=== PATIENT | female | born 1980 | race Caucasian/White ===

== ENCOUNTER 2019-08-23 20:02 | Emergency (ER) | payer OTHER, SELFPAY ==
--- NOTE | ~2019-08-23 | XR_ITS ---
EXAMINATION: XR tibia fibula RT 2V DATE: 08/23/2019 21:01 INDICATION: Right lower leg pain and swelling TECHNIQUE: Anteroposterior and lateral views of the right tibia and fibula were obtained. COMPARISON: None. FINDINGS: Alignment is normal. No fracture. Joint spaces are normal. Soft tissues are unremarkable. No right kn ee or ankle joint effusion. IMPRESSION: 1. Negative right tibia/fibula radiographs. Reviewed, dictated and finalized at location A.
[2019-08-23 20:04] VITALS: BP 154/98; PULSE 105; RESP 20; TEMP 36.8; O2SAT 100
--- NOTE | 2019-08-23 21:09 | ED.LOWEXIN ---
HPI - Extremity Injury (Lower) General Chief Complaint: Extremity Injury, Lower Stated Complaint: right lower extremity Time Seen by Provider: 08/23/19 20:09 History of Present Illness HPI Narrative: Patient is a 39-year-old female who presents to the ER with right calf pain. Ongoing for 1 week. No trauma. Mainly tender over the lateral calf proximally. Reports she was seen at [facility] yesterday and received a venous Doppler ultrasound of her right lower extremity that was free of DVT. Patient reports she is unsure why she would be having this pain. Reports she does sit on the leg a lot but has not been recently due to the discomfort. Occasionally she will get swelling when she is standing for a while but then it will go down when she sits down or raises her leg. Occasionally will get some throbbing that goes into her foot. No focal weakness or paresthesias or numbness. No discoloration/fevers/chills. Related Data Allergies Allergy/AdvReac Type Severity Reaction Status Date / Time No Known Allergies Allergy Verified 08/23/19 20:03 Review of Systems Review of Systems: All systems reviewed & are unremarkable except as noted in HPI and below Constitutional: Constitutional: Denies chills, Denies fever(s) and Denies weakness Cardiovascular: Cardiovascular: Denies chest pain Respiratory: Respiratory: Denies cough and Denies dyspnea Musculoskeletal: Musculoskeletal: Denies arthralgias, Denies joint swelling and Reports muscle cramps Comments: RLE edema Integumentary/Breasts: Skin/Breast: Denies rash Neurologic: Denies focal weakness and Denies numbness PMFSH Past Medical History Medical History (Updated 08/23/19 @ 23:14 by Renny Marley MD) No pertinent past medical history Surgical History Surgical History (Updated 08/23/19 @ 21:15 by Renny Marley MD) H/O shoulder surgery H/O tubal ligation History of cholecystectomy Social History Social History (Updated 08/23/19 @ 21:15 by Renny Marley MD) Tobacco type: cigarettes Gender identity (if verbalized by the patient): Female Exam Narrative: Exam Narrative: GENERAL: Well-appearing, well-nourished, and in no acute distress. HEAD: Normocephalic, atraumatic. ENT: Mucous membranes moist. CHEST: Clear to auscultation. No respiratory distress. HEART: Regular rate and rhythm. Normal peripheral pulses. EXTREMITIES: Normal range of motion. Trace edema. Tender palpation right lateral calf. Calf is soft. No cellulitis. Normal dorsalis pedis and posterior tibial pulses. Brisk capillary refill in the toes. Normal strength at the knee and ankle. Sharp and soft touch intact. Back: No midline tenderness of the thoracic or lumbar spine. No reproducible paraspinal tenderness. SKIN: Warm, dry, no rash. NEURO: No focal deficits. Alert and oriented x3.. Course Course Emergency Course: Patient informed of results. Discharge home. Vital Signs Vital signs: Vital Signs Temperature 98.2 F 08/23/19 20:04 Pulse Rate 105 H 08/23/19 20:04 Respiratory Rate 20 08/23/19 20:04 Blood Pressure 154/98 H 08/23/19 20:04 Pulse Oximetry 100 08/23/19 20:04 Temperature 98.2 F 08/23/19 20:04 Pulse Rate 105 H 08/23/19 20:04 Respiratory Rate 20 08/23/19 20:04 Blood Pressure 154/98 H 08/23/19 20:04 Pulse Oximetry 100 08/23/19 20:04 MDM - Extremity Injury (Lower) Lab Data Result diagrams: 08/23/19 21:11 08/23/19 21:11 Labs: Lab Results 08/23/19 08/23/19 Range/Units 21:11 21:11 WBC 7.8 (4.5-10.0) K/mm3 RBC 4.39 (4.2-5.4) M/mm3 Hgb 13.3 (12.0-15.0) g/dL Hct 39.3 (37.0-47.0) % MCV 89.5 (80-100) fl MCH 30.3 (26-34) pg MCHC 33.8 (32-36) g/dl RDW 12.5 (11.5-14.5) % Plt Count 300 (150-375) k/mm3 MPV 8.7 (7.4-10.4) fl Immature Gran % (Auto) 0.3 (0-0.5) % Neut % (Auto) 58.3 (45.5-73.1) % Lymph % (Auto) 28.5 (18.3-44.2) % [place] % (Auto)
[2019-08-23] MEDS: KETOROLAC 30 MG/ML VIAL (*BKC) IV PUSH (21:10)
[2019-08-23 21:17] LABS: Basophils Absolute Auto 0.1 K/mm3 (0.0-0.1); Eosinophils Absolute Auto 0.2 K/mm3 (0-0.3); Eosinophils Percent Auto 2.4 % (0-4.4); Hematocrit 39.3 % (37.0-47.0); Hemoglobin 13.3 g/dL (12.0-15.0); Immature Granulocyte Absolute 0.02 K/mm3 (0.00-0.031); Immature Granulocyte Percent A 0.3 % (0-0.5); Lymphocytes Absolute Auto 2.23 K/mm3 (0.9-3.2); Lymphocytes Percent Auto 28.5 % (18.3-44.2); Mean Corpuscular HGB Conc 33.8 g/dl (32-36); Mean Corpuscular Hemoglobin 30.3 pg (26-34); Mean Corpuscular Volume 89.5 fl (80-100); Mean Platelet Volume 8.7 fl (7.4-10.4); Monocytes Absolute Auto 0.7 K/mm3 (0.1-0.6); Monocytes Percent Auto 9.5 % (2.6-8.5); Neutrophils Absolute Auto 4.6 K/mm3 (1.3-6.7); Neutrophils Percent Auto 58.3 % (45.5-73.1); Platelet Count Result 300 k/mm3 (150-375); Red Blood Count 4.39 M/mm3 (4.2-5.4); Red Cell Distribution Width 12.5 % (11.5-14.5); White Blood Count 7.8 K/mm3 (4.5-10.0)
[2019-08-23 21:28] LABS: Blood Urea Nitrogen 9 mg/dL (7-17); Calcium 9.1 mg/dL (8.4-10.2); Carbon Dioxide 27 mmol/L (22-30); Chloride 105 mmol/L (98-107); Creatine Kinase 55 U/L (30-135); Estimated Glomerular Filt Rate > 60; Glucose 96 mg/dL (65-105); Potassium 3.9 mmol/L (3.4-5.0); Sodium 136 mmol/L (137-145)
[2019-08-24 00:31] VITALS: BP 132/70; PULSE 78; RESP 18; O2SAT 98
== END 2019-08-24 00:32 | disposition home or self-care (01) ==
PROVIDERS: Emergency Provider Emergency Medicine; PCP Internal Medicine
DX: S86.911A Strain of unspecified muscle(s) and tendon(s) at lower leg level, right leg, initial encounter (principal); X58.XXXA Exposure to other specified factors, initial encounter
CPT/HCPCS: 36415; 73590; 80048; 82550; 85025; 96374; 99284; J1885

== ENCOUNTER 2020-11-26 16:53 | Outpatient (CLI) | payer OTHER, SELFPAY ==
--- NOTE | ~2020-11-26 | US_ITS ---
US venous doppler LE RT DATE: 11/26/2020 17:26 INDICATION: Swelling and lump of right lower extremity TECHNIQUE: Real-time and color flow imaging and Doppler analysis COMPARISON: None FINDINGS: A 3.3 x 1.4 x 1.3 cm right popliteal cyst is noted. Greater saphenous vein is patent. There is spontaneous and phasic flow and normal augmentation and co nataly flow signal and normal compression of the deep veins of the right lower extremity. IMPRESSION: No evidence of deep venous thrombosis Right popliteal cyst Reviewed, dictated and finalized at [facility]. Reviewed, dictated and finalized at location A.
== END 2020-11-26 16:54 | disposition home or self-care (01) ==
PROVIDERS: PCP Internal Medicine; Visit Provider Internal Medicine
DX: R22.40 Localized swelling, mass and lump, unspecified lower limb (principal); M71.21 Synovial cyst of popliteal space [Baker], right knee
CPT/HCPCS: 93971

== ENCOUNTER 2023-04-15 08:41 | Emergency (ER) | payer SELFPAY ==
--- NOTE | ~2023-04-15 | CT_ITS ---
EXAMINATION: CT abdomen pelvis w con DATE: 04/15/2023 10:16 INDICATION: Left flank pain, chills, urinary tract infection TECHNIQUE: Computed tomography (CT) of the abdomen and pelvis was performed with 100 CC Omnipaque 350 intravenous contrast. Automated exposure control and iterative reconstruction technique were employe d. Exam dose: 1192.36 mGy-cm total exam DLP. COMPARISON: 02/25/2013 CT abdomen pelvis FINDINGS: The lung bases are clear of infiltrate or consolidation. Heart size is within normal range. No pericardial or pleural effusion. Small sliding hiatal hernia. Status post cholecystectomy. No hepatic, splenic, pancreatic, adrenal or renal space-occupying mass lesion is detected. Normal enh ancement of the kidneys. No urinary tract calculus or hydroureteronephrosis. Normal caliber and mild atherosclerotic change of the abdominal aorta. No intraperitoneal or retroper itoneal or pelvic mass lesion or adenopathy or ascites. 1.9 cm left ovarian cyst. Uterus and adnexal areas and urinary bladder are otherwise unremarkable. There is a prominent amount fecal material in the colon. No bowel obstruction, bowel wall thickening, pneumatosis or intraperitoneal free air is detected. Is no evidence of appendicitis. Small bilateral fat-containing inguinal hernias. Included skeletal structures are unremarkable. IMPRESSION: Status post cholecystectomy Small sliding hiatal hernia 1.9 cm left ovarian cyst Reviewed, dictated and finalized at [facility]. Reviewed, dictated and finalized at location A. [employer]
[2023-04-15 08:49] VITALS: BP 155/89; PULSE 100; RESP 16; TEMP 37.1; O2SAT 99
[2023-04-15 09:08] LABS: Appearance Urine Cloudy (Clear); Bacteria Urine 2+ /hpf; Bilirubin Urine Negative (Negative); Blood Urine 2+ (Negative); Color Urine Dark Yellow (Yellow); Glucose Urine UA Negative (Negative); Ketones Urine Trace mg/dL (Negative); Leukocyte Esterase Ur Trace LEU/UL (Negative); Nitrate Urine Negative (Negative); Non Pathogenic Casts 0-2; Protein Urine Negative (Negative); RBC Urine 0-2 /hpf (0-2); Specific Grav Ur 1.026 (1.001-1.035); Squamous Epithelial Cell Urine Many /hpf (Few); pH Urine 5.5 (5.0-9.0)
[2023-04-15 09:42] LABS: Basophils Percent Auto 0.6 % (0.2-1.2); Eosinophils Absolute Auto 0.1 K/mm3 (0-0.3); Eosinophils Percent Auto 2.7 % (0-4.4); Hematocrit 40.2 % (37.0-47.0); Immature Granulocyte Absolute 0.02 K/mm3 (0.00-0.031); Immature Granulocyte Percent A 0.4 % (0-0.5); Lymphocytes Absolute Auto 0.95 K/mm3 (0.9-3.2); Lymphocytes Percent Auto 19.9 % (18.3-44.2); Mean Corpuscular HGB Conc 32.3 g/dl (32-36); Mean Corpuscular Hemoglobin 29.7 pg (26-34); Mean Corpuscular Volume 91.8 fl (80-100); Mean Platelet Volume 8.6 fl (7.4-10.4); Monocytes Absolute Auto 0.6 K/mm3 (0.1-0.6); Monocytes Percent Auto 13.4 % (2.6-8.5); Platelet Count Result 240 k/mm3 (150-375); Red Blood Count 4.38 M/mm3 (4.2-5.4); Red Cell Distribution Width 12.4 % (11.5-14.5); White Blood Count 4.8 K/mm3 (4.5-10.0)
--- NOTE | 2023-04-15 09:50 | ED.FEMALEGU ---
HPI - Female Genitourinary General Chief complaint: Urogenital-Female Stated complaint: I think I have a UTI Time Seen by Provider: 04/15/23 09:11 Source: patient Mode of arrival: ambulatory Limitations: no limitations History of Present Illness HPI Narrative: This is a 42 year old female that presents to the ER for left flank pain and chills. Ongoing over the last week. Reports history of UTIs and was concerned she had one. Denies fevers or vomiting. Related Data Allergies Allergy/AdvReac Type Severity Reaction Status Date / Time No Known Allergies Allergy Verified 04/15/23 08:48 Review of Systems Review of Systems: CONSTITUTIONAL: Denies fever GASTROINTESTINAL: Reports abdominal pain. Denies nausea, vomiting, or diarrhea. GENITOURINARY: Denies dysuria or hematuria. All systems reviewed & are unremarkable except as noted in HPI and below PMFSH Past Medical History Medical History (Updated 04/15/23 @ 11:35 by Corine Kimbrough PA-C) No pertinent past medical history Surgical History Surgical History (Updated 08/23/19 @ 21:15 by Renny Marley MD) H/O shoulder surgery H/O tubal ligation History of cholecystectomy Social History Social History (Updated 08/23/19 @ 21:15 by Renny Marley MD) Tobacco type: cigarettes Gender identity (if verbalized by the patient): Female Exam Narrative: GENERAL: Well-appearing, well-nourished, and in no acute distress. HEAD: Normocephalic, atraumatic. EYES: EOMI. CHEST: Clear to auscultation. No respiratory distress. No wheezes rales or rhonchi HEART: Regular rate and rhythm. No murmur heard. Normal peripheral pulses. ABDOMEN: Soft, nontender, nondistended, normal active bowel sounds. Left sided CVA tenderness EXTREMITIES: Normal range of motion. No edema. SKIN: Warm, dry, no rash. NEURO: No focal deficits. Alert and oriented x3. PSYCH: Normal mood and affect Course Course Emergency Course: Patient updated on workup and agrees with plan of care Vital Signs Vital signs: Vital Signs Temperature 98.7 F 04/15/23 08:49 Pulse Rate 100 04/15/23 08:49 Respiratory Rate 16 04/15/23 08:49 Blood Pressure 155/89 H 01/07/24 08:49 Pulse Oximetry 99 04/15/23 08:49 Temperature 98.7 F 04/15/23 08:49 Pulse Rate 100 04/15/23 08:49 Respiratory Rate 16 04/15/23 08:49 Blood Pressure 155/89 H 04/15/23 08:49 Pulse Oximetry 99 04/15/23 08:49 MDM - Female Genitourinary MDM Narrative Medical decision making narrative: Patient presents to the emergency department for left flank pain and chills. Ongoing over the last week. She is afebrile and nontoxic appearing. Her vitals are stable. CBC without leukocytosis. Metabolic panel without concerning findings. UA with evidence of infection. This will be sent for culture. test is negative. CT abdomen and pelvis is without acute findings. Shows a small left ovarian cyst. Patient was updated on her workup. Given 1st dose of antibiotics IV in the ED. Will be sent with oral antibiotics. She is to follow up with primary provider. She was given warnings to return to the ER Differential Diagnosis Differential diagnosis: Likely urinary tract infection and other (kidney stone) Lab Data Attestation: I reviewed the patient's lab results. 04/15/23 09:30 04/15/23 09:30 Labs: Lab Results 04/15/23 04/15/23 Range/Units 08:55 09:30 WBC 4.8 (4.5-10.0) K/mm3 RBC 4.38 (4.2-5.4) M/mm3 Hgb 13.0 (12.0-15.0) g/dL Hct 40.2 (37.0-47.0) % MCV 91.8 (80-100) fl MCH 29.7 (26-34) pg MCHC 32.3 (32-36) g/dl RDW 12.4 (11.5-14.5) % Plt Count 240 (150-375) k/mm3 MPV 8.6 (7.4-10.4) fl Immature Gran % (Auto) 0.4 (0-0.5) % Neut % (Auto) 63.0 (45.5-73.1) % Lymph % (Auto) 19.9 (18.3-44.2) % [place] % (Auto) 13.4 H (2.6-8.5) % Eos % (Auto) 2.7 (0-4.4) % Baso % (Auto) 0.6 (0.2-1.2) % Lymph # (Auto)
[2023-04-15 09:52] LABS: Anion Gap 8 mmol/L (8-16); Blood Urea Nitrogen 10 mg/dL (7-17); Calcium 8.6 mg/dL (8.4-10.2); Carbon Dioxide 25 mmol/L (22-30); Chloride 103 mmol/L (98-107); Estimated CRCL calculation 134 ml/min; Estimated Glomerular Filt Rate > 60; Glucose 128 mg/dL (65-110); Potassium 3.7 mmol/L (3.4-5.0); Sodium 136 mmol/L (137-145)
[2023-04-15 09:55] LABS: Add Urine Microscopic? YES
[2023-04-15] MEDS: KETOROLAC 15 MG/ML VIAL (*BKC) IV PUSH (11:46)
[2023-04-15 11:50] VITALS: BP 128/86; PULSE 74; RESP 16; O2SAT 99
== END 2023-04-15 11:51 | disposition home or self-care (01) ==
PROVIDERS: Emergency Medicine; Emergency Provider Physician Assistant; PCP Internal Medicine
DX: N10 Acute pyelonephritis (principal); N83.202 Unspecified ovarian cyst, left side; F17.210 Nicotine dependence, cigarettes, uncomplicated; Z87.440 Personal history of urinary (tract) infections; Z90.49 Acquired absence of other specified parts of digestive tract; K44.9 Diaphragmatic hernia without obstruction or gangrene
CPT/HCPCS: 36415; 74177; 80048; 81001; 81025; 85025; 87077; 87086; 87186; 96365; 96375; 99284; J0696; J1885; Q9967

== ENCOUNTER 2023-04-17 08:23 | Emergency (ER) | payer SELFPAY ==
[2023-04-17 08:25] VITALS: BP 147/109; PULSE 97; RESP 18; TEMP 37; O2SAT 100
--- NOTE | 2023-04-17 09:26 | ED.GENADULT ---
HPI - General Adult General Chief complaint: Unspecified Stated complaint: Needs new medication Time Seen by Provider: 04/17/23 09:00 Source: patient and old records reviewed Mode of arrival: ambulatory Limitations: no limitations History of Present Illness HPI narrative: Patient is a 42-year-old female who presents to the ED wanting new antibiotic for UTI. Patient reports she was seen in the ED here on Sunday and diagnosed with a urinary tract infection. She was started on cefdinir. Patient states the antibiotics have made her feel nauseous, lightheaded. She was told to stop the antibiotics by the pharmacist. She is here wanting a new antibiotic. Per records, urine culture did grow out E coli. Patient reports history of frequent UTIs. She has tolerated Bactrim in the past. She denies any other issues. Denies abdominal pain, vomiting, back or flank pain, fevers. Related Data Allergies Allergy/AdvReac Type Severity Reaction Status Date / Time No Known Allergies Allergy Verified 04/15/23 08:48 Review of Systems Review of Systems: CONSTITUTIONAL: Denies fever, chills, or sweats. GASTROINTESTINAL: Denies abdominal pain, nausea, vomiting, or diarrhea. GENITOURINARY: See HPI. MUSCULOSKELETAL: Denies back pain All systems reviewed & are unremarkable except as noted in HPI and below PMFSH Past Medical History Medical History No pertinent past medical history Surgical History Surgical History H/O shoulder surgery H/O tubal ligation History of cholecystectomy Social History Social History Tobacco type: cigarettes Gender identity (if verbalized by the patient): Female Exam Narrative: GENERAL: Well appearing, well-nourished, non-toxic, in no acute distress. HEAD: Normocephalic, atraumatic. RESPIRATORY: Airway patent, respirations nonlabored. Clear to auscultation bilaterally, no rales, rhonchi, wheezing. CARDIOVASCULAR: Regular rate and rhythm. ABDOMINAL: Soft, nontender, nondistended. Normoactive BS. MUSCULOSKELETAL: Moves all extremities. No gross deformities. SKIN: Warm, dry, normal color. NEURO: A&O X3. Speech clear. PSYCHIATRIC: Appropriate mood and affect. Normal interaction. Course Vital Signs Vital signs: Vital Signs Temperature 98.6 F 04/17/23 08:25 Pulse Rate 97 04/17/23 08:25 Respiratory Rate 18 04/17/23 08:25 Blood Pressure 147/109 H 04/17/23 08:25 Pulse Oximetry 100 04/17/23 08:25 Temperature 98.6 F 04/17/23 08:25 Pulse Rate 97 04/17/23 08:25 Respiratory Rate 18 04/17/23 08:25 Blood Pressure 147/109 H 04/17/23 08:25 Pulse Oximetry 100 04/17/23 08:25 Medical Decision Making MDM Narrative Medical decision making narrative: Here on Sunday UTI, adverse reaction to cefdinir. Has tolerated Bactrim in the past. E coli on urine culture. Will switch to Bactrim. Patient without any other complaints or systemic signs of infection to suggest need for further labs or imaging at this time. Given return precautions. Medical Records Medical records reviewed: Yes I reviewed the external patient's medical records. Vital Signs Vital Signs: Vital Signs Temperature 98.6 F 04/17/23 08:25 Pulse Rate 97 04/17/23 08:25 Respiratory Rate 18 04/17/23 08:25 Blood Pressure 147/109 H 04/17/23 08:25 Pulse Oximetry 100 04/17/23 08:25 Temperature 98.6 F 04/17/23 08:25 Pulse Rate 97 04/17/23 08:25 Respiratory Rate 18 04/17/23 08:25 Blood Pressure 147/109 H 04/17/23 08:25 Pulse Oximetry 100 04/17/23 08:25 Discharge Plan Discharge Clinical Impression: UTI (urinary tract infection) Qualifiers: Urinary tract infection type: acute cystitis Hematuria presence: with hematuria Qualified Code(s): N30.01 - Acute cystitis with hematuria Adverse
[2023-04-17 09:42] VITALS: BP 132/90; PULSE 93; RESP 18; TEMP 36.7; O2SAT 97
== END 2023-04-17 09:43 | disposition home or self-care (01) ==
PROVIDERS: Emergency Provider Physician Assistant; PCP Internal Medicine
DX: N30.01 Acute cystitis with hematuria (principal); R11.0 Nausea; T36.1X5A Adverse effect of cephalosporins and other beta-lactam antibiotics, initial encounter
CPT/HCPCS: 99283

== ENCOUNTER 2023-09-01 08:23 | Emergency (ER) | payer SELFPAY ==
[2023-09-01] VITALS (12 sets, daily range): BP systolic 120–143; BP diastolic 74–107; PULSE 78–99; RESP 11–27; TEMP 36.7; O2SAT 94–100
[2023-09-01] MEDS: IPRATROPIUM 0.5 MG/ALBUTEROL SULFATE 2.5 MG AMPUL.NEB 3 ML INHALATION (08:42)
--- NOTE | 2023-09-01 09:13 | ED.ASTHMA ---
HPI - Asthma General Chief Complaint: Asthma Stated Complaint: ASTHMA Time Seen by Provider: 09/01/23 08:55 History of Present Illness HPI Narrative: Patient is a 43-year-old female who presents to the emergency department this complaining of an asthma exacerbation. Patient states that she has not to use her inhaler until recently and for 3 years her asthma has not bothered her. Patient was at work this and started to feel short of breath. EMS was called and patient was brought to our facility for further evaluation. EMS did administer a DuoNeb breathing treatment, magnesium and Decadron. Upon arrival to our emergency department, patient states that she feels much better. She is denying any chest pain or shortness of breath at this time, denies any fevers or chills, any nausea or vomiting, any abdominal pain. Patient denies any additional symptoms or concerns at this time. Related Data Allergies Allergy/AdvReac Type Severity Reaction Status Date / Time cefdinir Allergy Nausea and Verified 09/01/23 08:30 Vomiting coban Allergy Rash Uncoded 09/01/23 08:30 Review of Systems Review of Systems: All systems are reviewed and are negative unless stated otherwise in the HPI. [facility] Past Medical History Medical History No pertinent past medical history Surgical History Surgical History H/O shoulder surgery H/O tubal ligation History of cholecystectomy Social History Social History Tobacco type: cigarettes Gender identity (if verbalized by the patient): Female Exam Narrative: General: Alert, awake, afebrile, anxious. Neck: Trachea midline, no JVD, no lymphadenopathy. Cardiovascular: Regular rate and rhythm, no murmurs, rubs or gallops, no peripheral edema. Respiratory: Clear to auscultation bilaterally, no tachypnea, no wheezing, no respiratory distress. Abdomen: Soft, nontender, nondistended, no rebound, no guarding, no peritoneal signs. Musculoskeletal: No joint swelling or deformity, normal muscle tone. Skin: No rashes or petechia, no signs of infection. Psychiatric: Alert and oriented, normal behavior and judgment for situation. Neurological: Alert and oriented to person, place, and time. Follows all commands. No focal deficits, speech is clear and fluent. Course Vital Signs Vital signs: Vital Signs Temperature 98.0 F 09/01/23 08:23 Pulse Rate 98 09/01/23 08:23 Respiratory Rate 21 H 09/01/23 08:23 Blood Pressure 127/99 H 09/01/23 08:23 Pulse Oximetry 96 09/01/23 08:23 Oxygen Delivery Room Air 09/01/23 08:23 Temperature 98.0 F 09/01/23 08:23 Pulse Rate 81 09/01/23 09:16 Respiratory Rate 18 09/01/23 09:16 Blood Pressure 120/74 09/01/23 09:16 Pulse Oximetry 96 09/01/23 09:16 Oxygen Delivery Room Air 09/01/23 08:32 MDM - Asthma MDM Narrative Medical decision making narrative: The patient was evaluated by myself in the emergency department. History is obtained from patient who is an independent historian and physical exam was performed. External medical records were reviewed at this time. IV was established and pertinent tests were ordered. Lung auscultation revealed no audible wheezing. Patient was administered a DuoNeb breathing treatment at this time. Patient is refusing any blood work at this time stating that she does not want any additional pills and feels fine and would like to be discharged. Patient is requesting an Atrovent script. Differential diagnosis considerations include acute anxiety reaction versus asthma exacerbation. Comorbidities impacting this visit include history of asthma. I have evaluated and discussed social determinants of health with the patient that could potentially impact subsequent diagnosis and treatment plans. On repeat assessment of the patie
== END 2023-09-01 09:35 | disposition home or self-care (01) ==
PROVIDERS: Emergency Provider Emergency Medicine; PCP Internal Medicine
DX: J45.901 Unspecified asthma with (acute) exacerbation (principal); F17.210 Nicotine dependence, cigarettes, uncomplicated; Z90.49 Acquired absence of other specified parts of digestive tract
CPT/HCPCS: 94640; 99284

== ENCOUNTER 2023-10-22 17:08 | Emergency (ER) | payer SELFPAY ==
[2023-10-22 17:13] VITALS: BP 148/106; PULSE 99; RESP 24; TEMP 36.4; O2SAT 100
--- NOTE | 2023-10-22 17:19 | ED.DENTAL ---
HPI - Dental/Oral General Chief complaint: Dental/Oral Stated complaint: tooth infection Time Seen by Provider: 10/22/23 17:18 Source: patient Mode of arrival: ambulatory Limitations: no limitations History of Present Illness HPI Narrative: This is a 43-year-old female that presents to the emergency department for dental pain. Ongoing over the last couple of days. Reports she was told by dentist the tooth needs to be pulled, but she was unable to afford it. Reports some swelling in the area. Denies fevers. Complaint: tooth pain Location: Tooth # (29) Related Data Allergies Allergy/AdvReac Type Severity Reaction Status Date / Time cefdinir Allergy Nausea and Verified 10/22/23 17:12 Vomiting Review of Systems Review of Systems: CONSTITUTIONAL: Denies fever ENT: Reports dentalgia All systems reviewed & are unremarkable except as noted in HPI and below PMFSH Past Medical History Medical History No pertinent past medical history Surgical History Surgical History H/O shoulder surgery H/O tubal ligation History of cholecystectomy Social History Social History Tobacco type: cigarettes Gender identity (if verbalized by the patient): Female Exam Narrative: GENERAL: Well-appearing, well-nourished, and in no acute distress. HEAD: Normocephalic, atraumatic. EYES: EOMI. ENT: Nares clear, no rhinorrhea or epistaxis. Mucous membranes moist. Oropharynx without tonsillar hypertrophy exudate or other lesions. Poor dentition. Tooth number 29 tender to palpation. No surrounding edema or fluctuance to suggest abscess. No trismus. Floor of mouth soft NECK: Supple. Right sided submandibular adenopathy CHEST: Clear to auscultation. No respiratory distress. No wheezes rales or rhonchi HEART: Regular rate and rhythm. No murmur heard. Normal peripheral pulses. ABDOMEN: Soft, nontender, nondistended, normal active bowel sounds. EXTREMITIES: Normal range of motion. No edema. SKIN: Warm, dry, no rash. NEURO: No focal deficits. Alert and oriented x3. PSYCH: Normal mood and affect Course Course Emergency Course: Patient agrees with plan of care Vital Signs Vital signs: Vital Signs Temperature 97.6 F 10/22/23 17:13 Pulse Rate 99 10/22/23 17:13 Respiratory Rate 24 H 10/22/23 17:13 Blood Pressure 148/106 H 10/22/23 17:13 Pulse Oximetry 100 10/22/23 17:13 Oxygen Delivery Room Air 10/22/23 17:13 Temperature 97.6 F 10/22/23 17:13 Pulse Rate 99 10/22/23 17:13 Respiratory Rate 24 H 10/22/23 17:13 Blood Pressure 148/106 H 10/22/23 17:13 Pulse Oximetry 100 10/22/23 17:13 Oxygen Delivery Room Air 10/22/23 17:13 MDM - Dental/Oral MDM Narrative Medical decision making narrative: Patient presents to the emergency department for dentalgia ongoing over the last several days. She is afebrile and nontoxic appearing. No evidence for abscess at this time. Will be started on oral antibiotics and was instructed to have continued follow-up with her dentist. She was given warnings to return to the ER Differential Diagnosis Differential diagnosis: Likely dental caries, toothache and dental abscess Critical Care Time Critical Care Time Critical Care Time: No Discharge Plan Discharge Clinical Impression: Toothache Patient Disposition: Home, Self-Care Condition: Stable Instructions: Antibiotic Form, Toothache (ED) Additional Instructions: Return to the Emergency Department if you experience fever >101, increasing swelling and redness of your tooth, or any other symptoms that are concerning to you Take antibiotic as prescribed. Tylenol or Ibuprofen as needed for pain. You can apply a dab of clove oil to a Qtip and apply to the tooth to help numb the area Follow up with your dentist Pre
[2023-10-22 17:50] VITALS: BP 145/97; PULSE 90; RESP 20; O2SAT 98
== END 2023-10-22 18:35 | disposition home or self-care (01) ==
PROVIDERS: Emergency Provider Physician Assistant
DX: K08.89 Other specified disorders of teeth and supporting structures (principal); Z90.49 Acquired absence of other specified parts of digestive tract; F17.210 Nicotine dependence, cigarettes, uncomplicated
CPT/HCPCS: 99283

== ENCOUNTER 2023-12-08 11:38 | Emergency (ER) | payer SELFPAY ==
--- NOTE | ~2023-12-08 | XR_ITS ---
EXAMINATION: XR chest 2V 12/08/2023 12:06 INDICATION: Asthma attack PROCEDURE: 2 view chest COMPARISON: No prior studies for comparison. FINDINGS: The lungs are clear. The cardiomediastinal silhouette is within normal limits. There are no pleural effusions. There is no pneumothorax suspected. IMPRESSION: 1: NO ACUTE CARDIOPULMONARY DISEASE. Reviewed, dictated and finalized at location B.
[2023-12-08 11:39] VITALS: PULSE 90; RESP 16; O2SAT 99
[2023-12-08 11:42] VITALS: BP 142/108; TEMP 36.6; O2SAT 99
--- NOTE | 2023-12-08 11:48 | ED.ASTHMA ---
HPI - Asthma General Chief Complaint: Asthma Stated Complaint: SOB History of Present Illness HPI Narrative: 43-year-old female history of asthma present to the emergency department for evaluation after having an asthma attack. Patient states that she was exerting herself at work began having some shortness of breath and then she states that her anxiety kicked in and worsen her respiratory status. Patient was doing a breathing treatment when EMS arrived. In route patient was treated with an additional breathing treatment along with Mag. Upon arrival to the emergency department patient states that her symptoms have improved patient denies any complaints. Patient states she was having some shortness of breath with this attack but denies any associated chest pain. States he does have a history of asthma and does continue to smoke. Patient states she does not have health insurance and is unable to afford her medications. Related Data Allergies Allergy/AdvReac Type Severity Reaction Status Date / Time cefdinir Allergy Nausea and Verified 12/08/23 11:42 Vomiting Review of Systems Review of Systems: All systems reviewed & are unremarkable except as noted in HPI and below PMFSH Past Medical History Medical History No pertinent past medical history Surgical History Surgical History H/O shoulder surgery H/O tubal ligation History of cholecystectomy Social History Social History Tobacco type: cigarettes Gender identity (if verbalized by the patient): Female Exam Narrative: APPEARANCE: Well appearing, no pain, no distress, well-nourished. HEAD: normocephalic, atraumatic. EYES: PERRLA/EOMI, conjunctivae clear. NOSE: Normal no drainage EARS:TMS clear with good light reflex. THROAT: Pharynx clear, no exudate. NECK: Supple. No adenopathy, no masses. RESPIRATORY: Airway patent, respirations nonlabored. Clear to auscultation bilaterally, no rales, rhonchi, wheezing. CARDIOVASCULAR: Regular rate and rhythm without murmurs rubs or gallops. ABDOMINAL: Soft, nontender, nondistended, normal bowel sounds MUSCULOSKELETAL: Moves all extremities. Strength/ROM intact, No edema, No calf tenderness. NEURO: Alert. Cranial nerves II through XII intact. Grossly intact SKIN: Warm, dry. Normal Color Course Course Emergency Course: Patient felt improved treatment and requested discharge to home Vital Signs Vital signs: Vital Signs Pulse Rate 90 12/08/23 11:39 Respiratory Rate 16 12/08/23 11:39 Pulse Oximetry 99 12/08/23 11:39 Oxygen Delivery Room Air 12/08/23 11:39 Temperature 97.9 F 12/08/23 11:42 Pulse Rate 73 12/08/23 12:45 Respiratory Rate 16 12/08/23 12:45 Blood Pressure 127/86 12/08/23 12:48 Pulse Oximetry 96 12/08/23 12:45 Oxygen Delivery Room Air 12/08/23 11:42 MDM - Asthma MDM Narrative Medical decision making narrative: 43-year-old female presented emergency department for evaluation for an asthma exacerbation. Patient did feel improved upon arrival emergency department. Chest x-ray showed no acute cardiopulmonary abnormality. Patient was negative for influenza RSV and for COVID. Patient was started on prednisone emergency department discharged home with prednisone. Patient was also provided albuterol inhaler. Patient was educated on importance of refraining from smoking and patient was strongly encouraged close follow-up with her primary care physician P Differential Diagnosis Differential diagnosis: Likely Acute exacerbation, Status asthmaticus, Acute asthmatic bronchitis, Pneumonia, COPD exacerbation and other Lab Data Attestation: I reviewed the patient's lab results. Labs: Lab Results 12/08/23 Range/Units 12:07 Influenza A (RT-PCR) Negative (Negative) Influenza B (RT-PCR) Negati
[2023-12-08] MEDS: predniSONE 20 MG TABLET 40 MG PO (11:53)
[2023-12-08 12:45] VITALS: PULSE 73; RESP 16; O2SAT 96
[2023-12-08 12:48] VITALS: BP 127/86
[2023-12-08 12:50] LABS: Influenza A QL RT-PCR Negative (Negative); Influenza B QL RT-PCR Negative (Negative); RSV RNA, RT-PCR Negative (Negative); SARS-CoV-2 RNA PCR Negative (Negative)
== END 2023-12-08 13:45 | disposition home or self-care (01) ==
PROVIDERS: Emergency Provider Emergency Medicine
DX: J45.901 Unspecified asthma with (acute) exacerbation (principal); Z20.822 Contact with and (suspected) exposure to COVID-19
CPT/HCPCS: 71046; 87637; 99283; J7512

== ENCOUNTER 2024-03-21 08:06 | Emergency (ER) | payer SELFPAY ==
--- NOTE | ~2024-03-21 | XR_ITS ---
XR chest 1V portable 03/21/2024 09:56 Indication: Cough Procedure: AP portable chest Comparison: 12/08/2023 Findings: Heart size normal. No focal air space disease, pulmonary edema, pleural effusion or suspect ed pneumothorax. Impression: 1: No acute cardiopulmonary disease. Reviewed, dictated and finalized at location B. PULLER Impression: 1: No acute cardiopulmonary disease.
[2024-03-21 08:36] VITALS: BP 146/90; PULSE 93; RESP 19; TEMP 36.7; O2SAT 100
--- NOTE | 2024-03-21 09:28 | ED_ITS ---
HPI - URI/Sore Throat General Chief Complaint: Upper Respiratory Infection <Tariq Santos PA-C - Last Filed: 03/21/24 10:33> Stated Complaint: URI symptoms <Tariq aSntos PA-C - Last Filed: 03/21/24 10:33> Time Seen by Provider: 03/21/24 09:18 <Tariq Santos PA-C - Last Filed: 03/21/24 10:33> Source: patient <OLENA Arthur Last Filed: 03/21/24 10:33> Mode of arrival: ambulatory <Tariq Santos PA-C - Last Filed: 03/21/24 10:33> Limitations: no limitations <Tariq Santos PA-C - Last Filed: 03/21/24 10:33> History of Present Illness HPI Narrative: This is a 43-year-old female with PMH of asthma, regular cigarette smoker who presents to the ED for chief complaint of cough, congestion and feeling unwell over the past several days. Patient reports that she has had nasal congestion and ear fullness. States that she has been out of her inhalers feels that she is wheezing more. Denies chest pain, abdominal pain, nausea, vomiting, diarrhea or urinary complaints. Denies sore throat. <Tariq Santos PA-C - Last Filed: 03/21/24 10:33> Related Data Allergies/Adverse Reactions: Allergies Allergy/AdvReac Type Severity Reaction Status Date / Time cefdinir Allergy Nausea and Verified 12/08/23 11:42 Vomiting <Tariq Santos PA-C - Last Filed: 03/21/24 10:33> Review of Systems Review of Systems: All systems as dictated in HPI <Tariq Santos PA-C - Last Filed: 03/21/24 10:33> PMFSH Past Medical History Medical History: Medical History No pertinent past medical history <Tariq Santos PA-C - Last Filed: 03/21/24 10:33> Surgical History Surgical History: Surgical History H/O shoulder surgery H/O tubal ligation History of cholecystectomy <Tariq Santos PA-C - Last Filed: 03/21/24 10:33> Social History Social History: Social History Tobacco type: cigarettes Gender identity (if verbalized by the patient): Female <Tariq Santos PA-C - Last Filed: 03/21/24 10:33> Exam Narrative: GENERAL: Well-appearing, well-nourished, and in no acute distress. HEAD: Normocephalic, atraumatic. EYES: PERRLA and EOMI. ENT: Nares clear, no rhinorrhea or epistaxis. Mucous membranes moist. Oropharynx without tonsillar hypertrophy exudate or other lesions. NECK: Supple. No adenopathy or masses. CHEST: Mild expiratory wheezes bilaterally. No respiratory distress. 100% room air. HEART: Regular rate and rhythm. No murmur heard. Normal peripheral pulses. ABDOMEN: Soft, nontender, nondistended, normal active bowel sounds. MSK: Normal range of motion. No edema. SKIN: Warm, dry, no rash. NEURO: Alert and oriented x4. No focal deficits. PSYCH: Normal mood and affect. <Tariq Santos PA-C - Last Filed: 03/21/24 10:33> Course SHOT DROPPER/PA Physician Supervision I agree with midlevel documentation; I performed the medical decision making component of this evaluation. <Aranza Sung MD - Last Filed: 03/21/24 16:32> Vital Signs Vital signs: Vital Signs Temperature 98.0 F 03/21/24 08:36 Pulse Rate 93 03/21/24 08:36 Respiratory Rate 19 03/21/24 08:36 Blood Pressure 146/90 H 03/21/24 08:36 Pulse Oximetry 100 03/21/24 08:36 Temperature 98.0 F 03/21/24 08:36 Pulse Rate 80 03/21/24 10:14 Respiratory Rate 18 03/21/24 10:14 Blood Pressure 122/83 03/21/24 10:14 Pulse Oximetry 98 03/21/24 10:14 <Tariq Santos PA-C - Last Filed: 03/21/24 10:33> Vital Signs Temperature 98.0 F 03/21/24 08:36 Pulse Rate 93 03/21/24 08:36 Respiratory Rate 19 03/21/24 08:36 Blood Pressure 146/90 H 03/21/24 08:36 Pulse Oximetry 100 03/21/24 08:36 Temperature 98.0 F 03/21/24 08:36 Pulse Rate 80 03/21/24 10:14 Respiratory Rate 18 03/21/24 10:14 Blood Pressure 122/83 03/21/24 10:14 Pulse Oximetry 98 03/21/24 10:14 <Aranza Sung MD - Last Filed: 03/21/24 16:32> MDM - URI/Sore Throat MDM Narrative Medical decision making narrative: This is a 43-year-old female who presents to the ED for chief complaint of cough, congestion and URI symptoms.. Vitals are normal.. Exam is remarkable for the above. No respiratory distress. She does have some mild wheezing so DuoNeb was given. Viral swabs show positive RSV. Chest x-ray shows no acute findings. Presentation consistent with upper respiratory infection. Patient is out of her inhaler so albuterol was prescribed. Patient will be discharged in stable condition. Supportive measures discussed and return precautions given. Patient is understanding and agreeable with plan for discharge with PCP follow-up. <Tariq Santos PA-C - Last Filed: 03/21/24 10:33> Differential Diagnosis Differential diagnosis: Likely upper respiratory infection, otitis media, sinusitis, viral infection, bronchitis, influenza and pharyngitis <Tariq Santos PA-C - Last Filed: 03/21/24 10:33> Lab Data Labs: Lab Results 03/21/24 Range/Units 09:18 Influenza A (RT-PCR) Negative (Negative) Influenza B (RT-PCR) Negative (Negative) RSV (RT-PCR) Positive A (Negative) SARS-CoV-2 RNA (RT-PCR) Negative (Negative) <Tariq Santos PA-C - Last Filed: 03/21/24 10:33> Lab Results 03/21/24 Range/Units 09:18 Influenza A (RT-PCR) Negative (Negative) Influenza B (RT-PCR) Negative (Negative) RSV (RT-PCR) Positive A (Negative) SARS-CoV-2 RNA (RT-PCR) Negative (Negative) <Aranza Sung MD - Last Filed: 03/21/24 16:32> Discharge Plan Discharge Clinical Impression: Upper respiratory infection, Respiratory syncytial virus (RSV) <Tariq Santos PA-C - Last Filed: 03/21/24 10:33> Patient Disposition: Home, Self-Care <Tariq Santos PA-C - Last Filed: 03/21/24 10:33> Condition: Stable <Tariq Santos PA-C - Last Filed: 03/21/24 10:33> Instructions: Antibiotic Form <Tariq Santos PA-C - Last Filed: 03/21/24 10:33> Additional Instructions: Exam today shows viral swabs are positive for RSV. Please take your inhalers as prescribed and follow-up with PCP. Stay well hydrated at home and use Tylenol and ibuprofen for fevers. Symptoms should resolve over the next 1 week. If you have any new or worsening symptoms please return to the ER for further evaluation. <Tariq Santos PA-C - Last Filed: 03/21/24 10:33> Patient Language: Ghanaian <Tariq Santos PA-C - Last Filed: 03/21/24 10:33> Prescriptions: New albuterol sulfate 90 mcg/actuation HFA aerosol inhaler 2 puff inhalation QID PRN (Reason: shortness of breath or wheezing) Qty: 6.7 0RF No Action ibuprofen 800 mg tablet 800 mg PO TID Qty: 20 0RF cefdinir 300 mg capsule 300 mg PO Q12H 10 Days Qty: 20 0RF sulfamethoxazole-trimethoprim [Bactrim DS] 800-160 mg tablet 1 tablet PO Q12H 7 Days Qty: 14 0RF Atrovent HFA 17 mcg/actuation HFA aerosol inhaler 2 puff inhalation Q8H PRN (Reason: shortness of breath or wheezing) Qty: 12.9 0RF amoxicillin-pot clavulanate 875-125 mg tablet 1 tablet PO Q12H 7 Days Qty: 14 0RF prednisone 50 mg tablet 50 mg PO DAILY 5 Days Qty: 5 0RF albuterol sulfate 90 mcg/actuation HFA aerosol inhaler 1 inh inhalation QID PRN (Reason: shortness of breath or wheezing) Qty: 6.7 0RF <Tariq Santos PA-C - Last Filed: 03/21/24 10:33> Follow-up/Referrals: UNKNOWN,DOCTOR [Primary Care Provider] - <Tariq Santos PA-C - Last Filed: 03/21/24 10:33> Stand Alone Forms: Work/School Release IP <Tariq Santos PA-C - Last Filed: 03/21/24 10:33> Time of Disposition: 10:01 <Tariq Santos PA-C - Last Filed: 03/21/24 10:33> 10:01 <Aranza Sung MD - Last Filed: 03/21/24 16:32>
[2024-03-21] MEDS: IPRATROPIUM 0.5 MG/ALBUTEROL SULFATE 2.5 MG AMPUL.NEB 3 ML INHALATION (09:45)
[2024-03-21 09:47] VITALS: PULSE 88; RESP 20
[2024-03-21 09:58] LABS: Influenza A QL RT-PCR Negative (Negative); Influenza B QL RT-PCR Negative (Negative); RSV RNA, RT-PCR Positive (Negative); SARS-CoV-2 RNA PCR Negative (Negative)
[2024-03-21 10:14] VITALS: BP 122/83; PULSE 80; RESP 18; O2SAT 98
--- OUTSIDE RECORDS SUMMARY | 2024-03-21 12:00 | XMS_ITS | Data Portability ---
Author Organization [facility] CARLAKathie Address [address] [place] [address] Care Team Providers Care Packaging Assembler Name Role Phone HOMA JOSHI Primary Care Provider [phone] Assessment No assessment recorded. Plan of Treatment Reminders Order Date Submit Date Provider Last Modified By Organization Details Last Modified Time Details Appointments None recorded . Lab CMP, serum or plasma 2021 [facility], [address] [place] [address], [facility] [address], [place], [address], 17:09:39 CBC w/ auto diff 2021 [facility], [address] [place] [address], [address], [place], [address], 17:09:38 PT/PTT, plasma 2021 022 [facility], [address] [place] [address], [address], [place], [address], 17:09:40 Referral general surgeon referral 2020 021 ace Dominguez MD, [address] [facility], [address], [place], [address], 09:13:39 Procedures None recorded . Surgeries None recorded . Imaging US, duplex, venous, lower extremit y, complete 2021 022 [facility] ([facility]), [address] [place], [address], 2 10:17:55 US, doppler, arterial - Lower extremit ies. both sides. 2021 022 [facility] ([facility]), [address] [place], [address], 2 10:18:53 electroc ardiogra m 2022 023 [facility] ([facility]), [address] [place], [address], 3 15:30:16 Medication Orders Medrol (Rayo) 4 mg tablets in a dose pack 2020 [facility] #[id number], [address], [place], [id number], 3 15:29:00 Zithroma x Z-Rayo 250 mg tablet 2020 [facility] #95857, [address] , [place], [place], [id number], 3 15:28:53 albutero l sulfate HFA 90 mcg/actu ation aerosol inhaler 2020 [facility] #95980, [address], [place], [place], [id number], 3 15:30:14 benzonat ate 200 mg capsule 2020 021 [facility] #53559, [address], [place], [place], [id number], 1 12:32:25 Reglan 10 mg tablet 2020 021 [facility], [address], [place], [place], [id number], 15:29:34 Patient TargetsNo targets recorded. Patient Instructions Encounter Date Encounter Id Patient Instructions Last Modified By Organization Details Last Modified Time 02/24/2021 [id number] gastroesophageal reflux disease (GERD): care instructions [facility] Not available 02/24/2021 12:54:11 12/04/2022 [id number] Quitting Tobacco : Care Instructions si Not available 12/04/2022 16:19:16 A healthy lifest yle: care instructions [facility] Not available 12/04/2022 16:19:16 chronic obstruct abdiel pulmonary disease (COPD): care instructions [facility] Not available 12/04/2022 16:19:16 learning about c opd and how to prevent lung infections si Not available 12/04/2022 16:19:16 Reason for Referral General Surgeon Referral for Hiatal hernia Referring Physician: Homa Joshi, Internal Medicine, Encounter Date: 02/24/2021 Results Created Date Observation Date Name Description Value Unit Range Abnormal Flag Note LastModifiedBy Organization Detail LastModifiedTime 07/23/19 22 07/23/2021 CBC WITH DIFFE RENTI AL/PL ATELE T WBC 7.1 x10e3 /uL 3.4-10 .8 Not Available [facility] ([facility]) [address] [facility], [place], [address], 07/28/2021 17:09:38 07/23/19 22 07/23/2021 CBC WITH DIFFE RENTI AL/PL ATELE T RBC 4.93 x10e6 /uL 3.77-5 .28 Not Available [facility] ([facility]) [address] [facility], [place], [address], 07/28/2021 17:09:38 07/23/19 22 07/23/2021 CBC WITH DIFFE RENTI AL/PL ATELE T hemoglobin 14.6 g/dL 11.1-1 5.9 Not Available [facility] ([facility]) [address] [facility], [place], [address], 07/28/2021 17:09:38 07/23/19 22 07/23/2021 CBC WITH DIFFE RENTI AL/PL ATELE T hematocrit 43.1 % 34.0-4 6.6 Not Available [facility] ([facility]) [address] [facility], [place], [address], 07/28/2021 17:09:38 07/23/19 22 07/23/2021 CBC WITH DIFFE RENTI AL/PL ATELE T MCV 87 fL 79-97 Not Available [facility] ([facility]) [address] [facility], [place], [address], 07/28/2021 17:09:38 07/23/19 22 07/23/2021 CBC WITH DIFFE RENTI AL/PL ATELE T MCH 29.6 pg 26.6-3 3.0 Not Available [facility] ([facility]) [address] [facility], [place], [address], 07/28/2021 17:09:38 07/23/19 22 07/23/2021 CBC WITH DIFFE RENTI AL/PL ATELE T MCHC 33.9 g/dL 31.5-3 5.7 Not Available [facility] ([facility]) [address] [facility], [place], [address], 07/28/2021 17:09:38 07/23/19 22 07/23/2021 CBC WITH DIFFE RENTI AL/PL ATELE T RDW 12.2 % 11.7-1 5.4 Not Available [facility] ([facility]) [address] [facility], [place], [address], 07/28/2021 17:09:38 07/23/19 22 07/23/2021 CBC WITH DIFFE RENTI AL/PL ATELE T platelets 336 x10e3 /uL 150-45 0 Not Available [facility] ([facility]) [address] [facility], [place], [address], 07/28/2021 17:09:38 07/23/19 22 07/23/2021 CBC WITH DIFFE RENTI AL/PL ATELE T neutrophils 59 % not estab. Not Available [facility] ([facility]) [address] [facility], [place], [address], 07/28/2021 17:09:38 07/23/19 22 07/23/2021 CBC WITH DIFFE RENTI AL/PL ATELE T lymphs 26 % not estab. Not Available [facility] ([facility]) [address] [facility], [place], [address], 07/28/2021 17:09:38 07/23/19 22 07/23/2021 CBC WITH DIFFE RENTI AL/PL ATELE T monocytes 12 % not estab. Not Available [facility] ([facility]) [address] [facility], [place], [address], 07/28/2021 17:09:38 07/23/19 22 07/23/2021 CBC WITH DIFFE RENTI AL/PL ATELE T eos 2 % not estab. Not Available [facility] ([facility]) [address] [facility], [place], [address], 07/28/2021 17:09:38 07/23/19 22 07/23/2021 CBC WITH DIFFE RENTI AL/PL ATELE T basos 1 % not estab. Not Available [facility] (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) [address] [facility], [place], [address], 07/28/2021 17:09:38 07/23/19 22 07/23/2021 CBC WITH DIFFE RENTI AL/PL ATELE T neutrophils (absolute) 4.2 x10e3 /uL 1.4-7. 0 Not Available [facility] ([facility]) [address] [place], [address], 07/28/2021 17:09:38 07/23/19 22 07/23/2021 CBC WITH DIFFE RENTI AL/PL ATELE T lymphs (absolute) 1.9 x10e3 /uL 0.7-3. 1 Not Available [facility] ([facility]) [address] [place], [address], 07/28/2021 17:09:38 07/23/19 22 07/23/2021 CBC WITH DIFFE RENTI AL/PL ATELE T monocytes(ab solute) 0.9 x10e3 /uL 0.1-0. 9 Not Available [facility] ([facility]) [address] [place], [address], 07/28/2021 17:09:38 07/23/19 22 07/23/2021 CBC WITH DIFFE RENTI AL/PL ATELE T eos (absolute) 0.2 x10e3 /uL 0.0-0. 4 Not Available [facility] ([facility]) [address] [place], [address], 07/28/2021 17:09:38 07/23/19 22 07/23/2021 CBC WITH DIFFE RENTI AL/PL ATELE T baso (absolute) 0.1 x10e3 /uL 0.0-0. 2 Not Available [facility] ([facility]) [address] [place], [address], 07/28/2021 17:09:38 07/23/19 22 07/23/2021 CBC WITH DIFFE RENTI AL/PL ATELE T immature granulocytes 0 % not estab. Not Available [facility] ([facility]) [address] [place], [address], 07/28/2021 17:09:38 07/23/19 22 07/23/2021 CBC WITH DIFFE RENTI AL/PL ATELE T immature grans (abs) 0.0 x10e3 /uL 0.0-0. 1 Not Available [facility] (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) [address] [facility], [place], [address], 07/28/2021 17:09:38 07/23/19 22 07/23/2021 COMP. METAB OLIC PANEL (14) glucose 95 mg/dL 65-99 Not Available [facility] ([facility]) [address] [facility], [place], [address], 07/28/2021 17:09:39 07/23/19 22 07/23/2021 COMP. METAB OLIC PANEL (14) BUN 14 mg/dL 6-24 Not Available [facility] ([facility]) [address] [facility], [place], [address], 07/28/2021 17:09:39 07/23/19 22 07/23/2021 COMP. METAB OLIC PANEL (14) creatinine 0.71 mg/dL 0.57-1 .00 Not Available [facility] ([facility]) [address] [facility], [place], [address], 07/28/2021 17:09:39 07/23/19 22 07/23/2021 COMP. METAB OLIC PANEL (14) eGFR 108 mL/mi n/1.7 3 >59 Not Available [facility] ([facility]) [address] [place], [address], 07/28/2021 17:09:39 07/23/19 22 07/23/2021 COMP. METAB OLIC PANEL (14) BUN/creatini ne ratio 20 9-23 Not Available [facility] ([facility]) [address] [facility], [place], [address], 07/28/2021 17:09:39 07/23/19 22 07/23/2021 COMP. METAB OLIC PANEL (14) sodium 138 mmol/ L 134-14 4 Not Available [facility] ([facility]) [address] [facility], [place], [address], 07/28/2021 17:09:39 07/23/19 22 07/23/2021 COMP. METAB OLIC PANEL (14) potassium 4.9 mmol/ L 3.5-5. 2 Not Available [facility] ([facility]) [address] [facility], [place], [address], 07/28/2021 17:09:39 07/23/19 22 07/23/2021 COMP. METAB OLIC PANEL (14) chloride 103 mmol/ L 96-106 Not Available [facility] ([facility]) [address] [place], [address], 07/28/2021 17:09:39 07/23/19 22 07/23/2021 COMP. METAB OLIC PANEL (14) carbon dioxide, total 22 mmol/ L 20-29 Not Available [facility] ([facility]) [address] [place], [address], 07/28/2021 17:09:39 07/23/19 22 07/23/2021 COMP. METAB OLIC PANEL (14) calcium 9.6 mg/dL 8.7-10 .2 Not Available [facility] ([facility]) [address] [place], [address], 07/28/2021 17:09:39 07/23/19 22 07/23/2021 COMP. METAB OLIC PANEL (14) protein, total 6.7 g/dL 6.0-8. 5 Not Available [facility] ([facility]) [address] [place], [address], 07/28/2021 17:09:39 07/23/19 22 07/23/2021 COMP. METAB OLIC PANEL (14) albumin 4.4 g/dL 3.8-4. 8 Not Available [facility] ([facility]) [address] [place], [address], 07/28/2021 17:09:39 07/23/19 22 07/23/2021 COMP. METAB OLIC PANEL (14) globulin, total 2.3 g/dL 1.5-4. 5 Not Available [facility] ([facility]) [address] [place], [address], 07/28/2021 17:09:39 07/23/19 22 07/23/2021 COMP. METAB OLIC PANEL (14) A/G ratio 1.9 1.2-2. 2 Not Available [facility] ([facility]) [address] [place], [address], 07/28/2021 17:09:39 07/23/19 22 07/23/2021 COMP. METAB OLIC PANEL (14) bilirubin, total 0.4 mg/dL 0.0-1. 2 Not Available [facility] ([facility]) [address] [place], [address], 07/28/2021 17:09:39 07/23/19 22 07/23/2021 COMP. METAB OLIC PANEL (14) alkaline phosphatase 113 IU/L 44-121 Not Available [facility] ([facility]) [address] [facility], [place], [address], 07/28/2021 17:09:39 07/23/19 22 07/23/2021 COMP. METAB OLIC PANEL (14) AST (SGOT) 13 IU/L 0-40 Not Available [facility] ([facility]) [address] [facility], [place], [address], 07/28/2021 17:09:39 07/23/19 22 07/23/2021 COMP. METAB OLIC PANEL (14) ALT (SGPT) 15 IU/L 0-32 Not Available [facility] ([facility]) [address] [facility], [place], [address], 07/28/2021 17:09:39 07/23/19 22 07/28/2021 ABN PTT/A PTT REFLE XIVE PANEL thrombin time 15.7 sec Refer ence Range : 0.0 - 23.0 Not Available [facility] [address] [place], [address], 07/28/2021 17:09:40 07/23/19 22 07/28/2021 ABN PTT/A PTT REFLE XIVE PANEL prothrombin time 10.0 sec Refer ence Range : 18 years and older : 9.1 - 12.0 Not Available [facility] [address] [place], [address], 07/28/2021 17:09:40 07/23/19 22 07/28/2021 ABN PTT/A PTT REFLE XIVE PANEL INR 0.9 ratio Refer ence Range : >1 month : 0.9 - 1.2 Not Available [facility] [address] [place], [address], 07/28/2021 17:09:40 07/23/19 22 07/28/2021 ABN PTT/A PTT REFLE XIVE PANEL APTT 26.3 sec This test has not been valid ated for monit oring unfra ction ated hepar in thera py. aPTT- based thera peuti c range s for unfra ction ated hepar in thera py have not been estab ada grady Consi oneal order ing Hepar in anti- Xa (unfr actio nated ). Refer ence Range : 18 years and older : 22.9 - 30.2 Not Available [facility] [address] [place], [address], 07/28/2021 17:09:40 07/23/19 22 07/28/2021 ABN PTT/A PTT REFLE XIVE PANEL drvvt screen seconds 39.3 sec Refer ence Range : <= 47.0 Not Available [facility] [address] [place], [address], 07/28/2021 17:09:40 07/23/19 22 07/28/2021 ABN PTT/A PTT REFLE XIVE PANEL drvvt confirm seconds TNP sec Testi ng Not Indic ated Not indic ated Not Available [facility] [address] [place], [address], 07/28/2021 17:09:40 07/23/19 22 07/28/2021 ABN PTT/A PTT REFLE XIVE PANEL drvvt ratio TNP ratio Testi ng Not Indic ated Not indic ated Not Available [facility] [address] [place], [address], 07/28/2021 17:09:40 07/23/19 22 07/28/2021 ABN PTT/A PTT REFLE XIVE PANEL pathologist interpretati on TNP Test not perfo rmed All resul ts are withi n the adult refer ence range and there fore patho logy inter preta tion is not indic ated. Not Available [facility] [address] [place], [address], 07/28/2021 17:09:40 02/02/20 21 12/23/2020 CT, chest , w/o contr ast No observ ation record ed. [address] ([facility]) [address] [place], [address], 02/04/2021 09:40:54 07/23/19 22 03/31/2021 PFT, compl ete No observ ation record ed. [address] [place], [address], 07/25/2021 10:10:49 07/28/19 22 07/25/2021 US, duple x, venou s, lower extre mity, compl ete No observ ation record ed. [facility] ([facility]) [address] [place], [address], 07/29/2021 16:10:14 07/28/19 22 07/26/2021 US, doppl er, arter ial No observ ation record ed. [facility] ([facility]) [address] [place], [address], 07/29/2021 16:10:15 12/10/19 22 12/09/2021 imagi ng/di agnos tic resul t No observ ation record ed. [facility] [address] [place], [address], 12/09/2021 18:51:15 04/05/20 22 04/05/2022 imagi ng/di agnos tic resul t No observ ation record ed. [facility] [address] [place], [address], 04/05/2022 18:28:29 06/12/19 23 06/11/2022 imagi ng/di agnos tic resul t No observ ation record ed. [facility] [address] [place], [address], 06/12/2022 17:41:08 09/12/19 23 09/08/2022 elect verónica valentine am No observ ation record ed. [facility] [address] [place], [address], 09/14/2022 09:54:44 12/06/19 23 12/05/2022 imagi ng/di agnos tic resul t No observ ation record ed. [facility] [address] [place], [address], 12/06/2022 11:20:05 01/14/20 23 01/13/2023 imagi ng/di agnos tic resul t No observ ation record ed. Counts include 234 beds at the [facility] [address] [place], [address], 01/15/2023 12:48:00 03/21/20 23 03/21/2023 CT, abdom en + pelvi s, w/o contr ast No observ ation record ed. [facility] [address] [place], [address], 03/27/2023 17:00:21 04/15/19 24 04/15/2023 CT, head, w/o contr ast No observ ation record ed. [place] [address], [place], [address], 04/17/2023 10:22:09 07/25/19 24 07/25/2023 CT, abdom en + pelvi s, w/ contr ast No observ ation record ed. [facility] [address] [place], [address], 08/01/2023 12:21:46 08/17/19 24 08/17/2023 XR, chest No observ ation record ed. [facility] [address] [place], [address], 09/04/2023 12:55:26 Result Notes None recorded. Problems Name Problem SNOMED Code Status Onset Date Resolution Date Notes Provider Name and Address Organization Details Recorded Time Upper respirato ry infection 29243601 Completed 201607/19/2020 Clem devries, S[facility] - [facility] 1 21:46:55 Viral gastritis 038735796 Completed 201607/19/2020 Clem devries, SERENA - [facility] 1 21:46:53 Pain of left heel 02443648618 85085 Completed 201707/19/2020 Clem devries, SERENA - [facility] 1 21:46:33 Body mass index 30+ - obesity 433009785 Active 2017 Not Available [facility] 3 12:00:10 Retractio n of nipple 19693769 Active 2017 Not Available [facility] 3 12:00:10 Bacterial vaginosis 625350852 Active 2017 Not Available [facility] 3 12:00:10 Solitary nodule of lung 368259871 Active 2017 Not Available [facility] 3 12:00:10 Family history of malignant neoplasm of lung 780227429 Active 2017 Not Available [facility] 3 12:00:10 Bereaveme nt 99309597 Completed 201707/19/2020 Clem devries, SERENA - [facility] 1 21:46:17 Asthma 087062160 Active 2019 J45.90 9 Not Available [facility] 3 12:00:10 Depressiv e disorder 28603934 Active Not Available [facility] 3 12:00:10 Migraine 07540214 Active Not Available [facility] 3 12:00:10 Tobacco dependenc e syndrome 88543184 Active Not Available [facility] 3 12:00:10 Obesity 361655874 Completed 07/12/2017 Deborah Zamarripa PA-C Attn: Accounting ,[address] [place], [address] , [place] - [facility] 8 11:43:54 Insomnia 269650675 Active Not Available [facility] 3 12:00:10 History of alcoholis m 186173786 Active 2015 Not Available [facility] 3 12:00:10 Hand pain 78406897 Active 2015 Not Available [facility] 3 12:00:10 Shoulder pain 01325510 Completed 201607/19/2020 Clem SteveAnnika null, [facility] 1 21:46:46 Shoulder pain 92030029 Completed 201607/19/2020 Clem SteveAnnika null, [facility] 1 21:46:39 Muscle spasm of cervical muscle of neck 26996511275 4 Completed 201607/19/2020 Clem SteveAnnika jaycob, [facility] 21:46:36 Problem Notes None recorded. Procedures Surgical History Date Name Laterality Status Provider Name and Address Organization Details Recorded Time 07/14/19 18 Date of Last Pap Smear completed Devika Capellan MA [facility] 02/07/2019 11:08:58 04/09/19 15 Cholecystectomy completed Clem Annika [facility] 06/03/2018 14:46:57 04/09/19 14 Endometrial Ablation completed Clem Annika [facility] 06/03/2018 14:47:29 04/09/19 13 Tubal Ligation completed Nata Sloan MA [facility] 05/11/2015 11:57:52 Imaging Results Imaging Date Name Status LastModified by Organization Details LastModified Time 12/23/2020 CT, chest, w/o contrast completed [address] ([facility]) [address] [place], [address], 02/04/2021 09:40:54 03/31/2021 PFT, complete completed [address] [place], [address], 07/25/2021 10:10:49 07/25/2021 US, duplex, venous, lower extremity, [email or web address] [address] [place], [address], 07/29/2021 16:10:14 07/26/2021 US, doppler, arterial completed [facility] ([facility]) [address] [place], [address], 07/29/2021 16:10:15 12/09/2021 imaging/diagnostic result completed [facility] [address] [place], [address], 12/09/2021 18:51:15 04/05/2022 imaging/diagnostic result completed [facility] [address] [place], [address], 04/05/2022 18:28:29 06/11/2022 imaging/diagnostic result completed [facility] [address] [place], [address], 06/12/2022 17:41:08 09/08/2022 electrocardiogram completed [facility] [address] [place], [address], 09/14/2022 09:54:44 12/05/2022 imaging/diagnostic result completed [facility] [address] [place], [address], 12/06/2022 11:20:05 01/13/2023 imaging/diagnostic result completed Counts include 234 beds at the [facility] [address] [place], [address], 01/15/2023 12:48:00 03/21/2023 CT, abdomen + pelvis, w/o contrast completed [facility] [address] [place], [address], 03/27/2023 17:00:21 04/15/2023 CT, head, w/o contrast completed [address], [address], 04/17/2023 10:22:09 07/25/2023 CT, abdomen + pelvis, w/ contrast completed [email or web address] [place] [address] [address] [place], [address], 08/01/2023 12:21:46 08/17/2023 [facility] [address] [place], [address], 09/04/2023 12:55:26 Procedure Notes None recorded. Medical Equipment None Reported. Allergies No known drug allergies Medications Name Sig Start Date Stop Date Status Note LastModified by Organization Details LastModified Time multivitami n tablet TAKE 1 TABLET BY MOUTH EVERY DAY 09/01 completed Not Available Not Available Not Available cyclobenzap rine 10 mg tablet Take 1 tablet twice a day by oral route as needed. 03/13 completed Not Available Not Available Not Available amoxicillin 500 mg capsule 10/15 completed Not Available Not Available Not Available terbinafine HCl 1 % topical cream 07/20 completed Not Available Not Available Not Available prednisone 10 mg tablet 09/01 completed Not Available Not Available Not Available doxycycline hyclate 100 mg capsule 09/01 completed Not Available Not Available Not Available paroxetine 10 mg tablet Take 1 tablet every day by oral route. 06/01 completed Not Available Not Available Not Available nicotine 14 mg/24 hr daily transdermal patch Apply 1 patch every day by transderm al route. 12/21 completed Not Available Not Available Not Available ipratropium 0.5 mg-albutero l 3 mg (2.5 mg base)/3 mL nebulizatio n soln USE 3 ML(1 VIAL) VIA NEBULIZER EVERY 6 HOURS NEEDED FOR DIFFICULT BREATHING OR WHEEZING 07/20 completed Not Available Not Available Not Available clindamycin HCl 300 mg capsule 07/20 completed Not Available Not Available Not Available trazodone 50 mg tablet Take 1 tablet every day by oral route at bedtime. 02/23 completed Not Available Not Available Not Available cetirizine 10 mg tablet Take 1 tablet every day by oral route. 02/12 completed Not Available Not Available Not Available azithromyci n 250 mg tablet TAKE 2 TABLETS (500 MG) BY ORAL ROUTE ONCE DAILY FOR 1 DAY THEN 1 TABLET (250 MG) BY ORAL ROUTE ONCE DAILY FOR 4 DAYS after meal. 09/01 completed Not Available Not Available Not Available ibuprofen 800 mg tablet TAKE 1 TABLET BY MOUTH THREE TIMES DAILY WITH FOOD NEEDED 09/01 completed Not Available Not Available Not Available benzonatate 200 mg capsule Take 1 capsule 3 times a day by oral route as needed for 10 days. 02/24 completed Not Available Not Available Not Available sulfamethox azole 400 mg-trimetho prim 80 mg tablet 02/24 completed Not Available Not Available Not Available hydrocodone 5 mg-acetamin ophen 325 mg tablet 02/24 completed Not Available Not Available Not Available Q-Dryl 25 mg capsule 02/23 completed Not Available Not Available Not Available naltrexone 50 mg tablet Take 1 tablet every day by oral route. 02/23 completed Not Available Not Available Not Available prednisone 20 mg tablet TAKE 3 TABLETS BY MOUTH ONCE DAILY FOR 5 DAYS active Not Available Not Available No t Available penicillin V potassium 250 mg/5 mL oral solution 05/11 completed Not Available Not Available Not Available topiramate 25 mg tablet 02/23 completed Not Available Not Available Not Available metronidazo le 500 mg tablet Take 1 tablet twice a day by oral route for 7 days. 10/31 completed Not Available Not Available Not Available ciprofloxac in 500 mg tablet 07/22 completed Not Available Not Available Not Available sulfamethox azole 800 mg-trimetho prim 160 mg tablet TAKE 1 TABLET BY MOUTH EVERY 12 HOURS FOR 7 DAYS active Not Available Not Available No t Available tramadol 50 mg tablet active Not Available Not Available No t Available ketorolac 10 mg tablet Take 1 tablet every 6 hours by oral route as needed for 5 days. 02/24 completed Not Available Not Available Not Available amoxicillin 875 mg tablet 08/21 completed Not Available Not Available Not Available amoxicillin 250 mg/5 mL oral suspension 10/15 completed Not Available Not Available Not Available baclofen 10 mg tablet Take 1 tablet 3 times a day by oral route as needed for 30 days. 01/15 completed Not Available Not Available Not Available benzonatate 100 mg capsule 03/28 completed Not Available Not Available Not Available doxycycline monohydrate 100 mg capsule 01/15 completed Not Available Not Available Not Available hydrocodone 7.5 mg-acetamin ophen 325 mg tablet 05/11 completed Not Available Not Available Not Available cephalexin 500 mg capsule 02/23 completed Not Available Not Available Not Available pantoprazol e 40 mg tablet,chao yed release TAKE 1 TABLET BY MOUTH EVERY DAY BEFORE MEALS 09/01 completed Not Available Not Available Not Available prednisone 50 mg tablet 02/07 completed Not Available Not Available Not Available nicotine 21 mg/24 hr daily transdermal patch Apply 1 patch every day by transderm al route. 10/15 completed Not Available Not Available Not Available sertraline 25 mg tablet Take 1 tablet every day by oral route. 02/23 completed Not Available Not Available Not Available gentamicin 0.1 % topical cream 09/01 completed Not Available Not Available Not Available montelukast 10 mg tablet TAKE 1 TABLET BY MOUTH EVERY DAY DIRECTED 09/01 completed Not Available Not Available Not Available ergocalcife rol (vitamin D2) 1,250 mcg (50,000 unit) capsule Take 1 capsule every week by oral route. 01/15 completed Not Available Not Available Not Available ibuprofen 600 mg tablet 05/11 completed Not Available Not Available Not Available levofloxaci n 500 mg tablet 01/15 completed Not Available Not Available Not Available methylpredn isolone 4 mg tablets in a dose pack Take 1 dose pk every day by oral route after meals for 6 days. 09/01 completed Not Available Not Available Not Available albuterol sulfate HFA 90 mcg/actuati on aerosol inhaler INHALE 2 PUFFS BY MOUTH EVERY 4 HOURS active Not Available Not Available No t Available cefdinir 300 mg capsule TAKE 1 CAPSULE BY MOUTH EVERY 12 HOURS FOR 10 DAYS active Not Available Not Available No t Available fluticasone propionate 50 mcg/actuati on nasal spray,suspe nsion 02/12 completed Not Available Not Available Not Available medroxyprog esterone 150 mg/mL intramuscul ar suspension Inject 1 mL every 3 months by intramusc ular route. 02/12 completed Not Available Not Available Not Available loratadine 10 mg tablet Take 1 tablet every day by oral route as directed for 30 days. 09/01 completed Not Available Not Available Not Available metoclopram han 10 mg tablet Take 1 tablet 3 times a day by oral route as directed for 30 days. 09/01 completed Not Available Not Available Not Available amoxicillin 875 mg-potassiu m clavulanate 125 mg tablet 01/28 completed Not Available Not Available Not Available nicotine 7 mg/24 hr daily transdermal patch Apply 1 patch every day by transderm al route. 12/21 completed Not Available Not Available Not Available hydroxyzine pamoate 25 mg capsule Take 1 capsule 4 times a day by oral route as needed. 12/21 completed Not Available Not Available Not Available Mucinex 600 mg tablet, extended release 03/13 completed Not Available Not Available Not Available escitalopra m 10 mg tablet Take 1 tablet every day by oral route in the morning. 09/01 completed Not Available Not Available Not Available albuterol sulfate concentrate 2.5 mg/0.5 mL solution for nebulizatio n INHALE 0.5 MILLILITE R BY NEBULIZAT ION ROUTE EVERY 4 HOURS active Not Available Not Available No t Available Atrovent HFA 17 mcg/actuati on aerosol inhaler INHALE 2 INHALATIO N(S) BY MOUTH THREE TIMES DAILY DIRECTED 09/01 completed Not Available Not Available Not Available Symbicort 160 mcg-4.5 mcg/actuati on HFA aerosol inhaler INHALE 2 PUFFS BY MOUTH TWICE DAILY DIRECTED 09/01 completed Not Available Not Available Not Available Calcium with Vitamin D 600 mg-10 mcg (400 unit) tablet Take 1 tablet twice a day by oral route. 09/01 completed Not Available Not Available Not Available calcium 600 mg (as carbonate)- vitamin D3 20 mcg (800 unit) tablet Take 1 tablet twice a day by oral route. 02/24 completed Not Available Not Available Not Available bupropion HCl 150 mg tablet,12 hr sustained-r elease(smok ing deterrent) Take 1 tablet twice a day by oral route. 10/15 completed Not Available Not Available Not Available Qvar RediHaler 80 mcg/actuati on HFA breath activated aerosol INHALE 2 PUFFS BY MOUTH TWICE DAILY 08/21 completed Not Available Not Available Not Available Qvar RediHaler 40 mcg/actuati on HFA breath activated aerosol 08/21 completed Not Available Not Available Not Available Vitals Date Recorded Body height Provider Name an d Address Organization Details Last Updated DateTime 01/28/2021 162.56 cm Josefa Clements [place] [facility] 01/28/2021 14:36:31 Date Recorded Body height Body mass index (BMI) Body weight Body temperature Oxygen saturation Oxygen saturation in Arterial blood by Pulse oximetry Heart rate Systolic blood pressure Diastolic blood pressure Provider Name and Address Organization Details Last Updated DateTime 1 162.56 cm 39.5 kg/m2 246866. 68 g 98.1 [degF] 99 % 99 % 91 /min 124 mm[Hg] 90 mm[Hg] Joao Ramírez MA [facility] 1 12:38:24 Date Recorded Body height Body mass index (BMI) Body weight Body temperature Oxygen saturation Oxygen saturation in Arterial blood by Pulse oximetry Heart rate Systolic blood pressure Diastolic blood pressure Provider Name and Address Organization Details Last Updated DateTime 2 162.56 cm 38.4 kg/m2 692175. 69 g 98.7 [degF] 97 % 97 % 94 /min 110 mm[Hg] 78 mm[Hg] Devika Capellan MA [facility] 2 12:15:28 Date Recorded Body height Body mass index (BMI) Body weight Oxygen saturation Oxygen saturation in Arterial blood by Pulse oximetry Heart rate Systolic blood pressure Diastolic blood pressure Provider Name and Address Organization Details Last Updated DateTime 3 162.56 cm 37.4 kg/m2 99931.5 7 g 97 % 97 % 94 /min 118 mm[Hg] 81 mm[Hg] Josefa Whelan MA [facility] 3 15:36:39 Date Recorded Body height Body mass index (BMI) Body weight Heart rate Oxygen saturation Oxygen saturation in Arterial blood by Pulse oximetry Systolic blood pressure Diastolic blood pressure Provider Name and Address Organization Details Last Updated DateTime 3 162.56 cm 37.6 kg/m2 00906.7 3 g 91 /min 97 % 97 % 132 mm[Hg] 80 mm[Hg] Cecile Fernando [place] - [facility] 3 12:44:58 Social History Question Answer Notes LastModified by Organizat ion Details LastModified Time Tobacco Smoking Status Current Every Day Smoker Nata Sloan MA [email or web address], [place] [facility] 05/11/2015 11:57:52 Do You Have An Advance Directive? No [email or web address] Information not available 05/11/2015 What Is Your Level Of Alcohol Consumption? Occasional Information not available 05/11/2015 Is Blood Transfusion Acceptable In An Emergency? Yes Information not available 07/20/2020 What Is Your Level Of Caffeine Consumption? Occasional Information not available 07/20/2020 How Much Tobacco Do You Chew? None Information not available 05/11/2015 Are You Currently Employed? No Information not available 05/11/2015 What Type Of Diet Are You Following? REGULAR [email or web address] Information not available 05/11/2015 Which Illicit Or Recreational Drugs Have You Used? 0 [email or web address] Information not available 05/11/2015 Do You Or Have You Ever Used E-cigarettes Or Vape? Never Used Electronic Cigarettes Information not available 02/24/2019 Education 11 Information no t available 05/11/2015 What Is The Highest Grade Or Level Of School You Have Completed Or The Highest Degree You Have Received? 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 No [email or web address] Information not available 05/11/2015 Hard Of Hearing Or Deaf In One Or Both Ears? No [email or web address] Information not available 05/11/2015 Legally Blind In One Or Both Eyes? No [email or web address] Information not available 05/11/2015 Live Alone Or With Others? With Others [email or web address] Information not available 05/11/2015 What Was The Date Of Your Most Recent Tobacco Screening? 12/04/2022 Information not available 12/04/2022 How Many Children Do You Have? 3 [email or web address] Information not available 05/11/2015 What Is Your Current Pack Years? [email or web address] Information not available 07/20/2020 Do You Use Protection During Sex? Always [email or web address] Information not available 05/11/2015 What Is Your Relationship Status? Single Information not available 07/20/2020 Do You Use Your Seat Belt Or Car Seat Routinely? Yes Information not available 07/20/2020 Seat Belts Used Routinely Yes Information not available 05/11/2015 Are You Sexually Active? Yes [email or web address] Information not available 05/11/2015 Smoke Alarm In Home Yes [email or web address] Information not available 05/11/2015 Do You Have Smoke And Carbon Monoxide Detectors In Your Home? Yes Information not available 07/20/2020 At What Age Did You Start Smoking Tobacco? 13 Information not available 05/11/2015 Are You Passively Exposed To Smoke? No [email or web address] Information not available 05/11/2015 Do You Or Have You Ever Used Smokeless Tobacco? Never Used Smokeless Tobacco Information not available 02/24/2019 How Much Tobacco Do You Smoke? 0.5 PPD [email or web address] Information not available 01/28/2021 General Stress Level High Information not available 05/11/2015 Do You Use Any Illicit Or Recreational Drugs? No Information not available 07/20/2020 Do You Use Sunscreen Routinely? No Information not available 07/20/2020 Has Tobacco Cessation Counseling Been Provided? Yes Information not available 07/20/2020 On What Date Was Tobacco Cessation Counseling Provided? 12/04/2022 Information not available 12/04/2022 How Many Years Have You Smoked Tobacco? 21 [email or web address] Information not available 05/11/2015 Do You Or Have You Ever Used Any Other Forms Of Tobacco Or Nicotine? No Information not available 07/22/2021 Sex: Unknown Functional Status Question Answer Note LastModified by Organization D etails LastModified Time Are you able to care for yourself? Yes [email or web address] Information n ot available 05/11/2015 What is your exercise level? None [email or web address] Information not available 05/11/2015 Mental Status None recorded. Family History Relationship Description Onset Age of this Age Resolved Age Notes LastModified by Organization Details LastModified Time Mother Alcohol abuse [email or web address] Not available 2015 11:29:05 Mother Depressive disorder [email or web address] Not available 2015 11:29:05 Mother Malignant tumor of ovary [email or web address] Not available 2015 11:29:05 Mother Malignant tumor of lung 61 61 [email or web address] Not available 2015 10:08:47 Father Diabetes mellitus [email or web address] Not available 2015 11:29:05 Father Hypertensive disorder dskaer Not available 2015 11:29:05 Brother Attention deficit hyperactivit y disorder [email or web address] Not available 06/01 11:29:05 Brother Diabetes mellitus [email or web address] Not available 2015 11:29:05 Brother Hypertensive disorder dskaer Not available 2015 11:29:05 Sister Asthma dskaer Not available 11:29:05 Sister Attention deficit hyperactivit y disorder [email or web address] Not available 06/01 11:29:05 Sister Depressive disorder [email or web address] Not available 2015 11:29:05 Maternal Grandmother Malignant tumor of lung [email or web address] Not available 2015 10:09:37 Medical History Condition Response Other N High Blood Pressure N Breast Cancer N Thyroid Problems N Kidney or Bladder Problems Y GI Problems Y Depression Y Blood Clots Y Lung Disease Y Acne N Breast Problem N Eating Disorder N Anemia N Anesthesia Complications N Headaches/Migraines Y Anxiety Disorder N Diabetes N Ovarian Cancer N Muscle, Joint, or Bone Problems Y Blood Transfusions N Seizures/Epilepsy N Polyps N Infertility N Acid Reflux (GERD) Y Cancer N Abuse/Domestic Violence N Asthma Y Endometriosis N High Cholesterol N Hepatitis N Liver Disease N Heart Disease N Headaches Y Pre-Eclampsia N Osteoporosis N Gynecological History Statement/Question Response STIs/STDs N HPV Vaccine N Age at Menarche 10 Current Control Method Tubal Ligat ion Age at First Child 15 Sexually Active? Y Menses Monthly N Date of Last Pap Smear 07/13/2017 Sexual Problems? N LMP Desired Control Method Sterilizati on Obstetrics History GPAL:G 4 P 3 0 1 3 Type Value Multiple Births 0 Full Term 3 Induced 0 Spontaneous 1 Premature 0 Living 3 Ectopics 0 Total 4 Immunizations Vaccine Type Date Status Note Provider Nam e and Address Organization Details Recorded Time Influenza, split virus, quadrivalent , PF 9 cancelled patient objection Not Available [facility] 04/26/2019 02:38:47 Past Encounters Encounter ID Performer Location Encounter Start Date Encounter Closed Date Diagnosis/Indication Diagnosis SNOMED-CT Code Diagnosis ICD10 Code [id number] OLENA Hernandez (Adult Med) [address] [place] [address] [id number] 05/11/2015 11:22:56 05/11/2015 12:40:48 Migraine 29395877 G43.909 History of attempted suicide 049338817 Z91.5 Depressive disorder 3548 9007 F32.9 Tobacco de pendence syndrome 26913193 F17.290 Obesity 169584869 E66.9 [id number] OLENA Hernandez (Adult Med) [address] [place] [address] [id number] 0 06/01/2015 11:09:55 06/01/2015 12:00:14 Tobacco dependence syndrome 23882295 F17.290 History of alcoholism 16 3846988 F10.21 Depressive disorder 3548 9007 F32.9 Insomnia 521646814 G47.0 0 [id number] OLENA Hernandez (Adult Med) [address] [place] [address] [id number] 0 02/24/2016 09:34:02 02/24/2016 12:25:29 Hand pain 74402963 M79.641 Obesity 369825066 E66.9 Depressive disorder 3548 9007 F32.9 Tobacco de pendence syndrome 14906286 F17.290 History of alcoholism 16 4643065 F10.21 [id number] OLENA Hernandez (Adult Med) [address] [place] [address] [id number] 03/09/2016 16:01:18 03/09/2016 18:08:02 Hand pain 08240800 M79.641 Pain radia ting to right arm 224018142 M79.852 [id number] OLENA Hernandez (Adult Med) [address] [place] [address] [id number] 0 04/13/2016 15:17:19 04/13/2016 18:16:18 Hand pain 27199121 M79.641 Tobacco de pendence syndrome 48357301 F17.290 Shoulder pain 39070862 M 25.511 Dysuria 10915138 R30.0 [id number] OLENA Hernandez (Adult Med) [address] [place] [address] [id number] 0 03/13/2017 10:27:44 03/13/2017 12:25:02 Upper respiratory infection 54814316 J06.9 Allergic disposition 609 971479 Z91.09 [id number] OLENA Hernandez (Adult Med) [address] [place] [address] [id number] 0 03/28/2017 12:08:38 03/28/2017 13:55:06 Viral gastritis 047480553 A08.39 [id number] OLENA Hernandez (Adult Med) [address] [place] [address] [id number] 0 04/17/2017 11:02:08 04/17/2017 11:59:48 Tobacco dependence syndrome 39542498 F17.290 Upper resp iratory infection 37641293 J06.9 [id number] OLENA Hernandez (Adult Med) [address] [place] [address] [id number] 0 07/12/2017 09:48:22 07/12/2017 12:24:44 Pain of left heel 2646217347 869011 M79.672 Tobacco de pendence syndrome 47731407 F17.290 Body mass index 30+ - obesity 395579315 Z68.39 [id number] OLENA Hernandez (OUTSIDE SALES ACCOUNT REPRESENTATIVE) [address] [place] [address] [id number] 0 07/13/2017 10:37:34 07/13/2017 12:22:33 Gynecologic examination 07723039 Z01.411 Milky nipp le discharge 644827212 N64.52 Retraction of nipple 318 57144 N64.53 Body mass index 30+ - obesity 191130838 Z68.39 Tobacco de pendence syndrome 68070654 F17.152 [id number] OLENA Hernandez (Adult Med) [address] [place] [address] [id number] 0 10/31/2017 09:49:11 10/31/2017 10:23:44 Solitary nodule of lung 564510690 R91.1 Tobacco de pendence syndrome 79913201 F17.290 Acute asthma 854483172 J 45.901 Generalize d anxiety disorder 08057906 F41.1 Family his tory of malignant neoplasm of lung 284900455 Z80.1 [id number] PEPE COREA (Adult Med) [address] [place] [address] [id number] 0 12/21/2017 11:43:16 12/25/2017 13:25:25 Tobacco dependence syndrome 89797888 F17.200 Mild inter mittent asthma 945262199 J45.20 [id number] OLENA Hernandez (Adult Med) [address] [place] [address] [id number] 0 01/29/2018 10:59:43 01/29/2018 11:47:15 Mild intermittent asthma 260044865 J45.20 Fatigue 76172586 R53.83 Anxiety 02541113 F41.9 Bereavement 06105508 Z63 .4 [id number] Clem Roblero Leopoldo (OUTSIDE SALES ACCOUNT REPRESENTATIVE) [address] [place] [address] [id number] 0 06/03/2018 14:15:03 06/03/2018 16:09:54 History of endometrial ablation 2464558678 72087 Z98.890 History of sterilization 2820812691 9106 Z90.79 Obesity 028694819 E66.9 History of alcoholism 16 2739346 F10.21 Abnormal u terine bleeding 5638808963 9100 N93.9 Family tony ing surveillance 504461875 Z30.09 Screening mammography 24 732802 Z12.31 Exposure t o sexually transmissible disorder 711377059 Z20.2 [id number] MD Leopoldo Pham (Adult Med) [address] [place] [address] [id number] 0 09/13/2018 15:51:05 09/13/2018 16:20:43 Contusion of multiple sites 153257253 T07.XXXA [id number] MD Leopoldo Pham (Adult Med) [address] [place] [address] [id number] 0 10/15/2018 15:54:23 10/15/2018 16:39:42 Pain of right shoulder joint 3829848294 7028954 M25.511 Pain in ri ght hip joint 7217607755 71411 M25.779 [id number] MD Leopoldo Pham (Adult Med) [address] [place] [address] [id number] 0 01/15/2019 10:23:22 01/16/2019 09:39:33 Pain of right shoulder joint 4972597836 3323843 M25.511 Pain in ri ght hip joint 0529258670 96780 M25.750 [id number] Clem Mina (OUTSIDE SALES ACCOUNT REPRESENTATIVE) [address] [place] [address] [id number] 0 02/03/2019 09:56:37 02/05/2019 22:00:08 Uterine leiomyoma 93672329 D25.9 [id number] JUVE Austin (OUTSIDE SALES ACCOUNT REPRESENTATIVE) [address] [place] [address] [id number] 0 02/07/2019 10:51:51 02/10/2019 10:14:58 Depot contraceptive-no problem 057702995 Z30.981 [id number] MD Leopoldo Pham (Adult Med) [address] [place] [address] [id number] 0 02/12/2019 12:49:23 02/13/2019 09:10:47 Pain of right shoulder joint 2732155413 9283366 M25.511 Microcysti c adnexal carcinoma 117027987 C44.99 Asthma 996839001 J45.90 9 [id number] Clem Mina (OUTSIDE SALES ACCOUNT REPRESENTATIVE) [address] [place] [address] [id number] 0 02/24/2019 12:00:50 02/25/2019 14:11:57 Administration of influenza vaccine 77317692 Z23 Pelvic mass 81329193 R19 .00 At [facility] risk of malignancy 598480556 Z91.89 [id number] MD Leopoldo Pham (Adult Med) [address] [place] [address] 77429-802 0 08/22/2019 08:39:01 08/25/2019 13:44:45 Recurrent deep vein thrombosis 893528576 I82.509 Asthma 194367606 J45.90 9 [id number] MD Leopoldo Pham (Adult Med) [address] [place] [address] [id number] 0 05/04/2020 08:25:27 05/05/2020 11:36:10 Urinary tract infectious disease 16122182 N39.0 Asthma 223518767 J45.90 9 Acid reflux 021241925 K2 1.9 Hypovolemia 144687268 E8 6.1 [id number] Leopoldo (OUTSIDE SALES ACCOUNT REPRESENTATIVE) [address] [place] [address] [id number] 0 07/20/2020 12:39:59 07/22/2020 11:48:44 History of alcoholism 758209219 F10.21 Recurrent deep vein thrombosis 242660087 I82.509 Body mass index 30+ - obesity 768603820 Z68.41 Depressive disorder 3548 9007 F32.9 Tobacco de pendence syndrome 47260898 F17.200 Nonpuerper al abscess of left breast 8119636909 3410201 N61.1 Family tony nning surveillance 823183487 Z30.09 [id number] MD Leopoldo Pham (Adult Med) [address] [place] [address] [id number] 0 11/26/2020 13:36:33 12/02/2020 10:24:48 Swelling of lower leg 583750491 R22.40 [id number] [facility] [address] [place] [address] [id number] 0 01/28/2021 13:00:56 02/02/2021 13:35:11 Acute exacerbation of chronic obstructive pulmonary disease 292928586 J44.1 [id number] MD Leopoldo Pham (Adult Med) [address] [place] [address] [id number] 0 02/24/2021 12:14:37 02/25/2021 13:26:53 Hiatal hernia 29074206 K44.9 Gastroesop hageal reflux disease 535724882 K21.00 [id number] MD Leopoldo Pham (Adult Med) [address] [place] [address] [id number] 0 07/22/2021 12:04:58 07/25/2021 10:40:31 Bilateral lower leg edema 248517472 R60.0 [id number] MD Leopoldo Pham (Adult Med) [address] [place] [address] [id number] 0 09/01/2022 15:15:28 09/05/2022 16:17:36 Adult health examination 890652922 Z00.00 [id number] MD Leopoldo Pham (Adult Med) [address] [place] [address] [id number] 0 12/04/2022 12:37:55 12/05/2022 12:30:55 Chronic obstructive pulmonary disease 10230979 J44.9 Smoker 81735441 F17.200 Morbid obesity 742617660 E66.01 Cervical c ancer Papanicolaou smear screening declined 7904933041 28536 Z53.20 HIV screen ing declined 7229939919 07313 Z53.20 Health Concerns Section Related Observation LastModified by Organization Detai ls LastModified Time None Recorded Concern Status LastModified by Organization Details LastModified Time None Recorded Advance Directives Directive N: Payers Encounter Date Sequence Insurance Name Policy Number Policy Terry Covered Member ID Terry Member ID Guarantor Name 01/28/2021 1 [facility] ON OR AFTER 10/07/20 (MEDICAID REPLACEMENT - HMO) Eliana Diaz [id number] Elianaomar Diaz 02/24/2021 1 [facility] ON OR AFTER 10/07/20 (MEDICAID REPLACEMENT - HMO) Eliana Diaz [id number] Eliana La Conner 07/22/2021 1 [facility] ON OR AFTER 10/07/20 (MEDICAID REPLACEMENT - HMO) Eliana Diaz [id number] Eliana La Conner 09/01/2022 1 [facility] ON OR AFTER 10/07/20 (MEDICAID REPLACEMENT - HMO) Eliana La Conner [id number] Eliana La Conner 12/04/2022 1 [facility] ON OR AFTER 10/07/20 (MEDICAID REPLACEMENT - HMO) Eliana Diaz [id number] Elianamark Diaz Notes Date Note Type Note Provider Name and Address Organization Details Recorded Time 01/28/2021 text/html Phone visit, aster st congestion in this season of year, no fever, wheezing ,dose not want covid test nor going to ER, wants to try some medications, NKDA. Homa Joshi MD Attn: Accounting, [address] [place], [address], [facility] 01/28/2021 14:51:31 02/24/2021 text/html Office visit, histroy of sliding hiatal hernia. and acid reflux, NKDA. can not tolerate solid food, skipped meal to avoid N/V, medication , pantoprazole not helping much, also has asthma which might have been aggravated by hernia with reflux. will add reglan and surgical referral. Homa Joshi MD Attn: Accounting, [address] [place], [address], [facility] 02/24/2021 12:54:42 07/22/2021 text/html Office vist, discoloration red and blue about 3 weeks on the left leg and thigh, and about 1 week on the right side, NKDA. she said that she is not on any med , but in June she had erythromycin and prednisone. No feve, no itching, no open wound, Some pitting edema on the right leg, no on the left side, Homa Joshi MD Attn: Accounting, [address] [place], [address], [facility] 12/25/2021 16:26:36 09/01/2022 text/html Office visit, NK DA. on no blood thinner. no chest pain, no cardiac condition, no shortness of breath , wants surgical clearnce before the left foot operation for removal of wart. . Had left shoulder operation [id number] , she recovered well. But a smoker. , advised her to quit smoking for he good health and financial reasons. Homa Joshi MD Attn: Accounting, [address] [place], [address], [facility] 09/01/2022 17:40:35 12/04/2022 text/html Office visit, LUCAS HAINES. check up today. Homa Joshi MD Attn: Accounting,[address] [facility], [place], [address], [facility] 12/04/2022 16:21:46 OBGyn Episode No OBEpisode recorded.
== END 2024-03-21 10:15 | disposition home or self-care (01) ==
PROVIDERS: Emergency Medicine; Emergency Provider Physician Assistant
DX: J06.9 Acute upper respiratory infection, unspecified (principal); B97.4 Respiratory syncytial virus as the cause of diseases classified elsewhere; Z20.822 Contact with and (suspected) exposure to COVID-19; F17.210 Nicotine dependence, cigarettes, uncomplicated; Z90.49 Acquired absence of other specified parts of digestive tract
CPT/HCPCS: 71045; 87637; 94640; 99283

== ENCOUNTER 2024-06-03 12:22 | Emergency (ER) | payer SELFPAY ==
[2024-06-03 12:27] VITALS: BP 146/94; PULSE 88; RESP 20; TEMP 36.4; O2SAT 99
--- OUTSIDE RECORDS SUMMARY | 2024-06-03 14:03 | XMS_ITS | CONTINUITY OF CARE DOCUMENT ---
Author Name [email or web address] Address Unknown Organization [facility] Address [id number] [place] [address] [address] [place] [address] Phone [phone] Care Team Providers Care Oyster Farmer Name Role Phone Harjit Sandy MD Unavailable [phone] Harjit Sandy MD Unavailable JOSE JOSHI MD Unavailable [phone] INSURANCE PROVIDERS Payer name Policy type / Coverage type [place] republic[place]F [place] (2) Medicaid [id number]
--- OUTSIDE RECORDS SUMMARY | 2024-06-03 14:03 | XMS_ITS | Encounter Summary ---
Author Organization [facility] Address [address] [place] [address] Phone Care Team Providers Care Biomass Power Plant Manager Name Role Phone Homa Michel MD Primary Care Provider [phone] Clem Roblero MD Unavailable [phone] Encounter Details Date Type Department Care Team (Late st Contact Info) Description 10/25/2020 Orders Only [facility] Surgery [address] [facility] Advanced Medicine 5th [place] [address] [place] [address] Gail Stanton NP [address] [place] [address] Social History Tobacco Use Types Packs/Day Years Used Date Smoking Tobacco: Every Day Comments Unknown Sex and Gender Information Value Date Recorded Sex Assigned at Not on file Legal Sex Female 1:04 PM CDT Gender Identity Not on file Sexual Orientation Not on file documented as of this encounter Plan of Treatment Not on file documented as of this encounter Visit Diagnoses Not on filedocumented in this encounter Care Teams Biomass Power Plant Manager Relationship Specialty Start Date End Date Homa Michel MD [address] [facility] 1 [place] [address] PCP - General Internal Medicine 07/20/20 Clem Roblero MD NPI: [id number] [place] [address] [address] [place] [address] Referring Physician Obstetrics and Gynecology 11/24/20 documented as of this encounter
--- OUTSIDE RECORDS SUMMARY | 2024-06-03 14:03 | XMS_ITS | Encounter Summary ---
Author Organization [facility] Address [address] [place] [address] Care Team Providers Care Firebreak Cutter Name Role Phone Clem Roblero MD Primary Care Provider Encounter Details Date Type Department Care Team (Late st Contact Info) Description 06/06/2019 Telephone [facility] ANESTHESIA [address] [place] [address] Evi Albert DO [address] [place] [address] Social History Tobacco Use Types Packs/Day Years Used Date Smoking Tobacco: Every Day Cigarettes 1 25 Smokeless Tobacco: Never Alcohol Use Standard Drinks/Week Comments Yes 0 (1 standard drink = 0.6 oz pur e alcohol) AUDIT-C Answer Date Recorded Frequency of Alcohol Consumption Monthly or less 04/15/2019 Average Number of Drinks 3 or 4 020 Frequency of Binge Drinking Never 10/2019 Sex and Gender Information Value Date Recorded Sex Assigned at Not on file Gender Identity Not on file Sexual Orientation Not on file documented as of this encounter Miscellaneous Notes * Telephone Encounter - Evi Albert DO - 06/06/2019 12:50 PM GENERAL INTERNAL MEDICINE DOCTOR [facility]ICE Peripheral Nerve Block Follow Up Patient seen and examined on 06/06/19. The patient is s/p R interscalene nerve block and peripheral catheter placement. Catheter is providing some pain relief, rate has been at 6mL/hr since the surgery. Advised her increasing the rate of pain medication infusion as needed, will touch base with again tomorrow. Thank you for the opportunity to participate in this patient's medical care. Please call with any questions or concerns. Evi Albert DO 06/06/19 RAL INTERNAL MEDICINE DOCTOR documented in this encounter Plan of Treatment Not on file documented as of this encounter Visit Diagnoses Not on filedocumented in this encounter Care Teams Firebreak Cutter Relationship Specialty Start Date End Date Clem Roblero MD [address] [place] [address] PCP - General 02/11/19 documented as of this encounter
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
--- OUTSIDE RECORDS SUMMARY | 2024-06-03 14:04 | XMS_ITS | Data Portability ---
Author Organization [place] - [facility], Main Office Address [address] [place] [address] Assessment Encounter Date Assessment Date Assessment LastModified by Organization Details LastModified Time 08/31/2022 08/31/2022 This note is dictated and transcribed by [employer]. Director Pharmacy Services variances may occur. Despite proofreading, typographical errors may occur. [email or web address] Not available 08/31/2022 16:46:47 10/26/2022 10/26/2022 This note is dictated and transcribed by [employer]. Director Pharmacy Services variances may occur. Despite proofreading, typographical errors may occur. Not available 10/26/2022 11:59:10 11/02/2022 11/02/2022 This note is dictated and transcribed by [employer]. Director Pharmacy Services variances may occur. Despite proofreading, typographical errors may occur. Not available 11/02/2022 12:31:50 11/13/2022 11/13/2022 This note is dictated and transcribed by [employer]. Director Pharmacy Services variances may occur. Despite proofreading, typographical errors may occur. Not available 11/13/2022 12:14:14 01/18/2023 01/18/2023 This note is dictated and transcribed by [employer]. Director Pharmacy Services variances may occur. Despite proofreading, typographical errors may occur. Not available 01/18/2023 12:43:45 Plan of Treatment Reminders Order Date Submit Date Provider Last Modified By Organization Details Last Modified Time Details Appointments None recorded. Lab None recorded. Referral None recorded. Procedures None recorded. Surgeries None recorded. Imaging None recorded. Medication Orders tramadol 50 mg tablet 2022 023 [id number], [address], [place], [place], [id number], 11:59:44 Patient TargetsNo targets recorded. Patient InstructionsNo instructions recorded. Reason for Referral None Reported. Results Created Date Observation Date Name Description Value Unit Range Abnormal Flag Note LastModifiedBy Organization Detail LastModifiedTime 09/21/1909/20/2022 CBC W/O DIFFE RENTI AL white blood cells 6.7 x10'3 /uL 4.2-10 .8 Not Available [facility] (Lab) [address] [place], [address], 09/20/2022 17:47:31 09/21/1909/20/2022 CBC W/O DIFFE RENTI AL red blood cells 4.80 x10'6 /uL 3.80-5 .20 Not Available [facility] (Lab) [address] [place], [address], 09/20/2022 17:47:31 09/21/19 23 09/20/2022 CBC W/O DIFFE RENTI AL hemoglobin 14.6 g/dL 12.0-1 5.6 Not Available [facility] (Lab) [address] [place], [address], 09/20/2022 17:47:31 09/21/19 23 09/20/2022 CBC W/O DIFFE RENTI AL hematocrit 43.6 % 35.7-4 5.7 Not Available [facility] (Lab) [address] [place], [address], 09/20/2022 17:47:31 09/21/1909/20/2022 CBC W/O DIFFE RENTI AL mean red cell volume 90.8 fL 82.0-9 9.0 Not Available [facility] (Lab) [address] [place], [address], 09/20/2022 17:47:31 09/21/1929 0909/20/2022 CBC W/O DIFFE RENTI AL mean red cell hemoglobin 30.4 pg 27.0-3 3.0 Not Available [facility] (Lab) [address] [place], [address], 09/20/2022 17:47:31 09/21/19 23 09/20/2022 CBC W/O DIFFE RENTI AL mean RBC HGB concentratio n 33.5 g/dL 31.0-3 6.0 Not Available [facility] (Lab) [address] [place], [address], 09/20/2022 17:47:31 09/21/19 23 09/20/2022 CBC W/O DIFFE RENTI AL red cell distribution width 12.5 % 11.8-1 5.5 Not Available [facility] (Lab) [address] [place], [address], 09/20/2022 17:47:31 09/21/19 23 09/20/2022 CBC W/O DIFFE RENTI AL platelets 335 x10'3 /uL 150-40 0 Not Available [facility] (Lab) [address] [place], [address], 09/20/2022 17:47:31 09/21/19 23 09/20/2022 CBC W/O DIFFE RENTI AL mean platelet volume 9.2 fL 9.0-12 .4 Not Available [facility] (Lab) [address] [place], [address], 09/20/2022 17:47:31 09/21/19 23 09/20/2022 COMPR EHENS JB METAB OLIC PANEL sodium 137 mmol/ L 137-14 5 Not Available [facility] (Lab) [address] [place], [address], 09/20/2022 19:27:50 09/21/19 23 09/20/2022 COMPR EHENS JB METAB OLIC PANEL potassium 4.3 mmol/ L 3.5-5. 1 Not Available [facility] (Lab) [address] [place], [address], 09/20/2022 19:27:50 09/21/19 23 09/20/2022 COMPR EHENS JB METAB OLIC PANEL chloride 103 mmol/ L 98-107 Not Available [facility] (Lab) [address] [place], [address], 09/20/2022 19:27:50 09/21/19 23 09/20/2022 COMPR EHENS JB METAB OLIC PANEL carbon dioxide 25 mmol/ L 22-30 Not Available [facility] (Lab) [address] [place], [address], 09/20/2022 19:27:50 09/21/19 23 09/20/2022 COMPR EHENS JB METAB OLIC PANEL anion gap 13.3 mmol/ L 14-22 low Not Available [facility] (Lab) [address] [place], [address], 09/20/2022 19:27:50 09/21/19 23 09/20/2022 COMPR EHENS JB METAB OLIC PANEL glucose 103 mg/dL 70-99 high Not Available [facility] (Lab) [address] [place], [address], 09/20/2022 19:27:50 09/21/19 23 09/20/2022 COMPR EHENS JB METAB OLIC PANEL BUN 11 mg/dL 8-19 Not Available [facility] (Lab) [address] [place], [address], 09/20/2022 19:27:50 09/21/19 23 09/20/2022 COMPR EHENS JB METAB OLIC PANEL creatinine 0.60 mg/dL 0.66-1 .25 low Not Available [facility] (Lab) [address] [place], [address], 09/20/2022 19:27:50 09/21/19 23 09/20/2022 COMPR EHENS JB METAB OLIC PANEL GFR >60 Refer ence Range : [place] GFR Healt hy Adult : >60 mL/mi n/1.7 3 m2 Chron ic Kidne y Disea se: 15-60 mL/mi n/1.7 3 m2 Kidne y Failu re: <15/m L/min /1.73 m2 www.n iddk. nih.g ov The MDRD study equat ion has not been valid ated in child ryan <18 years of age; pregn ant women ; the elder ly >85 years of age; or in some racia l or ethni c subgr oups, such as Hispa nics. Outsi de the valid ated luis eters , estim ated GFR is less accur ate, requi ring clini serjio judgm ent on a case- by-ca se basis . Clini serjio inter preta tion for other races and ages must be made by the clini rosario. The MDRD study equat ion has not been valid ated for the evalu ation of serum creat inine relat ed to nutri miladys l statu s or medic ation usage . For perso ns <18 years of age, a pedia tric GFR calcu lator is avail able on the [facility] websi te: https ://erika serrato.gema azar.o rg/pr ofess ional s/kdo qi/gf r_cal culat or Not Available [facility] (Lab) [address] [place], [address], 09/20/2022 19:27:50 09/21/1909/20/2022 COMPR EHENS JB METAB OLIC PANEL alkaline phosphatase 97 U/L 38-126 Not Available [facility] (Lab) [address] [place], [address], 09/20/2022 19:27:50 09/21/19 23 09/20/2022 COMPR EHENS JB METAB OLIC PANEL alanine aminotransfe rase 17 U/L 0-35 Not Available [facility] (Lab) [address] [place], [address], 09/20/2022 19:27:50 09/21/19 23 09/20/2022 COMPR EHENS JB METAB OLIC PANEL aspartate aminotransfe rase 21 U/L 15-37 Not Available [facility] (Lab) [address] [place], [address], 09/20/2022 19:27:50 09/21/19 23 09/20/2022 COMPR EHENS JB METAB OLIC PANEL bilirubin, total 0.60 mg/dL 0.20-1 .30 Not Available [facility] (Lab) [address] [place], [address], 09/20/2022 19:27:50 09/21/19 23 09/20/2022 COMPR EHENS JB METAB OLIC PANEL calcium 9.2 mg/dL 8.4-10 .2 Not Available [facility] (Lab) [address] [place], [address], 09/20/2022 19:27:50 09/21/19 23 09/20/2022 COMPR EHENS JB METAB OLIC PANEL total protein 6.8 g/dL 6.3-8. 2 Not Available [facility] (Lab) [address] [place], [address], 09/20/2022 19:27:50 09/21/19 23 09/20/2022 COMPR EHENS JB METAB OLIC PANEL albumin 3.8 g/dL 3.4-5. 0 Not Available [facility] (Lab) [address] [place], [address], 09/20/2022 19:27:50 09/21/19 23 09/20/2022 COMPR EHENS JB METAB OLIC PANEL globulin 3.0 g/dL 2.6-4. 2 Not Available [facility] (Lab) [address] [place], [address], 09/20/2022 19:27:50 09/21/19 23 09/20/2022 COMPR EHENS JB METAB OLIC PANEL A/G ratio 1.3 ratio 1.0-2. 0 Not Available [facility] (Lab) [address] [place], [address], 09/20/2022 19:27:50 Result Notes None recorded. Problems Name Problem SNOMED Code Status Onset Date Resolution Date Notes Provider Name and Address Organization Details Recorded Time Disorder of shoulder 293133956 Completed Not Available [facility] 3 20:20:02 Plantar fasciitis of right foot 78664032074 179526 Active 2021 Not Available [facility] 3 20:20:02 Partial thickness rotator cuff tear 491505239 Active 2018 Not Available [facility] 3 20:20:02 Shoulder joint pain 047991719 Completed Not Available [facility] 3 20:20:03 Ingrowing toenail 271593686 Active 2021 Not Available [facility] 3 20:20:03 Multiple nodules of lung 394880021 Active 2021 Not Available [facility] 3 20:20:03 Foot pain 93743670 Active 2021 Not Available [facility] 3 20:20:03 Porokerat osis 433820587 Active 2022 Kevan Portillo DPM [address], [place], [address] , [facility] [employer] 3 15:02:01 Plantar wart of left foot [id number] 107720 Active 2022 Kevan Portillo DPM [address], [address], [place], [address] , [facility] 3 13:00:17 Celluliti s of toe of left foot 19484647619 402739 Active 2022 Kevan Portillo DPM [address], [address], [place], [address] , [email or web address] 3 13:01:08 Pre-surge ry evaluatio n Active 2022 Kevan Portillo DPM [address], [address], [place], [address] , [email or web address] 3 12:25:27 Postopera tive pain 030179697 Active 2022 Kevan Portillo DPM [address], [address], [place], [address] , [email or web address] 3 11:57:37 Dehiscenc e of surgical wound 99508932 Active 2022 Kevan Portillo DPM [address], [address], [place], [address] , [email or web address] 3 11:58:41 Postopera tive visit 181391011 Active 2022 Kevan Portillo DPM [address], [address], [place], [address] , [email or web address] 3 12:14:32 Notes:Medical History: Anxie ty/Depression Rhinitis to dog IgE 75 IU/mL Eosinophils 320/uL Alpha-1 antitrypsin PiMM 126 mg% Nicotine dependence 8.3 mm RUL lung nodule Obesity RADHA Vit D deficiency Rotator cuff tear Procedure History: Cholecystectomy Problem Notes None recorded. Procedures Surgical History Date Name Laterality Status Provider Name and Address Organization Details Recorded Time 01/19/20 23 Callus Debridement, One completed Kevan Portillo DPM [address], [address], [place], [address], [email or web address] 01/31/2023 13:59:58 08/08/19 23 Callus Debridement, One completed Kevan Protillo DPM [address], [address], [place], [address], [employer] 08/07/2022 17:54:22 07/25/19 23 Destruction lesion (cryo, hyfrecation, scissors or chemical) completed Kevan Portillo DPM [address], [address], [place], [address], [employer] 07/24/2022 12:59:55 07/11/19 23 Total Nail Avulsion with Chemical Matrixectomy-Ri ght completed Kevan Portillo DPM [address], [address], [place], [address], [employer] 07/10/2022 15:02:32 07/11/19 23 Partial Nail Avulsion Chemical Matrixectomy-Le ft completed Kevan Portillo DPM [address], [address], [place], [address], [employer] 07/10/2022 15:01:16 06/20/19 23 Nail Debridement completed Kevan Portillo DPM [address], [address], [place], [address], [email or web address] 06/19/2022 15:01:53 06/20/19 23 Callus Debridement, One completed Kevan Portillo DPM [address], [address], [place], [address], [employer] 06/19/2022 15:01:45 04/09/19 20 Shoulder completed Not Available [facility] 20:19:31 Imaging Results None recorded. Procedure Notes None recorded. Medical Equipment None Reported. Allergies No known drug allergies Medications Name Sig Start Date Stop Date Status Note LastModified by Organization Details LastModified Time multivitami n tablet 11/09 completed Not Available Not Available Not Available amoxicillin 500 mg capsule 11/09 completed Not Available Not Available Not Available prednisone 10 mg tablet 06/19 completed Not Available Not Available Not Available doxycycline hyclate 100 mg capsule Take 1 capsule twice a day by oral route as directed for 10 days. 12/13 completed Not Available Not Available Not Available nicotine 14 mg/24 hr daily transdermal patch 11/09 completed Not Available Not Available Not Available ipratropium 0.5 mg-albutero l 3 mg (2.5 mg base)/3 mL nebulizatio n soln 11/11 completed Not Available Not Available Not Available cetirizine 10 mg tablet 03/31 completed Not Available Not Available Not Available azithromyci n 250 mg tablet 12/19 completed Not Available Not Available Not Available ibuprofen 800 mg tablet 02/17 completed Not Available Not Available Not Available sulfamethox azole 400 mg-trimetho prim 80 mg tablet 12/15 completed Not Available Not Available Not Available hydrocodone 5 mg-acetamin ophen 325 mg tablet 12/15 completed Not Available Not Available Not Available prednisone 20 mg tablet 11/09 completed Not Available Not Available Not Available metronidazo le 500 mg tablet 01/04 completed Not Available Not Available Not Available ciprofloxac in 500 mg tablet 12/19 completed Not Available Not Available Not Available sulfamethox azole 800 mg-trimetho prim 160 mg tablet 12/15 completed Not Available Not Available Not Available tramadol 50 mg tablet Take 1 tablet every 6 hours by oral route as needed. active Not Available Not Available No t Available ketorolac 10 mg tablet 11/09 completed Not Available Not Available Not Available prednisone 10 mg tablets in a dose pack Take 1 tab by mouth, 3 times a day for 3 daysTake 1 tab by mouth 2 times a day for 2 daysTake 1 tab by mouth once a day for 1 day 02/17 completed Not Available Not Available Not Available amoxicillin 250 mg/5 mL oral suspension 11/09 completed Not Available Not Available Not Available Kenalog 10 mg/mL suspension for injection In office injection administe red by the provider 02/17 completed [facility]: 0003- 0494- 20 Not Available Not Available Not Available baclofen 10 mg tablet 12/15 completed Not Available Not Available Not Available benzonatate 100 mg capsule 01/04 completed Not Available Not Available Not Available doxycycline monohydrate 100 mg capsule 11/09 completed Not Available Not Available Not Available pantoprazol e 40 mg tablet,chao yed release 12/15 completed Not Available Not Available Not Available prednisone 50 mg tablet 11/09 completed Not Available Not Available Not Available nicotine 21 mg/24 hr daily transdermal patch 11/09 completed Not Available Not Available Not Available gentamicin 0.1 % topical cream APPLY A SMALL AMOUNT TO THE AFFECTED AREA great toes BY TOPICAL ROUTE 3 TIMES PER DAY 12/13 completed Not Available Not Available Not Available montelukast 10 mg tablet 04/07 completed Not Available Not Available Not Available ergocalcife rol (vitamin D2) 1,250 mcg (50,000 unit) capsule 12/15 completed Not Available Not Available Not Available levofloxaci n 500 mg tablet 11/09 completed Not Available Not Available Not Available methylpredn isolone 4 mg tablets in a dose pack 12/19 completed Not Available Not Available Not Available albuterol sulfate HFA 90 mcg/actuati on aerosol inhaler active Not Available Not Available Not Available fluticasone propionate 50 mcg/actuati on nasal spray,suspe nsion 12/15 completed Not Available Not Available Not Available loratadine 10 mg tablet 12/19 completed Not Available Not Available Not Available metoclopram han 10 mg tablet 12/19 completed Not Available Not Available Not Available amoxicillin 875 mg-potassiu m clavulanate 125 mg tablet 12/15 completed Not Available Not Available Not Available nicotine 7 mg/24 hr daily transdermal patch 12/15 completed Not Available Not Available Not Available hydroxyzine pamoate 25 mg capsule 01/04 completed Not Available Not Available Not Available Mucinex 600 mg tablet, extended release 01/04 completed Not Available Not Available Not Available escitalopra m 10 mg tablet 12/19 completed Not Available Not Available Not Available Atrovent HFA 17 mcg/actuati on aerosol inhaler 04/07 completed Not Available Not Available Not Available benzonatate 11/09 completed Not Available Not Available Not Available lidocaine (PF) 10 mg/mL (1 %) injection solution In office injection administe red by the provider 02/17 completed [facility]: [phone]- 17 Not Available Not Available Not Available Symbicort 160 mcg-4.5 mcg/actuati on HFA aerosol inhaler 04/07 completed Not Available Not Available Not Available bupropion HCl 150 mg tablet,12 hr sustained-r elease(smok ing deterrent) 11/11 completed Not Available Not Available Not Available Qvar RediHaler 80 mcg/actuati on HFA breath activated aerosol 11/09 completed Not Available Not Available Not Available Qvar RediHaler 40 mcg/actuati on HFA breath activated aerosol 11/11 completed Not Available Not Available Not Available Daily-Sahra (with folic acid) 400 mcg tablet 04/07 completed Not Available Not Available Not Available Vitals Date Recorded Body height Heart rate Respiratory rate Oxygen saturation Oxygen saturation in Arterial blood by Pulse oximetry Systolic blood pressure Diastolic blood pressure Provider Name and Address Organization Details Last Updated DateTime 3 162.56 cm 99 /min 14 /min 98 % 98 % 130 mm[Hg] 88 mm[Hg] Shira [facility] 3 16:25:59 Date Recorded Body height Heart rate Respiratory rate Oxygen saturation Oxygen saturation in Arterial blood by Pulse oximetry Systolic blood pressure Diastolic blood pressure Provider Name and Address Organization Details Last Updated DateTime 3 162.56 cm 93 /min 14 /min 98 % 98 % 136 mm[Hg] 82 mm[Hg] Sh[facility] 3 11:40:38 Date Recorded Body height Heart rate Respiratory rate Oxygen saturation Oxygen saturation in Arterial blood by Pulse oximetry Systolic blood pressure Diastolic blood pressure Provider Name and Address Organization Details Last Updated DateTime 3 162.56 cm 106 /min 14 /min 99 % 99 % 137 mm[Hg] 92 mm[Hg] Sh[facility] 3 11:21:13 Date Recorded Body height Heart rate Respiratory rate Oxygen saturation Oxygen saturation in Arterial blood by Pulse oximetry Systolic blood pressure Diastolic blood pressure Provider Name and Address Organization Details Last Updated DateTime 3 162.56 cm 106 /min 14 /min 99 % 99 % 119 mm[Hg] 99 mm[Hg] [facility] 3 11:20:54 Date Recorded Body height Heart rate Respiratory rate Oxygen saturation Oxygen saturation in Arterial blood by Pulse oximetry Systolic blood pressure Diastolic blood pressure Provider Name and Address Organization Details Last Updated DateTime 3 162.56 cm 102 /min 14 /min 98 % 98 % 150 mm[Hg] 107 mm[Hg] Shira [facility] 3 11:01:50 Social History Question Answer Notes LastModified by Organizat ion Details LastModified Time Tobacco Smoking Status Current Every Day Smoker Not Available [facility] 06/07/2022 20:19:21 What Is Your Level Of Alcohol Consumption? None [id number] Information not available 06/07/2022 What Is Your Level Of Caffeine Consumption? Occasional MIGRATION.[id number] Information not available 06/07/2022 In The 14 Days Before Symptom Onset, Have You Had Close Contact With A Laboratory-confi rmed COVID-19 While That Case Was Ill? No MIGRATION.[id number] Information not available 06/07/2022 In The 14 Days Before Symptom Onset, Have You Had Close Contact With A Person Who Is Under Investigation For COVID-19 While That Person Was Ill? No MIGRATION.56203 [id number] Information not available 06/07/2022 What Type Of Diet Are You Following? REGULAR MIGRATION.32257 [id number] Information not available 06/07/2022 What Is The Highest Grade Or Level Of School You Have Completed Or The Highest Degree You Have Received? [id number] MIGRATION.69123 [id number] Information not available 06/07/2022 Do You Have An Electrostatic Air Filter? 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 MIGRATION.46622 [id number] Information not available 06/07/2022 Are There Any Guns Present In Your Home? No MIGRATION.27056 12522 Information not available 06/07/2022 Do You Have A Humidifier? No MIGRATION.[id number] 88621 Information not available 06/07/2022 Where Do You Live? [place] MIGRATION.91885 40283 Information not available 06/07/2022 Do You Have Moisture Problems In Your Home? No MIGRATION.24654 43993 Information not available 06/07/2022 What Was The Date Of Your Most Recent Tobacco Screening? 12/19/2021 MIGRATION.37714 12549 Information not available 06/07/2022 Do You Have Any Pets? Yes MIGRATION.82421 [id number] Information not available 06/07/2022 Do You Use Your Seat Belt Or Car Seat Routinely? Yes MIGRATION.23517 63873 Information not available 06/07/2022 Do You Have Smoke And Carbon Monoxide Detectors In Your Home? Yes MIGRATION.83339 58057 Information not available 06/07/2022 Are You Passively Exposed To Smoke? No MIGRATION.77284 17526 Information not available 06/07/2022 How Much Tobacco Do You Smoke? 0.5 PPD MIGRATION.00859 45285 Information not available 06/07/2022 Do You Feel Stressed (tense, Restless, Nervous, Or Anxious, Or Unable To Sleep At Night)? [id number] MIGRATION.99850 72710 Information not available 06/07/2022 Do You Use Any Illicit Or Recreational Drugs? No MIGRATION.01286 50649 Information not available 06/07/2022 Do You Use Sunscreen Routinely? No MIGRATION.16273 99150 Information not available 06/07/2022 How Many Years Have You Smoked Tobacco? 20 MIGRATION.54928 96807 Information not available 06/07/2022 Have You Recently Traveled Abroad? No MIGRATION.61717 03708 Information not available 06/07/2022 Do You Have Any Dietary Restrictions? No MIGRATION.14203 51550 Information not available 06/07/2022 Sex: Unknown Functional Status None recorded. Mental Status None recorded. Family History Relationship Description Onset Age of this Age Resolved Age Notes LastModified by Organization Details LastModified Time Father Diabetes mellitus [id number] [id number] Not available 06/07/2022 20:19:32 Brother Diabetes mellitus MIGRATION.576 [id number] Not available 06/07/2022 20:19:32 Sister Asthma MIGRATION.474 [id number] Not available 06/07/2022 20:19:32 Daughter Asthma MIGRATION.477 [id number] Not available 06/07/2022 20:19:32 Maternal Grandmother Chronic obstructive pulmonary disease MIGRATION.585 [id number] Not available 06/07/2022 20:19:32 Maternal Aunt Chronic obstructive pulmonary disease MIGRATION.289 [id number] Not available 06/07/2022 20:19:32 Mother Malignant neoplasm of uterus MIGRATION.204 [id number] Not available 06/07/2022 20:19:32 Notes:daughter-mental, cousi n-few disabilities Medical History Condition Response COPD Y Gynecological HistoryNo gynecological history recorded. Obstetrics History GPAL:G 0 P 0 0 0 0 Past Encounters Encounter ID Performer Location Encounter Start Date Encounter Closed Date Diagnosis/Indication Diagnosis SNOMED-CT Code Diagnosis ICD10 Code Diagnosis Note [id number] [facility] [place] [address] [place] [address], [facility] [address] [place] [address] 11/11/2020 00:00:00 11/11/2020 10:34:30 [id number] [facility] [place] [address] [place] [address] 12/15/2020 00:00:00 12/15/2020 16:43:49 [id number] [facility] [address] [place] [address], [facility] [address] [place] [address] 02/17/2021 00:00:00 02/17/2021 12:19:51 [id number] [facility] [address] [place] [address], [place] [address] 04/07/2021 00:00:00 04/07/2021 13:17:52 [id number] [facility] [place] [address] [place] [address] 12/05/2021 00:00:00 12/05/2021 12:50:02 [id number] [facility] [address] [place] [address], [place] [address] 12/19/2021 00:00:00 12/19/2021 11:41:15 [id number] [facility] [place] [address] [place] [address] 01/09/2022 00:00:00 01/09/2022 11:20:28 [id number] [facility] [place] [address] [place] [address] 03/23/2022 00:00:00 03/23/2022 15:37:11 [id number] [facility] [place] [address] [place] [address] 04/17/2022 00:00:00 04/18/2022 09:04:49 [id number] [facility] [place] [address] [place] [address] 05/15/2022 00:00:00 05/15/2022 17:07:34 [id number] Kevan Portillo DPM [facility] [place] [address] [place] [address] 06/19/2022 14:26:35 06/19/2022 15:05:48 Ingrowing toenail [id number] L60.0 M79.674 Educated on conditionE ducated on treatment optionsSla nt back procedure performed on the nail corners today to prevent infection and relieve pain, pain relief after procedurek eep the areas clean and dry to prevent infectionP atient will follow-up for 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 both great toenails Porokeratosis [id number] Q82.8 x1 left plantar footdebrid ed without incidentre commend over-the-c ounter Amlactin lotion twice dailyfollo w-up as needed for this issue [id number] Kevan Portillo DPM [facility] [place] [address] [place] [address] 07/10/2022 14:12:19 08/04/2022 15:22:35 Ingrowing toenail 100820173 L60.0 M79.674 Educated on conditionE ducated on treatment optionsSla nt back procedure performed on the nail corners today to prevent infection and relieve pain, pain relief after procedurek eep the areas clean and dry to prevent infectionP atient will follow-up for 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 both great toenails Cellulitis of toe of left foot [id number] L03.032 [id number] Kevan Portillo DPM [facility] [place] [address] [place] [address] 07/24/2022 12:09:47 07/24/2022 14:01:23 Ingrowing toenail 389789483 L60.0 M79.674 bilateral partial matrixecto my both great toes- healingcon tinue daily wound careFollow up in 2 weeks Plantar wa rt of left foot [id number] 8375445 B07.0 debrided and treated with salicylic acid todayVerba l consent obtained by the patient for treatmentU se salicylic acid over-the-c ounter daily until blistering occurs then discontinu e use, keep the area clean and dry with bandage to prevent infectionF ollow-up in 2 weeks Cellulitis of toe of left foot [id number] 4744526 L03.032 [id number] Kevan Portillo DPM [facility] [place] [address] [place] [address] 08/07/2022 16:59:21 08/07/2022 17:58:29 Cellulitis of toe of left foot 1205483666 5525065 L03.032 Resolved Plantar wa rt of left foot 5389035471 0633867 B07.0 Overlying skin debrided todayconti nue wound care to prevent wounds infectionF ollow-up in 2 weeks possible retreatmen t if still present [id number] [facility]an [facility]illo [facility] [place] [place] [facility] [place] [address] [place] [address] 08/31/2022 16:18:25 09/01/2022 13:45:30 Plantar wart of left foot [id number] 6927044 B07.0 Obtain surgical clearanceP edu surgical excision of wart with biopsy left footall risks, benefits, complicati ons were reviewed with the patient to a full and complete understand ing. Patient states understand ing elects to continue with the planned procedure. no guarantees were given or implied.Re turn post surgery [id number] Kevan Portillo DPM [facility] [place] [address] [facility] [place] [address] 10/26/2022 11:31:13 10/26/2022 16:20:10 Postoperative visit 217749158 Z09 wart excisionpa thology report- plantar wart Postoperative pain 67419 9007 G89.18 Dehiscence of surgical wound 84477535 T81.30XA left footdaily dressings with Betadine wet-to-dry dressingpr essure to the heel only with postop shoeno workingfol low-up 1 week [id number] Kevan Portillo DPM [facility] [place] [address] [place] [address] 11/02/2022 11:17:40 11/02/2022 12:33:48 Postoperative visit [id number] Z09 wart excisionpa thology report- plantar wart Dehiscence of surgical wound 80325184 T81.30XA left footdaily dressings with Betadine wet-to-dry dressingpr essure to the heel only with postop shoeno workingfol low-up 1 week [id number] Kevan Portillo DPM [facility] [place] [address] [place] [address] 11/13/2022 11:18:03 11/13/2022 12:36:21 Postoperative visit 694269588 Z09 wart excisionpa thology report- plantar wart Dehiscence of surgical wound 87593015 T81.30XA healedMay return to normal shoe gearwork release to return to workFollow -up as needed [id number] Kevan Portillo DPM [facility] [place] [address] [place] [address] 01/18/2023 10:58:23 01/31/2023 14:04:32 Porokeratosis 521620293 Q82.8 x1 left plantar footdebrid ed without incidentre commend over-the-c ounter Amlactin lotion twice dailyfollo w-up as needed for this issue Health Concerns Section Related Observation LastModified by Organization Detai ls LastModified Time None Recorded Concern Status LastModified by Organization Details LastModified Time None Recorded Advance Directives Directive None Recorded Payers Encounter Date Sequence Insurance Name Policy Number Policy Terry Covered Member ID Terry Member ID Guarantor Name 08/31/2022 1 [facility] ON OR AFTER 10/07/20 (MEDICAID REPLACEMENT - HMO) Eliana Cid Liberty [id number] Eliana Jose Roberto Liberty 10/26/2022 1 [facility] ON OR AFTER 10/07/20 (MEDICAID REPLACEMENT - HMO) Eliana Jose Roberto Liberty [id number] Eliana Jose Roberto Liberty 11/02/2022 1 [facility] - [facility] ON OR AFTER 20 (MEDICAID REPLACEMENT - HMO) Eliana Jose Roberto Liberty [id number] Eliana A Liberty 11/13/2022 1 [facility] - DOS ON OR AFTER 20 (MEDICAID REPLACEMENT - HMO) Eliana A Liberty [id number] Eliana A Liberty 01/18/2023 1 [facility] - DOS ON OR AFTER 20 (MEDICAID REPLACEMENT - HMO) Eliana A Liberty [id number] Eliana A Liberty Notes Date Note Type Note Provider Name and Address Organization Details Recorded Time 08/31/2022 text/html . Patient is a 42-year-old female who returns the office for follow-up plantar wart. Patient continues have a wart x1 to the left plantar foot it which has not responded to conservative therapy and treatment. Patient states at this point she would like to just have the area cut out. I recommend cutting the area out as this is going to remove the area completely. Patient denies any other pedal complaints. Kevan Portillo DPM [address], [place], [address], [email or web address] 08/31/2022 16:47:42 10/26/2022 text/html . Patient is a 42-year-old female who returns the office for follow-up on for excisional removal of wart to the left foot. Patient had called the day of surgery after she was home stating that she had a lot of bleeding to the wound dressings. Patient was told to report to the hospital for a dressing change and inspection of the area which the patient declined and change the dressings herself. Patient states she had someone she knew look at the bottom of her foot and said it was okay. Patient has kept the area clean dry with Betadine on examination today she had pulled out the stitches with a healing wound to the plantar left foot. Patient states she has mild pain to the area. Patient denies any fever, chills, nausea or vomiting. Patient denies any other complaints. Kevan Portillo DPM [address], [place], [address], [email or web address] 10/26/2022 12:00:01 11/02/2022 text/html . Patient is a 42-year-old female who returns the office for follow-up on surgical wound dehiscence. Patient has continued to be minimal weight-bearing and has been applying Betadine wet-to-dry dressing to the area. Patient states the area is slowly healing and is almost healed. Patient denies any signs of infection but states she has some mild pain to the area. Patient has 2 remaining sutures intact which were removed today. Patient denies any other complaints. Kevan Portillo DPM [address], [place], [address], [facility] [employer] [facility] [employer] 11/02/2022 12:32:37 11/13/2022 text/html . Patient is a 42-year-old female who returns the office for follow-up on wound dehiscence. Patient states she has not had any further drainage or pain to the foot. Patient is completely healed. Patient denies any other complaints. Kevan Portillo DPM [address], [place], [address], [facility] [employer] 11/13/2022 12:14:47 01/18/2023 text/html . Patient is a 42-year-old female who returns to the office for complaints of a painful callus to the foot. Patient states when she is weight-bearing she has sharp pain with weight-bearing. Patient denies any open wounds or infection. Patient has a history of plantar wart which was excised. Patient states she was concerned may be a wart which it does not have any destruction of skin lines. Patient denies any fever, chills, nausea vomiting. Patient states when she is at rest it does feel better. Patient denies any other complaints. Kevan Portillo DPM [address], [place], [address], [facility] [employer] 01/31/2023 14:00:16 OBGyn Episode No OBEpisode recorded.
--- OUTSIDE RECORDS SUMMARY | 2024-06-03 14:04 | XMS_ITS | Patient Health Record ---
Author Organization [facility] Address [address] [place] [address] Care Team Providers Care Estate Administrator Name Role Phone Christy Zhang Primary Care Provider [phone] Allergies No Known Allergies Reason For Referral No Information Problems Problem Type SNOMED Code ICD Code Onset Dates Problem Status W/U Status Risk Notes Problem Tobacco user (499304362) Nicotine dependence, unspecified, uncomplicated (F17.200) Active confirmed Problem Depression (216766301) Depression (F32.9) Active confirmed Problem Anxiety (75678757) Anxiety (F41.9) Active confirmed Plan Of Treatment No Information Insurance Providers Payer Name Payer Address Payer Phone Subscriber Number Group Number Insured Name Patient Relationship to Insured Coverage Start Date Coverage End Date [facility] Claims Department [address] [place] [address] [id number] Joe Eliana Self - patient is the insured 1 3 Medical (General) History Surgical History Surgery Date(Month/Year) tubal ligation 2012 shoulder arthroscopy 2019 gallbladder 2013 dnc 1999 plantear 2022 Hospitalization History Reason Date(Month/Year) MH suicide attempt [place] 11/2014 MH suicide attempt [place] 09/2022 kidney infection
--- OUTSIDE RECORDS SUMMARY | 2024-06-03 14:04 | XMS_ITS | Referral Summary ---
Author Organization [facility] [employer] Address [address] [place] [address] Care Team Providers Care Burn Table Operator Name Role Phone Clem Roblero MD Primary Care Provider Source Comments [facility] [employer],non-owned Affiliates and Associated Physician Practices is amultiple site organization consisting of ambulatory clinics and hospital sitesin [place], [place], [place] and [place]. This disclosure is being madepursuant to the Care Everywhere program and may not contain all information available regarding this patient. Last updated 17.[facility] [employer] Allergies No known active allergies Medications * Be aware that medications may not be up to date on this document. Alwaysverify current medications with the patient. Medication Sig Dispensed Refills Start Date End Date Status albuterol HFA (PROVENTIL;VENTOLIN; PROAIR) 108 (90 BASE) MCG/ACT inhalerIndications:A cute bronchitis, unspecified organism,Expectorati on of abnormal sputum Inhale 2 Puffs by mouth every 4 hours as needed for Shortness of Breath or Wheezing 3 Inhaler 12/25/2016 Active ibuprofen (MOTRIN) 800 MG tablet Take 800 mg by mouth every 6 hours as needed Active albuterol-ipratropiu m (DUO-NEB) 0.5-2.5 (3) MG/3ML nebulizer solution Inhale 3 mL by mouth 4 times daily Active Multiple Vitamin (MULTI-VITAMINS) TABS 05/14/2019 Active SYMBICORT 160-4.5 MCG/ACT inhaler 05/30/2019 Active ATROVENT HFA 17 MCG/ACT inhaler 08/22/2019 Active loratadine (CLARITIN) 10 MG tablet 08/22/2019 Active terbinafine (LAMISIL) 1 % cream 12/07/2019 Activ e Active Problems Problem Noted Date Diagnosed Date Asthma 05/22/2019 Calculus of gallbladder with other cholecystitis 05/21/2019 Depressive disorder 05/21/2019 Follow-up examination, following other surgery 0 05/21/2019 Disorder of shoulder 05/21/2019 Insomnia 05/21/2019 Migraine 05/21/2019 Tobacco dependence syndrome 05/21/2019 Incomplete tear of rotator cuff 01/30/2019 Bereavement 01/29/2018 Family history of lung cancer 10/31/2017 Solitary pulmonary nodule 10/31/2017 Bacterial vaginosis 07/17/2017 Retraction of nipple 07/13/2017 Obesity with body mass index 30 or greater 07/12 Pain of left heel 07/12/2017 Viral gastritis 03/28/2017 Muscle spasms of neck 05/17/2016 Shoulder joint pain 04/13/2016 Hand pain 02/24/2016 History of alcoholism 02/24/2016 Resolved Problems Problem Noted Date Diagnosed Date Resolved Date Upper respiratory infection 03/13/2017 06/04/2019 Social History Tobacco Use Types Packs/Day Years [...] on file Sexual Orientation Not on file Last Filed Vital Signs Vital Sign Reading Time Taken Comments Blood Pressure 139/97 06/05/2019 3:51 PM SENIOR DEVOPS ENGINEER Pulse 83 06/05/2019 3:51 PM SENIOR DEVOPS ENGINEER Temperature 36.7 C (98 F) 06/05/2019 3:51 PM SENIOR DEVOPS ENGINEER Respiratory Rate 19 06/05/2019 3:51 PM SENIOR DEVOPS ENGINEER Oxygen Saturation 95% 06/05/2019 3:51 PM SENIOR DEVOPS ENGINEER Inhaled Oxygen Concentration - - Weight 99.8 kg (220 lb) 06/05/2019 11:15 AM SENIOR DEVOPS ENGINEER Height 162.6 cm (5' 4 ) 06/05/2019 11:15 AM SENIOR DEVOPS ENGINEER Body Mass Index 37.76 06/05/2019 11:15 AM SENIOR DEVOPS ENGINEER Plan of Treatment Not on file Medical Devices Implanted Type Area Log Hauler Device Identifier Shelf Expiration Date Model / Serial / Lot [place] Sut Healix Adv Dynacord 5.5mm Implanted:Qty: 2 on 06/05/2019 by Kishor Weber MD at [facility] Right: Shoulder [employer] 05/09/2020 [id number] / / [id number] Healix Knotless Br [place] 6.5 Implanted:Qty: 1 on 06/05/2019 by Kishor Weber MD at [facility] Right: Shoulder 06/06/2021 [id number] / / [id number] Healix Knotless Br [place] 6.5 Implanted:Qty: 1 on 06/05/2019 by Kishor Weber MD at [facility] Right: Shoulder 03/08/2022 [id number] / / [id number] Procedures Procedure Name Priority Date/Time Associated Diagnosis Comments HPV DETECTION HIGH RISK CAROLYN Routine 04/15/2019 11:00 AM SENIOR DEVOPS ENGINEER Postcoital bleeding from Last 3 Months or Most Recently Relevant to Health Maintenance Results * HPV DETECTION HIGH RISK CAROLYN (04/15/2019 11:00 AM SENIOR DEVOPS ENGINEER) High Risk Human Papilloma Result Not Detected Not Detected 04/17/2019 3:51 PM SENIOR DEVOPS ENGINEER [facility] High Risk Human Papilloma Interp 04/17/2019 3:51 PM SENIOR DEVOPS ENGINEER [facility] Comment:High Risk Human Abraham lloma Virus was Not Detected. Pathology/Cytolo gy MISCELLANEOUS SAMPLES / Unknown 04/15/2019 11:00 AM SENIOR DEVOPS ENGINEER 04/16/2019 12:35 PM SENIOR DEVOPS ENGINEER [facility] - 04/17/2019 3:51 PM SENIOR DEVOPS ENGINEER Nucleic acid isolated from the specimen was analyzed with a nucleic acid amplification test (FDA approved Gen-Probe HPV Assay) to detect high risk human papilloma virus (Types: 16, 18, 31, 33, 35, 39, 45, 51, 52, 56, 58, 59, 66, and 68). The reference range is Not Detected . Comment: These test results should not be used as the sole basis for clinical assessment and treatment of patients. These results should always be correlated with other available data (cytology, histology, and clinical information). Kalina Chen MD LAB - MICROBIOLOGY ORDERABLES [facility] [address] [place] [address], [facility] [phone] from Last 3 Months or Most Recently Relevant to Health Maintenance Care Teams Burn Table Operator Relationship Specialty Start Date End Date Clem Roblero MD [address] [place] [address] PCP - General 02/11/19
--- OUTSIDE RECORDS SUMMARY | 2024-06-03 14:04 | XMS_ITS | Clinical Summary ---
Author Organization [facility] Address [address] [facility] [address] [place] [address] Care Team Providers Care Bloom Conveyor Operator Name Role Phone Clem Roblero MD Primary Care Provider Source Comments [facility],non-owned Affiliates and Associated Physician Practices is amultiple site organization consisting of ambulatory clinics and hospital sitesin [place], [place], [place] and [place]. This disclosure is being madepursuant to the Care Everywhere program and may not contain all information available regarding this patient. Last updated 17.[facility] Allergies No known active allergies Medications * [...] Resolved Date Upper respiratory infection 03/13/2017 06/04/2019 Family History Medical History Relation Name Comments Cancer - Ovarian Mother Relation Name Status Comments Mother Social History Tobacco Use Types Packs/Day Years [...] Comments Blood Pressure 139/97 06/05/2019 3:51 PM ENGINEERING PROGRAMMER Pulse 83 06/05/2019 3:51 PM ENGINEERING PROGRAMMER Temperature 36.7 C (98 F) 06/05/2019 3:51 PM ENGINEERING PROGRAMMER Respiratory Rate 19 06/05/2019 3:51 PM ENGINEERING PROGRAMMER Oxygen Saturation 95% 06/05/2019 3:51 PM ENGINEERING PROGRAMMER Inhaled Oxygen Concentration - - Weight 99.8 kg (220 lb) 06/05/2019 11:15 AM ENGINEERING PROGRAMMER Height 162.6 cm (5' 4 ) 06/05/2019 11:15 AM ENGINEERING PROGRAMMER Body Mass Index 37.76 06/05/2019 11:15 AM ENGINEERING PROGRAMMER Plan of Treatment Health Maintenance Due Date Last Done Comments COLOGUARD (AGES 45-75) - COL ON CA SCREENING 1978 COLON MONITORING 1978 COLONOSCOPY - COLON CA SCREENING 1978 CT COLONOGRAPHY - COLON CA SCREENING 1978 Colorectal Cancer Screening 1978 FIT - COLON CA SCREENING 1978 FLEX SIG - COLON CA SCREENING 1978 LIPID TESTING 1978 MAMMOGRAM 1978 HIV SCREENING 1993 HEPATITIS C SCREENING 06/15/1996 DTAP/TDAP/TD VACCINES (1 - Tdap) 1997 HEPATITIS B VACCINE (1 of 3 - 19+ 3-dose series) 1997 PNEUMOCOCCAL VACCINE (1 of 2 - PCV) 1997 SCREENING FOR DIABETES 04/15/2019 COVID-19 VACCINE (1 - 2023-2 5 season) 2023 INFLUENZA VACCINE (#1) 2023 DEPRESSION SCREENING 04/09/2024 PAP with HPV 04/15/2024 04/15/2019 ZOSTER VACCINE (1 of 2) 2028 HIB VACCINE Aged Out No longer eligi ble based on patient's age to complete this topic HPV VACCINE Aged Out No longer eligi ble based on patient's age to complete this topic MENINGOCOCCAL (Group B) VACCINE Aged Out No longer eligible based on patient's age to complete this topic MENINGOCOCCAL VACCINE Aged Out No brianda ron eligible based on patient's age to complete this topic Medical Devices Implanted Type Area Contract Manager Device Identifier Shelf Expiration Date Model / Serial / Lot [place] Sut Healix Adv Dynacord 5.5mm Implanted:Qty: 2 on 06/05/2019 by Kishor Weber MD at [facility] Right: Shoulder [employer] 05/09/2020 [id number] / / [id number] Healix Knotless Br [place] 6.5 Implanted:Qty: 1 on 06/05/2019 by Kishor Weber MD at [facility] Right: Shoulder 06/06/2021 [id number] / / [id number] Healix Knotless Br [place] 6.5 Implanted:Qty: 1 on 06/05/2019 by Kishor Weber MD at [facility] Right: Shoulder 03/08/2022 [id number] / / [id number] Procedures Procedure Name Priority Date/Time Associated Diagnosis Comments HPV DETECTION HIGH RISK CAROLYN Routine 04/15/2019 11:00 AM ENGINEERING PROGRAMMER Postcoital bleeding from Last 3 Months or Most Recently Relevant to Health Maintenance Results * HPV DETECTION HIGH RISK CAROLYN (04/15/2019 11:00 AM ENGINEERING PROGRAMMER) High Risk Human Papilloma Result Not Detected Not Detected 04/17/2019 3:51 PM ENGINEERING PROGRAMMER [facility] High Risk Human Papilloma Interp 04/17/2019 3:51 PM ENGINEERING PROGRAMMER [facility] Comment:High Risk Human Abraham lloma Virus was Not Detected. Pathology/Cytolo gy MISCELLANEOUS SAMPLES / Unknown 04/15/2019 11:00 AM ENGINEERING PROGRAMMER 04/16/2019 12:35 PM ENGINEERING PROGRAMMER Narrative [facility] - 04/17/2019 3:51 PM ENGINEERING PROGRAMMER Nucleic acid isolated from the specimen was [...] Kalina Chen MD LAB - MICROBIOLOGY ORDERABLES [facility] [address] [facility] [phone] from Last 3 Months or Most Recently Relevant to Health Maintenance Care Teams Bloom Conveyor Operator Relationship Specialty Start Date End Date Clem Roblero MD [address] [place] [address] PCP - General 02/11/19
--- OUTSIDE RECORDS SUMMARY | 2024-06-03 14:04 | XMS_ITS | Referral Summary ---
Author Organization [facility] Address [address] [place] [address] Care Team Providers Care Curriculum Development Specialist Name Role Phone Unavailable Primary Care Provider Unavailabl e Social History Tobacco Use Types Packs/Day Years Used Date Smoking Tobacco: Never Assessed Inadequate Housing Answer Date Recorded Social Determinants: Housing (Overall Score Help er) 0 08/07/2019 Sex and Gender Information Value Date Recorded Sex Assigned at Not on file Gender Identity Not on file Sexual Orientation Not on file Plan of Treatment Not on file
--- OUTSIDE RECORDS SUMMARY | 2024-06-03 14:04 | XMS_ITS | Clinical Summary ---
Author Organization [facility] Address [address] [place] [address] Care Team Providers Care Cashiers Supervisor Name Role Phone Unavailable Primary Care Provider Unavailabl e Social History Tobacco Use Types Packs/Day Years Used Date Smoking Tobacco: Never Assessed Inadequate Housing Answer Date Recorded Social Determinants: Housing (Overall Score Help er) 0 08/07/2019 Sex and Gender Information Value Date Recorded Sex Assigned at Not on file Gender Identity Not on file Sexual Orientation Not on file Plan of Treatment Health Maintenance Due Date Last Done Comments Depression Screening 1990 DTaP/Tdap/Td Vaccine (1 - Tdap) 1997 Hepatitis B Vaccine (1 of 3 - 19+ 3-dose series) 1997 Breast Cancer Screening 2018 CT Colonography 06/21/2023 Cologuard 06/21/2023 Colonoscopy 06/21/2023 Colorectal Cancer Screening 06/21/2023 Fecal Occult Blood 06/21/2023 Sigmoidoscopy 06/21/2023 COVID-19 Vaccine ( - 2023-2 5 season) 2023 Influenza Vaccine (#1) 2023 HPV Vaccine Aged Out No longer eligi ble based on patient's age to complete this topic Hepatitis A Vaccine Aged Out No longe r eligible based on patient's age to complete this topic Meningococcal Serogroup B Vaccine Aged Out No longer eligible based on patient's age to complete this topic Meningococcal Vaccine Aged Out No brianda ron eligible based on patient's age to complete this topic Pneumococcal Vaccine 0-49 Aged Out No longer eligible based on patient's age to complete this topic
--- OUTSIDE RECORDS SUMMARY | 2024-06-03 14:04 | XMS_ITS | Patient Health Summary ---
Author Organization [facility] Address [address] [facility] [place] [address] Care Team Providers Care Hospice Volunteer Coordinator Name Role Phone Clem Roblero MD Primary Care Provider [phone] Note from [facility],non-owned Affiliates and Associated Physician Practices is amultiple site organization consisting of ambulatory clinics and hospital sitesin [place], [place], [place] and [place]. This disclosure is being madepursuant to the Care Everywhere program and may not contain all information available regarding this patient. Last updated 17.[facility] Allergies No known active allergies Medications * Be aware that medications may not be up to date on this document. Alwaysverify current medications with the patient. * albuterol HFA (PROVENTIL;VENTOLIN;PROAIR) 108 (90 BASE) MCG/ACT inhaler (Started 12/25/2016) Inhale 2 Puffs by mouth every 4 hours as needed for Shortness of Breath or Wheezing * ibuprofen (MOTRIN) 800 MG tablet Take 800 mg by mouth every 6 hours as needed * albuterol-ipratropium (DUO-NEB) 0.5-2.5 (3) MG/3ML nebulizer solution Inhale 3 mL by mouth 4 times daily * Multiple Vitamin (MULTI-VITAMINS) TABS(Started 05/14/2019) * SYMBICORT 160-4.5 MCG/ACT inhaler(Started 05/30/2019) * ATROVENT HFA 17 MCG/ACT inhaler(Started 08/22/2019) * loratadine (CLARITIN) 10 MG tablet(Started 08/22/2019) * terbinafine (LAMISIL) 1 % cream(Started 12/07/2019) Active Problems Problem Noted Date Diagnosed Date [...] Comments Blood Pressure 139/97 06/05/2019 3:51 PM SCALE AGENT Pulse 83 06/05/2019 3:51 PM SCALE AGENT Temperature 36.7 C (98 F) 06/05/2019 3:51 PM SCALE AGENT Respiratory Rate 19 06/05/2019 3:51 PM SCALE AGENT Oxygen Saturation 95% 06/05/2019 3:51 PM SCALE AGENT Inhaled Oxygen Concentration - - Weight 99.8 kg (220 lb) 06/05/2019 11:15 AM SCALE AGENT Height 162.6 cm (5' 4 ) 06/05/2019 11:15 AM SCALE AGENT Body Mass Index 37.76 06/05/2019 11:15 AM SCALE AGENT Medical Devices Implanted Type Area Painter Helper Spray Device Identifier Shelf Expiration Date Model / Serial / Lot [place] Sut Healix Adv Dynacord 5.5mm Implanted:Qty: 2 on 06/05/2019 by Kishor Weber MD at [facility] Right: Shoulder [employer] 05/09/2020 [id number] / / [id number] Healix Knotless Br [place] 6.5 Implanted:Qty: 1 on 06/05/2019 by Kishor Weber MD at [facility] Right: Shoulder 06/06/2021 [id number] / / [id number] Healix Knotless Br [place] 6.5 Implanted:Qty: 1 on 06/05/2019 by Kishor Weber MD at [facility] Right: Shoulder 03/08/2022 [id number] / / [id number] Procedures * XR SHOULDER RIGHT 2VW OR MORE(Performed 11/21/2019) Performed for Pain in joint of right shoulder * XR SHOULDER RIGHT 2VW OR MORE(Performed 09/10/2019) Performed for Right shoulder pain, unspecified chronicity * ENDOTRACHEAL TUBE NOTE(Performed 06/05/2019) * REPAIR ROTATOR CUFF SHOULDER (OPEN)(Performed 06/05/2019) Performed for Right shoulder pain, unspecified chronicity * PERIPHERAL BLOCK(Performed 06/05/2019) * HCG URINE QUAL POCT NOTIFICATION(Performed 06/05/2019) Performed for Pre-op testing * HCG URINE QUAL POCT NOTIFICATION(Performed 06/05/2019) Performed for Pre-op testing, Incomplete tear of right rotator cuff, unspecified whether traumatic * CT ABDOMEN PELVIS W CONTRAST(Performed 04/24/2019) Performed for Postcoital bleeding, Pelvic mass in female * CREATININE BLOOD - POINT OF CARE (IP)(Performed 04/24/2019) Performed for Postcoital bleeding * PAP IMAGE-GUIDED W HPV(Performed 04/15/2019) Performed for Postcoital bleeding * HPV DETECTION HIGH RISK CAROLYN(Performed 04/15/2019) Performed for Postcoital bleeding * CULTURE THROAT(Performed 03/31/2016) Performed for Nasopharyngitis acute * STREP A SCREEN - POINT OF CARE (AMB) STL(Performed 03/31/2016) Performed for Nasopharyngitis acute Results * XR SHOULDER 2+ VW RIGHT (11/21/2019 3:27 PM CDT) Only the most recent of2 resultswithin the time period is included. Anatomical Region Laterality Modality Upper Extremity Radiographic Jessie ging 11/21/2019 3:10 PM CDT Impressions 11/24/2019 1:58 PM CDT Indeterminate lesion in the proximal humeral metaphysis. Further evaluation with cross-sectional imaging is suggested. Reading Radiologist: Juan Carlos Almeida on 11/24/2019 at 1:58 PM Narrative 11/24/2019 1:58 PM CDT INDICATION: Pain. COMPARISON: None available. TECHNIQUE: 3 views of the right shoulder. FINDINGS: There is no fracture. A geographic lucent lesion in the proximal humerus measures approximately 3 cm in diameter. It appears to stay on the metaphyseal side of the physeal scar. The lesion has thin sclerotic border with suggestion of internal septa. On the axillary view, there appears to be an osseous excrescence arising from the proximal humeral metaphysis. The joint alignment is normal. The soft tissues are normal. Procedure Note Juan Carlos Almeida MD - 11/24/2019 INDICATION: Pain. COMPARISON: None available. TECHNIQUE: 3 views of the right shoulder. FINDINGS: There is no fracture. A geographic lucent lesion in the proximal humerus measures approximately 3 cm in diameter. It appears to stay on themetaphyseal side of the physeal scar. The lesion has thin sclerotic border withsuggestion of internal septa. On the axillary view, there appears to be an osseous excrescence arising from the proximal humeral metaphysis. The joint alignment is normal. The soft tissues are normal. IMPRESSION Indeterminate lesion in the proximal humeral metaphysis. Furtherevaluation with cross-sectional imaging is suggested. Reading Radiologist: Juan Carlos Almeida on 11/24/2019 at 1:58 PM Kishor Weber MD DIAGNOSTIC IMAGING O RDERABLES * ETT LINE PERFORMABLE (06/05/2019 1:23 PM SCALE AGENT) Narrative Regulo Castellon APRN-KELIN - 06/05/2019 1:23 PM SCALE AGENT Regulo Castellon APRN-CRNA 06/05/2019 3:17 PM Endotracheal Tube Placement: Patient Location: OR. Intubation Event Date/Time: 06/05/2019 12:51 PM Procedure: intubation (20101). Procedure Section: Sedation: under general anesthesia. Indications for Airway Management: anesthesia Induction: standard IV Patient Position: sniffing Mask Ventilation: easy. Blade Type: Astrid Blade Size: 3 Laryngoscopy View: grade 2 (partial cords) Intubation Adjuncts: stylet Tube: endotracheal tube Placement: oral Tube type: cuff - inflated Tube Size (MM): 7 Depth of Insertion (CM): 21 Measured From: teeth Cuff Inflated With: air Number of Attempts: 1. Placement Verified By: direct visualization, bilateral breath sounds, chest auscultation and CO2 monitor Tube secured with: adhesive tape. Difficult Airway? No. Procedure Start Time: 06/05/2019 12:51 PM. Procedure End Time: 06/05/2019 3:17 PM. Procedure Total Time: 146.23 minutes. Staff Section Anesthesia Provider: Lillie Fernandes APRN-CRNA, Performed the procedure Provider #1: Regulo Castellon APRN-CRNA, Performed the procedure. Yessy Piedra MD GENERAL ANESTHESIA O [facility] * PERIPHERAL KAVYA BLOCK PERFORMABLE (06/05/2019 12:07 PM SCALE AGENT) Elizabeth Robles MD - 06/05/2019 12:07 PM SCALE AGENT Elizabeth Interiano MD 06/05/2019 12:12 PM Peripheral Nerve Block Procedure: Peripheral Nerve Block Patient Location: Pre-op Preprocedure Section: Indications: at surgeon's request. Pre-anesthetic Checklist: Patient identified, IV Checked, Site examined and clear, Risks and benefits discussed, Surgical consent verified, Monitors and equipment, Time-out performed, Informed consent obtained, Pre-op evaluation done, Questions answered/anesthesia questions answered, Allergies reviewed and Removal hand/wrist jewelry Monitors: BP, Pulse Ox, EKG and ETCO2. Patient Condition: sedated, meaningful contact maintained throughout procedure Patient Position: supine Patient Sedated? Yes Sedation Type: moderate Sedation Agents: midazolam (VERSED) injection, 2 mg Procedure Section Laterality: right Block Performed: interscalene Prep: Chloraprep Strerile Field: gloves, mask, hat/cap, patient draped and sterile ultrasound sleeve Skin localized with: lidocaine (XYLOCAINE) 1 % injection, 3 mL Needle Type: Echogenic denised and Geneva Needle Gauge: 18 Needle Length: 50 mm Needle Depth: 3 cm Catheter? Yes Cath threaded to/length at skin: 7 cm Ultrasound Guided? Yes Technique: in plane Visualization: Preliminary scan performed, Important anatomical structures identified, Needle tip visualized throughout the procedure, Target identified, No intraneural or intravascular puncture occurred, Ultrasound image in chart, Local visualized surrounding nerve on ultrasound and Hydrodissection utilized Injection was made incrementally with constant monitoring and aspirations every 5 mL's Injection Assessment: Slow fractionated injection Block Agents or Additives used? Yes (precedex 25 mcg) Block agents used: ropivacaine (NAROPIN) 5 MG/ML (0.5%) injection, 20 mL dexamethasone (DECADRON) injection, 4 mg Procedure Tolerance: tolerated well Assessment: completed Procedure Start Time: 06/05/2019 11:38 AM. Procedure End Time: 06/05/2019 12:03 PM. Procedure Total Time: 25 minutes. Staff Section Anesthesia Provider: Abhijit Jaimes DO, Performed the procedure Provider #1: Evi Albert DO, Performed the procedure. Provider #2: Elizabeth Interiano MD. Additional Comments: Procedure performed for postoperative pain relief after rt shoulder surgery. I was present and supervised throughout the procedure. Elizabeth Interiano MD . Elizabeth Interiano MD GENERAL ANESTHESIA O RDERABLES * HCG URINE QUAL POCT NOTIFICATION (06/05/2019 11:15 AM SCALE AGENT) Only the most recent of2 resultswithin the time period is included. Comment Notification Label Only - See Separate Report 06/05/2019 12:30 PM SCALE AGENT [facility] Urine URINE / Unknown 06/05/2019 1 1:15 AM SCALE AGENT 06/05/2019 11:15 AM SCALE AGENT Yessy Piedra MD LAB - URINALYSIS ORD ERABLES [address] [phone] * CT ABDOMEN PELVIS W CONTRAST (04/24/2019 10:52 AM SCALE AGENT) Anatomical Region Laterality Modality Abdomen, Pelvis Computed Tomogra phy 04/24/2019 11:0 1 AM SCALE AGENT Impressions 04/24/2019 11:06 AM SCALE AGENT No significant abdominal or pelvic findings. Reading Radiologist: Ever Stuart MD on 04/24/2019 at 11:06 AM Narrative 04/24/2019 11:[address] abdomen and pelvis with contrast DATE: 04/24/2019. INDICATION: Pain, postcoital bleeding. TECHNIQUE: Multidetector enhanced CT through the abdomen and pelvis utilizing 100 cc of Isovue-370 intravenously and oral contrast. Triplanar reformations. COMPARISONS: None. FINDINGS: The lung bases are clear. The heart size is normal. The liver has normal size and enhancement. The portal and hepatic veins are patent. The gallbladder surgically absent. There is no dilatation of biliary tree or common duct. The pancreas and pancreatic duct are normal. The spleen is unremarkable except for a 5 mm peripheral cyst. The adrenal glands are normal. The kidneys are free of stones or obstruction. No perinephric stranding. The abdominal aorta and IVC are unremarkable. There is no retroperitoneal adenopathy. The stomach is decompressed and normal. The duodenum and small bowel are normal. The appendix is very small and normal. The terminal ileum is normal. There is scattered stool in the colon without obstructive or inflammatory changes. Overall uterine size is normal. The cervix is unremarkable. The ovaries are not enlarged. There is no free fluid or mesenteric edema. The urinary bladder is normal. The bony structures are normal. Procedure Note Ever Stuart MD - 04/24/2019 CT abdomen and pelvis with contrast DATE: 04/24/2019. INDICATION: Pain, postcoital bleeding. TECHNIQUE: Multidetector enhanced CT through the abdomen and pelvis utilizing 100 cc of Isovue-370 intravenously and oral contrast. Triplanar reformations. COMPARISONS: None. FINDINGS: The lung bases are clear. The heart size is normal. The liver has normal size and enhancement. The portal and hepatic veins are patent. The gallbladder surgically absent. There is no dilatation of biliary tree or common duct. The pancreas and pancreatic duct are normal. The spleen is unremarkable except for a 5 mm peripheral cyst. The adrenal glands are normal. The kidneys are free of stones or obstruction. No perinephric stranding. The abdominal aorta and IVC are unremarkable. There is no retroperitoneal adenopathy. The stomach is decompressed and normal. The duodenum and small bowel are normal. The appendix is very small and normal. The terminal ileum is normal. There is scattered stool in the colon without obstructive or inflammatory changes. Overall uterine size is normal. The cervix is unremarkable. The ovaries are not enlarged. There is no free fluid or mesenteric edema. The urinary bladder is normal. The bony structures are normal. IMPRESSION No significant abdominal or pelvic findings. Reading Radiologist: Ever Stuart MD on 04/24/2019 at 11:06 AM Kalina Chen MD CT ORDERABLES * CREATININE BLOOD - POINT OF CARE (IP) (04/24/2019 10:40 AM SCALE AGENT) Creatinine POCT 0.77 0.7 - 1.2 mg/dL [facility] POCT TESTING QC Verified Yes Yes [facility] POC T TESTING Blood BLOOD SPECIMEN / Unknown 04/24/2019 10:40 AM SCALE AGENT Kalina Chen MD LAB - POINT OF CAR E ORDERABLES Performing Organization Address City/State/[facility] Co de Phone Number [facility] POCT TESTING [address] [place] [address] * HPV DETECTION HIGH RISK CAROLYN (04/15/2019 11:00 AM SCALE AGENT) High Risk Human Papilloma Result Not Detected Not Detected 04/17/2019 3:51 PM SCALE AGENT [facility] High Risk Human Papilloma Interp 04/17/2019 3:51 PM SCALE AGENT [facility] Comment:High Risk Human Abraham lloma Virus was Not Detected. Pathology/Cytolo gy MISCELLANEOUS SAMPLES / Unknown 04/15/2019 11:00 AM SCALE AGENT 04/16/2019 12:35 PM SCALE AGENT Narrative [facility] - 04/17/2019 3:51 PM SCALE AGENT Nucleic acid isolated from the specimen was [...] Kalina Chen MD LAB - MICROBIOLOGY ORDERABLES [facility] [address] [phone] * PAP IMAGE-GUIDED W HPV (04/15/2019 11:00 AM SCALE AGENT) Case Report Gynecologic Cytology Report Case: [id number] Authorizing Provider: Kalina Chen MD Collected: 04/15/2019 11:00 AM Ordering Location: [facility] Obstetrics Received: 04/16/2019 12:35 PM Gynecology and Women's [facility] First Screen: Yang Waters Specimen: THINPREP - IMAGE GUIDED, Cervix/Endocervix 04/17/2019 2:33 PM SCALE AGENT [facility] LMP 2014 04/17/2019 2:33 PM SCALE AGENT [facility] Menstrual Status Endometrial Ablation 04/17/2019 2:33 PM SCALE AGENT [facility] Specimen Adequacy Satisfactory for evaluation, endocervical/trans formation zone component present. 04/17/2019 2:33 PM SCALE AGENT [facility] Categorization Negative for intraepithelial lesion or malignancy. 04/17/2019 2:33 PM SCALE AGENT [facility] Interpretation OUTSIDE UPHOLSTERER Negative for intraepithelial lesion or malignancy. 04/17/2019 2:33 PM SCALE AGENT [facility] Pap Footnote This specimen was evaluated by the ThinPrep Imaging System along with the an additional manual rescreening by a secondary school special ed teacher and/or pathologist. 04/17/2019 2:33 PM SCALE AGENT [facility] Embedded Images 0 2:33 PM SCALE AGENT [facility] Pathology/Cytolo gy MISCELLANEOUS SAMPLES / Unknown 04/15/2019 11:00 AM SCALE AGENT 04/16/2019 12:35 PM SCALE AGENT Kalina Chen MD LAB - PATHOLOGY/CY DONY ORDERABLES Performing Organization Address City/[facility]/ZIP Co de Phone Number [facility] [address] [facility] [place] [address], [facility] [place] [phone] * CULTURE THROAT (03/31/2016 3:38 PM SCALE AGENT) Pathologist [facility] Culture [facility] Comment: CULTURE, THROAT MICRO NUMBER: [id number] TEST STATUS: FINAL SPECIMEN SOURCE: THROAT SPECIMEN QUALITY: ADEQUATE RESULT: No oropharyngeal pathogens recovered. Test Performed at: [facility] [phone] KARTHIKEYAN MEDRANO MD Microbiology ENTIRE THROAT (SURFACE REGION OF NECK) / Unknown 03/31/2016 3:38 PM SCALE AGENT 04/01/2016 3:00 AM SCALE AGENT Leslie Strange APRN-DISPENSING OPTICIAN APPRENTICE LAB - MICROBIOLO GY ORDERABLES Performing Organization Address [facility] Co de Phone Number [facility] [address] [place] [phone] * STREP A SCREEN - POINT OF CARE (AMB) STL (03/31/2016) Strep A Rapid POCT Negative Negative Strep A Internal Control Present Lot # [id number] Expiration Date 11/23/2017 Throat ENTIRE THROAT (SURFACE REGION OF NECK) / Unknown 03/31/2016 Leslie Strange APRN-DISPENSING OPTICIAN APPRENTICE LAB - POINT OF C ARE ORDERABLES Care Teams Hospice Volunteer Coordinator Relationship Specialty Start Date End Date Clem Roblero MD [address] [place] [phone] PCP - General 02/11/19
--- OUTSIDE RECORDS SUMMARY | 2024-06-03 14:04 | XMS_ITS | Data Portability ---
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 Plan of Treatment Reminders Order Date Submit Date Provider Last Modified By Organization Details Last Modified Time Details Appointments None recorded . Lab CMP, serum or plasma 2021 022 [facility], [address] [place] [address], [facility], [address], [place], [address], 17:09:39 CBC w/ auto diff 2021 022 [facility], [address] [place] [address], [address], [place], [address], 17:09:38 PT/PTT, plasma 2021 022 [facility], [address] [place] [address], [address], [place], [address], 17:09:40 Referral general surgeon referral 2020 021 ace Dominguez MD, [address] [facility], [address], [place], [address], 09:13:39 Procedures None recorded . Surgeries None recorded . Imaging electroc james ureña 2022 023 [facility] ([facility]), [address] [place], [address], 3 15:30:16 US, duplex, venous, lower extremit y, complete 2021 022 [facility] ([facility]), [address] [place], [address], 2 10:17:55 US, doppler, arterial - Lower extremit ies. both sides. 2021 022 [facility] ([facility]), [address] [place], [address], 2 10:18:53 Medication Orders Reglan 10 mg tablet 2020 [facility] #[id number], [address], [place], [id number], 3 15:29:34 Medrol (Rayo) 4 mg tablets in a dose pack 2020 [facility] #58334, [address], [place], [id number], 3 15:29:00 Zithroma x Z-Rayo 250 mg tablet 2020 [facility] #64869, [address], [place], [id number], 3 15:28:53 albutero l sulfate HFA 90 mcg/actu ation aerosol inhaler 2020 [facility] #51100, [address], [place], [id number], 3 15:30:14 benzonat ate 200 mg capsule 2020 021 [facility][id number], [address], [place], [place], [id number], 12:32:25 Patient TargetsNo targets recorded. Patient Instructions Encounter Date Encounter Id Patient Instructions Last Modified By Organization Details Last Modified Time 02/24/2021 [id number] gastroesophageal reflux disease (GERD): care instructions [facility] Not available 02/24/2021 12:54:11 12/04/2022 [id number] Quitting Tobacco : Care Instructions si Not available 12/04/2022 16:19:16 A healthy lifest yle: care instructions [facility] Not available 12/04/2022 16:19:16 chronic obstruct abdiel pulmonary disease (COPD): care instructions [facility] Not available 12/04/2022 16:19:16 learning about c [...] /uL 3.4-10 .8 Not Available [facility] ([facility]) [address] [facility], [place], [address], 07/28/2021 17:09:38 07/23/19 22 07/23/2021 CBC WITH DIFFE RENTI AL/PL ATELE T RBC 4.93 x10e6 /uL 3.77-5 .28 Not Available [facility] ([facility]) [address] [facility], [place], [address], 07/28/2021 17:09:38 07/23/19 22 07/23/2021 CBC WITH DIFFE RENTI AL/PL ATELE T hemoglobin 14.6 g/dL 11.1-1 5.9 Not Available [facility] ([facility]) [address] [facility], [place], [address], 07/28/2021 17:09:38 07/23/19 22 07/23/2021 CBC WITH DIFFE RENTI AL/PL ATELE T hematocrit 43.1 % 34.0-4 6.6 Not Available [facility] ([facility]) [address] [facility], [place], [address], 07/28/2021 17:09:38 07/23/19 22 07/23/2021 CBC WITH DIFFE RENTI AL/PL ATELE T MCV 87 fL 79-97 Not Available [facility] ([facility]) [address] [facility], [place], [address], 07/28/2021 17:09:38 07/23/19 22 07/23/2021 CBC WITH DIFFE RENTI AL/PL ATELE T MCH 29.6 pg 26.6-3 3.0 Not Available [facility] ([facility]) [address] [facility], [place], [address], 07/28/2021 17:09:38 07/23/19 22 07/23/2021 CBC WITH DIFFE RENTI AL/PL ATELE T MCHC 33.9 g/dL 31.5-3 5.7 Not Available [facility] ([facility]) [address] [facility], [place], [address], 07/28/2021 17:09:38 07/23/19 22 07/23/2021 CBC WITH DIFFE RENTI AL/PL ATELE T RDW 12.2 % 11.7-1 5.4 Not Available [facility] ([facility]) [address] [facility], [place], [address], 07/28/2021 17:09:38 07/23/19 22 07/23/2021 CBC WITH DIFFE RENTI AL/PL ATELE T platelets 336 x10e3 /uL 150-45 0 Not Available [facility] ([facility]) [address] [facility], [place], [address], 07/28/2021 17:09:38 07/23/19 22 07/23/2021 CBC WITH DIFFE RENTI AL/PL ATELE T neutrophils 59 % not estab. Not Available [facility] ([facility]) [address] [facility], [place], [address], 07/28/2021 17:09:38 07/23/19 22 07/23/2021 CBC WITH DIFFE RENTI AL/PL ATELE T lymphs 26 % not estab. Not Available [facility] ([facility]) [address] [facility], [place], [address], 07/28/2021 17:09:38 07/23/19 22 07/23/2021 CBC WITH DIFFE RENTI AL/PL ATELE T monocytes 12 % not estab. Not Available [facility] ([facility]) [address] [facility], [place], [address], 07/28/2021 17:09:38 07/23/19 22 07/23/2021 CBC WITH DIFFE RENTI AL/PL ATELE T eos 2 % not estab. Not Available [facility] ([facility]) [address] [facility], [place], [address], 07/28/2021 17:09:38 07/23/19 22 07/23/2021 CBC WITH DIFFE RENTI AL/PL ATELE T basos 1 % not estab. Not Available [facility] ([facility]) [address] [facility], [place], [address], 07/28/2021 17:09:38 07/23/19 22 07/23/2021 CBC WITH DIFFE RENTI AL/PL ATELE T immature cells ASSESSMENT COORDINATOR Not Available [facility] ([facility]) [address] [facility], [place], [address], 07/28/2021 17:09:38 07/23/19 22 07/23/2021 CBC WITH DIFFE RENTI AL/PL ATELE T neutrophils (absolute) 4.2 x10e3 /uL 1.4-7. 0 Not Available [facility] ([facility]) [address] [place], [address], 07/28/2021 17:09:38 07/23/19 22 07/23/2021 CBC WITH DIFFE RENTI AL/PL ATELE T lymphs (absolute) 1.9 x10e3 /uL 0.7-3. 1 Not Available [facility] ([facility]) [address] [place], [address], 07/28/2021 17:09:38 07/23/19 22 07/23/2021 CBC WITH DIFFE RENTI AL/PL ATELE T monocytes(ab solute) 0.9 x10e3 /uL 0.1-0. 9 Not Available [facility] ([facility]) [address] [place], [address], 07/28/2021 17:09:38 07/23/19 22 07/23/2021 CBC WITH DIFFE RENTI AL/PL ATELE T eos (absolute) 0.2 x10e3 /uL 0.0-0. 4 Not Available [facility] ([facility]) [address] [place], [address], 07/28/2021 17:09:38 07/23/19 22 07/23/2021 CBC WITH DIFFE RENTI AL/PL ATELE T baso (absolute) 0.1 x10e3 /uL 0.0-0. 2 Not Available [facility] ([facility]) [address] [place], [address], 07/28/2021 17:09:38 07/23/19 22 07/23/2021 CBC WITH DIFFE RENTI AL/PL ATELE T immature granulocytes 0 % not estab. Not Available [facility] ([facility]) [address] [place], [address], 07/28/2021 17:09:38 07/23/19 22 07/23/2021 CBC WITH DIFFE RENTI AL/PL ATELE T immature grans (abs) 0.0 x10e3 /uL 0.0-0. 1 Not Available [facility] ([facility]) [address] [facility], [place], [address], 07/28/2021 17:09:38 07/23/19 22 07/23/2021 CBC WITH DIFFE RENTI AL/PL ATELE T NRBC ASSESSMENT COORDINATOR Not Available [facility] ([facility]) [address] [facility], [place], [address], 07/28/2021 17:09:38 07/23/19 22 07/23/2021 CBC WITH DIFFE RENTI AL/PL ATELE T hematology comments: ASSESSMENT COORDINATOR Not Available [facility] ([facility]) [address] [facility], [place], [address], 07/28/2021 17:09:38 07/23/19 22 07/23/2021 COMP. METAB OLIC PANEL (14) glucose 95 mg/dL 65-99 Not Available [facility] ([facility]) [address] [facility], [place], [address], 07/28/2021 17:09:39 07/23/19 22 07/23/2021 COMP. METAB OLIC PANEL (14) BUN 14 mg/dL 6-24 Not Available [facility] ([facility]) [address] [facility], [place], [address], 07/28/2021 17:09:39 07/23/19 22 07/23/2021 COMP. METAB OLIC PANEL (14) creatinine 0.71 mg/dL 0.57-1 .00 Not Available [facility] ([facility]) [address] [facility], [place], [address], 07/28/2021 17:09:39 07/23/19 22 07/23/2021 COMP. METAB OLIC PANEL (14) eGFR 108 mL/mi n/1.7 3 >59 Not Available [facility] ([facility]) [address] [place], [address], 07/28/2021 17:09:39 07/23/19 22 07/23/2021 COMP. METAB OLIC PANEL (14) BUN/creatini ne ratio 20 9-23 Not Available [facility] ([facility]) [address] [facility], [place], [address], 07/28/2021 17:09:39 07/23/19 22 07/23/2021 COMP. METAB OLIC PANEL (14) sodium 138 mmol/ L 134-14 4 Not Available [facility] ([facility]) [address] [facility], [place], [address], 07/28/2021 17:09:39 07/23/19 22 07/23/2021 COMP. METAB OLIC PANEL (14) potassium 4.9 mmol/ L 3.5-5. 2 Not Available [facility] ([facility]) [address] [facility], [place], [address], 07/28/2021 17:09:39 07/23/19 22 07/23/2021 COMP. METAB OLIC PANEL (14) chloride 103 mmol/ L 96-106 Not Available [facility] ([facility]) [address] [place], [address], 07/28/2021 17:09:39 07/23/19 22 07/23/2021 COMP. METAB OLIC PANEL (14) carbon dioxide, total 22 mmol/ L 20-29 Not Available [facility] ([facility]) [address] [place], [address], 07/28/2021 17:09:39 07/23/19 22 07/23/2021 COMP. METAB OLIC PANEL (14) calcium 9.6 mg/dL 8.7-10 .2 Not Available [facility] ([facility]) [address] [place], [address], 07/28/2021 17:09:39 07/23/19 22 07/23/2021 COMP. METAB OLIC PANEL (14) protein, total 6.7 g/dL 6.0-8. 5 Not Available [facility] ([facility]) [address] [place], [address], 07/28/2021 17:09:39 07/23/19 22 07/23/2021 COMP. METAB OLIC PANEL (14) albumin 4.4 g/dL 3.8-4. 8 Not Available [facility] ([facility]) [address] [place], [address], 07/28/2021 17:09:39 07/23/19 22 07/23/2021 COMP. METAB OLIC PANEL (14) globulin, total 2.3 g/dL 1.5-4. 5 Not Available [facility] ([facility]) [address] [place], [address], 07/28/2021 17:09:39 07/23/19 22 07/23/2021 COMP. METAB OLIC PANEL (14) A/G ratio 1.9 1.2-2. 2 Not Available [facility] ([facility]) [address] [place], [address], 07/28/2021 17:09:39 07/23/19 22 07/23/2021 COMP. METAB OLIC PANEL (14) bilirubin, total 0.4 mg/dL 0.0-1. 2 Not Available [facility] ([facility]) [address] [place], [address], 07/28/2021 17:09:39 07/23/19 22 07/23/2021 COMP. METAB OLIC PANEL (14) alkaline phosphatase 113 IU/L 44-121 Not Available [facility] ([facility]) [address] [facility], [place], [address], 07/28/2021 17:09:39 07/23/19 22 07/23/2021 COMP. METAB OLIC PANEL (14) AST (SGOT) 13 IU/L 0-40 Not Available [facility] ([facility]) [address] [facility], [place], [address], 07/28/2021 17:09:39 07/23/19 22 07/23/2021 COMP. METAB OLIC PANEL (14) ALT (SGPT) 15 IU/L 0-32 Not Available [facility] ([facility]) [address] [facility], [place], [address], 07/28/2021 17:09:39 07/23/19 22 07/28/2021 ABN PTT/A PTT REFLE XIVE PANEL thrombin time 15.7 sec Refer ence Range : 0.0 - 23.0 Not Available [facility] [address] [place], [address], 07/28/2021 17:09:40 07/23/19 22 07/28/2021 ABN PTT/A PTT REFLE XIVE PANEL prothrombin time 10.0 sec Refer ence Range : 18 years and older : 9.1 - 12.0 Not Available [facility] [address] [place], [address], 07/28/2021 17:09:40 07/23/19 22 07/28/2021 ABN PTT/A PTT REFLE XIVE PANEL INR 0.9 ratio Refer ence Range : >1 month : 0.9 - 1.2 Not Available [facility] [address] [place], [address], 07/28/2021 17:09:40 07/23/19 22 07/28/2021 ABN PTT/A [...] 30.2 Not Available [facility] [address] [place], [address], 07/28/2021 17:09:40 07/23/19 22 07/28/2021 ABN PTT/A PTT REFLE XIVE PANEL drvvt screen seconds 39.3 sec Refer ence Range : <= 47.0 Not Available [facility] [address] [place], [address], 07/28/2021 17:09:40 07/23/19 22 07/28/2021 ABN PTT/A PTT REFLE XIVE PANEL drvvt confirm seconds TNP sec Testi ng Not Indic ated Not indic ated Not Available [facility] [address] [place], [address], 07/28/2021 17:09:40 07/23/19 22 07/28/2021 ABN PTT/A PTT REFLE XIVE PANEL drvvt ratio TNP ratio Testi ng Not Indic ated Not indic ated Not Available [facility] [address] [place], [address], 07/28/2021 17:09:40 07/23/19 22 07/28/2021 ABN PTT/A PTT REFLE XIVE PANEL pathologist interpretati on TNP Test not perfo rmed All resul ts are withi n the adult refer ence range and there fore patho logy inter preta tion is not indic ated. Not Available [facility] [address] [place], [address], 07/28/2021 17:09:40 02/02/20 21 12/23/2020 CT, chest , w/o contr ast No observ ation record ed. [address] ([facility]) [address] [place], [address], 02/04/2021 09:40:54 07/23/19 22 03/31/2021 PFT, compl ete No observ ation record ed. [address] [place], [address], 07/25/2021 10:10:49 07/28/19 22 07/25/2021 US, duple x, venou s, lower extre mity, compl ete No observ ation record ed. [facility] ([facility]) [address] [place], [address], 07/29/2021 16:10:14 07/28/19 22 07/26/2021 US, doppl er, arter ial No observ ation record ed. [facility] ([facility]) [address] [place], [address], 07/29/2021 16:10:15 12/10/19 22 12/09/2021 imagi ng/di agnos tic resul t No observ ation record ed. [facility] [address] [place], [address], 12/09/2021 18:51:15 04/05/20 22 04/05/2022 imagi ng/di agnos tic resul t No observ ation record ed. [facility] [address] [place], [address], 04/05/2022 18:28:29 06/12/19 23 06/11/2022 imagi ng/di agnos tic resul t No observ ation record ed. [facility] [address] [place], [address], 06/12/2022 17:41:08 09/12/19 23 09/08/2022 elect verónica valentine am No observ ation record ed. [facility] [address] [place], [address], 09/14/2022 09:54:44 12/06/19 23 12/05/2022 imagi ng/di agnos tic resul t No observ ation record ed. [facility] [address] [place], [address], 12/06/2022 11:20:05 01/14/20 23 01/13/2023 imagi ng/di agnos tic resul t No observ ation record ed. [facility] [address] [place], [address], 01/15/2023 12:48:00 03/21/20 23 03/21/2023 CT, abdom en + pelvi s, w/o contr ast No observ ation record ed. [facility] [address] [place], [address], 03/27/2023 17:00:21 04/15/19 24 04/15/2023 CT, head, w/o contr ast No observ ation record ed. [place] [id number], [place], [address], 04/17/2023 10:22:09 07/25/19 24 07/25/2023 CT, abdom en + pelvi s, w/ contr ast No observ ation record ed. [email or web address] [facility] [address] [place], [address], 08/01/2023 12:21:46 08/17/19 24 08/17/2023 XR, chest No observ ation record ed. [facility] [address] [place], [address], 09/04/2023 12:55:26 Result Notes None recorded. Problems Name Problem SNOMED Code Status Onset Date Resolution Date Notes Provider Name and Address Organization Details Recorded Time Upper respirato ry infection 64069304 Completed 201607/19/2020 Clem devries, S[facility] - [facility] 1 21:46:55 Viral gastritis 600701883 Completed 201607/19/2020 Clem devries, SERE[facility] - [facility] 1 21:46:53 Pain of left heel 70453737624 [address] Completed 201707/19/2020 Clem devries, S[facility] - [facility] 1 21:46:33 Body mass index 30+ - obesity 031451242 Active 2017 Not Available [facility] 3 12:00:10 Retractio n of nipple 06113124 Active 2017 Not Available [facility] 3 12:00:10 Bacterial vaginosis 968809432 Active 2017 Not Available [facility] 3 12:00:10 Solitary nodule of lung 480170758 Active 2017 Not Available [facility] 3 12:00:10 Family history of malignant neoplasm of lung 923289468 Active 2017 Not Available [facility] 3 12:00:10 Bereaveme nt 87461718 Completed 201707/19/2020 Clem devries, SERENA - [facility] 1 21:46:17 Asthma 303484993 Active 2019 J45.90 9 Not Available [facility] 3 12:00:10 Depressiv e disorder 34685472 Active Not Available [facility] 3 12:00:10 Migraine 60045588 Active Not Available [facility] 3 12:00:10 Tobacco dependenc e syndrome 32712802 Active Not Available [facility] 3 12:00:10 Obesity 912215577 Completed 07/12/2017 Deborah Zamarripa PA-C Attn: Accounting ,[address] [place], [address] , [place] - [facility] 8 11:43:54 Insomnia 440964337 Active Not Available [facility] 3 12:00:10 History of alcoholis m 829629773 Active 2015 Not Available [facility] 3 12:00:10 Hand pain 64758231 Active 2015 Not Available [facility] 3 12:00:10 Shoulder pain 62703369 Completed 201607/19/2020 Clem SteveAnnika null, [facility] 1 21:46:46 Shoulder pain 95717242 Completed 201607/19/2020 Clem SteveAnnika null, [facility] 1 21:46:39 Muscle spasm of cervical muscle of neck 27701498817 4 Completed 201607/19/2020 Clem SteveAnnika jaycob, [facility] 21:46:36 Problem Notes None recorded. Procedures Surgical History Date Name Laterality Status Provider Name and Address Organization Details Recorded Time 07/14/19 18 Date of Last Pap Smear completed Devika Capellan MA [facility] 02/07/2019 11:08:58 04/09/19 15 Cholecystectomy completed Clem Annika [facility] 06/03/2018 14:46:57 04/09/19 14 Endometrial Ablation completed Clem Annika [facility] 06/03/2018 14:47:29 04/09/19 13 Tubal Ligation completed Naat Sloan MA [facility] 05/11/2015 11:57:52 Imaging Results Imaging Date Name Status LastModified by Organization Details LastModified Time 12/23/2020 CT, chest, w/o contrast completed [address] ([facility]) [address] [place], [address], 02/04/2021 09:40:54 03/31/2021 PFT, complete completed [address] [place], [address], 07/25/2021 10:10:49 07/25/2021 US, duplex, venous, lower extremity, [email or web address] [address] [place], [address], 07/29/2021 16:10:14 07/26/2021 US, doppler, arterial completed [facility] ([facility]) [address] [place], [address], 07/29/2021 16:10:15 12/09/2021 imaging/diagnostic result completed [facility] [address] [place], [address], 12/09/2021 18:51:15 04/05/2022 imaging/diagnostic result completed [facility] [address] [place], [address], 04/05/2022 18:28:29 06/11/2022 imaging/diagnostic result completed [facility] [address] [place], [address], 06/12/2022 17:41:08 09/08/2022 electrocardiogram completed [facility] [address] [place], [address], 09/14/2022 09:54:44 12/05/2022 imaging/diagnostic result completed [facility] [address] [place], [address], 12/06/2022 11:20:05 01/13/2023 imaging/diagnostic result completed [facility] [address] [place], [address], 01/15/2023 12:48:00 03/21/2023 CT, abdomen + pelvis, w/o contrast completed [facility] [address] [place], [address], 03/27/2023 17:00:21 04/15/2023 CT, head, w/o contrast completed [address], [address], 04/17/2023 10:22:09 07/25/2023 CT, abdomen + pelvis, w/ contrast completed [email or web address] [place] [address] [address] [place], [address], 08/01/2023 12:21:46 08/17/2023 [email or web address] [address] [place], [address], 09/04/2023 12:55:26 Procedure Notes None recorded. Medical [...] DateTime 01/28/2021 162.56 cm Josefa Clements MA [place] [facility] 01/28/2021 14:36:31 Date Recorded Body height Body mass index (BMI) Body weight Body temperature Oxygen saturation Oxygen saturation in Arterial blood by Pulse oximetry Heart rate Systolic blood pressure Diastolic blood pressure Provider Name and Address Organization Details Last Updated DateTime 1 162.56 cm 39.5 kg/m2 026596. 68 g 98.1 [degF] 99 % 99 % 91 /min 124 mm[Hg] 90 mm[Hg] Joao Ramírez MA [facility] 1 12:38:24 Date Recorded Body height Body mass index (BMI) Body weight Body temperature Oxygen saturation Oxygen saturation in Arterial blood by Pulse oximetry Heart rate Systolic blood pressure Diastolic blood pressure Provider Name and Address Organization Details Last Updated DateTime 2 162.56 cm 38.4 kg/m2 205658. 69 g 98.7 [degF] 97 % 97 % 94 /min 110 mm[Hg] 78 mm[Hg] Devika Capellan MA [facility] 2 12:15:28 Date Recorded Body height Body mass index (BMI) Body weight Oxygen saturation Oxygen saturation in Arterial blood by Pulse oximetry Heart rate Systolic blood pressure Diastolic blood pressure Provider Name and Address Organization Details Last Updated DateTime 3 162.56 cm 37.4 kg/m2 03242.5 7 g 97 % 97 % 94 /min 118 mm[Hg] 81 mm[Hg] Josefa Whelan MA [facility] 3 15:36:39 Date Recorded Body height Body mass index (BMI) Body weight Heart rate Oxygen saturation Oxygen saturation in Arterial blood by Pulse oximetry Systolic blood pressure Diastolic blood pressure Provider Name and Address Organization Details Last Updated DateTime 3 162.56 cm 37.6 kg/m2 36453.7 3 g 91 /min 97 % 97 % 132 mm[Hg] 80 mm[Hg] Cecile Fernando MA [place] [facility] 3 12:44:58 Social History Question Answer Notes LastModified by Organizat ion Details LastModified Time Tobacco Smoking Status Current Every Day Smoker Nata Sloan MA jaycob, [place] - [facility] 05/11/2015 11:57:52 Do You Have An Advance Directive? No [email or web address] Information not available 05/11/2015 What Is Your Level Of Alcohol Consumption? Occasional [email or web address] Information not available 05/11/2015 Is Blood Transfusion Acceptable In An Emergency? Yes Information not available 07/20/2020 What Is Your Level Of Caffeine Consumption? Occasional Information not available 07/20/2020 How Much Tobacco Do You Chew? None [email or web address] Information not available 05/11/2015 Are You Currently Employed? No Information not available 05/11/2015 What Type Of Diet Are You Following? REGULAR [email or web address] Information not available 05/11/2015 Which Illicit Or Recreational Drugs Have You Used? 0 [email or web address] Information not available 05/11/2015 Do You Or Have You Ever Used E-cigarettes Or Vape? Never Used Electronic Cigarettes Information not available 02/24/2019 Education 11 Information no t available 05/11/2015 What Is The Highest Grade Or Level Of School You Have Completed Or The Highest Degree You Have Received? 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 No [email or web address] Information not available 05/11/2015 Hard Of Hearing Or Deaf In One Or Both Ears? No [email or web address] Information not available 05/11/2015 Legally Blind In One Or Both Eyes? No Information not available 05/11/2015 Live Alone Or With Others? With Others [email or web address] Information not available 05/11/2015 What Was The Date Of Your Most Recent Tobacco Screening? 12/04/2022 Information not available 12/04/2022 How Many Children Do You Have? 3 [email or web address] Information not available 05/11/2015 What Is Your Current Pack Years? [email or web address] Information not available 07/20/2020 Do You Use Protection During Sex? Always [email or web address] Information not available 05/11/2015 What Is Your Relationship Status? Single Information not available 07/20/2020 Do You Use Your Seat Belt Or Car Seat Routinely? Yes Information not available 07/20/2020 Seat Belts Used Routinely Yes [email or web address] Information not available 05/11/2015 Are You Sexually Active? Yes [email or web address] Information not available 05/11/2015 Smoke Alarm In Home Yes [email or web address] Information not available 05/11/2015 Do You Have Smoke And Carbon Monoxide Detectors In Your Home? Yes Information not available 07/20/2020 At What Age Did You Start Smoking Tobacco? 13 [email or web address] Information not available 05/11/2015 Are You Passively Exposed To Smoke? No [email or web address] Information not available 05/11/2015 Do You Or [...] Many Years Have You Smoked Tobacco? 21 [email or web address] Information not available 05/11/2015 Do You Or Have You Ever Used Any Other Forms Of Tobacco Or Nicotine? No Information not available 07/22/2021 Sex: Unknown Functional Status Question Answer Note LastModified by Organization D etails LastModified Time Are you able to care for yourself? Yes Information n ot available 05/11/2015 What is your exercise level? None [email or web address] Information not available 05/11/2015 Mental Status None [...] SNOMED-CT Code Diagnosis ICD10 Code Diagnosis Note [id number] OLENA Hernandez (Adult Med) [address] [place] [address] 05/11/2015 11:22:56 05/11/2015 12:40:48 Migraine 31782189 G43.909 Wants to try paxil 10mg QD first If this does not work, will initiate topamax In addition, she drinks 5 cans soda/day (Dr. Garsia) and sweet tea she has no interest in quitting soda History of attempted suicide 907730482 Z91.5 She was hospitaliz ed at [facility] 7 months ago - states that she is better now but now all she wants to do is leave Advised that if she has SI/HI ideations to go directly to the ED Depressive disorder 7361 1809 F32.9 The biggest thing right now is all she wants to do is drink but her 3 children (the 2YO more than anything) is the reason that she does not drink Tobacco de pendence syndrome 91287785 F17.290 She states that smoking has kept her away from alcohol and at this point she has no interest in quitting smoking Obesity 011863101 E66.9 We discussed not drinking her calories - she drinks 5 Dr. Garsias/da y in addition to sweet tea - she states 'there is no chance of that happening' Talked about possibly doing diet soda - she will consider this She will RTC tomorrow for fasting labs We discussed the fact that she is only drinking sugary drinks is likely causing her frequent UTIs and kidney infections - she states that she has been told this in the past but has no interest in changing her ways [id number] OLENA Hernandez (Adult Med) [address] [place] [address] 06/01/2015 11:09:55 06/01/2015 12:00:14 Tobacco dependence syndrome 33957943 F17.290 She states that smoking has kept her away from alcohol and at this point she has no interest in quitting smoking History of alcoholism 16 3817611 F10.21 Depressive disorder 6803 7914 F32.9 The biggest thing right now is all she wants to do is drink but her 3 children (the 2YO more than anything) is the reason that she does not drink Discussed that it is not likely her medication causing all of her issues but her circumstan zack at home She has an appointmen t with counseling on 07/04 Insomnia 992315609 G47.0 0 Will try trazodone 50mg QPM [id number] OLENA Hernandez (Adult Med) [address] [place] [address] 02/24/2016 09:34:02 02/24/2016 12:25:29 Hand pain 97388788 M79.641 right hand pain and tingling - positive tinnel's and positive phalen's - likely dx of carpal tunnel syndromeAd vised to continue to wear her brace because it is helping with her hand pain and tinglingWi ll begin with right hand EMGAdvised ibuprofen PRNWill likely refer to ortho when EMG results are received Obesity 395977377 E66.9 Advised 30 minutes of exercise 5 days/week Advised to not drink her calories and to especially stay away from soda Advised 3 balanced meals/day with plenty of fruits and vegetables Depressive disorder 3548 9007 F32.9 Her mother 2 months agoShe is going to go through [facility] [facility] [employer] for counseling because she wants her kids in the counseling States that she has not been drinking at all and her boyfriend stopped drinking - states that they maybe go out once every 3 months Tobacco de pendence syndrome 16862735 F17.290 Advise to quitNo ready to quit yet even though she knows that her mother and grandmothe r of lung cancer History of alcoholism 16 0564902 F10.21 States that she has not been drinking at all and her boyfriend stopped drinking - states that they maybe go out once every 3 months [id number] OLENA Hernandez (Adult Med) [address] [place] [address] 03/09/2016 16:01:18 03/09/2016 18:08:02 Hand pain 77550947 M79.641 EMG negative Pain radia ting to right arm 126135027 M79.601 Patient of right hand is now radiating up and down right arm from the neck/shoul oneal to her 2-4 digits of her right handWill no proceed with cervical MRI Advised that purchasing medication s on the streets or taking anyone else's prescribed medication s is illegalDis cussed that no pain medication would be prescribed until there is evidence from imaging [id number] OLENA Hernandez (Adult Med) [address] [place] [address] 04/13/2016 15:17:19 04/13/2016 18:16:18 Hand pain 72523149 M79.641 EMG negative - states that today her right hand and wrist are fineTaking ibuprofenT aking tramadol for someone else - advised that this is illegalWil l retry to send through neck MRIWIll refer to PT for hand pain Tobacco de pendence syndrome 21651336 F17.290 Advise to quitNo ready to quit yet even though she knows that her mother and grandmothe r of lung cancer Shoulder pain 09421851 M 25.511 Patient has had new onset right shoulder pain x a few weeks - will refer to PT for this Dysuria 47265242 R30.0 [id number] OLENA Hernandez (Adult Med) [address] [place] [address] 03/13/2017 10:27:44 03/13/2017 12:25:02 Upper respiratory infection 57354161 J06.9 Advised to drink plenty of waterAlter rosetta ibuprofen and tylenol for painRestOT C cough syrup PRN Advised at this time the abx still have 5 days to work because she took them for 5 daysAdvise d if no improvemen t in 5 days to contact clinic or go to the ER Allergic disposition 609 815399 Z91.09 [id number] OLENA Hernandez (Adult Med) [address] [place] [address] 03/28/2017 12:08:38 03/28/2017 13:55:06 Viral gastritis 488685369 A08.39 Advised to drink plenty of fluids and a bland dietAltern ate ibuprofen and tylenol for painRest - patient given note to return to work in 3 days [id number] OLENA Hernandez (Adult Med) [address] [place] [address] 04/17/2017 11:02:08 04/17/2017 11:59:48 Tobacco dependence syndrome 01142814 F17.290 Advise to quitNo ready to quit yet even though she knows that her mother and grandmothe r of lung cancer Upper resp iratory infection 78762337 J06.9 Advised to drink plenty of waterAlter rosetta ibuprofen and tylenol for painRestOT C cough syrup PRN Advised if no improvemen t in 5 days to contact clinic or go to the ER [id number] OLENA Hernandez (Adult Med) [address] [place] [address] 07/12/2017 09:48:22 07/12/2017 12:24:44 Pain of left heel 0496157510 370640 M79.672 Due to the tenderness in the heel and the descriptio n of pain by the patient, it is necessary to determine if they are suffering from possible heel spurs vs fx vs inflammati on. An X-ray was ordered. Once xray results received, will determine if she needs referral to podiatry.E ducated to change out their shoes every 6mo to maintain quality arch support and wear good tennis shoes. Tobacco de pendence syndrome 53647866 F17.290 Advise to quitNo ready to quit yet even though she knows that her mother and grandmothe r of lung cancer Body mass index 30+ - obesity 391520322 Z68.39 Advised 30 minutes of exercise 5 days/week Advised to not drink her calories Advised 3 balanced meals/day with plenty of fruits and vegetables [id number] OLENA Hernandez ([employer]) [address] [place] [address] 07/13/2017 10:37:34 07/13/2017 12:22:33 Gynecologic examination 67201210 Z01.411 Milky nipp le discharge 682239437 N64.52 WIll check labs and mammogram Retraction of nipple 318 01053 N64.53 Bilateral nipples as seen on exam - patient states she cannot remember if this is new or not but doesn't notice anything different with her breasts - will check mammogram Body mass index 30+ - obesity 753919899 Z68.39 Advised 30 minutes of exercise 5 days/week Advised to not drink her calories Advised 3 balanced meals/day with plenty of fruits and vegetables Tobacco de pendence syndrome 63895017 F17.290 Advise to quitNo ready to quit yet even though she knows that her mother and grandmothe r of lung cancer [id number] OLENA Hernandez (Adult Med) [address] [place] [address] 10/31/2017 09:49:11 10/31/2017 10:23:44 Solitary nodule of lung 535433699 R91.1 8.3mm right upper lobe non-calcif ied nodule - will refer to pul Tobacco de pendence syndrome 95326859 F17.290 Advise to quit Acute asthma 460094206 J 45.901 really encouraged to quit smokingdoe s not have a nebulizer at home but was given medication for nebulizer at hospital - will prescribe machine Generalize d anxiety disorder 01918208 F41.1 c/w hydroxyzin e QID PRN for anxiety Family his tory of malignant neoplasm of lung 391186129 Z80.1 [id number] PEPE COREA (Adult Med) [address] [place] [address] 12/21/2017 11:43:16 12/25/2017 13:25:25 Tobacco dependence syndrome 42068868 F17.200 failed nicotine patchessta rt wellbutrin BIDf/u 3 mos Mild inter mittent asthma 277370451 J45.20 start qvar daily-stre ssed compliance use ventolin/n ebulizer PRN onlystart loratadine dailypulmo nology referral for PFTs and further management f/u 3 mos and prn [id number] OLENA Hernandez (Adult Med) [address] [place] [address] 01/29/2018 10:59:43 01/29/2018 11:47:15 Mild intermittent asthma 776663947 J45.20 Increased Qvar to 80mcg 2 puffs BIDc/w other asthma meds Long discussion with patient, and she agrees, that panic attacks/st ress are possibly brining on her asthma attacks Advised to keep appointmen t with pulm Any SOB, CP, SHAW contact clinic or go to the ER Fatigue 76612372 R53.83 Anxiety 70377987 F41.9 Advised to schedule with counseling Advised any SI/HI to go directly to the ER Given number to Suicide Hotline and advised to contact if needed Bereavement 95948114 Z63 .4 Advised to schedule with counseling Advised any SI/HI to go directly to the ERGiven number to Suicide Hotline [phone] Clem Roblero Leopoldo ([employer]) [address] [place] [address] 06/03/2018 14:15:03 06/03/2018 16:09:54 History of endometrial ablation 3632075200 63751 Z98.890 History of sterilization 8708734805 9106 Z90.79 Obesity 455252805 E66.9 History of alcoholism 16 6389501 F10.21 Abnormal u terine bleeding 6572905097 9100 N93.9 Post-ablat ion sporadic bleeding. Family tony nning surveillance 762206614 Z30.09 Screening mammography 24 615275 Z12.31 Exposure t o sexually transmissible disorder 075526344 Z20.2 [id number] MD Leopoldo Pham (Adult Med) [address] [place] [address] 09/13/2018 15:51:05 09/13/2018 16:20:43 Contusion of multiple sites 638171797 T07.XXXA Go to ER any time for any concern, she agreed. [id number] MD Leopoldo Pham (Adult Med) [address] [place] [address] 10/15/2018 15:54:23 10/15/2018 16:39:42 Pain of right shoulder joint 8488814155 3374187 M25.511 Will see a orthopedic . Pain in ri ght hip joint 7130914567 81776 M25.551 Will have test , imaGING. [id number] MD Leopoldo Pham (Adult Med) [address] [place] [address] 01/15/2019 10:23:22 01/16/2019 09:39:33 Pain of right shoulder joint 2821970212 7236946 M25.511 Will see a orthopedic . Pain in ri ght hip joint 9869960064 04732 M25.551 Will have test , imaGING. No CAT scan report of right hip available . [id number] Clem Mina ([employer]) [address] [place] [address] 02/03/2019 09:56:37 02/05/2019 22:00:08 Uterine leiomyoma 73222395 D25.9 [id number] JUVE Austin ([employer]) [address] [place] [address] 0 02/07/2019 10:51:51 02/10/2019 10:14:58 Depot contraceptive-no problem 274500498 Z30.748 [id number] MD Leopoldo Pham (Adult Med) [address] [place] [address] 02/12/2019 12:49:23 02/13/2019 09:10:47 Pain of right shoulder joint 7941175738 7810163 M25.511 Will see a orthopedic . Microcysti c adnexal carcinoma 795994795 C44.99 Asthma 855292640 J45.90 9 has enough inhaler. [id number] Clem Mina ([employer]) [address] [place] [address] 0 02/24/2019 12:00:50 02/25/2019 14:11:57 Administration of influenza vaccine 64468769 Z23 Pelvic mass 79783982 R19 .00 At [facility] ed risk of malignancy 476688991 Z91.89 ELIJAH 1.36 suggestive of increased risk of ovarian cancer in pre-menopa usal patient [id number] MD Leopoldo Pham (Adult Med) [address] [place] [address] 08/22/2019 08:39:01 08/25/2019 13:44:45 Recurrent deep vein thrombosis 438814210 I82.509 Right leg, go to ER, she agreed, ER , [facility] physician [phone] Joshi, they expecting her to arrival. Asthma 480672407 J45.90 9 wanting refills. [id number] MD Leopoldo Pham (Adult Med) [address] [place] [address] 0 05/04/2020 08:25:27 05/05/2020 11:36:10 Urinary tract infectious disease 45416698 N39.0 Willing to try another different antibiotic s, since she still has fever. Asthma 068998147 J45.90 9 wanting refills. Acid reflux 895890679 K2 1.9 Discussed with patient, will try pantoprazo le, her reflux some times ttriggered asthmatic attack. Hypovolemia 084043327 E8 6.1 Encourged her to drink more liquid, she agreed to try. [id number] Leopoldo ([employer]) [address] [place] [address] 07/20/2020 12:39:59 07/22/2020 11:48:44 History of alcoholism 469586709 F10.21 Recurrent deep vein thrombosis 383680911 I82.509 Body mass index 30+ - obesity 376854657 Z68.41 Depressive disorder 3548 9007 F32.9 Tobacco de pendence syndrome 00371323 F17.200 Nonpuerper al abscess of left breast 6567927416 9547960 N61.1 Family tony nning surveillance 739766883 Z30.09 history of sterilizat ion [id number] [facility] [address] [place] [address] 11/26/2020 13:36:33 12/02/2020 10:24:48 Swelling of lower leg 152620256 R22.40 Right leg, will do venous duplex to R /O Acute DVT then determine the necessity of anticoagul ant therapy, she agreed. [id number] MD Leopoldo Pham (Adult Med) [address] [place] [address] 0 01/28/2021 13:00:56 02/02/2021 13:35:11 Acute exacerbation of chronic obstructive pulmonary disease 676683621 J44.1 Discussed with patient, will order following med. Go to ER any time for any concern , she agreed. [id number] MD Leopoldo Pham (Adult Med) [address] [place] [address] 0 02/24/2021 12:14:37 02/25/2021 13:26:53 Hiatal hernia 53571304 K44.9 Will refer to surgeon for evaluation , she agreed. Gastroesop hageal reflux disease 475852348 K21.00 Will add reglan to facilitate normal peristalsi s. 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 tests. Normal PE. [id number] MD Leopoldo Pham (Adult Med) [address] [place] [address] 12/04/2022 12:37:55 12/05/2022 12:30:55 Chronic obstructive pulmonary disease 17810722 J44.9 Stable. Smoker 48350494 F17.200 Advised her to =quit smoking. She is aware of cigarettes smoking can caused permanent emphysema, cancer of lung., or throat, or mouth and other disease. Morbid obesity 513574386 E66.01 BMI is 37.6, 12-04-22, advised to watch her diet, exercise and keep the weight down. Cervical c ancer Papanicolaou smear screening declined 3365004679 70588 Z53.20 She declined 12-04-22. HIV screen ing declined 8573090043 38959 Z53.20 She declined 12-04-22. Health Concerns Section Related Observation LastModified by Organization Detai ls LastModified Time None Recorded Concern Status LastModified by Organization Details LastModified Time None Recorded Advance Directives Directive N: Payers Encounter Date Sequence Insurance Name Policy Number Policy Terry Covered Member ID Terry Member ID Guarantor Name 01/28/[address] [facility] ON OR AFTER 10/07/20 (MEDICAID REPLACEMENT - HMO) Eliana Putnam [id number] Eliana Putnam 02/24/[address] [facility] ON OR AFTER 10/07/20 (MEDICAID REPLACEMENT - HMO) Eliana Putnam [id number] Eliana Putnam 07/22/[address] [facility] ON OR AFTER 10/07/20 (MEDICAID REPLACEMENT - HMO) Eliana Putnam [id number] Eliana Putnam 09/01/[address] [facility] ON OR AFTER 10/07/20 (MEDICAID REPLACEMENT - HMO) Eliana Putnam [id number] Eliana Putnam 12/04/[address] [facility] ON OR AFTER 10/07/20 (MEDICAID REPLACEMENT - HMO) Eliana Putnam [id number] Eliana Putnam Notes Date Note Type Note Provider Name and Address Organization Details Recorded Time 01/28/2021 text/html Phone visit, aster st congestion in this season of year, no fever, wheezing ,dose not want covid test nor going to ER, wants to try some medications, NKDA. Homa Joshi MD Attn: [address] [place], [address], [place] [facility] 01/28/2021 14:51:31 02/24/2021 text/html Office visit, histroy of sliding hiatal hernia. and acid reflux, NKDA. can not tolerate solid food, skipped meal to avoid N/V, medication , pantoprazole not helping much, also has asthma which might have been aggravated by hernia with reflux. will add reglan and surgical referral. Homa Joshi MD Attn: [address]ing[address] [facility], [address], [facility] - [facility] 02/24/2021 12:54:42 07/22/2021 text/html Office vist, discoloration [...] the left side, Homa Joshi MD Attn: Accounting[address] [facility], [place], [address], [facility] - [facility] 12/25/2021 16:26:36 09/01/2022 text/html Office visit, NK DA. on no blood thinner. no chest pain, no cardiac condition, no shortness of breath , wants surgical clearnce before the left foot operation for removal of wart. . Had left shoulder operation [id number] , she recovered well. But a smoker. , advised her to quit smoking for he good health and financial reasons. Homa Joshi MD Attn: Accounting,[address] [facility], [place], [address], [facility] 09/01/2022 17:40:35 12/04/2022 text/html Office visit, NK DA. check up today. Homa Joshi MD Attn: Accounting[address] [facility], [place], [address], [facility] 12/04/2022 16:21:46 OBGyn Episode No OBEpisode recorded.
--- OUTSIDE RECORDS SUMMARY | 2024-06-03 14:04 | XMS_ITS | Clinical Summary ---
Author Organization [facility] Address [address] [address] Phone Care Team Providers Care Verifier Operator Name Role Phone Unavailable Primary Care Provider Unavailabl e Allergies No known active allergies Medications methylPREDNISolo ne (MEDROL, TAMEKA,) 4 mg Tablets, Dose Pack Taper dose schedule. 1 Package None 02/11/2017 Active Social History Tobacco Use Types Packs/Day Years Used Date Smoking Tobacco: Every Day Cigarettes Smokeless Tobacco: Never Alcohol Use Standard Drinks/Week Comments Yes 0 (1 standard drink = 0.6 oz pur e alcohol) socially Comments No Sex and Gender Information Value Date Recorded Sex Assigned at Not on file Legal Sex Female 6:22 PM [employer] Gender Identity Not on file Sexual Orientation Not on file Last Filed Vital Signs Vital Sign Reading Time Taken Comments Blood Pressure 150/92 02/11/2017 6:27 PM [employer] Pulse - - Temperature 36.2 C (97.1 F) 02/11/2017 6:27 PM [employer] Respiratory Rate 18 02/11/2017 6:27 PM [employer] Oxygen Saturation 100% 02/11/2017 6:27 PM [employer] Inhaled Oxygen Concentration - - Weight 86.2 kg (190 lb) 02/11/2017 6:27 PM [employer] Height 162.6 cm (5' 4 ) 02/11/2017 6:27 PM [employer] Body Mass Index 32.61 02/11/2017 6:27 PM [employer] Plan of Treatment Health Maintenance Due Date Last Done Comments DTAP/TDAP/TD VACCINES (1 - Tdap) 1997 HEPATITIS B VACCINES (1 of 3 - 19+ 3-dose series) 1997 CERVICAL CANCER SCREENING 2008 BREAST CANCER SCREENING 2018 COLORECTAL SCREENING 06/21/2023 Colorectal Cancer Screening 06/21/2023 FIT-DNA Q 3 years 06/21/2023 FIT/FOBT Q 1 year 06/21/2023 Flex Sig/CT Colonography Q 5 years 06/21/2023 INFLUENZA VACCINE (#1) 2023 HPV VACCINES Aged Out No longer eligi ble based on patient's age to complete this topic PNEUMOCOCCAL VACCINE 0-64 YEARS Aged Out No longer eligible based on patient's age to complete this topic
--- OUTSIDE RECORDS SUMMARY | 2024-06-03 14:05 | XMS_ITS ---
Author Organization [facility] Address [address] [place] [address] Care Team Providers Care Pastoral Counselor Name Role Phone Christy Zhang Primary Care Provider Encounters Encounter Location Date Provider Diagnosis [address] [place] [address] 01/23/2023 Christy Zhang Plan Of Treatment No Information Progress Notes * Javi DIAZB:1980 (42 yo F)Acc No.[id number]:01/23/2023 Patient: June MCCARTHYRtuhie Eliana :1980 A ge:42 Y S ex:Female Address:[address] [place] [id number] * true * Date: Generated for Irma queen/Jaden/eTransmitting on: 0 06/03/2024 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
--- OUTSIDE RECORDS SUMMARY | 2024-06-03 14:05 | XMS_ITS | Referral Summary ---
Author Organization [facility] Address [facility] [place] [address] Care Team Providers Care Lay Out Machine Operator Name Role Phone Homa Michel MD Primary Care Provider [phone] Clem Roblero MD Unavailable [phone] Allergies No known active allergies Medications albuterol HFA (PROVENTIL HFA,VENTOLIN HFA,PROAIR HFA) 90 mcg/actuation inhaler albuterol sulfate HFA 90 mcg/actuation aerosol inhaler 7 Active baclofen (LIORESAL) 10 mg tablet baclofen 10 mg tablet Active beclomethasone (QVAR) 80 mcg/actuation inhaler Qvar RediHaler 80 mcg/actuation HFA breath activated aerosol Active budesonide-for moteroL (Symbicort) 160-4.5 mcg/actuation inhaler 0 Active buPROPion SR (ZYBAN) 150 mg 12 hr tablet bupropion HCl 150 mg tablet,12 hr sustained-release( smoking deterrent) Active cetirizine (ZyrTEC) 10 mg tablet cetirizine 10 mg tablet Active ergocalciferol (VITAMIN D) 50,000 unit capsule ergocalciferol (vitamin D2) 1,250 mcg (50,000 unit) capsule Active escitalopram (LEXAPRO) 10 mg tablet 1 Active fluticasone propionate (FLONASE) 50 mcg/actuation nasal spray fluticasone propionate 50 mcg/actuation nasal spray,suspension Active hydrOXYzine (VISTARIL) 25 mg capsule hydroxyzine pamoate 25 mg capsule Active ibuprofen (ADVIL,MOTRIN) 800 mg tablet ibuprofen 800 mg tablet Active ipratropium (Atrovent HFA) 17 mcg/actuation inhaler 0 Active ipratropium-al buteroL (DUO-NEB) 0.5-2.5 mg/3 mL nebulizer solution ipratropium 0.5 mg-albuterol 3 mg (2.5 mg base)/3 mL nebulization soln Active ketorolac (TORADOL) 10 mg tablet ketorolac 10 mg tablet Active loratadine (CLARITIN) 10 mg tablet loratadine 10 mg tablet 0 Active montelukast (SINGULAIR) 10 mg tablet 1 Active nicotine (NICODERM CQ) 14 mg nicotine 14 mg/24 hr daily transdermal patch Active nicotine (NICODERM CQ) 21 mg nicotine 21 mg/24 hr daily transdermal patch Active nicotine (NICODERM CQ) 7 mg nicotine 7 mg/24 hr daily transdermal patch Active pantoprazole DR (PROTONIX) 40 mg EC tablet 1 Active terbinafine (LamISIL) 1 % cream 0 Active Active Problems Problem Noted Date Diagnosed Date Left breast abscess 07/20/2020 Asthma 05/22/2019 Depressive disorder 05/21/2019 Tobacco dependence syndrome 05/21/2019 Family history of lung cancer 10/31/2017 Obesity with body mass index 30 or greater 07/12 Shoulder joint pain 04/13/2016 Social History Tobacco Use Types Packs/Day Years Used Date Smoking Tobacco: Every Day Personal Safety Answer Date Recorded Getting School Help Needed Not on file 06/09 Comments Unknown Sex and Gender Information Value Date Recorded Sex Assigned at Not on file Legal Sex Female 1:04 PM CDT Gender Identity Not on file Sexual Orientation Not on file Last Filed Vital Signs Vital Sign Reading Time Taken Comments Blood Pressure - - Pulse - - Temperature - - Respiratory Rate - - Oxygen Saturation - - Inhaled Oxygen Concentration - - Weight 105.7 kg (233 lb) 09/09/2020 7:49 AM CDT Height 162.6 cm (5' 4 ) 09/09/2020 7:49 AM CDT Body Mass Index 39.99 09/09/2020 7:49 AM CDT Plan of Treatment Not on file Insurance [facility] Care Teams Lay Out Machine Operator Relationship Specialty Start Date End Date Homa Michel MD [address] [facility] [address] [place] [address] PCP - General Internal Medicine 07/20/20 Clem Roblero MD [address] [facility] [address] [place] [address] Referring Physician Obstetrics and Gynecology 11/24/20
--- OUTSIDE RECORDS SUMMARY | 2024-06-03 14:05 | XMS_ITS | Clinical Summary ---
Author Organization [facility] Address [facility] [place] [address] Care Team Providers Care Inbound Ingredient Logistics Specialist Name Role Phone Homa Michel MD Primary Care Provider [phone] Clem Roblero MD Unavailable [phone] Allergies No known active allergies Medications albuterol [...] or greater 07/12 Shoulder joint pain 04/13/2016 Surgical History Surgery Date Site/Laterality Comments TUBAL LIGATION CHOLECYSTECTOMY SHOULDER SURGERY Social History Tobacco Use Types Packs/Day Years Used Date Smoking Tobacco: Every Day Personal Safety Answer Date Recorded Getting School Help Needed Not on file 06/09 Comments Unknown Sex and Gender Information Value Date Recorded Sex Assigned at Not on file Legal Sex Female 1:04 PM CDT Gender Identity Not on file Sexual Orientation Not on file Obstetrics History Last Filed Vital Signs Vital Sign Reading [...] Plan of Treatment Not on file Insurance [facility] Care Teams Inbound Ingredient Logistics Specialist Relationship Specialty [place] [address] [place] [address] PCP - General Internal Medicine 07/20/20 [place] [address] [place] [address] 1 [place] [address] Referring Physician Obstetrics and Gynecology 8/18/21
--- NOTE | 2024-06-03 15:10 | PC.NURSE ---
Pt called with no answer @ 1510.
--- NOTE | 2024-06-03 15:27 | PC.NURSE ---
Pt called again. No answer.
--- OUTSIDE RECORDS SUMMARY | 2024-06-03 18:04 | XMS_ITS | CONTINUITY OF CARE DOCUMENT ---
Author Name sharonemilysaul Address Unknown Organization [facility] Address [address] [place] [address] [address] [place] [address] Phone [phone] Care Team Providers Care Delivery Rep Name Role Phone Harjit Sandy MD Unavailable [phone] Harjit Sandy MD Unavailable JOSE JOSHI MD Unavailable [phone] INSURANCE PROVIDERS Payer name Policy type / Coverage type [place] red democr[employer] ID SELF PAY [place] (2) Medicaid [id number]
--- OUTSIDE RECORDS SUMMARY | 2024-06-03 18:04 | XMS_ITS | Encounter Summary ---
Author Organization [facility] Address [address] [place] [address] Care Team Providers Care Harvesting Contractor Name Role Phone Clem Roblero MD Primary Care Provider [phone] Encounter Details Date Type Department Care Team (Late st Contact Info) Description 06/06/2019 Telephone [facility] PHYS ANESTHESIA [address] [place] [address] Evi Albert DO [address] [place] [address] Social History Tobacco Use Types Packs/Day Years [...] Evi Albert DO - 06/06/2019 12:50 PM [facility] Peripheral Nerve [...] questions or concerns. Evi Albert DO 06/06/19 [facility] documented in this encounter Plan of Treatment Not on file documented as of this encounter Visit Diagnoses Not on filedocumented in this encounter Care Teams Harvesting Contractor Relationship Specialty Start Date End Date Clem Roblero MD [address] [place] [address] PCP - General 02/11/19 documented as of this encounter
--- OUTSIDE RECORDS SUMMARY | 2024-06-03 18:04 | XMS_ITS | Clinical Summary ---
Author Organization [facility] Address [address] [place] [address] Care Team Providers Care Accounting Machine Operator Name Role Phone Unavailable Primary Care [...]
--- OUTSIDE RECORDS SUMMARY | 2024-06-03 18:04 | XMS_ITS | Referral Summary ---
Author Organization [facility] Address [address] [place] [address] Care Team Providers Care Admittance Attendant Name Role Phone Unavailable Primary Care Provider [...]
--- OUTSIDE RECORDS SUMMARY | 2024-06-03 18:04 | XMS_ITS | Encounter Summary ---
Author Organization [facility] Address [address] [place] [address] Phone Care Team Providers Care Machine Engraver Name Role Phone Homa Michel MD Primary Care Provider [phone] Clem Roblero MD Unavailable [phone] Encounter Details Date Type Department Care Team (Late st Contact Info) Description 10/25/2020 Orders Only [facility] Surgery [address] [facility] Advanced Medicine 5th [place] [address] [place] [address] Gail Stanton NP [address] [place] [address] Social History Tobacco Use Types Packs/Day Years [...] on filedocumented in this encounter Care Teams Machine Engraver Relationship Specialty Start Date End Date Homa Michel MD [address] [facility] 1 [place] [address] PCP - General Internal Medicine 07/20/20 Clem Roblero MD NPI: [id number] [place] [address] 1 [place] [address] Referring Physician Obstetrics and Gynecology 11/24/20 documented as of this encounter
--- OUTSIDE RECORDS SUMMARY | 2024-06-03 18:05 | XMS_ITS | Clinical Summary ---
Author Organization [facility] Address [address] [place] [address] Care Team Providers Care Hose Tubing Backer Name Role Phone Clem Roblero MD Primary Care Provider Source Comments [facility],non-owned Affiliates and Associated Physician Practices is amultiple site organization consisting of ambulatory clinics and hospital sitesin [place], [place], [place] and [place]. This disclosure is being madepursuant to the Care Everywhere program and may not contain all information available regarding this patient. Last updated 17.[facility] Allergies No known active allergies Medications * [...] Comments Blood Pressure 139/97 06/05/2019 3:51 PM FURNACE ROOM SUPERVISOR Pulse 83 06/05/2019 3:51 PM FURNACE ROOM SUPERVISOR Temperature 36.7 C (98 F) 06/05/2019 3:51 PM FURNACE ROOM SUPERVISOR Respiratory Rate 19 06/05/2019 3:51 PM FURNACE ROOM SUPERVISOR Oxygen Saturation 95% 06/05/2019 3:51 PM FURNACE ROOM SUPERVISOR Inhaled Oxygen Concentration - - Weight 99.8 kg (220 lb) 06/05/2019 11:15 AM FURNACE ROOM SUPERVISOR Height 162.6 cm (5' 4 ) 06/05/2019 11:15 AM FURNACE ROOM SUPERVISOR Body Mass Index 37.76 06/05/2019 11:15 AM FURNACE ROOM SUPERVISOR Plan of Treatment Health Maintenance Due Date [...] this topic Medical Devices Implanted Type Area Grubber Device Identifier Shelf Expiration Date Model / Serial / Lot [place] Sut Healix Adv Dynacord 5.5mm Implanted:Qty: 2 on 06/05/2019 by Kishor Weber MD at [facility] Right: Shoulder [employer] 05/09/2020 [id number] / / [id number] Healix Knotless Br [place] 6.5 Implanted:Qty: 1 on 06/05/2019 by Kishor Weber MD at [facility] Right: Shoulder 06/06/2021 [id number] / / [id number] Healix Knotless Br [place] 6.5 Implanted:Qty: 1 on 06/05/2019 by Kishor Weber MD at [facility] Right: Shoulder 03/08/2022 [id number] / / [id number] Procedures Procedure Name Priority Date/Time Associated Diagnosis Comments HPV DETECTION HIGH RISK CAROLYN Routine 04/15/2019 11:00 AM FURNACE ROOM SUPERVISOR Postcoital bleeding from Last 3 Months or Most Recently Relevant to Health Maintenance Results * HPV DETECTION HIGH RISK CAROLYN (04/15/2019 11:00 AM FURNACE ROOM SUPERVISOR) High Risk Human Papilloma Result Not Detected Not Detected 04/17/2019 3:51 PM FURNACE ROOM SUPERVISOR [facility] High Risk Human Papilloma Interp 04/17/2019 3:51 [address]URNACE [address]OM SUPERVISOR [facility] Comment:High Risk Human Abraham lloma Virus was Not Detected. Pathology/Cytolo gy MISCELLANEOUS SAMPLES / Unknown 04/15/2019 11:00 AM FURNACE ROOM SUPERVISOR 04/16/2019 12:35 PM FURNACE ROOM SUPERVISOR Narrative [facility] - 04/17/2019 3:51 PM FURNACE ROOM SUPERVISOR Nucleic acid isolated from the specimen was [...] Kalina Chen MD LAB - MICROBIOLOGY ORDERABLES [facility] [address] [facility]. [address] [phone] from Last 3 Months or Most Recently Relevant to Health Maintenance Care Teams Hose Tubing Backer Relationship Specialty Start Date End Date Clem Roblero MD [address] [place] [address] PCP - General 02/11/19
--- OUTSIDE RECORDS SUMMARY | 2024-06-03 18:05 | XMS_ITS | Clinical Summary ---
Author Organization [facility] Address [address] [place] [address] Phone Care Team Providers Care Loading Manager Name Role Phone Unavailable Primary Care Provider [...] on file Legal Sex Female 6:22 PM DETECTIVE SUPERVISOR Gender Identity Not on file Sexual Orientation Not on file Last Filed Vital Signs Vital Sign Reading Time Taken Comments Blood Pressure 150/92 02/11/2017 6:27 PM DETECTIVE SUPERVISOR Pulse - - Temperature 36.2 C (97.1 F) 02/11/2017 6:27 PM DETECTIVE SUPERVISOR Respiratory Rate 18 02/11/2017 6:27 PM DETECTIVE SUPERVISOR Oxygen Saturation 100% 02/11/2017 6:27 PM DETECTIVE SUPERVISOR Inhaled Oxygen Concentration - - Weight 86.2 kg (190 lb) 02/11/2017 6:27 PM DETECTIVE SUPERVISOR Height 162.6 cm (5' 4 ) 02/11/2017 6:27 PM DETECTIVE SUPERVISOR Body Mass Index 32.61 02/11/2017 6:27 PM DETECTIVE SUPERVISOR Plan of Treatment Health Maintenance Due [...]
--- OUTSIDE RECORDS SUMMARY | 2024-06-03 18:05 | XMS_ITS | Referral Summary ---
Author Organization [facility] [employer] Address [address] [facility] [place] [address] Care Team Providers Care Manager Case Name Role Phone Clem Roblero MD Primary Care Provider Source Comments [facility] [employer],non-owned Affiliates and Associated Physician Practices is amultiple site organization consisting of ambulatory clinics and hospital sitesin [place]. This disclosure is being madepursuant to the Care Everywhere program and may not contain all information available regarding this patient. Last updated 17.[facility] [employer] Allergies No known active allergies Medications * [...] Comments Blood Pressure 139/97 06/05/2019 3:51 PM GOLD MINER BLASTING Pulse 83 06/05/2019 3:51 PM GOLD MINER BLASTING Temperature 36.7 C (98 F) 06/05/2019 3:51 PM GOLD MINER BLASTING Respiratory Rate 19 06/05/2019 3:51 PM GOLD MINER BLASTING Oxygen Saturation 95% 06/05/2019 3:51 PM GOLD MINER BLASTING Inhaled Oxygen Concentration - - Weight 99.8 kg (220 lb) 06/05/2019 11:15 AM GOLD MINER BLASTING Height 162.6 cm (5' 4 ) 06/05/2019 11:15 AM GOLD MINER BLASTING Body Mass Index 37.76 06/05/2019 11:15 AM GOLD MINER BLASTING Plan of Treatment Not on file Medical Devices Implanted Type Area Xray Tech Device Identifier Shelf Expiration Date Model / Serial / Lot [place] Sut Healix Adv Dynacord 5.5mm Implanted:Qty: 2 on 06/05/2019 by Kishor Weber MD at [facility] Right: Shoulder [employer] 05/09/2020 [id number] / / [id number] Healix Knotless Br [place] 6.5 Implanted:Qty: 1 on 06/05/2019 by Kishor Weber MD at [facility] Right: Shoulder 06/06/2021 [id number] / / [id number] Healix Knotless Br [place] 6.5 Implanted:Qty: 1 on 06/05/2019 by Kishor Weber MD at [facility] Right: Shoulder 03/08/2022 [id number] / / [id number] Procedures Procedure Name Priority Date/Time Associated Diagnosis Comments HPV DETECTION HIGH RISK CAROLYN Routine 04/15/2019 11:00 AM GOLD MINER BLASTING Postcoital bleeding from Last 3 Months or Most Recently Relevant to Health Maintenance Results * HPV DETECTION HIGH RISK CAROLYN (04/15/2019 11:00 AM GOLD MINER BLASTING) High Risk Human Papilloma Result Not Detected Not Detected 04/17/2019 3:51 PM GOLD MINER BLASTING [facility] High Risk Human Papilloma Interp 04/17/2019 3:51 PM GOLD MINER BLASTING [facility] Comment:High Risk Human Abraham lloma Virus was Not Detected. Pathology/Cytolo gy MISCELLANEOUS SAMPLES / Unknown 04/15/2019 11:00 AM GOLD MINER BLASTING 04/16/2019 12:35 PM GOLD MINER BLASTING [facility] - 04/17/2019 3:51 PM GOLD MINER BLASTING Nucleic acid isolated from the specimen was [...] MICROBIOLOGY ORDERABLES [facility] [address] [facility] [place] [address], [facility] [phone] from Last 3 Months or Most Recently Relevant to Health Maintenance Care Teams Manager Case Relationship Specialty Start Date End Date Clem Roblero MD [address] [place] [address] PCP - General 02/11/19
--- OUTSIDE RECORDS SUMMARY | 2024-06-03 18:05 | XMS_ITS | Referral Summary ---
Author Organization [facility] Address [facility] [place] [address] Care Team Providers Care Bsw Name Role Phone Homa Michel MD Primary Care Provider [phone] Clem Roblero MD Unavailable [phone] Allergies No known active allergies Medications albuterol [...] Plan of Treatment Not on file Insurance [facility] Care Teams Bsw Relationship Specialty Start Date End Date Homa Michel MD [address] [facility] 1 [place] [address] PCP - General Internal Medicine 07/20/20 Clem Roblero MD [address] [facility] [address] [place] [address] Referring Physician Obstetrics and Gynecology 11/24/20
--- OUTSIDE RECORDS SUMMARY | 2024-06-03 18:05 | XMS_ITS | Clinical Summary ---
Author Organization [facility] Address [facility] [place] [address] Care Team Providers Care Assistant Business Manager Name Role Phone Homa Michel MD Primary Care Provider [phone] Clem Roblero MD Unavailable [phone] Allergies No known active allergies Medications albuterol [...] Plan of Treatment Not on file Insurance [facility] Care Teams Assistant Business Manager Relationship Specialty [place] [address] [place] [address] PCP - General Internal Medicine 07/20/20 [place] [address] [place] [address] 1 [place] [address] Referring Physician Obstetrics and Gynecology 8/18/21
--- OUTSIDE RECORDS SUMMARY | 2024-06-03 18:05 | XMS_ITS | Patient Health Summary ---
Author Organization [facility] Address [address] [place] [address] Care Team Providers Care Rigging Loft Repairer Name Role Phone Clem Roblero MD Primary Care Provider [phone] Note from [facility],non-owned Affiliates and Associated Physician Practices is amultiple site organization consisting of ambulatory clinics and hospital sitesin [place], [place], [place] and [place]. This disclosure is being madepursuant to the Care Everywhere program and may not contain all information available regarding this patient. Last updated 17.[facility] Allergies No known active allergies Medications * [...] Comments Blood Pressure 139/97 06/05/2019 3:51 PM MERCHANDISING EXECUTION ASSOCIATE Pulse 83 06/05/2019 3:51 PM MERCHANDISING EXECUTION ASSOCIATE Temperature 36.7 C (98 F) 06/05/2019 3:51 PM MERCHANDISING EXECUTION ASSOCIATE Respiratory Rate 19 06/05/2019 3:51 PM MERCHANDISING EXECUTION ASSOCIATE Oxygen Saturation 95% 06/05/2019 3:51 PM MERCHANDISING EXECUTION ASSOCIATE Inhaled Oxygen Concentration - - Weight 99.8 kg (220 lb) 06/05/2019 11:15 AM MERCHANDISING EXECUTION ASSOCIATE Height 162.6 cm (5' 4 ) 06/05/2019 11:15 AM MERCHANDISING EXECUTION ASSOCIATE Body Mass Index 37.76 06/05/2019 11:15 AM MERCHANDISING EXECUTION ASSOCIATE Medical Devices Implanted Type Area Communication Consultant Device Identifier Shelf Expiration Date Model / Serial / Lot [place] Sut Healix Adv Dynacord 5.5mm Implanted:Qty: 2 on 06/05/2019 by Kishor Weber MD at [facility] Right: Shoulder [employer] 05/09/2020 [id number] / / [id number] Healix Knotless Br [place] 6.5 Implanted:Qty: 1 on 06/05/2019 by Kishor Weber MD at [facility] Right: Shoulder 06/06/2021 [id number] / / [id number] Healix Knotless Br [place] 6.5 Implanted:Qty: 1 on 06/05/2019 by Kishor Weber MD at [facility] Right: Shoulder 03/08/2022 [id number] / / [id number] Procedures * XR SHOULDER RIGHT 2VW OR [...] * ETT LINE PERFORMABLE (06/05/2019 1:23 PM MERCHANDISING EXECUTION ASSOCIATE) Narrative Regulo Castellon APRN-KELIN - 06/05/2019 1:23 PM MERCHANDISING EXECUTION ASSOCIATE Regulo Castellon APRN-CRNA 06/05/2019 3:17 PM Endotracheal Tube Placement: Patient Location: OR. Intubation Event Date/Time: 06/05/2019 12:51 PM Procedure: intubation ([id number]). Procedure Section: Sedation: under general anesthesia. Indications [...] procedure. Yessy Piedra MD GENERAL ANESTHESIA O [facility] * PERIPHERAL KAVYA BLOCK PERFORMABLE (06/05/2019 12:07 PM MERCHANDISING EXECUTION ASSOCIATE) Elizabeth Robles MD - 06/05/2019 12:07 PM MERCHANDISING EXECUTION ASSOCIATE Elizabeth Interiano MD 06/05/2019 12:12 PM Peripheral [...] URINE QUAL POCT NOTIFICATION (06/05/2019 11:15 AM MERCHANDISING EXECUTION ASSOCIATE) Only the most recent of2 resultswithin the time period is included. Comment Notification Label Only - See Separate Report 06/05/2019 12:30 PM MERCHANDISING EXECUTION ASSOCIATE [facility] Urine URINE / Unknown 06/05/2019 1 1:15 AM MERCHANDISING EXECUTION ASSOCIATE 06/05/2019 11:15 AM MERCHANDISING EXECUTION ASSOCIATE Yessy Piedra MD LAB - URINALYSIS ORD ERABLES [address] [phone] * CT ABDOMEN PELVIS W CONTRAST (04/24/2019 10:52 AM MERCHANDISING EXECUTION ASSOCIATE) Anatomical Region Laterality Modality Abdomen, Pelvis Computed Tomogra phy 04/24/2019 11:0 1 AM MERCHANDISING EXECUTION ASSOCIATE Impressions 04/24/2019 11:06 AM MERCHANDISING EXECUTION ASSOCIATE No significant abdominal or pelvic findings. Reading Radiologist: Ever Stuart MD on 04/24/2019 at 11:06 AM Narrative 04/24/2019 11:06 [address] EXECUTION ASS[address] abdomen and pelvis with contrast DATE: [...] POINT OF CARE (IP) (04/24/2019 10:40 AM MERCHANDISING EXECUTION ASSOCIATE) Creatinine POCT 0.77 0.7 - 1.2 mg/dL [facility] POCT TESTING QC Verified Yes Yes [facility] POC T TESTING Blood BLOOD SPECIMEN / Unknown 04/24/2019 10:40 AM MERCHANDISING EXECUTION ASSOCIATE Kalina Chen MD LAB - POINT OF CAR E ORDERABLES Performing Organization Address City/State/[facility] Co de Phone Number [facility] POCT TESTING [address] [place] [address] * HPV DETECTION HIGH RISK CAROLYN (04/15/2019 11:00 AM MERCHANDISING EXECUTION ASSOCIATE) High Risk Human Papilloma Result Not Detected Not Detected 04/17/2019 3:51 PM MERCHANDISING EXECUTION ASSOCIATE [facility] High Risk Human Papilloma Interp 04/17/2019 3:51 PM MERCHANDISING EXECUTION ASSOCIATE [facility] Comment:High Risk Human Abraham lloma Virus was Not Detected. Pathology/Cytolo gy MISCELLANEOUS SAMPLES / Unknown 04/15/2019 11:00 AM MERCHANDISING EXECUTION ASSOCIATE 04/16/2019 12:35 PM MERCHANDISING EXECUTION ASSOCIATE Narrative [facility] - 04/17/2019 3:51 PM MERCHANDISING EXECUTION ASSOCIATE Nucleic acid isolated from the specimen was [...] - MICROBIOLOGY ORDERABLES [facility] [address] [phone] * PAP IMAGE-GUIDED W HPV (04/15/2019 11:00 AM MERCHANDISING EXECUTION ASSOCIATE) Case Report Gynecologic Cytology Report Case: [id number] Authorizing Provider: Kalina Chen MD Collected: 04/15/2019 11:00 AM Ordering Location: [facility] Obstetrics Received: 04/16/2019 12:35 PM [facility] First Screen: Yang Waters Specimen: THINPREP - IMAGE GUIDED, Cervix/Endocervix 04/17/2019 2:33 PM MERCHANDISING EXECUTION ASSOCIATE [facility] LMP 2014 04/17/2019 2:33 PM MERCHANDISING EXECUTION ASSOCIATE [facility] Menstrual Status Endometrial Ablation 04/17/2019 2:33 PM MERCHANDISING EXECUTION ASSOCIATE [facility] Specimen Adequacy Satisfactory for evaluation, endocervical/trans formation zone component present. 04/17/2019 2:33 PM MERCHANDISING EXECUTION ASSOCIATE [facility] Categorization Negative for intraepithelial lesion or malignancy. 04/17/2019 2:33 PM MERCHANDISING EXECUTION ASSOCIATE [facility] Interpretation CONSTRUCTION CODE ADMINISTRATOR Negative for intraepithelial lesion or malignancy. 04/17/2019 2:33 PM MERCHANDISING EXECUTION ASSOCIATE [facility] Pap Footnote This specimen was evaluated by the ThinPrep Imaging System along with the an additional manual rescreening by a water plant operator and/or pathologist. 04/17/2019 2:33 PM MERCHANDISING EXECUTION ASSOCIATE [facility] Embedded Images 0 2:33 PM MERCHANDISING EXECUTION ASSOCIATE [facility] Pathology/Cytolo gy MISCELLANEOUS SAMPLES / Unknown 04/15/2019 11:00 AM MERCHANDISING EXECUTION ASSOCIATE 04/16/2019 12:35 PM MERCHANDISING EXECUTION ASSOCIATE Kalina Chen MD LAB - PATHOLOGY/CY DONY ORDERABLES Performing Organization Address City/[facility]/ZIP Co de Phone Number [facility] [address] [facility] [place] [address], [facility] [phone] * CULTURE THROAT (03/31/2016 3:38 PM MERCHANDISING EXECUTION ASSOCIATE) Pathologist [facility] Culture [facility] Comment: CULTURE, THROAT MICRO NUMBER: [id number] TEST STATUS: FINAL SPECIMEN SOURCE: THROAT SPECIMEN QUALITY: ADEQUATE RESULT: No oropharyngeal pathogens recovered. Test Performed at: [employer] [phone] KARTHIKEYAN MEDRANO MD Microbiology ENTIRE THROAT (SURFACE REGION OF NECK) / Unknown 03/31/2016 3:38 PM MERCHANDISING EXECUTION ASSOCIATE 04/01/2016 3:00 AM MERCHANDISING EXECUTION ASSOCIATE Leslie Strange APRN-SENIOR STORAGE ENGINEER LAB - MICROBIOLO GY ORDERABLES Performing Organization Address [facility] Co de Phone Number [facility] [address] [place] [phone] * STREP A SCREEN - POINT OF CARE (AMB) STL (03/31/2016) Strep A Rapid POCT Negative Negative Strep A Internal Control Present Lot # [id number] Expiration Date 11/23/2017 Throat ENTIRE THROAT (SURFACE REGION OF NECK) / Unknown 03/31/2016 Leslie Strange APRN-SENIOR STORAGE ENGINEER LAB - POINT OF C ARE ORDERABLES Care Teams Rigging Loft Repairer Relationship Specialty Start Date End Date Clem Roblero MD [address] [place] [phone] PCP - General 02/11/19
== END 2024-06-03 16:43 | disposition left against medical advice (07) ==
DX: R05.9 Cough, unspecified (principal)
CPT/HCPCS: 99199

== ENCOUNTER 2024-07-05 04:32 | Observation (INO) | payer OTHER, SELFPAY ==
[2024-07-05] VITALS (22 sets, daily range): BP systolic 114–151; BP diastolic 58–95; PULSE 66–102; RESP 16–22; TEMP 36.4–36.8; O2SAT 93–100
--- NOTE | ~2024-07-05 | US_ITS ---
EXAMINATION: US pelvic complete w TV DATE: 07/05/2024 09:01 INDICATION: Right adnexal pain. TECHNIQUE: Multiple transabdominal and transvaginal sonographic images of the pelvis were obtained. COMPARISON: CT abdomen and pelvis 04/15/23 FINDINGS: TRANSABDOMINAL ULTRASOUND: The uterus measures 9.6 x 5.3 x 6.6 cm. There is no free fluid in the pelvis. TRANSVAGINAL ULTRASOUND: The endometrial complex measures 5 mm in thickness. There is a 3.5 cm intramural fibroid. The right o vary is not visualized. The left ovary measures 2.4 x 1.8 x 1.5 cm. IMPRESSION: 1. Right ovary not visualized. 2. Uterine fibroid. Reviewed, dictated and finalized at location A.
--- NOTE | ~2024-07-05 | CT_ITS ---
EXAMINATION: CT abdomen pelvis w con DATE: 07/05/2024 10:09 INDICATION: Right lower quadrant abdominal pain. TECHNIQUE: Computed tomography (CT) of the abdomen and pelvis was performed with 100 mL Omnipaque 350 intravenous contrast. Automated exposure control and iterative reconstruction technique were employe d. The dose-length product was 1112.72 mGy-cm. COMPARISON: CT abdomen and pelvis 04/15/2023 FINDINGS: The visualized portions of the lung bases demonstrate mild atelectasis. No pleural effusion . The heart size is normal. No pericardial effusion. There is a small sliding hiatal hernia. The live r and spleen are normal. There are changes of cholecystectomy. The pancreas, adrenal glands, are norm al. There is cortical thinning of the kidneys. There are no dilated loops of bowel. The appendix is n ormal. There are no pathologically enlarged lymph nodes. There is no free intraperitoneal fluid. Ther e is an umbilical hernia containing fat. There are fibroids in uterus measuring up to 3.6 cm. The ova truman are normal. There is prominent fat in the inguinal canals that may be hernias. There is mild tho racic and lumbar spondylosis. IMPRESSION: 1. Small sliding hiatal hernia. 2. Umbilical hernia containing fat. 3. Uterine fibroids. 4. Prominent fat in the inguinal canals that may be hernias. Reviewed, dictated and finalized at location A.
--- OUTSIDE RECORDS SUMMARY | 2024-07-05 04:35 | XMS_ITS ---
Author Organization [facility] Address [address] [place] [address] Care Team Providers Care Experimental Mechanic Outboard Motors Name Role Phone Christy Zhang Primary Care Provider [phone] Allergies No Known Allergies REASON FOR VISIT NEW EVAL-zoom Problems Problem Type SNOMED Code ICD Code Onset Dates Problem Status W/U Status Risk Notes Problem Tobacco user (711669302) Nicotine dependence, unspecified, uncomplicated (F17.200) Active confirmed Problem Depression (268875146) Depression (F32.9) Active confirmed Problem Anxiety (60254367) Anxiety (F41.9) Active confirmed Encounters Encounter Location Date Provider Diagnosis [address] [address] 01/23/2023 Christy Zhang Nicotine dependence, unspecified, uncomplicated F17.200 ; Depression [...] Notes * Aline DIAZ:1980 (42 yo F)Acc No.[id number]:01/23/2023 Patient: Eliana Nicholas Provider: MACARENA Osuna :1980 A ge:42 Y S ex:Female Date:01/23/2023 Address:[address] [place], [place] [address]GERALDO [phone] Subjective: * Chief Complaints: * N EW EVAL-zoom * HPI: S creening: Finney Suicide Severity Rating Scale (LF) D o [...] emergency, with client/parental/guardian consent. S uicidal Assessment: Finney Screening H ave you wished you were [...] Consult: Consent to treat S beef reviewed [facility] Consent to Treat document with the patient. The patient verbally acknowledged understanding of the document and verbally voluntarily consents to treatment at [facility]. Patient verbally authorizes [facility] to bill for these services. .. C [...] OD on Tylenol and was taken to [facility]. He wasn't worth what I tried to [...] Psychiatric Hospitalizations/Counseling Hospitalized X2 for MH at [facility] (ETOH intoxication and attempted to overdose but never took the pills); 09/2022 for SA OD on Tylenol at [facility] M EDICAL HISTORY-- A llergies- NKDA O ther Medications- None M edical Concerns- No hx head injury or seizures. L MP-- Ablation T herapist- She is in therapy at [facility] Physician- Dr. Michel at [facility] R ecent Labs- She had recent bloodwork in October prior to surgery F AMILY HEALTH HISTORY- - Mother- from cancer, she was crazy , LORI, Alcoholism F ather-DC x2, Diabetes, HTN S ister- LORI ( [...] TC/Rx drugs Tylenol ingestion B irth location- [place] C urrent home location- [place], [place] W yolanda lives at home? Lives with a friend. She lost her home. S iblings? Children? Has 7 siblings (1 sister is ); Has 3 children (26 yr lives in home for disability; 23 yr lives in [place]; 10-year-old girl lives with the 23 yr [...] graduate. 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 H obbies/Interests- Spending time with her kids. 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 S ocial Activities-- Work and spend time with kids. S piritual Affiliation- I go to yarsanism as much as I can. P robation/Legal [...] stic Procedure: k idney infection suicide attempt [facility] 09/2022 suicide attempt [facility] 11/2014 * Family History: F ather: alive. M other: alive. 4 brother(s) , 3 sister(s) - healthy. 3 daughter(s) - healthy. . Mother- from cancer, she was crazy , LORI, Alcoholism Father-DC x2, Diabetes, HTN Sister- LORI ( from [...] mployment Status E mployment Status: E mployed [employer]. T obacco Use T obacco Use: S [...] Date: Generated for Irma queen/Jaden/eTjovanismitting on: 0 07/05/2024 04:35 AM CDT History and Physical Notes * HPI (History of Present Illness) Category Sub-Category Detail Notes Category Not es Suicidal Assessment Finney Screening Have you wished you were or [...] Consult Consent to treat S jorge reviewed [facility] Consent to Treat document with the patient. The patient verbally acknowledged understanding of the document and verbally voluntarily consents to treatment at [facility]. Patient verbally authorizes [facility] to bill for these services.: . Depression [...] OD on Tylenol and was taken to [facility]. He wasn't worth what I tried to [...] energy level. Weight loss/Weight gain Denies Anxiety- -07/17 Panic Attacks She has had 1 or [...] Hospitalizations/Counseling Hospitalized X2 for MH 11/2014 at [facility] (ETOH intoxication and attempted to overdose but never took the pills); 09/2022 for SA OD on Tylenol at [facility] MEDICAL HISTORY-- Allergies- NKDA Other Medications- None Medical Concerns- No hx head injury or seizures. LMP-- Ablation Therapist- She is in therapy at [facility] Primary Care Physician- Dr. Michel at [facility] Recent Labs- She had recent bloodwork in October prior to surgery FAMILY HEALTH HISTORY- - Mother- from cancer, she was crazy , LORI, Alcoholism Father-DC x2, Diabetes, HTN Sister- LORI ( from sepsis), MH Sister-HTN, Diabetes Brother-Diabetes SOCIAL HISTORY- Smoking history--- Smokes 1/2 ppd Drug/alcohol use Substance Alcohol Sober since 2014 Marijuana Denies use cocaine Denies use Heroin Denies use Meth Denies use LSD/PCP Denies use IV drugs Denies use OTC/Rx drugs Tylenol ingestion location- [place] Current home location- [place], [place] Who lives at home? Lives with a friend. She lost her home. Siblings? Children? Has 7 siblings (1 sister is ); Has 3 children (26 yr lives in home for disability; 23 yr lives in [place]; 10-year-old girl lives with the 23 yr [...] not graduate. 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 Hobbies/Interests- Spending time with her kids. 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 Social Activities-- Work and spend time with kids. Spiritual Affiliation- I go to yarsanism as much as I can. Probation/Legal trouble/?- [...] 0 ALLEY-7 Score Total score: : Screening Finney Suicide Severity Rating Scale (LF) Do you [...]
--- OUTSIDE RECORDS SUMMARY | 2024-07-05 04:35 | XMS_ITS | CONTINUITY OF CARE DOCUMENT ---
Author Name saul hughes Address Unknown Organization [facility] Address [address] [place] [address] [address] [place] [address] Phone [phone] Care Team Providers Care Powerhouse Mechanic Helper Name Role Phone Harjit Sandy MD Unavailable [phone] Harjit Sandy MD Unavailable [phone] JOSE JOSHI MD Unavailable [phone] INSURANCE PROVIDERS Payer name Policy type / Coverage type [place] red libertarian ID SELF [place]Y [place] (2) Medicaid [id number]
--- OUTSIDE RECORDS SUMMARY | 2024-07-05 04:35 | XMS_ITS | Patient Health Record ---
Author Organization [facility] Address [address] [place] [address] Care Team Providers Care Information Management Manager Name Role Phone Christy Zhang Primary Care Provider Allergies No Known Allergies Reason For Referral No Information Problems Problem Type SNOMED Code ICD Code Onset Dates Problem Status W/U Status Risk Notes Problem Tobacco user (305254246) Nicotine dependence, unspecified, uncomplicated (F17.200) Active confirmed Problem Depression (116738553) Depression (F32.9) Active confirmed Problem Anxiety (02489024) Anxiety (F41.9) Active confirmed Plan Of Treatment No Information Insurance Providers Payer Name Payer Address Payer Phone Subscriber Number Group Number Insured Name Patient Relationship to Insured Coverage Start Date Coverage End Date [facility] Claims Department [address] [place] [address] [id number] Joe Eliana Self - patient is the insured 1 3 Medical (General) History Surgical History Surgery Date(Month/Year) tubal ligation 2012 shoulder arthroscopy 2019 gallbladder 2013 dnc 1999 plantear 2022 Hospitalization History Reason Date(Month/Year) MH suicide attempt [place] 11/2014 MH suicide attempt [place] 09/2022 kidney infection
--- OUTSIDE RECORDS SUMMARY | 2024-07-05 04:35 | XMS_ITS | Clinical Summary ---
Author Organization [facility] Address [address] [place] [address] Phone Care Team Providers Care [place] Name Role Phone Unavailable Primary Care Provider [...] on file Legal Sex Female 6:22 PM DICTIONARY EDITOR Gender Identity Not on file Sexual Orientation Not on file Last Filed Vital Signs Vital Sign Reading Time Taken Comments Blood Pressure 150/92 02/11/2017 6:27 PM DICTIONARY EDITOR Pulse - - Temperature 36.2 C (97.1 F) 02/11/2017 6:27 PM DICTIONARY EDITOR Respiratory Rate 18 02/11/2017 6:27 PM DICTIONARY EDITOR Oxygen Saturation 100% 02/11/2017 6:27 PM DICTIONARY EDITOR Inhaled Oxygen Concentration - - Weight 86.2 kg (190 lb) 02/11/2017 6:27 PM DICTIONARY EDITOR Height 162.6 cm (5' 4 ) 02/11/2017 6:27 PM DICTIONARY EDITOR Body Mass Index 32.61 02/11/2017 6:27 PM DICTIONARY EDITOR Plan of Treatment Health Maintenance Due Date Last Done Comments DTAP/TDAP/TD VACCINES (1 - Tdap) 1997 HEPATITIS B VACCINES (1 of 3 - 19+ 3-dose series) 1997 PAP SMEAR 06/21/1999 CERVICAL CANCER SCREENING 2008 HPV/Cotest (30-65) 2008 PAP SMEAR 2008 BREAST CANCER SCREENING 2018 COLORECTAL SCREENING 06/21/2023 Colorectal Cancer Screening 06/21/2023 FIT-DNA Q 3 years 06/21/2023 FIT/FOBT Q 1 year 06/21/2023 Flex Sig/CT Colonography Q 5 years 06/21/2023 INFLUENZA VACCINE (#1) 2023 HPV VACCINES Aged Out No longer eligi ble based on patient's age to complete this topic
--- OUTSIDE RECORDS SUMMARY | 2024-07-05 04:35 | XMS_ITS | Continuity of Care Document ---
Author Organization [facility] Address [address] [place] [address] Phone Care Team Providers Care Color Adviser Name Role Phone Lyndon [facility] MD Unavailable Unavailable Procedures Procedure Date CT ABD & PELVIS W/O CONTRAST Advance Directives Directive Yes / No Effective Date File Name No Information Encounters Encounter Description Practice Location Reason(s) For Visit Diagnoses Date Provider Providers Copied on Encounter [facility], [address], [place], [place], [id number], [place] tel:[phone] [facility] No Information Mario Haney. [address] , [place], [place], [address], [place]. tel:[phone] Referring Provider: Jose Michel, [address] [facility], [place], [address]. tel:[phone] Family History Family Member Type Diagnosis Age At Onset No Information Payers Payer name Insurance type Covered alliance party ID Authoriza tion(s) No Information Social History Type Description Quantity Date Captured Comments Sex Female Smoking Status No Information Chief Complaint And Reason For Visit No Information Reason For Referral Reason For Referral No Information History Of Present Illness Encounter Date Complaint History Of Prese nt Illness No Information Functional Status Date Functional Assessmen t No Information Instructions Date Instruction Additional Infor mation No Information Assessments Type Assessment Date No Information Patient Care Teams Name Effective Dates (start - stop) Status Members No Information
--- OUTSIDE RECORDS SUMMARY | 2024-07-05 04:35 | XMS_ITS | Encounter Summary ---
Author Organization [facility] Address [address] [place] [address] Care Team Providers Care Printing Sales Representative Name Role Phone Clem Roblero MD Primary Care Provider Encounter Details Date Type Department Care Team (Late st Contact Info) Description 06/06/2019 Telephone [facility] ANESTHESIA [address] [place] [address] Evi Albert DO [address] [place] [address] Social History Tobacco Use Types Packs/Day Years [...] Evi Albert DO - 06/06/2019 12:50 PM FINANCIAL WRITER REGIONAL & ACUTE PAIN SERVICE Peripheral Nerve [...] questions or concerns. Evi Albert DO 06/06/19 NCIAL WRITER documented in this encounter Plan of Treatment Not on file documented as of this encounter Visit Diagnoses Not on filedocumented in this encounter Care Teams Printing Sales Representative Relationship Specialty Start Date End Date Clem Roblero MD [address] [place] [address] PCP - General 02/11/19 documented as of this encounter
--- OUTSIDE RECORDS SUMMARY | 2024-07-05 04:35 | XMS_ITS | Data Portability ---
Author Organization [facility] CARLAKathie Address [address] [place] [address] Care Team Providers Care Hyperion Essbase Developer Name Role Phone HOMA JOSHI Primary Care Provider Assessment No assessment recorded. Plan of Treatment Reminders Order Date Submit Date Provider Last Modified By Organization Details Last Modified Time Details Appointments None recorded . Lab CMP, serum or plasma 2021 022 [facility], [address] [place] [address], [facility] [address], [place], [address], 17:09:39 CBC w/ auto diff 2021 022 [facility], [address] [place] [address], [address], [place], [address], 17:09:38 PT/PTT, plasma 2021 022 [facility], [address] [place] [address], [address], [place], [address], 17:09:40 Referral general surgeon referral 2020 021 ace Dominguez MD, [address] [facility], [address], [place], [address], 09:13:39 Procedures None recorded . Surgeries None recorded . Imaging electroc james ureña [address] [facility] ([facility]), [address] [place], [address], 3 15:30:16 US, duplex, venous, lower extremit y, complete [address] [facility] ([facility]), [address] [place], [address], 2 10:17:55 US, doppler, arterial - Lower extremit ies. both sides. [address] [facility] ([facility]), [address] [place], [address], 2 10:18:53 Medication Orders Reglan 10 mg tablet 2020 [facility] #[id number], [address], [place], [id number], 3 15:29:34 Medrol (Rayo) 4 mg tablets in a dose pack 2020 [facility] #[id number], [address], [place], [id number], 3 15:29:00 Zithroma x Z-Rayo 250 mg tablet 2020 [facility] #[id number], [address], [place], [id number], 3 15:28:53 albutero l sulfate HFA 90 mcg/actu ation aerosol inhaler 2020 [facility] #[id number], [address], [place], [id number], 3 15:30:14 benzonat ate 200 mg capsule 2020 021 [id number], [address], [place], [place], [id number], 12:32:25 Patient TargetsNo targets recorded. Patient Instructions Encounter Date Encounter Id Patient Instructions Last Modified By Organization Details Last Modified Time 02/24/2021 [id number] gastroesophageal reflux disease (GERD): care [facility] Not available 02/24/2021 12:54:11 12/04/2022 [id number] Quitting Tobacco : Care Instructions si Not available 12/04/2022 16:19:16 A healthy lifest yle: care instructions [facility] Not available 12/04/2022 16:19:16 chronic obstruct abdiel pulmonary disease (COPD): care instructions [facility] Not available 12/04/2022 16:19:16 learning about [...] /uL 3.4-10 .8 Not Available [facility] ([facility]) [address] [facility], [place], [address], 07/28/2021 17:09:38 07/23/19 22 07/23/2021 CBC WITH DIFFE RENTI AL/PL ATELE T RBC 4.93 x10e6 /uL 3.77-5 .28 Not Available [facility] ([facility]) [address] [facility], [place], [address], 07/28/2021 17:09:38 07/23/19 22 07/23/2021 CBC WITH DIFFE RENTI AL/PL ATELE T hemoglobin 14.6 g/dL 11.1-1 5.9 Not Available [facility] ([facility]) [address] [facility], [place], [address], 07/28/2021 17:09:38 07/23/19 22 07/23/2021 CBC WITH DIFFE RENTI AL/PL ATELE T hematocrit 43.1 % 34.0-4 6.6 Not Available [facility] ([facility]) [address] [facility], [place], [address], 07/28/2021 17:09:38 07/23/19 22 07/23/2021 CBC WITH DIFFE RENTI AL/PL ATELE T MCV 87 fL 79-97 Not Available [facility] ([facility]) [address] [facility], [place], [address], 07/28/2021 17:09:38 07/23/19 22 07/23/2021 CBC WITH DIFFE RENTI AL/PL ATELE T MCH 29.6 pg 26.6-3 3.0 Not Available [facility] ([facility]) [address] [facility], [place], [address], 07/28/2021 17:09:38 07/23/19 22 07/23/2021 CBC WITH DIFFE RENTI AL/PL ATELE T MCHC 33.9 g/dL 31.5-3 5.7 Not Available [facility] ([facility]) [address] [facility], [place], [address], 07/28/2021 17:09:38 07/23/19 22 07/23/2021 CBC WITH DIFFE RENTI AL/PL ATELE T RDW 12.2 % 11.7-1 5.4 Not Available [facility] ([facility]) [address] [facility], [place], [address], 07/28/2021 17:09:38 07/23/19 22 07/23/2021 CBC WITH DIFFE RENTI AL/PL ATELE T platelets 336 x10e3 /uL 150-45 0 Not Available [facility] ([facility]) [address] [facility], [place], [address], 07/28/2021 17:09:38 07/23/19 22 07/23/2021 CBC WITH DIFFE RENTI AL/PL ATELE T neutrophils 59 % not estab. Not Available [facility] ([facility]) [address] [facility], [place], [address], 07/28/2021 17:09:38 07/23/19 22 07/23/2021 CBC WITH DIFFE RENTI AL/PL ATELE T lymphs 26 % not estab. Not Available [facility] ([facility]) [address] [facility], [place], [address], 07/28/2021 17:09:38 07/23/19 22 07/23/2021 CBC WITH DIFFE RENTI AL/PL ATELE T monocytes 12 % not estab. Not Available [facility] ([facility]) [address] [facility], [place], [address], 07/28/2021 17:09:38 07/23/19 22 07/23/2021 CBC WITH DIFFE RENTI AL/PL ATELE T eos 2 % not estab. Not Available [facility] ([facility]) [address] [facility], [place], [address], 07/28/2021 17:09:38 07/23/19 22 07/23/2021 CBC WITH DIFFE RENTI AL/PL ATELE T basos 1 % not estab. Not Available [facility] ([facility]) [address] [facility], [place], [address], 07/28/2021 17:09:38 07/23/19 22 07/23/2021 CBC WITH DIFFE RENTI AL/PL ATELE T immature cells INTERIOR DESIGN CONSULTANT Not Available [facility] ([facility]) [address] [facility], [place], [address], 07/28/2021 17:09:38 07/23/19 22 07/23/2021 CBC WITH DIFFE RENTI AL/PL ATELE T neutrophils (absolute) 4.2 x10e3 /uL 1.4-7. 0 Not Available [facility] ([facility]) [address] [place], [address], 07/28/2021 17:09:38 07/23/19 22 07/23/2021 CBC WITH DIFFE RENTI AL/PL ATELE T lymphs (absolute) 1.9 x10e3 /uL 0.7-3. 1 Not Available [facility] ([facility]) [address] [place], [address], 07/28/2021 17:09:38 07/23/19 22 07/23/2021 CBC WITH DIFFE RENTI AL/PL ATELE T monocytes(ab solute) 0.9 x10e3 /uL 0.1-0. 9 Not Available [facility] ([facility]) [address] [place], [address], 07/28/2021 17:09:38 07/23/19 22 07/23/2021 CBC WITH DIFFE RENTI AL/PL ATELE T eos (absolute) 0.2 x10e3 /uL 0.0-0. 4 Not Available [facility] ([facility]) [address] [place], [address], 07/28/2021 17:09:38 07/23/19 22 07/23/2021 CBC WITH DIFFE RENTI AL/PL ATELE T baso (absolute) 0.1 x10e3 /uL 0.0-0. 2 Not Available [facility] ([facility]) [address] [place], [address], 07/28/2021 17:09:38 07/23/19 22 07/23/2021 CBC WITH DIFFE RENTI AL/PL ATELE T immature granulocytes 0 % not estab. Not Available [facility] ([facility]) [address] [place], [address], 07/28/2021 17:09:38 07/23/19 22 07/23/2021 CBC WITH DIFFE RENTI AL/PL ATELE T immature grans (abs) 0.0 x10e3 /uL 0.0-0. 1 Not Available [facility] ([facility]) [address] [facility], [place], [address], 07/28/2021 17:09:38 07/23/19 22 07/23/2021 CBC WITH DIFFE RENTI AL/PL ATELE T NRBC INTERIOR DESIGN CONSULTANT Not Available [facility] ([facility]) [address] [facility], [place], [address], 07/28/2021 17:09:38 07/23/19 22 07/23/2021 CBC WITH DIFFE RENTI AL/PL ATELE T hematology comments: INTERIOR DESIGN CONSULTANT Not Available [facility] ([facility]) [address] [facility], [place], [address], 07/28/2021 17:09:38 07/23/19 22 07/23/2021 COMP. METAB OLIC PANEL (14) glucose 95 mg/dL 65-99 Not Available [facility] ([facility]) [address] [facility], [place], [address], 07/28/2021 17:09:39 07/23/19 22 07/23/2021 COMP. METAB OLIC PANEL (14) BUN 14 mg/dL 6-24 Not Available [facility] ([facility]) [address] [facility], [place], [address], 07/28/2021 17:09:39 07/23/19 22 07/23/2021 COMP. METAB OLIC PANEL (14) creatinine 0.71 mg/dL 0.57-1 .00 Not Available [facility] ([facility]) [address] [facility], [place], [address], 07/28/2021 17:09:39 07/23/19 22 07/23/2021 COMP. METAB OLIC PANEL (14) eGFR 108 mL/mi n/1.7 3 >59 Not Available [facility] ([facility]) [address] [place], [address], 07/28/2021 17:09:39 07/23/19 22 07/23/2021 COMP. METAB OLIC PANEL (14) BUN/creatini ne ratio 20 9-23 Not Available [facility]) [address] [facility], [place], [address], 07/28/2021 17:09:39 07/23/19 22 07/23/2021 COMP. METAB OLIC PANEL (14) sodium 138 mmol/ L 134-14 4 Not Available [facility] ([facility]) [address] [facility], [place], [address], 07/28/2021 17:09:39 07/23/19 22 07/23/2021 COMP. METAB OLIC PANEL (14) potassium 4.9 mmol/ L 3.5-5. 2 Not Available [facility] ([facility]) [address] [facility], [place], [address], 07/28/2021 17:09:39 07/23/19 22 07/23/2021 COMP. METAB OLIC PANEL (14) chloride 103 mmol/ L 96-106 Not Available [facility] ([facility]) [address] [place], [address], 07/28/2021 17:09:39 07/23/19 22 07/23/2021 COMP. METAB OLIC PANEL (14) carbon dioxide, total 22 mmol/ L 20-29 Not Available [facility] ([facility]) [address] [place], [address], 07/28/2021 17:09:39 07/23/19 22 07/23/2021 COMP. METAB OLIC PANEL (14) calcium 9.6 mg/dL 8.7-10 .2 Not Available [facility] ([facility]) [address] [place], [address], 07/28/2021 17:09:39 07/23/19 22 07/23/2021 COMP. METAB OLIC PANEL (14) protein, total 6.7 g/dL 6.0-8. 5 Not Available [facility] ([facility]) [address] [place], [address], 07/28/2021 17:09:39 07/23/19 22 07/23/2021 COMP. METAB OLIC PANEL (14) albumin 4.4 g/dL 3.8-4. 8 Not Available [facility] ([facility]) [address] [place], [address], 07/28/2021 17:09:39 07/23/19 22 07/23/2021 COMP. METAB OLIC PANEL (14) globulin, total 2.3 g/dL 1.5-4. 5 Not Available [facility] ([facility]) [address] [place], [address], 07/28/2021 17:09:39 07/23/19 22 07/23/2021 COMP. METAB OLIC PANEL (14) A/G ratio 1.9 1.2-2. 2 Not Available [facility] ([facility]) [address] [place], [address], 07/28/2021 17:09:39 07/23/19 22 07/23/2021 COMP. METAB OLIC PANEL (14) bilirubin, total 0.4 mg/dL 0.0-1. 2 Not Available [facility] ([facility]) [address] [place], [address], 07/28/2021 17:09:39 07/23/19 22 07/23/2021 COMP. METAB OLIC PANEL (14) alkaline phosphatase 113 IU/L 44-121 Not Available [facility]) [address] [facility], [place], [address], 07/28/2021 17:09:39 07/23/19 22 07/23/2021 COMP. METAB OLIC PANEL (14) AST (SGOT) 13 IU/L 0-40 Not Available [facility] ([facility]) [address] [facility], [place], [address], 07/28/2021 17:09:39 07/23/19 22 07/23/2021 COMP. METAB OLIC PANEL (14) ALT (SGPT) 15 IU/L 0-32 Not Available [facility] ([facility]) [address] [facility], [place], [address], 07/28/2021 17:09:39 07/23/19 22 07/28/2021 ABN PTT/A PTT REFLE XIVE PANEL thrombin time 15.7 sec Refer ence Range : 0.0 - 23.0 Not Available [facility] [address] [place], [address], 07/28/2021 17:09:40 07/23/19 22 07/28/2021 ABN PTT/A PTT REFLE XIVE PANEL prothrombin time 10.0 sec Refer ence Range : 18 years and older : 9.1 - 12.0 Not Available [facility] [address] [place], [address], 07/28/2021 17:09:40 07/23/19 22 07/28/2021 ABN PTT/A PTT REFLE XIVE PANEL INR 0.9 ratio Refer ence Range : >1 month : 0.9 - 1.2 Not Available [facility] [address] [place], [address], 07/28/2021 17:09:40 07/23/19 22 07/28/2021 ABN PTT/A [...] 30.2 Not Available [facility] [address] [place], [address], 07/28/2021 17:09:40 07/23/19 22 07/28/2021 ABN PTT/A PTT REFLE XIVE PANEL drvvt screen seconds 39.3 sec Refer ence Range : <= 47.0 Not Available [facility] [address] [place], [address], 07/28/2021 17:09:40 07/23/19 22 07/28/2021 ABN PTT/A PTT REFLE XIVE PANEL drvvt confirm seconds TNP sec Testi ng Not Indic ated Not indic ated Not Available [facility] [address] [place], [address], 07/28/2021 17:09:40 07/23/19 22 07/28/2021 ABN PTT/A PTT REFLE XIVE PANEL drvvt ratio TNP ratio Testi ng Not Indic ated Not indic ated Not Available [facility] [address] [place], [address], 07/28/2021 17:09:40 07/23/19 22 07/28/2021 ABN PTT/A PTT REFLE XIVE PANEL pathologist interpretati on TNP Test not perfo rmed All resul ts are withi n the adult refer ence range and there fore patho logy inter preta tion is not indic ated. Not Available [facility] [address] [place], [address], 07/28/2021 17:09:40 02/02/20 21 12/23/2020 CT, chest , w/o contr ast No observ ation record ed. [address] ([facility]) [address] [place], [address], 02/04/2021 09:40:54 07/23/19 22 03/31/2021 PFT, compl ete No observ ation record ed. [address] [place], [address], 07/25/2021 10:10:49 07/28/19 22 07/25/2021 US, duple x, venou s, lower extre mity, compl ete No observ ation record ed. [facility] ([facility]) [address] [place], [address], 07/29/2021 16:10:14 07/28/19 22 07/26/2021 US, doppl er, arter ial No observ ation record ed. [facility] ([facility]) [address] [place], [address], 07/29/2021 16:10:15 12/10/19 22 12/09/2021 imagi ng/di agnos tic resul t No observ ation record ed. [facility] [address] [place], [address], 12/09/2021 18:51:15 04/05/20 22 04/05/2022 imagi ng/di agnos tic resul t No observ ation record ed. [facility] [address] [place], [address], 04/05/2022 18:28:29 06/12/19 23 06/11/2022 imagi ng/di agnos tic resul t No observ ation record ed. [facility] [address] [place], [address], 06/12/2022 17:41:08 09/12/19 23 09/08/2022 elect verónica valentine am No observ ation record ed. [facility] [address] [place], [address], 09/14/2022 09:54:44 12/06/19 23 12/05/2022 imagi ng/di agnos tic resul t No observ ation record ed. [facility] [address] [place], [address], 12/06/2022 11:20:05 01/14/20 23 01/13/2023 imagi ng/di agnos tic resul t No observ ation record ed. [facility] [address] [place], [address], 01/15/2023 12:48:00 03/21/20 23 03/21/2023 CT, abdom en + pelvi s, w/o contr ast No observ ation record ed. [facility] [address] [place], [address], 03/27/2023 17:00:21 04/15/19 24 04/15/2023 CT, head, w/o contr ast No observ ation record ed. [place] [id number], [place], [address], 04/17/2023 10:22:09 07/25/19 24 07/25/2023 CT, abdom en + pelvi s, w/ contr ast No observ ation record ed. [email or web address] [facility] [address] [place], [address], 08/01/2023 12:21:46 08/17/19 24 08/17/2023 XR, chest No observ ation record ed. [facility] [address] [place], [address], 09/04/2023 12:55:26 Result Notes None recorded. Problems Name Problem SNOMED Code Status Onset Date Resolution Date Notes Provider Name and Address Organization Details Recorded Time Upper respirato ry infection 61599963 Completed 201607/19/2020 Clem devries, [facility] 1 21:46:55 Viral gastritis 020399360 Completed 201607/19/2020 Clem devries, [facility] - [facility] 1 21:46:53 Pain of left heel 79503892645 44854 Completed 201707/19/2020 Clem devries, [facility] - [facility] 1 21:46:33 Body mass index 30+ - obesity 130274979 Active 2017 Not Available [facility] 3 12:00:10 Retractio n of nipple 03443782 Active 2017 Not [address] [facility] 3 12:00:10 Bacterial vaginosis 222034189 Active 2017 Not [address] [facility] 3 12:00:10 Solitary nodule of lung 868606405 Active 2017 Not Available [facility] 3 12:00:10 Family history of malignant neoplasm of lung 319359656 Active 2017 Not [address] [facility] 3 12:00:10 Bereaveme nt 36819168 Completed 201707/19/2020 Clem devries, [facility] - [facility] 1 21:46:17 Asthma 080269481 Active 2019 J45.90 9 [address] [facility] 3 12:00:10 Depressiv e disorder 30965917 Active Not Available [facility] 3 12:00:10 Migraine 68477891 Active Not Available [facility] 3 12:00:10 Tobacco dependenc e syndrome 11923063 Active Not Available [facility] 3 12:00:10 Obesity 765561952 Completed 07/12/2017 Deborah Zamarripa PA-C Attn: Accounting ,[address] [place], [address] , [place] - [facility] 8 11:43:54 Insomnia 246504694 Active Not Available [facility] 3 12:00:10 History of alcoholis m 773892180 Active 2015 Not Available [facility] 3 12:00:10 Hand pain 73992052 Active 2015 Not Available [facility] 3 12:00:10 Shoulder pain 82956317 Completed 201607/19/2020 Clem SteveAnnika null, [facility] 1 21:46:46 Shoulder pain 56863150 Completed 201607/19/2020 Clem SteveAnnika null, [facility] 1 21:46:39 Muscle spasm of cervical muscle of neck 74662581539 4 Completed 201607/19/2020 Clem SteveAnnika jaycob, [facility] 21:46:36 Problem Notes None recorded. Procedures Surgical History Date Name Laterality Status Provider Name and Address Organization Details Recorded Time 07/14/19 18 Date of Last Pap Smear completed Devika Capellan MA [facility] 02/07/2019 11:08:58 04/09/19 15 Cholecystectomy completed Clem Annika [facility] 06/03/2018 14:46:57 04/09/19 14 Endometrial Ablation completed Clem Annika [facility] 06/03/2018 14:47:29 04/09/19 13 Tubal Ligation completed Nata Sloan MA [facility] 05/11/2015 11:57:52 Imaging Results Imaging Date Name Status LastModified by Organization Details LastModified Time 12/23/2020 CT, chest, w/o contrast completed [address] ([facility]) [address] [place], [address], 02/04/2021 09:40:54 03/31/2021 PFT, complete completed [address] [place], [address], 07/25/2021 10:10:49 07/25/2021 US, duplex, venous, lower extremity, [email or web address] [address] [place], [address], 07/29/2021 16:10:14 07/26/2021 US, doppler, arterial completed [facility] ([facility]) [address] [place], [address], 07/29/2021 16:10:15 12/09/2021 imaging/diagnostic result completed [facility] [address] [place], [address], 12/09/2021 18:51:15 04/05/2022 imaging/diagnostic result completed [facility] [address] [place], [address], 04/05/2022 18:28:29 06/11/2022 imaging/diagnostic result completed [facility] [address] [place], [address], 06/12/2022 17:41:08 09/08/2022 electrocardiogram completed [facility] [address] [place], [address], 09/14/2022 09:54:44 12/05/2022 imaging/diagnostic result completed [facility] [address] [place], [address], 12/06/2022 11:20:05 01/13/2023 imaging/diagnostic result completed [facility] [address] [place], [address], 01/15/2023 12:48:00 03/21/2023 CT, abdomen + pelvis, w/o contrast completed [facility] [address] [place], [address], 03/27/2023 17:00:21 04/15/2023 CT, head, w/o contrast completed [address], [address], 04/17/2023 10:22:09 07/25/2023 CT, abdomen + pelvis, w/ contrast completed [email or web address] [place] [address] [address] [place], [address], 08/01/2023 12:21:46 08/17/2023 [facility] [address] [place], [address], 09/04/2023 12:55:26 Procedure Notes None recorded. Medical [...] Updated DateTime 1 162.56 cm 39.5 kg/m2 050154. 68 g 98.1 [degF] 99 % 99 % 91 /min 124 mm[Hg] 90 mm[Hg] Joao Ramírez MA [facility] 1 12:38:24 Date Recorded Body height Body mass index (BMI) Body weight Body temperature Oxygen saturation Oxygen saturation in Arterial blood by Pulse oximetry Heart rate Systolic blood pressure Diastolic blood pressure Provider Name and Address Organization Details Last Updated DateTime 2 162.56 cm 38.4 kg/m2 586148. 69 g 98.7 [degF] 97 % 97 % 94 /min 110 mm[Hg] 78 mm[Hg] Devika Capellan MA [facility] 2 12:15:28 Date Recorded Body height Body mass index (BMI) Body weight Oxygen saturation Oxygen saturation in Arterial blood by Pulse oximetry Heart rate Systolic blood pressure Diastolic blood pressure Provider Name and Address Organization Details Last Updated DateTime 3 162.56 cm 37.4 kg/m2 53486.5 7 g 97 % 97 % 94 /min 118 mm[Hg] 81 mm[Hg] Josefa Whelan MA [facility] 3 15:36:39 Date Recorded Body height Body mass index (BMI) Body weight Heart rate Oxygen saturation Oxygen saturation in Arterial blood by Pulse oximetry Systolic blood pressure Diastolic blood pressure Provider Name and Address Organization Details Last Updated DateTime 3 162.56 cm 37.6 kg/m2 92654.7 3 g 91 /min 97 % 97 % 132 mm[Hg] 80 mm[Hg] Cecile Fernando MA [place] [facility] 3 12:44:58 Social History Question Answer Notes LastModified by Organizat ion Details LastModified Time Tobacco Smoking Status Current Every Day Smoker Nata Sloan MA [email or web address], [place] [facility] 05/11/2015 11:57:52 Do You Have An Advance Directive? No Information not available 05/11/2015 What Is Your Level Of Alcohol Consumption? Occasional [email or web address] Information not available 05/11/2015 Is Blood Transfusion Acceptable In An Emergency? Yes Information not available 07/20/2020 What Is Your Level Of Caffeine Consumption? Occasional Information not available 07/20/2020 How Much Tobacco Do You Chew? None Information not available 05/11/2015 Are You Currently Employed? No Information not available 05/11/2015 What Type Of Diet Are You Following? REGULAR Information not available 05/11/2015 Which Illicit Or Recreational Drugs Have You Used? 0 [email or web address] Information not available 05/11/2015 Do You Or Have You Ever Used E-cigarettes Or Vape? Never Used Electronic Cigarettes Information not available 02/24/2019 Education 11 Information no t available 05/11/2015 What Is The Highest Grade Or Level Of School You Have Completed Or The Highest Degree You Have Received? 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 No [email or web address] Information not available 05/11/2015 Hard Of Hearing Or Deaf In One Or Both Ears? No [email or web address] Information not available 05/11/2015 Legally Blind In One Or Both Eyes? No Information not available 05/11/2015 Live Alone Or With Others? With Others [email or web address] Information not available 05/11/2015 What Was The Date Of Your Most Recent Tobacco Screening? 12/04/2022 Information not available 12/04/2022 How Many Children Do You Have? 3 Information not available 05/11/2015 What Is Your Current Pack Years? [email or web address] Information not available 07/20/2020 Do You Use Protection During Sex? Always [email or web address] Information not available 05/11/2015 What Is Your Relationship Status? Single Information not available 07/20/2020 Do You Use Your Seat Belt Or Car Seat Routinely? Yes Information not available 07/20/2020 Seat Belts Used Routinely Yes [email or web address] Information not available 05/11/2015 Are You Sexually Active? Yes [email or web address] Information not available 05/11/2015 Smoke Alarm In Home Yes [email or web address] Information not available 05/11/2015 Do You Have Smoke And Carbon Monoxide Detectors In Your Home? Yes Information not available 07/20/2020 At What Age Did You Start Smoking Tobacco? 13 [email or web address] Information not available 05/11/2015 Are You Passively Exposed To Smoke? No [email or web address] Information not available 05/11/2015 Do You Or [...] Many Years Have You Smoked Tobacco? 21 Information not available 05/11/2015 Do You Or Have You Ever Used Any Other Forms Of Tobacco Or Nicotine? No Information not available 07/22/2021 Sex: Unknown Functional Status Question Answer Note LastModified by Organization D etails LastModified Time Are you able to care for yourself? Yes [email or web address] Information n ot available 05/11/2015 What is your exercise level? None [email or web address] Information not available 05/11/2015 Mental Status None [...] Problems N Kidney or Bladder Problems Y Blood Clots Y Depression Y Lung Disease Y GI Problems Y Acne N Eating Disorder N Breast Problem N Anemia N Anesthesia Complications N Headaches/Migraines Y Anxiety Disorder N Ovarian Cancer N Diabetes N Muscle, Joint, or Bone Problems Y [...] SNOMED-CT Code Diagnosis ICD10 Code Diagnosis Note [id number] OLENA Hernandez (Adult Med) [address] [place] [address] 05/11/2015 11:22:56 05/11/2015 12:40:48 Migraine 67303182 G43.909 Wants to try paxil 10mg QD first If this does not work, will initiate topamax In addition, she drinks 5 cans soda/day (Dr. Garsia) and sweet tea she has no interest in quitting soda History of attempted suicide 543056187 Z91.5 She was hospitaliz ed at [facility] 7 months ago - states that she is better now but now all she wants to do is leave Advised that if she has SI/HI ideations to go directly to the ED Depressive disorder 7976 2265 F32.9 The biggest thing right now is all she wants to do is drink but her 3 children (the 2YO more than anything) is the reason that she does not drink Tobacco de pendence syndrome 16091896 F17.290 She states that smoking has kept her away from alcohol and at this point she has no interest in quitting smoking Obesity 417543797 E66.9 We discussed not drinking her calories [...] has no interest in changing her ways [id number] OLENA Hernandez (Adult Med) [address] [place] [address] 06/01/2015 11:09:55 06/01/2015 12:00:14 Tobacco dependence syndrome 76732067 F17.290 She states that smoking has kept her away from alcohol and at this point she has no interest in quitting smoking History of alcoholism 16 1350624 F10.21 Depressive disorder 1576 7629 F32.9 The biggest thing right now is all she wants to do is drink but her 3 children (the 2YO more than anything) is the reason that she does not drink Discussed that it is not likely her medication causing all of her issues but her circumstan zack at home She has an appointmen t with counseling on 07/04 Insomnia 577172909 G47.0 0 Will try trazodone 50mg QPM [id number] OLENA Hernandez (Adult Med) [address] [place] [address] 02/24/2016 09:34:02 02/24/2016 12:25:29 Hand pain 30385629 M79.641 right hand pain and tingling - positive tinnel's and positive phalen's - likely dx of carpal tunnel syndromeAd vised to continue to wear her brace because it is helping with her hand pain and tinglingWi ll begin with right hand EMGAdvised ibuprofen PRNWill likely refer to ortho when EMG results are received Obesity 192351274 E66.9 Advised 30 minutes of exercise 5 days/week Advised to not drink her calories and to especially stay away from soda Advised 3 balanced meals/day with plenty of fruits and vegetables Depressive disorder 3548 9007 F32.9 Her mother 2 months agoShe is going to go through [facility] for counseling because she wants her kids in the counseling States that she has not been drinking at all and her boyfriend stopped drinking - states that they maybe go out once every 3 months 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 Advise to quitNo ready to quit yet even though she knows that her mother and grandmothe r of lung cancer History of alcoholism 16 3948311 F10.21 States that she has not been drinking at all and her boyfriend stopped drinking - states that they maybe go out once every 3 months [id number] OLENA Hernandez (Adult Med) [address] [place] [address] 03/09/2016 16:01:18 03/09/2016 18:08:02 Hand pain 08793312 M79.641 EMG negative Pain radia ting to right arm 591577856 M79.601 Patient of right hand is now radiating up and down right arm from the neck/shoul oneal to her 2-4 digits of her right handWill no proceed with cervical MRI Advised that purchasing medication s on the streets or taking anyone else's prescribed medication s is illegalDis cussed that no pain medication would be prescribed until there is evidence from imaging [id number] OLENA Hernandez (Adult Med) [address] [place] [address] 04/13/2016 15:17:19 04/13/2016 18:16:18 Hand pain 17058478 M79.641 EMG negative - states that today her right hand and wrist are fineTaking ibuprofenT aking tramadol for someone else - advised that this is illegalWil l retry to send through neck MRIWIll refer to PT for hand pain Tobacco de pendence syndrome 34798329 F17.290 Advise to quitNo ready to quit yet even though she knows that her mother and grandmothe r of lung cancer Shoulder pain 25577411 M 25.511 Patient has had new onset right shoulder pain x a few weeks - will refer to PT for this Dysuria 87364077 R30.0 [id number] OLENA Hernandez (Adult Med) [address] [place] [address] 03/13/2017 10:27:44 03/13/2017 12:25:02 Upper respiratory infection 21451093 J06.9 Advised to drink plenty of waterAlter rosetta ibuprofen and tylenol for painRestOT C cough syrup PRN Advised at this time the abx still have 5 days to work because she took them for 5 daysAdvise d if no improvemen t in 5 days to contact clinic or go to the ER Allergic disposition 609 119980 Z91.09 [id number] OLENA Hernandez (Adult Med) [address] [place] [address] 03/28/2017 12:08:38 03/28/2017 13:55:06 Viral gastritis 882952709 A08.39 Advised to drink plenty of fluids and a bland dietAltern ate ibuprofen and tylenol for painRest - patient given note to return to work in 3 days [id number] OLENA Hernandez (Adult Med) [address] [place] [address] 04/17/2017 11:02:08 04/17/2017 11:59:48 Tobacco dependence syndrome 99897555 F17.290 Advise to quitNo ready to quit yet even though she knows that her mother and grandmothe r of lung cancer Upper resp iratory infection 34716112 J06.9 Advised to drink plenty of waterAlter rosetta ibuprofen and tylenol for painRestOT C cough syrup PRN Advised if no improvemen t in 5 days to contact clinic or go to the ER [id number] OLENA Hernandez (Adult Med) [address] [place] [address] 07/12/2017 09:48:22 07/12/2017 12:24:44 Pain of left heel 3799031365 544486 M79.672 Due to the tenderness in the [...] good tennis shoes. Tobacco de pendence syndrome 12930479 F17.290 Advise to quitNo ready to quit yet even though she knows that her mother and grandmothe r of lung cancer Body mass index 30+ - obesity 277061626 Z68.39 Advised 30 minutes of exercise 5 days/week Advised to not drink her calories Advised 3 balanced meals/day with plenty of fruits and vegetables [id number] OLENA Hernandez (THERAPY COORDINATOR) [address] [place] [address] 07/13/2017 10:37:34 07/13/2017 12:22:33 Gynecologic examination 83906632 Z01.411 Milky nipp le discharge 820991641 N64.52 WIll check labs and mammogram Retraction of nipple 318 17014 N64.53 Bilateral nipples as seen on exam - patient states she cannot remember if this is new or not but doesn't notice anything different with her breasts - will check mammogram Body mass index 30+ - obesity 379908092 Z68.39 Advised 30 minutes of exercise 5 days/week Advised to not drink her calories Advised 3 balanced meals/day with plenty of fruits and vegetables Tobacco de pendence syndrome 28669814 F17.290 Advise to quitNo ready to quit yet even though she knows that her mother and grandmothe r of lung cancer [id number] OLENA Hernandez (Adult Med) [address] [place] [address] 10/31/2017 09:49:11 10/31/2017 10:23:44 Solitary nodule of lung 581346562 R91.1 8.3mm right upper lobe non-calcif ied nodule - will refer to pul Tobacco de pendence syndrome 03956404 F17.290 Advise to quit Acute asthma 066402703 J 45.901 really encouraged to quit smokingdoe s not have a nebulizer at home but was given medication for nebulizer at hospital - will prescribe machine Generalize d anxiety disorder 27207025 F41.1 c/w hydroxyzin e QID PRN for anxiety Family his tory of malignant neoplasm of lung 725877232 Z80.1 [id number] PEPE COREA (Adult Med) [address] [place] [address] 12/21/2017 11:43:16 12/25/2017 13:25:25 Tobacco dependence syndrome 14766650 F17.200 failed nicotine patchessta rt wellbutrin BIDf/u 3 mos Mild inter mittent asthma 984891796 J45.20 start qvar daily-stre ssed compliance use ventolin/n ebulizer PRN onlystart loratadine dailypulmo nology referral for PFTs and further management f/u 3 mos and prn [id number] OLENA Hernandez (Adult Med) [address] [place] [address] 01/29/2018 10:59:43 01/29/2018 11:47:15 Mild intermittent asthma 406999425 J45.20 Increased Qvar to 80mcg 2 puffs BIDc/w other asthma meds Long discussion with patient, and she agrees, that panic attacks/st ress are possibly brining on her asthma attacks Advised to keep appointmen t with pulm Any SOB, CP, SHAW contact clinic or go to the ER Fatigue 86426882 R53.83 Anxiety 92521854 F41.9 Advised to schedule with counseling Advised any SI/HI to go directly to the ER Given number to Suicide Hotline and advised to contact if needed Bereavement 34006146 Z63 .4 Advised to schedule with counseling Advised any SI/HI to go directly to the ERGiven number to Suicide Hotline [phone] Clem Roblero Leopoldo (THERAPY COORDINATOR) [address] [place] [address] 06/03/2018 14:15:03 06/03/2018 16:09:54 History of endometrial ablation 2440232372 63499 Z98.890 History of sterilization 7166877590 9106 Z90.79 Obesity 080987459 E66.9 History of alcoholism 16 6900244 F10.21 Abnormal u terine bleeding 3404976092 9100 N93.9 Post-ablat ion sporadic bleeding. Family tony nning surveillance 148843778 Z30.09 Screening mammography 24 972697 Z12.31 Exposure t o sexually transmissible disorder 303380568 Z20.2 [id number] MD Leopoldo Pham (Adult Med) [address] [place] [address] 0 09/13/2018 15:51:05 09/13/2018 16:20:43 Contusion of multiple sites 632898836 T07.XXXA Go to ER any time for any concern, she agreed. [id number] MD Leopoldo Pham (Adult Med) [address] [place] [address] 10/15/2018 15:54:23 10/15/2018 16:39:42 Pain of right shoulder joint 0009281478 4776008 M25.511 Will see a orthopedic . Pain in ri ght hip joint 7124245770 32871 M25.551 Will have test , imaGING. [id number] MD Leopoldo Pham (Adult Med) [address] [place] [address] 0 01/15/2019 10:23:22 01/16/2019 09:39:33 Pain of right shoulder joint 5385371407 8509619 M25.511 Will see a orthopedic . Pain in ri ght hip joint 5377864897 17007 M25.551 Will have test , imaGING. No CAT scan report of right hip available . [id number] Clem Mina (THERAPY COORDINATOR) [address] [place] [address] 0 02/03/2019 09:56:37 02/05/2019 22:00:08 Uterine leiomyoma 07025714 D25.9 [id number] JUVE Austin (THERAPY COORDINATOR) [address] [place] [address]73[address] 0 02/07/2019 10:51:51 02/10/2019 10:14:58 Depot contraceptive-no problem 174169732 Z30.560 [id number] MD Leopoldo Pham (Adult Med) [address] [place] [address]39[address] 0 02/12/2019 12:49:23 02/13/2019 09:10:47 Pain of right shoulder joint 4404325872 4233075 M25.511 Will see a orthopedic . Microcysti c adnexal carcinoma 108896555 C44.99 Asthma 783875999 J45.90 9 has enough inhaler. [id number] Clem Mina (THERAPY COORDINATOR) [address] [place] [address] 0 02/24/2019 12:00:50 02/25/2019 14:11:57 Administration of influenza vaccine 71981699 Z23 Pelvic mass 20023684 R19 .00 [facility] risk of malignancy 916386395 Z91.89 ELIJAH 1.36 suggestive of increased risk of ovarian cancer in pre-menopa usal patient [id number] MD Leopoldo Pham (Adult Med) [address] [place] [address]1122[address] 0 08/22/2019 08:39:01 08/25/2019 13:44:45 Recurrent deep vein thrombosis 725935281 I82.509 Right leg, go to ER, she agreed, ER , [facility] physician [phone] Joshi, they expecting her to arrival. Asthma 128494322 J45.90 9 wanting refills. [id number] MD Leopoldo Pham (Adult Med) [address] [place] [address] 85321[address]683 0 05/04/2020 08:25:27 05/05/2020 11:36:10 Urinary tract infectious disease 84861261 N39.0 Willing to try another different antibiotic s, since she still has fever. Asthma 884096935 J45.90 9 wanting refills. Acid reflux 205461103 K2 1.9 Discussed with patient, will try pantoprazo le, her reflux some times ttriggered asthmatic attack. Hypovolemia 045739847 E8 6.1 Encourged her to drink more liquid, she agreed to try. [id number] Leopoldo (THERAPY COORDINATOR) [address] [place] [address]84[address] 0 07/20/2020 12:39:59 07/22/2020 11:48:44 History of alcoholism 177423282 F10.21 Recurrent deep vein thrombosis 776733384 I82.509 Body mass index 30+ - obesity 700972800 Z68.41 Depressive disorder 3548 9007 F32.9 Tobacco de pendence syndrome 42078328 F17.200 Nonpuerper al abscess of left breast 8638250252 4214177 N61.1 Family tony nning surveillance 794523505 Z30.09 history of sterilizat ion [id number] [facility] [address] [place] [address] 0 11/26/2020 13:36:33 12/02/2020 10:24:48 Swelling of lower leg 362324067 R22.40 Right leg, will do venous duplex to R /O Acute DVT then determine the necessity of anticoagul ant therapy, she agreed. [id number] MD Leopoldo Pham (Adult Med) [address] [place] [address] 57924[address] 0 01/28/2021 13:00:56 02/02/2021 13:35:11 Acute exacerbation of chronic obstructive pulmonary disease 516099747 J44.1 Discussed with patient, will order following med. Go to ER any time for any concern , she agreed. [id number] MD Leopoldo Pham (Adult Med) [address] [place] [address]188[address] 0 02/24/2021 12:14:37 02/25/2021 13:26:53 Hiatal hernia 42508821 K44.9 Will refer to surgeon for evaluation , she agreed. Gastroesop hageal reflux disease 129282159 K21.00 Will add reglan to facilitate normal peristalsi s. 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 tests. Normal PE. [id number] MD Leopoldo Pham (Adult Med) [address] [place] [address] 0 12/04/2022 12:37:55 12/05/2022 12:30:55 Chronic obstructive pulmonary disease 90088563 J44.9 Stable. Smoker 26836445 F17.200 Advised her to =quit smoking. She is aware of cigarettes smoking can caused permanent emphysema, cancer of lung., or throat, or mouth and other disease. Morbid obesity 071631743 E66.01 BMI is 37.6, 12-04-22, advised to watch her diet, exercise and keep the weight down. Cervical c ancer Papanicolaou smear screening declined 8028610127 91766 Z53.20 She declined 12-04-22. HIV screen ing declined 7556483140 98438 Z53.20 She declined 12-04-22. Health Concerns Section Related Observation LastModified by Organization Detai ls LastModified Time None Recorded Concern Status LastModified by Organization Details LastModified Time None Recorded Advance Directives Directive N: Payers Encounter Date Sequence Insurance Name Policy Number Policy Terry Covered Member ID Terry Member ID Guarantor Name 01/28/2021 1 [facility] ON OR AFTER 10/07/20 (MEDICAID REPLACEMENT - HMO) Eliana Channing [id number] Eliana Channing 02/24/2021 1 [facility] ON OR AFTER 10/07/20 (MEDICAID REPLACEMENT - HMO) Eliana Channing [id number] Eliana Channing 07/22/2021 1 [facility] ON OR AFTER 10/07/20 (MEDICAID REPLACEMENT - HMO) Eliana Channing [id number] Eliana Channing 09/01/2022 1 [facility] ON OR AFTER 10/07/20 (MEDICAID REPLACEMENT - HMO) Eliana Channing [id number] Eliana Channing 12/04/2022 1 [facility] ON OR AFTER 10/07/20 (MEDICAID REPLACEMENT - HMO) Eliana Channing [id number] Eliana Channing Notes Date Note Type Note Provider Name and Address Organization Details Recorded Time 01/28/2021 text/html Phone visit, aster st congestion in this season of year, no fever, wheezing ,dose not want covid test nor going to ER, wants to try some medications, NKDA. Homa Joshi MD Attn: [address] [place], [address], [place] 01/28/2021 14:51:31 02/24/2021 text/html Office visit, histroy of sliding hiatal hernia. and acid reflux, NKDA. can not tolerate solid food, skipped meal to avoid N/V, medication , pantoprazole not helping much, also has asthma which might have been aggravated by hernia with reflux. will add reglan and surgical referral. Homa Joshi MD Attn: [address] [place], [address], [facility] - [facility] 02/24/2021 12:54:42 07/22/2021 text/html Office [...] side, Homa Joshi MD Attn: [address] [facility], [place], [address], [facility] 12/25/2021 16:26:36 09/01/2022 text/html Office visit, NK DA. on no blood thinner. no chest pain, no cardiac condition, no shortness of breath , wants surgical clearnce before the left foot operation for removal of wart. . Had left shoulder operation [id number] , she recovered well. But a smoker. , advised her to quit smoking for he good health and financial reasons. Homa Joshi MD Attn: [address] [facility], [place], [address], [facility] [place] 09/01/2022 17:40:35 12/04/2022 text/html Office visit, NK DA. check up today. Homa Joshi MD Attn: [address]ing[address] [facility], [place], [address], [facility] [place] 12/04/2022 16:21:46 OBGyn Episode No OBEpisode recorded.
--- OUTSIDE RECORDS SUMMARY | 2024-07-05 04:35 | XMS_ITS | Encounter Summary ---
Author Organization [facility] Address [address] [place] [address] Phone Care Team Providers Care C Engineer Name Role Phone Homa Michel MD Primary Care Provider [phone] Clem Roblero MD Unavailable [phone] Encounter Details Date Type Department Care Team (Late st Contact Info) Description 10/25/2020 Orders Only [facility] Surgery [address] [facility] Advanced Medicine 5th [place] [address] [place] [address] Gail Stanton NP [address] [place] [address] Social History Tobacco Use Types Packs/Day Years [...] on filedocumented in this encounter Care Teams C Engineer Relationship Specialty [place] [address] [place] [address] PCP - General Internal Medicine 07/20/20 Clem Roblero MD NPI: [id number] [place] [address] Referring Physician Obstetrics and Gynecology 11/24/20 documented as of this encounter
--- OUTSIDE RECORDS SUMMARY | 2024-07-05 04:35 | XMS_ITS | Data Portability ---
Author Organization [place] - [facility] [employer] [employer], Main Office Address [address] [place] [address] Assessment Encounter Date Assessment Date Assessment LastModified by Organization Details LastModified Time 08/31/2022 08/31/2022 This note is dictated and transcribed by [employer]. Onshore Diver variances may occur. Despite proofreading, typographical errors may occur. [email or web address] Not available 08/31/2022 16:46:47 10/26/2022 10/26/2022 This note is dictated and transcribed by [employer]. Onshore D[employer] variances may occur. Despite proofreading, typographical errors may occur. Not available 10/26/2022 11:59:10 11/02/2022 11/02/2022 This note is dictated and transcribed by [employer]. Onshore Diver variances may occur. Despite proofreading, typographical errors may occur. Not available 11/02/2022 12:31:50 11/13/2022 11/13/2022 This note is dictated and transcribed by [employer]. Onshore Diver variances may occur. Despite proofreading, typographical errors may occur. Not available 11/13/2022 12:14:14 01/18/2023 01/18/2023 This note is dictated and transcribed by [employer]. Onshore Diver variances may occur. Despite proofreading, typographical errors may occur. Not available 01/18/2023 12:43:45 Plan of Treatment Reminders Order Date Submit Date Provider Last Modified By Organization Details Last Modified Time Details Appointments None recorded. Lab None recorded. Referral None recorded. Procedures None recorded. Surgeries None recorded. Imaging None recorded. Medication Orders tramadol 50 mg tablet 2022 023 [id number], [address], [place], [place], [id number], 11:59:44 Patient TargetsNo targets recorded. Patient InstructionsNo instructions recorded. Reason for Referral None Reported. Results Created Date Observation Date Name Description Value Unit Range Abnormal Flag Note LastModifiedBy Organization Detail LastModifiedTime 09/21/1909/20/2022 CBC W/O DIFFE RENTI AL white blood cells 6.7 x10'3 /uL 4.2-10 .8 Not Available [facility] (Lab) [address] [place], [address], 09/20/2022 17:47:31 09/21/1909/20/2022 CBC W/O DIFFE RENTI AL red blood cells 4.80 x10'6 /uL 3.80-5 .20 Not Available [facility] (Lab) [address] [place], [address], 09/20/2022 17:47:31 09/21/19 23 09/20/2022 CBC W/O DIFFE RENTI AL hemoglobin 14.6 g/dL 12.0-1 5.6 Not Available [facility] (Lab) [address] [place], [address], 09/20/2022 17:47:31 09/21/19 23 09/20/2022 CBC W/O DIFFE RENTI AL hematocrit 43.6 % 35.7-4 5.7 Not Available [facility] (Lab) [address] [place], [address], 09/20/2022 17:47:31 09/21/1909/20/2022 CBC W/O DIFFE RENTI AL mean red cell volume 90.8 fL 82.0-9 9.0 Not Available [facility] (Lab) [address] [place], [address], 09/20/2022 17:47:31 09/21/1929 0909/20/2022 CBC W/O DIFFE RENTI AL mean red cell hemoglobin 30.4 pg 27.0-3 3.0 Not Available [facility] (Lab) [address] [place], [address], 09/20/2022 17:47:31 09/21/19 23 09/20/2022 CBC W/O DIFFE RENTI AL mean RBC HGB concentratio n 33.5 g/dL 31.0-3 6.0 Not Available [facility] (Lab) [address] [place], [address], 09/20/2022 17:47:31 09/21/19 23 09/20/2022 CBC W/O DIFFE RENTI AL red cell distribution width 12.5 % 11.8-1 5.5 Not Available [facility] (Lab) [address] [place], [address], 09/20/2022 17:47:31 09/21/19 23 09/20/2022 CBC W/O DIFFE RENTI AL platelets 335 x10'3 /uL 150-40 0 Not Available [facility] (Lab) [address] [place], [address], 09/20/2022 17:47:31 09/21/19 23 09/20/2022 CBC W/O DIFFE RENTI AL mean platelet volume 9.2 fL 9.0-12 .4 Not Available [facility] (Lab) [address] [place], [address], 09/20/2022 17:47:31 09/21/19 23 09/20/2022 COMPR EHENS JB METAB OLIC PANEL sodium 137 mmol/ L 137-14 5 Not Available [facility] (Lab) [address] [place], [address], 09/20/2022 19:27:50 09/21/19 23 09/20/2022 COMPR EHENS JB METAB OLIC PANEL potassium 4.3 mmol/ L 3.5-5. 1 Not Available [facility] (Lab) [address] [place], [address], 09/20/2022 19:27:50 09/21/19 23 09/20/2022 COMPR EHENS JB METAB OLIC PANEL chloride 103 mmol/ L 98-107 Not Available [facility] (Lab) [address] [place], [address], 09/20/2022 19:27:50 09/21/19 23 09/20/2022 COMPR EHENS JB METAB OLIC PANEL carbon dioxide 25 mmol/ L 22-30 Not Available [facility] (Lab) [address] [place], [address], 09/20/2022 19:27:50 09/21/19 23 09/20/2022 COMPR EHENS JB METAB OLIC PANEL anion gap 13.3 mmol/ L 14-22 low Not Available [facility] (Lab) [address] [place], [address], 09/20/2022 19:27:50 09/21/19 23 09/20/2022 COMPR EHENS JB METAB OLIC PANEL glucose 103 mg/dL 70-99 high Not Available [facility] (Lab) [address] [place], [address], 09/20/2022 19:27:50 09/21/19 23 09/20/2022 COMPR EHENS JB METAB OLIC PANEL BUN 11 mg/dL 8-19 Not Available [facility] (Lab) [address] [place], [address], 09/20/2022 19:27:50 09/21/19 23 09/20/2022 COMPR EHENS JB METAB OLIC PANEL creatinine 0.60 mg/dL 0.66-1 .25 low Not Available [facility] (Lab) [address] [place], [address], 09/20/2022 19:27:50 09/21/19 23 09/20/2022 COMPR EHENS JB METAB OLIC PANEL GFR >60 Refer ence Range : Brenton ge GFR Healt hy Adult : >60 [...] calcu lator is avail able on the [facility] websi te: [email or web address] :[email or web address]/pr ofess ional s/kdo qi/gf r_cal culat or Not Available [facility] (Lab) [address] [place], [address], 09/20/2022 19:27:50 09/21/1909/20/2022 COMPR EHENS JB METAB OLIC PANEL alkaline phosphatase 97 U/L 38-126 Not Available [facility] (Lab) [address] [place], [address], 09/20/2022 19:27:50 09/21/19 23 09/20/2022 COMPR EHENS JB METAB OLIC PANEL alanine aminotransfe rase 17 U/L 0-35 Not Available [facility] (Lab) [address] [place], [address], 09/20/2022 19:27:50 09/21/19 23 09/20/2022 COMPR EHENS JB METAB OLIC PANEL aspartate aminotransfe rase 21 U/L 15-37 Not Available [facility] (Lab) [address] [place], [address], 09/20/2022 19:27:50 09/21/19 23 09/20/2022 COMPR EHENS JB METAB OLIC PANEL bilirubin, total 0.60 mg/dL 0.20-1 .30 Not Available [facility] (Lab) [address] [place], [address], 09/20/2022 19:27:50 09/21/19 23 09/20/2022 COMPR EHENS JB METAB OLIC PANEL calcium 9.2 mg/dL 8.4-10 .2 Not Available [facility] (Lab) [address] [place], [address], 09/20/2022 19:27:50 09/21/19 23 09/20/2022 COMPR EHENS JB METAB OLIC PANEL total protein 6.8 g/dL 6.3-8. 2 Not Available [facility] (Lab) [address] [place], [address], 09/20/2022 19:27:50 09/21/19 23 09/20/2022 COMPR EHENS JB METAB OLIC PANEL albumin 3.8 g/dL 3.4-5. 0 Not Available [facility] (Lab) [address] [place], [address], 09/20/2022 19:27:50 09/21/19 23 09/20/2022 COMPR EHENS JB METAB OLIC PANEL globulin 3.0 g/dL 2.6-4. 2 Not Available [facility] (Lab) [address] [place], [address], 09/20/2022 19:27:50 09/21/19 23 09/20/2022 COMPR EHENS JB METAB OLIC PANEL A/G ratio 1.3 ratio 1.0-2. 0 Not Available [facility] (Lab) [address] [place], [address], 09/20/2022 19:27:50 Result Notes None recorded. Problems Name Problem SNOMED Code Status Onset Date Resolution Date Notes Provider Name and Address Organization Details Recorded Time Disorder of shoulder 973418723 Completed Not Available [facility] 3 20:20:02 Plantar fasciitis of right foot 64747501011 555692 Active 2021 Not Available [facility] 3 20:20:02 Partial thickness rotator cuff tear 544370101 Active 2018 Not Available [facility] 3 20:20:02 Shoulder joint pain 387251365 Completed Not Available [facility] 3 20:20:03 Ingrowing toenail 234098971 Active 2021 Not Available [facility] 3 20:20:03 Multiple nodules of lung 465164056 Active 2021 Not Available [facility] 3 20:20:03 Foot pain 37772592 Active 2021 Not Available [facility] 3 20:20:03 Porokerat osis 310204521 Active 2022 Kevan Portillo DPM [address], [place], [address] , Remind [facility] [employer] 3 15:02:01 Plantar wart of left foot 09034833423 075678 Active 2022 Kevan Portillo DPM [address], [place], [address] , Remind - S [employer] 3 13:00:17 Celluliti s of toe of left foot 43715785371 657979 Active 2022 Kevan Portillo DPM [address], [address], [place], [address] , [employer] 3 13:01:08 Pre-surge ry evaluatio n Active 2022 Kevan Portillo DPM [address], [address], [place], [address] , [employer] 3 12:25:27 Postopera tive pain 424948303 Active 2022 Kevan Portillo DPM [address], [address], [place], [address] , [employer] 3 11:57:37 Dehiscenc e of surgical wound 15894206 Active 2022 Kevan Portillo DPM [address], [address], [place], [address] , [employer] 3 11:58:41 Postopera tive visit 005417900 Active 2022 Kevan Portillo DPM [address], [address], [place], [address] , [employer] 3 12:14:32 Notes:Medical History: Anxie ty/Depression Rhinitis [...] Portillo DPM [address], [address], [place], [address], [employer] 01/31/2023 13:59:58 08/08/19 23 Callus Debridement, One completed Kevan Portillo DPM [address], [address], [place], [address], [employer] 08/07/2022 17:54:22 07/25/19 23 Destruction lesion (cryo, hyfrecation, scissors or chemical) completed Kevan Portillo DPM [address], [address], [place], [address], [employer] 07/24/2022 12:59:55 07/11/19 23 Total Nail Avulsion with Chemical Matrixectomy-Ri ght completed Kevan Portillo DPM [address], [address], [place], [address], [employer] 07/10/2022 15:02:32 07/11/19 23 Partial Nail Avulsion Chemical Matrixectomy-Le ft completed Kevan Portillo DPM [address], [address], [place], [address], [employer] 07/10/2022 15:01:16 06/20/19 23 Nail Debridement completed Kevan Portillo DPM [address], [address], [place], [address], [employer] 06/19/2022 15:01:53 06/20/19 23 Callus Debridement, One completed Kevan Portillo DPM [address], [address], [place], [address], [employer] 06/19/2022 15:01:45 04/09/19 20 Shoulder completed Not Available [facility] 20:19:31 Imaging Results None recorded. Procedure Notes [...] administe red by the provider 02/17 completed [facility]: 0003- 0494- 20 Not Available Not Available [...] administe red by the provider 02/17 completed [facility]: 0409- 4276- 17 Not Available Not Available [...] 98 % 130 mm[Hg] 88 mm[Hg] [employer] 3 16:25:59 Date Recorded Body height Heart rate Respiratory rate Oxygen saturation Oxygen saturation in Arterial blood by Pulse oximetry Systolic blood pressure Diastolic blood pressure Provider Name and Address Organization Details Last Updated DateTime 3 162.56 cm 93 /min 14 /min 98 % 98 % 136 mm[Hg] 82 mm[Hg] [employer] [employer] 3 11:40:38 Date Recorded Body height Heart rate Respiratory rate Oxygen saturation Oxygen saturation in Arterial blood by Pulse oximetry Systolic blood pressure Diastolic blood pressure Provider Name and Address Organization Details Last Updated DateTime 3 162.56 cm 106 /min 14 /min 99 % 99 % 137 mm[Hg] 92 mm[Hg] [employer] 3 11:21:13 Date Recorded Body height Heart rate Respiratory rate Oxygen saturation Oxygen saturation in Arterial blood by Pulse oximetry Systolic blood pressure Diastolic blood pressure Provider Name and Address Organization Details Last Updated DateTime 3 162.56 cm 106 /min 14 /min 99 % 99 % 119 mm[Hg] 99 mm[Hg] [employer] 3 11:20:54 Date Recorded Body height Heart rate Respiratory rate Oxygen saturation Oxygen saturation in Arterial blood by Pulse oximetry Systolic blood pressure Diastolic blood pressure Provider Name and Address Organization Details Last Updated DateTime 3 162.56 cm 102 /min 14 /min 98 % 98 % 150 mm[Hg] 107 mm[Hg] Shira [employer] 3 11:01:50 Social History Question Answer Notes LastModified by Organizat ion Details LastModified Time Tobacco Smoking Status Current Every Day Smoker Not Available [facility] 06/07/2022 20:19:21 What Is Your Level Of Alcohol Consumption? None MIGRATION.66551 [id number] Information not available 06/07/2022 What Is Your Level Of Caffeine Consumption? Occasional MIGRATION.79855 50930 Information not available 06/07/2022 In The 14 Days Before Symptom Onset, Have You Had Close Contact With A Laboratory-confi rmed COVID-19 While That Case Was Ill? No MIGRATION.62403 30274 Information not available 06/07/2022 In The 14 Days Before Symptom Onset, Have You Had Close Contact With A Person Who Is Under Investigation For COVID-19 While That Person Was Ill? No MIGRATION.08694 62327 Information not available 06/07/2022 What Type Of Diet Are You Following? REGULAR MIGRATION.28311 59031 Information not available 06/07/2022 What Is The Highest Grade Or Level Of School You Have Completed Or The Highest Degree You Have Received? [id number] MIGRATION.18021 39566 Information not available 06/07/2022 Do You Have An Electrostatic Air Filter? 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 No MIGRATION.20147 20453 Information not available 06/07/2022 Do You Have A Humidifier? No MIGRATION.93724 32548 Information not available 06/07/2022 Where Do You Live? [place] MIGRATION.02355 06552 Information not available 06/07/2022 Do You Have Moisture Problems In Your Home? No MIGRATION.01709 14441 Information not available 06/07/2022 What Was The Date Of Your Most Recent Tobacco Screening? 12/19/2021 MIGRATION.87998 57027 Information not available 06/07/2022 Do You Have Any Pets? Yes MIGRATION.86493 03440 Information not available 06/07/2022 Do You Use Your Seat Belt Or Car Seat Routinely? Yes MIGRATION.12300 18356 Information not available 06/07/2022 Do You Have Smoke And Carbon Monoxide Detectors In Your Home? Yes MIGRATION.62371 87255 Information not available 06/07/2022 Are You Passively Exposed To Smoke? No MIGRATION.24949 46159 Information not available 06/07/2022 How Much Tobacco Do You Smoke? 0.5 PPD MIGRATION.56352 81479 Information not available 06/07/2022 Do You Feel Stressed (tense, Restless, Nervous, Or Anxious, Or Unable To Sleep At Night)? [id number] MIGRATION.48922 16355 Information not available 06/07/2022 Do You Use Any Illicit Or Recreational Drugs? No MIGRATION.54466 09723 Information not available 06/07/2022 Do You Use Sunscreen Routinely? No MIGRATION.35514 53114 Information not available 06/07/2022 How Many Years Have You Smoked Tobacco? 20 MIGRATION.60976 17503 Information not available 06/07/2022 Have You Recently Traveled Abroad? No MIGRATION.05692 22607 Information not available 06/07/2022 Do You Have Any Dietary Restrictions? No MIGRATION.87206 91523 Information not available 06/07/2022 Sex: Unknown Functional Status None recorded. Mental Status None recorded. Family History Relationship Description Onset Age of this Age Resolved Age Notes LastModified by Organization Details LastModified Time Father Diabetes mellitus MIGRATION.939 [id number] Not available 06/07/2022 20:19:32 Brother Diabetes mellitus MIGRATION.006 [id number] Not available 06/07/2022 20:19:32 Sister Asthma MIGRATION.779 [id number] Not available 06/07/2022 20:19:32 Daughter Asthma MIGRATION.811 [id number] Not available 06/07/2022 20:19:32 Maternal Grandmother Chronic obstructive pulmonary disease MIGRATION.070 [id number] Not available 06/07/2022 20:19:32 Maternal Aunt Chronic obstructive pulmonary disease MIGRATION.595 [id number] Not available 06/07/2022 20:19:32 Mother Malignant neoplasm of uterus MIGRATION.137 7561674 Not available 06/07/2022 20:19:32 Notes:daughter-mental, cousi n-few disabilities Medical History Condition Response COPD Y Gynecological HistoryNo gynecological history recorded. Obstetrics History GPAL:G 0 P 0 0 0 0 Past Encounters Encounter ID Performer Location Encounter Start Date Encounter Closed Date Diagnosis/Indication Diagnosis SNOMED-CT Code Diagnosis ICD10 Code Diagnosis Note [id number] [facility] [place] [address] [place] [address], [facility] [address] [place] [address] 11/11/2020 00:00:00 11/11/2020 10:34:30 [id number] [facility] [place] [address] [place] [address] 12/15/2020 00:00:00 12/15/2020 16:43:49 [id number] [facility] Pul[facility] [address] [place] [address], [facility] [address] [place] [address] 02/17/2021 00:00:00 02/17/2021 12:19:51 [id number] [facility] Pul[facility] [address] [place] [address], [place] [address] 04/07/2021 00:00:00 04/07/2021 13:17:52 [id number] [facility] [place] [address] [place] [address] 12/05/2021 00:00:00 12/05/2021 12:50:02 [id number] [facility] Pul[facility] [address] [place] [address], [place] [address] 12/19/2021 00:00:00 12/19/2021 11:41:15 [id number] [facility] [place] [address] [place] [address] 01/09/2022 00:00:00 01/09/2022 11:20:28 [id number] [facility] [place] [address] [place] [address] 03/23/2022 00:00:00 03/23/2022 15:37:11 [id number] [facility] [place] [address] [place] [address] 04/17/2022 00:00:00 04/18/2022 09:04:49 [id number] [facility] [place] [address] [place] [address] 05/15/2022 00:00:00 05/15/2022 17:07:34 [id number] Kevan Portillo DPM [facility] [place] [address] [place] [address] 06/19/2022 14:26:35 06/19/2022 15:05:48 Ingrowing toenail 389861597 L60.0 M79.674 Educated on conditionE ducated on treatment optionsSla nt back procedure performed on the nail corners today to prevent infection and relieve pain, pain relief after procedurek eep the areas clean and dry to prevent infectionP atient will follow-up for 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 both great toenails Porokeratosis 120087495 Q82.8 x1 left plantar footdebrid ed without incidentre commend over-the-c ounter Amlactin lotion twice dailyfollo w-up as needed for this issue [id number] Kevna Portillo DPM [facility] [place] [address] [place] [address] 07/10/2022 14:12:19 08/04/2022 15:22:35 Ingrowing toenail 269611953 L60.0 M79.674 Educated on conditionE ducated on treatment optionsSla nt back procedure performed on the nail corners today to prevent infection and relieve pain, pain relief after procedurek eep the areas clean and dry to prevent infectionP atient will follow-up for 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 both great toenails Cellulitis of toe of left foot 3831573118 9175590 L03.032 [id number] Kevan Portillo DPM [facility] [place] [address] [place] [address] 07/24/2022 12:09:47 07/24/2022 14:01:23 Ingrowing toenail 308571605 L60.0 M79.674 bilateral partial matrixecto my both great toes- healingcon tinue daily wound careFollow up in 2 weeks Plantar wa rt of left foot 0690384305 3035181 B07.0 debrided and treated with salicylic acid todayVerba l consent obtained by the patient for treatmentU se salicylic acid over-the-c ounter daily until blistering occurs then discontinu e use, keep the area clean and dry with bandage to prevent infectionF ollow-up in 2 weeks Cellulitis of toe of left foot 7525141076 1387919 L03.032 [id number] Kevan Portillo DPM [facility] [place] [address] [place] [address] 08/07/2022 16:59:21 08/07/2022 17:58:29 Cellulitis of toe of left foot 1050728474 1708305 L03.032 Resolved Plantar wa rt of left foot 7552739117 5015219 B07.0 Overlying skin debrided todayconti nue wound care to prevent wounds infectionF ollow-up in 2 weeks possible retreatmen t if still present [id number] [facility]an [facility] [place] [address] [place] [address] 08/31/2022 16:18:25 09/01/2022 13:45:30 Plantar wart of left foot 8859977086 2305917 B07.0 Obtain surgical clearanceP edu surgical excision of wart with biopsy left footall risks, benefits, complicati ons were reviewed with the patient to a full and complete understand ing. Patient states understand ing elects to continue with the planned procedure. no guarantees were given or implied.Re turn post surgery [id number] Kevan Portillo DPM [facility] [place] [address] [facility] [place] [address] 10/26/2022 11:31:13 10/26/2022 16:20:10 Postoperative visit 229586978 Z09 wart excisionpa thology report- plantar wart Postoperative pain 94361 9007 G89.18 Dehiscence of surgical wound 55627056 T81.30XA left footdaily dressings with Betadine wet-to-dry dressingpr essure to the heel only with postop shoeno workingfol low-up 1 week [id number] Kevan Portillo DPM [facility] [place] [address] [place] [address] 11/02/2022 11:17:40 11/02/2022 12:33:48 Postoperative visit 784570413 Z09 wart excisionpa thology report- plantar wart Dehiscence of surgical wound 94685579 T81.30XA left footdaily dressings with Betadine wet-to-dry dressingpr essure to the heel only with postop shoeno workingfol low-up 1 week [id number] Kevan Portillo DPM [facility] [place] [address] [place] [address] 11/13/2022 11:18:03 11/13/2022 12:36:21 Postoperative visit 378772765 Z09 wart excisionpa thology report- plantar wart Dehiscence of surgical wound 75555264 T81.30XA healedMay return to normal shoe gearwork release to return to workFollow -up as needed [id number] Kevan Portillo DPM [facility] [place] [address] [place] [address] 01/18/2023 10:58:23 01/31/2023 14:04:32 Porokeratosis 827971589 Q82.8 x1 left plantar footdebrid ed without [...] Terry Member ID Guarantor Name 08/31/2022 1 [facility] ON OR AFTER 10/07/20 (MEDICAID REPLACEMENT - HMO) Eliana Cid [place] [id number] Eliana Jose Roberto [place] 10/26/2022 1 [facility] ON OR AFTER 10/07/20 (MEDICAID REPLACEMENT - HMO) Eliana Jose Roberto [place] [id number] Eliana Jose Roberto [place] 11/02/2022 1 [facility] - [facility] ON OR AFTER 20 (MEDICAID REPLACEMENT - HMO) Eliana Jose Roberto [place] [id number] Eliana A [place] 11/13/2022 1 [facility] - DOS ON OR AFTER 20 (MEDICAID REPLACEMENT - HMO) Eliana A [place] [id number] Eliana A [place] 01/18/2023 1 [facility] - DOS ON OR AFTER 20 (MEDICAID REPLACEMENT - HMO) Eliana A [place] [id number] Eliana A [place] Notes Date Note Type Note Provider Name [...] Portillo DPM [address] [address], [place], [address], [employer] 08/31/2022 16:47:42 10/26/2022 text/html . Patient is [...] Portillo DPM [address], [place], [address], [employer] 10/26/2022 12:00:01 11/02/2022 text/html . Patient is [...] Portillo DPM [address], [place], [address], [facility] [employer] [facility] [employer] 11/02/2022 12:32:37 11/13/2022 text/html . Patient is a 42-year-old female who returns the office for follow-up on wound dehiscence. Patient states she has not had any further drainage or pain to the foot. Patient is completely healed. Patient denies any other complaints. Kevan Portillo DPM [address], [place], [address], Remind [facility] [employer] 11/13/2022 12:14:47 01/18/2023 text/html . Patient is [...] Portillo DPM [address], [place], [address], [facility] [employer] 01/31/2023 14:00:16 OBGyn Episode No OBEpisode recorded.
--- OUTSIDE RECORDS SUMMARY | 2024-07-05 04:36 | XMS_ITS | Referral Summary ---
Author Organization [facility] Address [facility] [place] [address] Care Team Providers Care Reservations Clerk Name Role Phone Homa Michel MD Primary Care Provider [phone] Clem Roblero MD Unavailable [phone] Allergies No known active allergies Medications albuterol [...] Plan of Treatment Not on file Insurance [facility] Care Teams Reservations Clerk Relationship Specialty Start Date End Date Homa Michel MD [address] [address] PCP - General Internal Medicine 07/20/20 Clem Roblero MD [address] [place] [address] Referring Physician Obstetrics and Gynecology 11/24/20
--- OUTSIDE RECORDS SUMMARY | 2024-07-05 04:36 | XMS_ITS | Clinical Summary ---
Author Organization [facility] Address [address] [facility] [place] [address] Care Team Providers Care House Player Name Role Phone Clem Roblero MD Primary Care Provider Source Comments [facility],non-owned Affiliates and Associated Physician Practices is amultiple site organization consisting of ambulatory clinics and hospital sitesin [place], [place], [place] and [place]. This disclosure is being madepursuant to the Care Everywhere program and may not contain all information available regarding this patient. Last updated 17.[facility] Allergies No known active allergies Medications * [...] Comments Blood Pressure 139/97 06/05/2019 3:51 PM HAND CIGAR MAKING SUPERVISOR Pulse 83 06/05/2019 3:51 PM HAND CIGAR MAKING SUPERVISOR Temperature 36.7 C (98 F) 06/05/2019 3:51 PM HAND CIGAR MAKING SUPERVISOR Respiratory Rate 19 06/05/2019 3:51 PM HAND CIGAR MAKING SUPERVISOR Oxygen Saturation 95% 06/05/2019 3:51 PM HAND CIGAR MAKING SUPERVISOR Inhaled Oxygen Concentration - - Weight 99.8 kg (220 lb) 06/05/2019 11:15 AM HAND CIGAR MAKING SUPERVISOR Height 162.6 cm (5' 4 ) 06/05/2019 11:15 AM HAND CIGAR MAKING SUPERVISOR Body Mass Index 37.76 06/05/2019 11:15 AM HAND CIGAR MAKING SUPERVISOR Plan of Treatment Health Maintenance Due [...] to complete this topic MENINGOCOCCAL (Group B) VACC INE SHARED DECISION-MAKING Aged Out No longer eligibl e based on patient's age to complete this topic MENINGOCOCCAL GROUPS A/C/Y/W VACCINE Aged Out No longer eligible b ased on patient's age to complete this topic Medical Devices Implanted Type Area Servomechanism Designer Device Identifier Shelf Expiration Date Model / Serial / Lot Globe Sut Healix Adv Dynacord 5.5mm Implanted:Qty: 2 on 06/05/2019 by Kishor Weber MD at [facility] Right: Shoulder [employer] 05/09/2020 [id number] / / [id number] Healix Knotless Br Globe 6.5 Implanted:Qty: 1 on 06/05/2019 by Kishor Weber MD at [facility] Right: Shoulder 06/06/2021 [id number] / / [id number] He[employer] Knotless Br Globe 6.5 Implanted:Qty: 1 on 06/05/2019 by Kishor Weber MD at [facility] Right: Shoulder 03/08/2022 [id number] / / [id number] Procedures Procedure Name Priority Date/Time Associated Diagnosis Comments HPV DETECTION HIGH RISK CAROLYN Routine 04/15/2019 11:00 AM HAND CIGAR MAKING SUPERVISOR Postcoital bleeding from Last 3 Months or Most Recently Relevant to Health Maintenance Results * HPV DETECTION HIGH RISK CAROLYN (04/15/2019 11:00 AM HAND CIGAR MAKING SUPERVISOR) High Risk Human Papilloma Result Not Detected Not Detected 04/17/2019 3:51 PM HAND CIGAR MAKING SUPERVISOR [facility] High Risk Human Papilloma Interp 04/17/2019 3:51 PM HAND CIGAR MAKING SUPERVISOR [facility] Comment:High Risk Human Abraham lloma Virus was Not Detected. Pathology/Cytolo gy MISCELLANEOUS SAMPLES / Unknown 04/15/2019 11:00 AM HAND CIGAR MAKING SUPERVISOR 04/16/2019 12:35 PM HAND CIGAR MAKING SUPERVISOR Narrative [facility] - 04/17/2019 3:51 PM HAND CIGAR MAKING SUPERVISOR Nucleic acid isolated from the specimen [...] Kalina Chen MD LAB - MICROBIOLOGY ORDERABLES [facility] [address] [facility] [phone] from Last 3 Months or Most Recently Relevant to Health Maintenance Care Teams House Player Relationship Specialty Start Date End Date Clem Roblero MD [address] [place] [address] PCP - General 02/11/19
--- OUTSIDE RECORDS SUMMARY | 2024-07-05 04:36 | XMS_ITS ---
Author Organization [facility] Address [address] [place] [address] Care Team Providers Care Template Layout Worker Name Role Phone Christy Zhang Primary Care Provider [phone] Encounters Encounter Location Date Provider Diagnosis [address] [place] [address] 01/23/2023 Christy Zhang Plan Of Treatment No Information Progress Notes * Javi ANTONIOB:1980 (42 yo F)Acc No.[id number]:01/23/2023 Patient: June MCCARTHYRuthie Eliana :1980 A ge:42 Y S ex:Female Address:[address] [place] [address] * true * Date: Generated for Lindai bret/Faana laurag/eTransmitting on: 0 07/05/2024 04:36 AM CDT
--- OUTSIDE RECORDS SUMMARY | 2024-07-05 04:36 | XMS_ITS | Data Portability ---
Author Organization [facility] Address [address] [place] [address] [place] [address] Assessment No assessment recorded. Plan of Treatment Reminders Order Date Submit Date Provider Last Modified By Organization Details Last Modified Time Details Appointments Robotic [facility] 2024 10:30A Israel CABAN MD Not available Not available Not available Lab hormone panel, serum or plasma 2024 025 [facility] (Lab), [address] [place], [address], 06/10/2024 12:02:49 TSH, serum or plasma 2024 025 [facility] (Lab), [address], [place], [address], 06/10/2024 12:02:49 HBsAg (hepatiti s B surface Ag), serum 2024 025 [facility] (Lab), [address] [place], [address], 06/10/2024 12:02:48 Referral None recorded. Procedures None recorded. Surgeries robotic assisted hysterect martin w/bilater al salpingo- oophorect martin (SURG) 2024 025 [id number], [address] [facility] [[email or web address] [address], [place], [address], 07/01/2024 15:33:20 Imaging US, pelvis 2024 025 [email or web address] [place], [address], [address], [place], [address], 06/16/2024 18:08:11 US, transvagi nal 2024 025 BRET [place], [address], [address], [place], [address], 06/16/2024 18:15:13 Medication Orders None recorded. Patient TargetsNo targets recorded. Patient InstructionsNo instructions recorded. Reason for Referral None Reported. Results Created Date Observation Date Name Description Value Unit Range Abnormal Flag Note LastModifiedBy Organization Detail LastModifiedTime 06/10/1906/09/2024 HBSAG /HCV/ HIV/R MO hepatitis B surface antigen Non-re active non-re active This assay was perfo rmed using [employer] reage nts and test kits. Value s obtai jimmy with other assay metho ds or kits canno t be used inter medina eably . Not Available [facility] (Lab) [address], [place], [address], 06/10/2024 12:02:48 06/10/1906/09/2024 HBSAG /HCV/ HIV/R MO HIV antigen/anti body Nonrea ctive nonrea ctive HIV-1 antig en and HIV-1 /HIV- 2 antib odies were not detec inder. No labor atory evide nce of HIV infec tion. Not Available [facility] (Lab) [address] , [place], [address], 06/10/2024 12:02:48 06/10/19 25 06/09/2024 HBSAG /HCV/ HIV/R MO hepatitis C antibody Non-re active non-re active Antib odies to HCV Not Detec inder, does not exclu de the possi bilit y of expos ure to HCV. Not Available [facility] (Lab) [address], [place], [address], 06/10/2024 12:02:48 06/10/19 25 06/09/2024 HBSAG /HCV/ HIV/R MO RPR qualitative Nonrea ctive nonrea ctive Not Available [facility] (Lab) [address] [facility], [place], [address], 06/10/2024 12:02:48 06/10/19 25 06/09/2024 TSH, REFLE X FREE T4 TSH 2.33 uIU/m L 0.30-5 .33 Not Available [facility] (Lab) [address] [place], [address], 06/10/2024 12:02:49 06/10/19 25 06/09/2024 FSH, LH, ESTRA DIOL estradiol 364.0 pg/mL This assay was perfo rmed using [employer] reage nts and test kits. Value s obtai jimmy with other assay metho ds or kits canno t be used inter [facility] . Femal e Estra diol Range s: Folli cular phase 12.4- 233 pg/mL Ovula tion phase 41.0- 398 pg/mL Lutea l phase 22.3- 341 pg/mL Postm enopa usal <5-13 8 pg/mL Healt hy Pregn ant Women 1st Trime ster 154-3 243 pg/mL 2nd Trime ster 1561- 70644 pg/mL 3rd Trime ster 8525- >3000 0 pg/mL Not Available [facility] (Lab) [address] [place], [address], 06/10/2024 12:02:49 06/10/19 25 06/09/2024 FSH, LH, ESTRA DIOL FSH 7.9 mIU/m L This assay was perfo rmed using [employer] reage nts and test kits. Value s obtai jimmy with other assay metho ds or kits canno t be used inter medina eay . Femal es Folli cular : 3.5-1 2.5 mIU/m L Ovula tion: 4.7-2 1.5 mIU/m L Lutea l: 1.7-7 .7 mIU/m L Postm enopa use: 25.8- 134.8 mIU/m L Not Available [facility] (Lab) [address] [facility], [place], [address], 06/10/2024 12:02:49 06/10/19 25 06/09/2024 FSH, LH, ESTRA DIOL LH 16.1 mIU/m L This assay was perfo rmed using [employer] reage nts and test kits. Value s obtai jimmy with other assay metho ds or kits canno t be used inter medina earachel . Femal es Mid-F ollic ular: 2.4-1 2.6 mIU/m L Mid-C ycle: 14.0- 95.6 mIU/m L Mid-L uteal : 1.0-1 1.4 mIU/m L Postm enopa use: 7.7-5 8.5 mIU/m L Not Available [facility] (Lab) [address] [facility], [place], [address], 06/10/2024 12:02:49 06/10/19 25 06/09/2024 CULTU RE: URINE result report SEE RESULT S BELOW abnormal Test: Cultu re: Urine Speci men Sourc e: Urine - Clean Catch Speci men Type: Urine Speci men Date: 025 1522 Resul t Date: 025 1055 Resul t Statu s: Final resul t Abnor mal: Yes Eulogio pienda Lab: [facility] [address] [facility] [place] [address] Tel: CULTU RE ----- ----- ----- --- >100, 000 CFU/m l Esche soumya a coli (Abno rmal) KIERAN PTIBI LITY ----- ----- ----- --- Esche soumya a coli METHO D CARLOS ----- ----- ----- ----- ----- ---- ----- ----- ----- ----- ----- - AMPIC ILLIN <=8 ug/mL Susce ptibl e AMPIC ILLIN /SULB ACTAM 16 ug/mL Inter media te AZTRE ONAM <=4 ug/mL Susce ptibl e CEFAZ CHARLOTTE <=2 ug/mL Susce ptibl e CEFEP FRANCISCO JAVIER <=2 ug/mL Susce ptibl e CEFTA ZIDIM E <=1 ug/mL Susce ptibl e CEFTR IAXON E <=1 ug/mL Susce ptibl e CIPRO FLOXA MOHSEN <=0.2 5 ug/mL Susce ptibl e GENTA MICIN <=2 ug/mL Susce ptibl e LEVOF LOXAC IN <=0.5 ug/mL Susce ptibl e MEROP ENEM <=1 ug/mL Susce ptibl e NITRO FURAN TOIN <=32 ug/mL Susce ptibl e PIPER ACILL IN/TA ZOBAC MAHAN <=8 ug/mL Susce ptibl e TOBRA MYCIN <=2 ug/mL Susce ptibl e TRIME THOPR IM/MARTIN LFAME THOXA ZOLE <=0.5 ug/mL Susce ptibl e Not Available [facility] (Lab) [address] [facility], [place], [address], 06/12/2024 11:58:17 06/17/19 25 06/16/2024 US, pelvi s No observ ation record ed. [email or web address] [place] [address], [place], [address], 06/16/2024 18:14:56 06/17/19 25 06/16/2024 US, trans vagin al No observ ation record ed. [email or web address] [place] [address], [place], [address], 06/16/2024 18:15:13 06/17/19 25 06/16/2024 US, pelvi s No observ ation record ed. [email or web address] [address], [place], [address], 06/16/2024 18:14:13 Result Notes None recorded. Procedures Surgical History Date Name Laterality Status Provider Name and Address Organization Details Recorded Time 3 procedure on foot completed [facility] 06/09/2024 10:11:52 2 Date of Last Mammogram completed [facility] 06/09/2024 09:57:50 2 Date of Last Pap Smear completed [facility] 06/09/2024 09:57:50 0 procedure on shoulder completed [facility] 06/09/2024 10:10:45 3 Tubal Ligation completed [facility] 06/09/2024 10:11:11 3 Endometrial Ablation completed [facility] 06/09/2024 10:10:22 3 procedure on gallbladder completed [facility] 06/09/2024 10:10:18 0 Dilation and Curettage completed [facility] 06/09/2024 10:11:05 Imaging Results Imaging Date Name Status LastModified by Organization Details LastModified Time 06/16/2024 US, pelvis completed [email or web address] [place] [address], [place], [address], 06/16/2024 18:14:56 06/16/2024 [facility], [facility]aginal [email or web address] [address], [place], [address], 06/16/2024 18:15:13 06/16/2024 US, pelvis completed [email or web address] [address], [place], [address], 06/16/2024 18:14:13 Procedure Notes None recorded. Medical Equipment None Reported. Allergies No known drug allergies Medications Name Sig Start Date Stop Date Status Note LastModified by Organization Details LastModified Time prednisone 20 mg tablet TAKE 3 TABLETS BY MOUTH ONCE DAILY FOR 5 DAYS 06/09 completed Not Available Not Available Not Available diazepam 10 mg tablet 06/09 completed Not Available Not Available Not Available albuterol sulfate HFA 90 mcg/actuati on aerosol inhaler INHALE 2 PUFFS BY MOUTH EVERY 4 HOURS active Not Available Not Available No t Available albuterol sulfate concentrate 2.5 mg/0.5 mL solution for nebulizatio n INHALE 0.5 MILLILITE R BY NEBULIZAT ION ROUTE EVERY 4 HOURS 06/09 completed Not Available Not Available Not Available nitrofurant oin monohydrate /macrocryst als 100 mg capsule Take 1 capsule every 12 hours by oral route for 5 days. 06/23 completed Not Available Not Available Not Available Atrovent HFA 17 mcg/actuati on aerosol inhaler active Not Available Not Available Not Available Vitals Date Recorded Body weight Body mass index (BMI) Body height Systolic blood pressure Diastolic blood pressure Provider Name and Address Organization Details Last Updated DateTime 06/09/2024 808701.8 4 g 38.4 kg/m2 165.1 cm 145 mm[Hg] 88 mm[Hg] Tricia Resendez [facility] 10:03:50 Date Recorded Body height Body mass index (BMI) Body weight Systolic blood pressure Diastolic blood pressure Provider Name and Address Organization Details Last Updated DateTime 06/23/2024 165.1 cm 38.1 kg/m2 227523.6 5 g 134 mm[Hg] 88 mm[Hg] Marisabel Woods [facility] 11:04:33 Social History Question Answer Notes LastModified by Organizat ion Details LastModified Time Do You Have An Advance Directive? No Information not available 06/09/2024 What Is Your Level Of Alcohol Consumption? None [email or web address] Information not available 06/09/2024 How Many Years Have You Consumed Alcohol? 2015 [email or web address] Information not available 06/09/2024 Are You Blind Or Do You Have Difficulty Seeing? Yes [email or web address] Information not available 06/09/2024 What Is Your Level Of Caffeine Consumption? Moderate [email or web address] Information not available 06/09/2024 How Much Tobacco Do You Chew? None [email or web address] Information not available 06/09/2024 In The 14 Days Before Symptom Onset, Have You Had Close Contact With A Laboratory-confir med COVID-19 While That Case Was Ill? No [email or web address] Information not available 06/09/2024 In The 14 Days Before Symptom Onset, Have You Had Close Contact With A Person Who Is Under Investigation For COVID-19 While That Person Was Ill? No [email or web address] Information not available 06/09/2024 Have You Been To An Area Known To Be High Risk For COVID-19? No [email or web address] Information not available 06/09/2024 Are You Currently Employed? Yes [email or web address] Information not available 06/09/2024 Are You Deaf Or Do You Have Serious Difficulty Hearing? No [email or web address] Information not available 06/09/2024 What Type Of Diet Are You Following? CARBOHYDRATE [email or web address] Information not available 06/09/2024 What Is The Highest Grade Or Level Of School You Have Completed Or The Highest Degree You Have Received? [id number] [email or web address] Information not available 06/09/2024 What Is Your Occupation? [employer] [email or web address] Information not available 06/09/2024 Are There Any Guns Present In Your Home? No [email or web address] Information not available 06/09/2024 Do You Use Protection During Sex? No [email or web address] Information not available 06/09/2024 Do You Use Your Seat Belt Or Car Seat Routinely? No [email or web address] Information not available 06/09/2024 Are You Sexually Active? Yes [email or web address] Information not available 06/09/2024 Do You Have Smoke And Carbon Monoxide Detectors In Your Home? Yes [email or web address] Information not available 06/09/2024 At What Age Did You Start Smoking Tobacco? 12 [email or web address] Information not available 06/09/2024 How Much Tobacco Do You Smoke? 0.5 PPD [email or web address] Information not available 06/09/2024 Do You Feel Stressed (tense, Restless, Nervous, Or Anxious, Or Unable To Sleep At Night)? [id number] [email or web address] Information not available 06/09/2024 Do You Use Any Illicit Or Recreational Drugs? No [email or web address] Information not available 06/09/2024 Do You Use Sunscreen Routinely? No [email or web address] Information not available 06/09/2024 How Many Years Have You Smoked Tobacco? 23 [email or web address] Information not available 06/09/2024 Have You Used IV Drugs? No [email or web address] Information not available 06/09/2024 Sex: Unknown Functional Status Question Answer Note LastModified by Organizat ion Details LastModified Time Do you have difficulty walking or climbing stairs? No Information not available 06/09/2024 Are you able to walk? YESWOREST [email or web address] Information not available 06/09/2024 Are you able to care for yourself? Yes [email or web address] Information not available 06/09/2024 Do you have difficulty dressing or bathing? No Information not available 06/09/2024 What is your exercise level? Moderate [email or web address] Information not available 06/09/2024 Mental Status None recorded. Family History Relationship Description Onset Age of this Age Resolved Age Notes LastModified by Organization Details LastModified Time Maternal Uncle Substance abuse [email or web address] Not available 2024 09:57:50 Maternal Uncle Mental disorder [email or web address] Not available 2024 09:57:50 Brother Depressive disorder [email or web address] Not available 2024 09:57:50 Brother Substance abuse [email or web address] Not available 2024 09:57:50 Brother Diabetes mellitus [email or web address] Not available 2024 09:57:50 Father Diabetes mellitus Not available 2024 09:57:50 Mother Anxiety disorder [email or web address] Not available 2024 09:57:50 Mother Depressive disorder [email or web address] Not available 2024 09:57:50 Mother Substance abuse [email or web address] Not available 2024 09:57:50 Mother Mental disorder [email or web address] Not available 2024 09:57:50 Maternal Aunt Anxiety disorder [email or web address] Not available 2024 09:57:50 Maternal Aunt Substance abuse [email or web address] Not available 2024 09:57:50 Maternal Aunt Mental disorder [email or web address] Not available 2024 09:57:50 Paternal Aunt Mental disorder [email or web address] Not available 2024 09:57:50 Maternal Grandmother Kidney disease [email or web address] Not available 2024 09:57:50 Sister Asthma [email or web address] Not available 06/09/2024 09:57:50 Sister Anxiety disorder [email or web address] Not available 2024 09:57:50 Sister Depressive disorder [email or web address] Not available 2024 09:57:50 Sister Substance abuse Not available 2024 09:57:50 Sister Diabetes mellitus [email or web address] Not available 2024 09:57:50 Sister Mental disorder [email or web address] Not available 2024 09:57:50 Medical History Condition Response Anxiety Disorder Y Arthritis Y Acid Reflux (GERD) Y Urinary Tract Infection Y Asthma Y Depression/ depression Y Gynecological History Statement/Question Response Date of Last Mammogram 09/30/2021 Date of LMP On BCP's at Conception? N Y Was last menstrual period normal N STIs/STDs N HPV Vaccine N Current Control Method Ablation Age at First Child 15 If Post Menopausal, Age at Menopause 33 Are cycles usually normal N Sexually Active? Y Menses Monthly N Age of first menstrual cycle 10 Date of Last Pap Smear 09/14/2021 Sexual Problems? N LMP Unknown N Obstetrics History GPAL:G 4 P 3 0 1 3 Type Value Full Term 3 Induced 1 Living 3 Total 4 Past Encounters Encounter ID Performer Location Encounter Start Date Encounter Closed Date Diagnosis/Indication Diagnosis SNOMED-CT Code Diagnosis ICD10 Code Diagnosis Note [id number] ESTELLE SILVA MD [facility] [place] [address] [address] 06/09/2024 09:49:38 06/09/2024 10:42:35 Irregular periods 63191826 N92.6 - patient reports ablation and tubal ligation in 2012, with amenorrhea following her procedure- now reports irregular periods with heavy bleeding and cramping- continued menopausal symptoms- will repeat pelvic US and labs- likely 2/2 regrowth of endometriu m following ablation- briefly discussed medical vs surgical management including hysterecto my, which patient is interested in discussing further following US- rtc for US following Venereal d isease screening 971067466 Z11.3 - desires STI screening [id number] Suzy Bravo [place] [address] [address] 06/16/2024 16:46:37 06/16/2024 17:53:03 Abnormal uterine bleeding 0699848116 9100 N93.9 [id number] Shayne Caban MD [place] [address] [address] 06/23/2024 10:47:19 06/23/2024 12:07:40 Menorrhagia 634346201 N92.0 Uterine leiomyoma 307816 05 D25.9 Health Concerns Section Related Observation LastModified by Organization Detai ls LastModified Time None Recorded Concern Status LastModified by Organization Details LastModified Time None Recorded Advance Directives Directive N: Payers Encounter Date Sequence Insurance Name Policy Number Policy Terry Covered Member ID Terry Member ID Guarantor Name 06/09/2024 1 [facility] [id number] Eliana A Sunderland [id number] Eliana Sunderland 06/16/2024 1 [facility] [id number] Eliana A Sunderland [id number] Eliana Sunderland 06/23/2024 [facility] [facility] [id number] Eliana A Sunderland [id number] Eliana Sunderland Notes Date Note Type Note Provider Name and Address Organization Details Recorded Time 06/09/2024 text/html Patient presents to establish care and discuss irregular bleeding. She had an tubal ligation and ablation in 2012 and now reports monthly bleeding that is heavy and painful. Reports she has seen specialists that were going to start Depo shot for bleeding control, however her bleeding improved. It has now worsened and is irregular. Was previously told she was perimenopausal and has experienced menopausal symptoms for years. She is interested in possible surgical management of irregular bleeding as she does not want to take medications. She would also like testing for STI and UTIs. Denies known exposure. ESTELLE SILVA MD [address], [place], [address], [facility] 06/09/2024 10:40:46 06/23/2024 text/html This patient is a 44-year-old female presents for heavy vaginal bleeding. She has longstanding very heavy bleeding. Her menses are regular. However, they require double protection. Patient has accidents, getting blood on her bedding and clothing. Is affected work. She changes a pad or tampon every hour. She leaks blood around the pad and tampon. This bleeding has a profound impact on her quality of life and her activities of daily living. patient is a recurrence after an endometrial ablation. She has multiple uterine fibroids seen on ultrasound. She has a strong history of family ovarian cancer. Her mother of ovarian cancer. We have agreed to move forward with robotic assisted hysterectomy with bilateral salpingo-oophorectom y I spent over 30 minutes in the patient's care. We will proceed with the hysterectomy. The patient understands the procedure. The procedure was described to the patient in great detail. the patient also understands the risks. The risks were also explained in detail. She understands that injuries May occur during surgery. She understands these injuries can result in hospitalization, more surgery, and severe illness. She understands there is risk of hemorrhage and infection. Shayne Caban MD [address], [place], [address], [facility] 06/23/2024 12:01:24 OBGyn Episode Ob Episode Information Episode Created Date Number of Fetuses Patient Bloodtype Patient rh Status Prepregnancy Weight lbs Domestic Partner Domestic Partner Phone Father Name Sugar Sampler Status 06/10/19 25 1 CLOSED Fetus Data First Name Last Name Admitted to NICU Weight (g) Sex Living Outcome Pediatric Complications Fetus ID Race Codes Race Delivery Type [id number] Vaginal Delivery Joseph Calculation Initial Joseph Date Initial Exam Date Initial Exam Provider Initial Ultrasound Date Last Menstrual Period Date Ultra Sound Weeks Gestation 0 Eighteen To Twenty Week Joseph Update Ultra Sound Date Fundal Height At Umbil Quickening Date Ultra Sound Latest Weeks Gestation Final Joseph Confirmed By Final Joseph Confirmed Date Final Joseph Date Ultra Sound Latest Days Gestation 0 0 Menstrual History Last Menstrual Date Menses Monthly On Bcp Conception Prior Menses Frequency Hcg Plus Date Menarche Onset Age Delivery Information Delivery Date Delivery Type Labor Anesthesia Weeks Gestation Incision Type Labor Labor Length Hrs Delivered By Post Complications Tubal Sterilization Discharge Date Comments 3 Discharge Information Feeding Method Contraceptive Method Maternal HG B and HCT Levels Ob Episode Information Episode Created Date Number of Fetuses Patient Bloodtype Patient rh Status Prepregnancy Weight lbs Domestic Partner Domestic Partner Phone Father Name Sugar Sampler Status 06/10/19 1 CLOSED Fetus Data First Name Last Name Admitted to NICU Weight (g) Sex Living Outcome Pediatric Complications Fetus ID Race Codes Race Delivery Type , Induced [id number] Joseph Calculation Initial Joseph Date Initial Exam Date Initial Exam Provider Initial Ultrasound Date Last Menstrual Period Date Ultra Sound Weeks Gestation 0 Eighteen To Twenty Week Joseph Update Ultra Sound Date Fundal Height At Umbil Quickening Date Ultra Sound Latest Weeks Gestation Final Joseph Confirmed By Final Joseph Confirmed Date Final Joseph Date Ultra Sound Latest Days Gestation 0 0 Menstrual History Last Menstrual Date Menses Monthly On Bcp Conception Prior Menses Frequency Hcg Plus Date Menarche Onset Age Delivery Information Delivery Date Delivery Type Labor Anesthesia Weeks Gestation Incision Type Labor Labor Length Hrs Delivered By Post Complications Tubal Sterilization Discharge Date Comments 0 Discharge Information Feeding Method Contraceptive Method Maternal HG B and HCT Levels Ob Episode Information Episode Created Date Number of Fetuses Patient Bloodtype Patient rh Status Prepregnancy Weight lbs Domestic Partner Domestic Partner Phone Father Name Sugar Sampler Status 06/10/19 25 1 CLOSED Fetus Data First Name Last Name Admitted to NICU Weight (g) Sex Living Outcome Pediatric Complications Fetus ID Race Codes Race Delivery Type [id number] F Full Term [id number] Vaginal Delivery Joseph Calculation Initial Joseph Date Initial Exam Date Initial Exam Provider Initial Ultrasound Date Last Menstrual Period Date Ultra Sound Weeks Gestation 0 Eighteen To Twenty Week Joseph Update Ultra Sound Date Fundal Height At Umbil Quickening Date Ultra Sound Latest Weeks Gestation Final Joseph Confirmed By Final Joseph Confirmed Date Final Joseph Date Ultra Sound Latest Days Gestation 0 0 Menstrual History Last Menstrual Date Menses Monthly On Bcp Conception Prior Menses Frequency Hcg Plus Date Menarche Onset Age Delivery Information Delivery Date Delivery Type Labor Anesthesia Weeks Gestation Incision Type Labor Labor Length Hrs Delivered By Post Complications Tubal Sterilization Discharge Date Comments 7 Discharge Information Feeding Method Contraceptive Method Maternal HG B and HCT Levels Ob Episode Information Episode Created Date Number of Fetuses Patient Bloodtype Patient rh Status Prepregnancy Weight lbs Domestic Partner Domestic Partner Phone Father Name Sugar Sampler Status 06/10/19 25 1 CLOSED Fetus Data First Name Last Name Admitted to NICU Weight (g) Sex Living Outcome Pediatric Complications Fetus ID Race Codes Race Delivery Type [phone] [phone] F Full Term [id number] Vaginal Delivery Joseph Calculation Initial Joseph Date Initial Exam Date Initial Exam Provider Initial Ultrasound Date Last Menstrual Period Date Ultra Sound Weeks Gestation 0 Eighteen To Twenty Week Joseph Update Ultra Sound Date Fundal Height At Umbil Quickening Date Ultra Sound Latest Weeks Gestation Final Joseph Confirmed By Final Joseph Confirmed Date Final Joseph Date Ultra Sound Latest Days Gestation 0 0 Menstrual History Last Menstrual Date Menses Monthly On Bcp Conception Prior Menses Frequency Hcg Plus Date Menarche Onset Age Delivery Information Delivery Date Delivery Type Labor Anesthesia Weeks Gestation Incision Type Labor Labor Length Hrs Delivered By Post Complications Tubal Sterilization Discharge Date Comments 9 Discharge Information Feeding Method Contraceptive Method Maternal HG B and HCT Levels
--- OUTSIDE RECORDS SUMMARY | 2024-07-05 04:36 | XMS_ITS | Clinical Summary ---
Author Organization [facility] Address [facility] [place] [address] Care Team Providers Care Loom Fixer Helper Name Role Phone Homa Michel MD Primary Care Provider [phone] Clem Roblero MD Unavailable [phone] Allergies No known active allergies Medications albuterol [...] Plan of Treatment Not on file Insurance [facility] Care Teams Loom Fixer Helper Relationship Specialty Start Date End Date Homa Michel MD [address] [place] [address] PCP - General Internal Medicine 07/20/20 Clem Roblero MD [address] [place] [address] Referring Physician Obstetrics and Gynecology 11/24/20
[2024-07-05 06:23] LABS: Basophils Absolute Auto 0.1 K/mm3 (0.0-0.1); Basophils Percent Auto 0.8 % (0.2-1.2); Eosinophils Absolute Auto 0.2 K/mm3 (0-0.3); Eosinophils Percent Auto 2.7 % (0-4.4); Hematocrit 44.6 % (37.0-47.0); Hemoglobin 14.7 g/dL (12.0-15.0); Immature Granulocyte Absolute 0.02 K/mm3 (0.00-0.031); Immature Granulocyte Percent A 0.3 % (0-0.5); Lymphocytes Absolute Auto 1.64 K/mm3 (0.9-3.2); Lymphocytes Percent Auto 21.1 % (18.3-44.2); Mean Corpuscular Hemoglobin 29.6 pg (26-34); Mean Corpuscular Volume 89.7 fl (80-100); Mean Platelet Volume 8.7 fl (7.4-10.4); Monocytes Absolute Auto 0.8 K/mm3 (0.1-0.6); Monocytes Percent Auto 9.9 % (2.6-8.5); Neutrophils Absolute Auto 5.1 K/mm3 (1.3-6.7); Neutrophils Percent Auto 65.2 % (45.5-73.1); Platelet Count Result 332 k/mm3 (150-375); Red Blood Count 4.97 M/mm3 (4.2-5.4); Red Cell Distribution Width 12.3 % (11.5-14.5); White Blood Count 7.8 K/mm3 (4.5-10.0)
[2024-07-05 06:32] LABS: Alanine Aminotransferase 17 U/L (6-35); Albumin Level 4.4 g/dL (3.5-5.1); Alkaline Phosphatase 108 U/L (38-126); Anion Gap 10 mmol/L (4-12); Aspartate Amino Transferase 20 U/L (14-36); Bilirubin,Total 0.3 mg/dL (0.2-1.3); Blood Urea Nitrogen 15 mg/dL (7-17); Calcium 9.1 mg/dL (8.4-10.2); Carbon Dioxide 26 mmol/L (22-30); Chloride 103 mmol/L (98-107); Estimated CRCL calculation 90 ml/min; Estimated Glomerular Filt Rate > 60; Glucose 133 mg/dL (65-110); Lipase 72 U/L (23-300); Potassium 4.2 mmol/L (3.4-5.0); Sodium 139 mmol/L (137-145)
[2024-07-05 06:43] LABS: BEDSIDEPREGUCG Negative (Negative)
[2024-07-05 07:08] LABS: Add Urine Microscopic? YES; Appearance Urine Turbid (Clear); Bacteria Urine 4+ /hpf; Bilirubin Urine 1+ (Negative); Blood Urine Trace (Negative); Color Urine Dark Yellow (Yellow); Glucose Urine UA Negative (Negative); Ketones Urine Negative (Negative); Leukocyte Esterase Ur Trace LEU/UL (Negative); Mucus Urine Present /lpf; Need Manual Microscopic Reviewed; Nitrate Urine Positive (Negative); Non Pathogenic Casts >20; Protein Urine Trace mg/dL (Negative); Specific Grav Ur 1.032 (1.001-1.035); Squamous Epithelial Cell Urine Moderate /hpf (Few); WBC Urine 21-50 /hpf (0-3); pH Urine 5.5 (5.0-9.0)
--- OUTSIDE RECORDS SUMMARY | 2024-07-05 07:44 | XMS_ITS | Encounter Summary ---
Author Organization [facility] Address [address] [place] [address] Phone Care Team Providers Care Authorization Rep Name Role Phone Homa Michel MD Primary Care Provider [phone] Clem Roblero MD Unavailable [phone] Encounter Details Date Type Department Care Team (Late st Contact Info) Description 10/25/2020 Orders Only [facility] [address] [facility] Advanced Medicine 5th [place] [address] [place] [address] Gail Stanton NP [address] [place] [address] Social History Tobacco Use Types Packs/Day Years [...] on filedocumented in this encounter Care Teams Authorization Rep Relationship Specialty [place] [address] [place] [address] PCP - General Internal Medicine 07/20/20 Clem Roblero MD NPI: [id number] [place] [address] Referring Physician Obstetrics and Gynecology 11/24/20 documented as of this encounter
--- OUTSIDE RECORDS SUMMARY | 2024-07-05 07:44 | XMS_ITS | Encounter Summary ---
Author Organization [facility] Address [address] [facility] [place] [address] Care Team Providers Care Pants Presser Automatic Name Role Phone Clem Roblero MD Primary Care Provider Encounter Details Date Type Department Care Team (Late st Contact Info) Description 06/06/2019 Telephone [facility] ANESTHESIA [address] [place] [address] Evi Albert DO [address] [place] [address] Social History Tobacco Use Types Packs/Day Years [...] Evi Albert DO - 06/06/2019 12:50 PM [facility] Peripheral Nerve [...] questions or concerns. Evi Albert DO 06/06/19 ER documented in this encounter Plan of Treatment Not on file documented as of this encounter Visit Diagnoses Not on filedocumented in this encounter Care Teams Pants Presser Automatic Relationship Specialty Start Date End Date Clem Roblero MD [address] [place] [address] PCP - General 02/11/19 documented as of this encounter
--- OUTSIDE RECORDS SUMMARY | 2024-07-05 07:44 | XMS_ITS | CONTINUITY OF CARE DOCUMENT ---
Author Name saul hughes Address Unknown Organization [facility] Address [address] [place] [address] [address] [place] [address] Phone [phone] Care Team Providers Care Cement Block Maker Name Role Phone Harjit Sandy MD Unavailable [phone] Harjit Sandy MD Unavailable [phone] JOSE JOSHI MD Unavailable [phone] INSURANCE PROVIDERS Payer name Policy type / Coverage type [place] red [employer] party ID SELF PAY [place] MEDICAID (2) Medicaid [id number]
--- OUTSIDE RECORDS SUMMARY | 2024-07-05 07:45 | XMS_ITS | Clinical Summary ---
Author Organization [facility] Address [address] [place] [address] Phone Care Team Providers Care Construction Craft Laborer Name Role Phone Unavailable Primary Care Provider [...] on file Legal Sex Female 6:22 PM [facility]SO Gender Identity Not on file Sexual Orientation Not on file Last Filed Vital Signs Vital Sign Reading Time Taken Comments Blood Pressure 150/92 02/11/2017 6:27 PM [facility] Pulse - - Temperature 36.2 C (97.1 F) 02/11/2017 6:27 PM [facility] Respiratory Rate 18 02/11/2017 6:27 PM [facility] Oxygen Saturation 100% 02/11/2017 6:27 PM [facility] Inhaled Oxygen Concentration - - Weight 86.2 kg (190 lb) 02/11/2017 6:27 PM [facility] Height 162.6 cm (5' 4 ) 02/11/2017 6:27 PM [facility]SO Body Mass Index 32.61 02/11/2017 6:27 PM TSO Plan of Treatment Health Maintenance Due Date [...]
--- OUTSIDE RECORDS SUMMARY | 2024-07-05 07:45 | XMS_ITS | Clinical Summary ---
Author Organization [facility] Address [facility] [place] [address] Care Team Providers Care Ski Molder Name Role Phone Homa Michel MD Primary Care Provider [phone] Clem Roblero MD Unavailable [phone] Allergies No known active allergies Medications albuterol [...] Plan of Treatment Not on file Insurance [facility] Care Teams Ski Molder Relationship Specialty Start Date End Date Homa Michel MD [address] [place] [address] PCP - General Internal Medicine 07/20/20 Clem Roblero MD [address] [place] [address] Referring Physician Obstetrics and Gynecology 11/24/20
--- OUTSIDE RECORDS SUMMARY | 2024-07-05 07:45 | XMS_ITS | Referral Summary ---
Author Organization [facility] Address [facility] [place] [address] Care Team Providers Care Machine Icer Name Role Phone Homa Michel MD Primary Care Provider [phone] Clem Roblero MD Unavailable [phone] Allergies No known active allergies Medications albuterol [...] Plan of Treatment Not on file Insurance [facility] Care Teams Machine Icer Relationship Specialty Start Date End Date Homa Michel MD [address] [address] PCP - General Internal Medicine 07/20/20 Clem Roblero MD [address] [place] [address] Referring Physician Obstetrics and Gynecology 11/24/20
--- OUTSIDE RECORDS SUMMARY | 2024-07-05 07:45 | XMS_ITS | Clinical Summary ---
Author Organization [facility] [employer] Address [address] [place] [place] [address] Care Team Providers Care Car Hopper Name Role Phone Clem Roblero MD Primary Care Provider [phone] Source Comments [facility] [employer],non-owned Affiliates and Associated Physician Practices is amultiple site organization consisting of ambulatory clinics and hospital sitesin [place], [place], [place] and [place]. This disclosure is being madepursuant to the Care Everywhere program and may not contain all information available regarding this patient. Last updated 17.[facility] [employer] Allergies No known active allergies Medications * [...] Comments Blood Pressure 139/97 06/05/2019 3:51 PM [facility] Pulse 83 06/05/2019 3:51 PM [employer] Temperature 36.7 C (98 F) 06/05/2019 3:51 PM [facility] [employer] Respiratory Rate 19 06/05/2019 3:51 PM [employer] Oxygen Saturation 95% 06/05/2019 3:51 PM [employer] Inhaled Oxygen Concentration - - Weight 99.8 kg (220 lb) 06/05/2019 11:15 AM [employer] Height 162.6 cm (5' 4 ) 06/05/2019 11:15 AM [employer] Body Mass Index 37.76 06/05/2019 11:15 AM [employer] Plan of Treatment Health Maintenance Due Date [...] this topic Medical Devices Implanted Type Area Quality Control Auditor Device Identifier Shelf Expiration Date Model / Serial / Lot [place] Sut Healix Adv Dynacord 5.5mm Implanted:Qty: 2 on 06/05/2019 by Kishor Weber MD at [facility] Right: Shoulder [employer] 05/09/2020 [id number] / / [id number] Healix Knotless Br [place] 6.5 Implanted:Qty: 1 on 06/05/2019 by Kishor Weber MD at [facility] Right: Shoulder 06/06/2021 [id number] / / [id number] Healix Knotless Br [place] 6.5 Implanted:Qty: 1 on 06/05/2019 by Kishor Weber MD at [facility] Right: Shoulder 03/08/2022 [id number] / / [id number] Procedures Procedure Name Priority Date/Time Associated Diagnosis Comments HPV DETECTION HIGH RISK CAROLYN Routine 04/15/2019 11:00 AM [employer] Postcoital bleeding from Last 3 Months or Most Recently Relevant to Health Maintenance Results * HPV DETECTION HIGH RISK ACROLYN (04/15/2019 11:00 AM [employer]) High Risk Human Papilloma Result Not Detected Not Detected 04/17/2019 3:51 PM [employer] [facility] High Risk Human Papilloma Interp 04/17/2019 3:51 PM [employer] [facility] Comment:High Risk Human Abraham lloma Virus was Not Detected. Pathology/Cytolo gy MISCELLANEOUS SAMPLES / Unknown 04/15/2019 11:00 AM [employer] 04/16/2019 12:35 PM [employer] Narrative [facility] - 04/17/2019 3:51 PM [employer] Nucleic acid isolated from the specimen was [...] Kalina Chen MD LAB - MICROBIOLOGY ORDERABLES [facility] [address] [facility]. [address] [phone] from Last 3 Months or Most Recently Relevant to Health Maintenance Care Teams Car Hopper Relationship Specialty Start Date End Date Clem Roblero MD [address] [place] [address] PCP - General 02/11/19
--- OUTSIDE RECORDS SUMMARY | 2024-07-05 07:45 | XMS_ITS | Continuity of Care Document ---
Author Organization [facility] Address [address] [place] [address] Phone Care Team Providers Care Broadcast Maintenance Technician Name Role Phone Lyndon Martin MD Unavailable Unavailable Procedures Procedure Date CT ABD & PELVIS W/O CONTRAST Advance Directives Directive Yes / No Effective Date File Name No Information Encounters Encounter Description Practice Location Reason(s) For Visit Diagnoses Date Provider Providers Copied on Encounter [facility], [address], [place], [place], [id number], [place] tel:[phone] [facility] No Information Mario Haney. [address] , [place], [place], [address], [place]. tel:[phone] Referring Provider: Jose Michel, [address] [facility], [place], [address]. tel:[phone] Family History Family Member Type Diagnosis Age At Onset No Information Payers Payer name Insurance type Covered democrat ID Authoriza tion(s) No Information Social History [...]
[2024-07-05] MEDS: ONDANSETRON INJ 4 MG/2 ML VIAL IV PUSH ×2 (07:50→17:05)
[2024-07-05] MEDS: MORPHINE SULFATE (*CRX) 4 MG/ML INJ IV PUSH ×2 (07:50→09:44)
--- NOTE | 2024-07-05 08:04 | ED_ITS ---
HPI - General Adult General Chief complaint: Abdominal Pain Stated complaint: abd pain Time Seen by Provider: 07/05/24 07:10 History of Present Illness HPI narrative: Patient is a 44-year-old female who presents ER with right lower quadrant abdominal pain. Sudden onset at 2:00 a.m.. No fevers or chills or sweats. Has known ovarian cyst on that side. She is scheduled to have a hysterectomy in also has the leiomyoma in the uterus. Pain is worse with movement. No alleviating factors. No vomiting or diarrhea. Recently had a urinary infection 2 months ago. Has not recognized any dysuria or urinary frequency. Related Data Allergies Allergy/AdvReac Type Severity Reaction Status Date / Time cefdinir Allergy Nausea and Verified 07/05/24 06:28 Vomiting Review of Systems 2 Review of Systems: All systems reviewed & are unremarkable except as noted in HPI and below Constitutional: Constitutional: Reports no additional constitutional complaints Cardiovascular: Cardiovascular: Reports no additional cardiovascular complaints Respiratory: Respiratory: Reports no additional respiratory complaints Gastrointestinal: Gastrointestinal: Reports no additional gastrointestinal complaints Genitourinary: Genitourinary: Reports no additional female genitourinary complaints [facility] Past Medical History Medical History (Updated 07/05/24 @ 17:59 by Renny Marley MD) Leiomyoma of body of uterus Asthma Surgical History Surgical History (Updated 07/05/24 @ 15:47 by Mariama Stone PA-C) History of tubal ligation History of cholecystectomy H/O shoulder surgery Social History Social History (Updated 07/05/24 @ 15:47 by Mariama Stone PA-C) Social History: Surrogate medical decision maker: Code status: Full code. Tobacco type: cigarettes Exam 2 Narrative: GENERAL: Well-appearing, well-nourished, and in no acute distress. HEAD: Normocephalic, atraumatic. ENT: Mucous membranes moist. NECK: Supple. CHEST: Clear to auscultation. No respiratory distress. HEART: Regular rate and rhythm. Normal peripheral pulses. ABDOMEN: Soft, tender palpation right lower quadrant with guarding, nondistended. : Normal external genitalia. Moderate vaginal discharge with stooling. Mild discomfort with bimanual exam especially in the right adnexal region. EXTREMITIES: Normal range of motion. No edema. SKIN: Warm, dry, no rash. NEURO: Alert and oriented x3. PSYCH: Normal mood and affect. Course Course Emergency Course: Patient reports negative STI testing prior to evaluation here in does not feel she is at risk of STI. Patient does have some discomfort on pelvic exam. Discussed with Dr. Egan. Additionally patient has mild UTI. She still has persistent right lower quadrant abdominal pain with guarding. Will admit for observation IV antibiotics. May have ascending UTI. Discussed with General surgery as well however normal appendix and otherwise unremarkable abdominal pain. They are happy consulted later should symptoms persist or change. Vital Signs Vital signs: Vital Signs Temperature 98.3 F 07/05/24 04:33 Pulse Rate 102 H 07/05/24 04:33 Respiratory Rate 18 07/05/24 04:33 Blood Pressure 151/95 H 07/05/24 04:33 Pulse Oximetry 96 07/05/24 04:33 Oxygen Delivery Room Air 07/05/24 04:33 Temperature 97.5 F L 07/05/24 16:25 Pulse Rate 77 07/05/24 16:25 Respiratory Rate 18 07/05/24 16:25 Blood Pressure 130/82 07/05/24 16:25 Pulse Oximetry 100 07/05/24 16:25 Oxygen Delivery Room Air 07/05/24 16:45 Medical Decision Making Vital Signs Vital Signs: Vital Signs Temperature 98.3 F 07/05/24 04:33 Pulse Rate 102 H 07/05/24 04:33 Respiratory Rate 18 07/05/24 04:33 Blood Pressure 151/95 H 07/05/24 04:33 Pulse Oximetry 96 07/05/24 04:33 Oxygen Delivery Room Air 07/05/24 04:33 Temperature 97.5 F L 07/05/24 16:25 Pulse Rate 77 07/05/24 16:25 Respiratory Rate 18 07/05/24 16:25 Blood Pressure 130/82 07/05/24 16:25 Pulse Oximetry 100 07/05/24 16:25 Oxygen Delivery Room Air 07/05/24 16:45 Lab Data 07/05/24 06:15 07/05/24 06:15 Labs: Lab Results 07/05/24 07/05/24 07/05/24 Range/Units 06:15 06:40 06:41 WBC 7.8 (4.5-10.0) K/mm3 RBC 4.97 (4.2-5.4) M/mm3 Hgb 14.7 (12.0-15.0) g/dL Hct 44.6 (37.0-47.0) % MCV 89.7 (80-100) fl MCH 29.6 (26-34) pg MCHC 33.0 (32-36) g/dl RDW 12.3 (11.5-14.5) % Plt Count 332 (150-375) k/mm3 MPV 8.7 (7.4-10.4) fl Immature Gran % (Auto) 0.3 (0-0.5) % Neut % (Auto) 65.2 (45.5-73.1) % Lymph % (Auto) 21.1 (18.3-44.2) % Mcdowell % (Auto) 9.9 H (2.6-8.5) % Eos % (Auto) 2.7 (0-4.4) % Baso % (Auto) 0.8 (0.2-1.2) % Lymph # (Auto) 1.64 (0.9-3.2) K/mm3 Mcdowell # (Auto) 0.8 H (0.1-0.6) K/mm3 Eos # (Auto) 0.2 (0-0.3) K/mm3 Baso # (Auto) 0.1 (0.0-0.1) K/mm3 Abs Immat Gran (auto) 0.02 (0.00-0.031) K/mm3 Absolute Neuts (auto) 5.1 (1.3-6.7) K/mm3 Absolute Nucleated RBC 0.000 (0.0-0.012) K/mm3 Nucleated RBC % 0.0 (0.0-0.2) % Sodium 139 (137-145) mmol/L Potassium 4.2 (3.4-5.0) mmol/L Chloride 103 (98-107) mmol/L Carbon Dioxide 26 (22-30) mmol/L Anion Gap 10 (4-12) mmol/L BUN 15 D (7-17) mg/dL Creatinine 0.80 (0.7-1.0) mg/dL Estim Creat Clear Calc 90 ml/min Estimated GFR > 60 (59 - ) Glucose 133 H (65-110) mg/dL Calcium 9.1 (8.4-10.2) mg/dL Total Bilirubin 0.3 (0.2-1.3) mg/dL AST 20 (14-36) U/L ALT 17 (6-35) U/L Alkaline Phosphatase 108 (38-126) U/L Total Protein 8.0 (6.3-8.2) g/dL Albumin 4.4 (3.5-5.1) g/dL Lipase 72 (23-300) U/L Urine Color Dark yellow (Yellow) Urine Appearance Turbid H (Clear) Urine pH 5.5 (5.0-9.0) Ur Specific Ballantine 1.032 (1.001-1.035) Urine Protein Trace (Negative) mg/dL Urine Glucose (UA) Negative (Negative) mg/dL Urine Ketones Negative (Negative) mg/dL Ur Blood (Man) Trace (Negative) Urine Nitrate Positive H (Negative) Urine Bilirubin 1+ H (Negative) Urine Urobilinogen 1.0 (<2.0) mg/dL Add Ur Microanalysis Reviewed Leukocyte Esterase Rfl Trace H (Negative) JOVANY/UL Urine RBC 6-10 H (0-2) /hpf Urine WBC 21-50 H (0-3) /hpf Ur Squamous Epith Cells Moderate (Few) /hpf Urine Bacteria 4+ /hpf Urine Casts >20 Urine Mucus Present /lpf POC Urine HCG, Qual Negative (Negative) C. trachomatis (PCR) (NOT DETECTE) N. gonorrhoeae (PCR) (NOT DETECTE) T. vaginalis (PCR) (NOT DETECTE) 07/05/24 Range/Units 12:05 WBC (4.5-10.0) K/mm3 RBC (4.2-5.4) M/mm3 Hgb (12.0-15.0) g/dL Hct (37.0-47.0) % MCV (80-100) fl MCH (26-34) pg MCHC (32-36) g/dl RDW (11.5-14.5) % Plt Count (150-375) k/mm3 MPV (7.4-10.4) fl Immature Gran % (Auto) (0-0.5) % Neut % (Auto) (45.5-73.1) % Lymph % (Auto) (18.3-44.2) % Mcdowell % (Auto) (2.6-8.5) % Eos % (Auto) (0-4.4) % Baso % (Auto) (0.2-1.2) % Lymph # (Auto) (0.9-3.2) K/mm3 Mcdowell # (Auto) (0.1-0.6) K/mm3 Eos # (Auto) (0-0.3) K/mm3 Baso # (Auto) (0.0-0.1) K/mm3 Abs Immat Gran (auto) (0.00-0.031) K/mm3 Absolute Neuts (auto) (1.3-6.7) K/mm3 Absolute Nucleated RBC (0.0-0.012) K/mm3 Nucleated RBC % (0.0-0.2) % Sodium (137-145) mmol/L Potassium (3.4-5.0) mmol/L Chloride (98-107) mmol/L Carbon Dioxide (22-30) mmol/L Anion Gap (4-12) mmol/L BUN (7-17) mg/dL Creatinine (0.7-1.0) mg/dL Estim Creat Clear Calc ml/min Estimated GFR (59 - ) Glucose (65-110) mg/dL Calcium (8.4-10.2) mg/dL Total Bilirubin (0.2-1.3) mg/dL AST (14-36) U/L ALT (6-35) U/L Alkaline Phosphatase (38-126) U/L Total Protein (6.3-8.2) g/dL Albumin (3.5-5.1) g/dL Lipase (23-300) U/L Urine Color (Yellow) Urine Appearance (Clear) Urine pH (5.0-9.0) Ur Specific Ballantine (1.001-1.035) Urine Protein (Negative) mg/dL Urine Glucose (UA) (Negative) mg/dL Urine Ketones (Negative) mg/dL Ur Blood (Man) (Negative) Urine Nitrate (Negative) Urine Bilirubin (Negative) Urine Urobilinogen (<2.0) mg/dL Add Ur Microanalysis Leukocyte Esterase Rfl (Negative) JOVANY/UL Urine RBC (0-2) /hpf Urine WBC (0-3) /hpf Ur Squamous Epith Cells (Few) /hpf Urine Bacteria /hpf Urine Casts Urine Mucus /lpf POC Urine HCG, Qual (Negative) C. trachomatis (PCR) Not detected (NOT DETECTE) N. gonorrhoeae (PCR) Not detected (NOT DETECTE) T. vaginalis (PCR) Not detected (NOT DETECTE) Imaging Data Radiologist's impression: ITS Impressions Pelvic/Transvag US 07/05/24 09:04 IMPRESSION: 1. Right ovary not visualized. 2. Uterine fibroid. Abdomen/Pelvis CT 07/05/24 10:11 IMPRESSION: 1. Small sliding hiatal hernia. 2. Umbilical hernia containing fat. 3. Uterine fibroids. 4. Prominent fat in the inguinal canals that may be hernias. Discharge Plan Discharge Clinical Impression: Abdominal pain, right lower quadrant, UTI (urinary tract infection) Patient Disposition: Still a Patient Condition: Stable
[2024-07-05] MEDS: HYDROmorphone HCL INJ (*CRX) 1 MG/ML SYR 0.5 MG IV PUSH ×3 (11:43→20:38)
[2024-07-05 13:16] LABS: Trichomonas Vag PCR NOT DETECTED (NOT DETECTE)
[2024-07-05 13:40] LABS: Chlamydia trachomatis NOT DETECTED (NOT DETECTE); Neisseria gonorrhoeae PCR NOT DETECTED (NOT DETECTE)
[2024-07-05] MEDS: SODIUM CHLORIDE 0.9% IV 1,000 ML 125 ML IV CONT (15:21)
--- NOTE | 2024-07-05 15:40 | P.HP_ITS ---
H&P: HPI History of Present Illness Date/Time: 07/05/24 15:40 Chief Complaint: Abdominal pain. Narrative: This is a 44-year-old female smoker with history of ovarian cysts, leiomyoma, urinary tract infection, and asthma who presented to the emergency department via EMS for evaluation of abdominal pain. She reports sudden onset of severe right lower quadrant pain at about 02:00. She has difficulties describing the pain but reports that at times it feels is a burning, tearing, or even sharp pain. The pain does not radiate. It is worse with movement, standing, and even mild palpation. Associated symptoms include sweats and nausea. She has had some dysuria the last several days as well. She has never had similar symptoms. She goes on to say that she is scheduled for a hysterectomy next month as she has re cently started to bleed again following an endometrial ablation many years ago and she was found to have multiple fibroids. She denies fever, chills, vomiting, diarrhea, hematuria, pelvic pain, and discharge. In the ED: She was diaphoretic on arrival to triage with a temperature of 98.3?, blood pressure 151/95, pulse 102, respiratory rate 18, SpO2 96% on room air. CMP and CBC were really unremarkable though her random glucose was elevated at 133. Urinalysis was positive for nitrates, trace leukocyte esterase, 6 to 10 RBC, 21 to 50 WBC, and 4+ bacteria though moderate squamous cells were noted on microscopy. She was negative for chlamydia, gonorrhea, and Trichomonas. CT of the abdomen pelvis showed small sliding hiatal hernia, umbilical hernia containing fat, uterine fibroids measuring up to 3.6 cm, and prominent fat in the inguinal canals which may be hernias. Pelvic/transvaginal ultrasound showed a uterine fibroid and unremarkable left ovary; right ovary was not visualized. She was given a dose of ceftriaxone for presumed urinary tract infection and she is being admitted in this setting for pain control and surgery and gynecology consultations due ongoing, severe abdominal pain without clear etiology.. Review of Systems Review of Systems: 12 systems were reviewed and are negativ e except for as per HPI. [facility] Past Medical History Medical History (Updated 07/05/24 @ 21:58 by Mariama Stone PA-C) Tobacco dependence Leiomyoma of body of uterus Asthma Surgical History Surgical History (Updated 07/05/24 @ 21:54 by Mariama Stone PA-C) History of arthroscopy of shoulder History of endometrial ablation History of tubal ligation History of cholecystectomy Social History Social History (Updated 07/05/24 @ 21:55 by Mariama Stone PA-C) Social History: Surrogate medical decision maker: Emmanuelle Diaz, daughter. Code status: Full code. Smoking status: Current every day smoker Tobacco type: cigarettes Alcohol intake: unknown Substance use: unknown Do You Feel Safe in your Home?: Yes Lack of Transportation: No Lack of Food: Never True Current Housing: I Have Housing Concerned About Future Housing: No Difficulty Paying Gas/Electric Bills: No Difficulty Paying for Meds: No Currently Unemployed: No Education: Decline to Answer Difficulty w/ Childcare or Family Care: No Spiritual care concerns: No Meds Home Medications and Allergies Home Medications ?Medication ?Instructions ?Recorded ?Confirmed ?Type ipratropium bromide 17 2 puff inhalation Q8H PRN 09/01/23 07/05/24 Rx mcg/actuation HFA aerosol inhaler shortness of breath or wheezing (Atrovent HFA) #12.9 grams albuterol sulfate 90 mcg/actuation 1 inh inhalation QID PRN shortness 12/08/23 07/05/24 Rx aerosol inhaler of breath or wheezing #6.7 grams albuterol sulfate 90 mcg/actuation 2 puff inhalation QID PRN 03/21/24 07/05/24 Rx aerosol inhaler shortness of breath or wheezing #6.7 grams Allergies Allergy/AdvReac Type Severity Reaction Status Date / Time cefdinir Allergy Nausea and Verified 07/05/24 06:28 Vomiting Vital Signs Vital Signs - 24 hr 07/05/24 04:33 07/05/24 06:17 07/05/24 06:18 Temperature 98.3 F 97.8 F Pulse Rate 102 H 96 Respiratory Rate 18 22 H Blood Pressure 151/95 H 115/69 Pulse Oximetry 96 97 96 Oxygen Delivery Room Air Room Air 07/05/24 06:18 07/05/24 06:18 07/05/24 06:40 Temperature Pulse Rate 86 Respiratory Rate 22 H Blood Pressure 115/69 115/69 Pulse Oximetry 97 96 98 Oxygen Delivery 07/05/24 06:56 07/05/24 07:04 07/05/24 07:15 Temperature Pulse Rate Respiratory Rate Blood Pressure Pulse Oximetry 95 96 95 Oxygen Delivery 07/05/24 07:30 07/05/24 07:45 07/05/24 10:10 Temperature Pulse Rate 79 Respiratory Rate 16 Blood Pressure 129/67 Pulse Oximetry 99 99 100 Oxygen Delivery 07/05/24 10:15 07/05/24 10:30 07/05/24 10:32 Temperature Pulse Rate Respiratory Rate Blood Pressure 150/88 H Pulse Oximetry 95 95 95 Oxygen Delivery 07/05/24 10:45 07/05/24 11:09 07/05/24 11:15 Temperature Pulse Rate Respiratory Rate Blood Pressure Pulse Oximetry 100 96 97 Oxygen Delivery 07/05/24 11:30 07/05/24 11:32 07/05/24 15:25 Temperature 97.7 F Pulse Rate 76 Respiratory Rate 16 Blood Pressure 150/58 H 132/73 Pulse Oximetry 95 93 99 Oxygen Delivery Exam Narrative: General: Nontoxic-appearing female lying on her left side in bed in no acute distress. She does not appear in any discomfort. Weight: 104 kg. BMI: 39.4. HEENT: PERRL, EOMI. Sclera anicteric. Tacky mucous membranes. Neck: Supple. Respiratory: Lungs are clear to auscultation bilaterally. Cardiovascular: Regular rate and rhythm with S1-S2. Gastrointestinal: Abdomen is soft and nondistended with positive bowel sounds. She is significantly tender to palpation and percussion the right lower quadrant with voluntary guarding but no rebound tenderness. No CVA tenderness. Skin: Warm and dry. Extremities: No cyanosis, clubbing, or edema. Radial and pedal pulses intact. Neurological: Alert. Cranial nerves 2-12 are grossly intact. Delete No gross focal deficits to casual conversation. Psychiatric: Appropriate mood and slightly odd affect. H&P: Results Labs Labs: Short CBC 07/05/24 Range/Units 06:15 WBC 7.8 (4.5-10.0) K/mm3 Hgb 14.7 (12.0-15.0) g/dL Hct 44.6 (37.0-47.0) % Plt Count 332 (150-375) k/mm3 BMP 07/05/24 06:15 Sodium 139 Potassium 4.2 Chloride 103 Carbon Dioxide 26 BUN 15 D Creatinine 0.80 Glucose 133 H Calcium 9.1 Liver Function 07/05/24 Range/Units 06:15 Total Bilirubin 0.3 (0.2-1.3) mg/dL AST 20 (14-36) U/L ALT 17 (6-35) U/L Alkaline Phosphatase 108 (38-126) U/L Albumin 4.4 (3.5-5.1) g/dL Urine 07/05/24 Range/Units 06:40 Urine Color Dark yellow (Yellow) Urine Appearance Turbid H (Clear) Urine pH 5.5 (5.0-9.0) Ur Specific [facility] 1.032 (1.001-1.035) Urine Protein Trace (Negative) mg/dL Urine Glucose (UA) Negative (Negative) mg/dL Imaging Pelvic/Transvag US 07/05/24 09:04 IMPRESSION: 1. Right ovary not visualized. 2. Uterine fibroid. Abdomen/Pelvis CT 07/05/24 10:11 IMPRESSION: 1. Small sliding hiatal hernia. 2. Umbilical hernia containing fat. 3. Uterine fibroids. 4. Prominent fat in the inguinal canals that may be hernias. Assessment and Plan Assessment and plan (1) Urinary tract infection: Code(s): N39.0 - Urinary tract infection, site not specified Status: Acute (2) Intractable right lower quadrant abdominal pain: Code(s): R10.31 - Right lower quadrant pain Status: Acute (3) Leiomyoma of body of uterus: Code(s): D25.9 - Leiomyoma of uterus, unspecified Status: Acute (4) Hyperglycemia: Code(s): R73.9 - Hyperglycemia, unspecified Status: Acute (5) Asthma: Code(s): J45.909 - Unspecified asthma, uncomplicated Status: Acute (6) Tobacco dependence: Code(s): F17.200 - Nicotine dependence, unspecified, uncomplicated Status: Acute Plan The patient presented to the emergency department for evaluation of sudden onset right lower quadrant pain at about 02:00 as detailed in HPI. Labs, imaging, EKG, and all reports were personally reviewed. She does have evidence of urinary tract infection and reports dysuria and she has been started on ceftriaxone, pending urine culture. CT of the abdomen and pelvis did not show any acute pathology to correlate with her pain. It seems unlikely that she would be having this severe pain with a urinary tract infection along and there were no reports of cystitis on imaging. According to the ED physician, there was moderate vaginal discharge with pooling and mild discomfort with bimanual exam, most notably in the right adnexal region. It is possible that she had an ovarian cyst which ruptured. Doubt related to fibroids. She denies history of endometriosis. Chlamydia, gonorrhea, and Trichomonas were all negative. Analgesics and antiemetics are available as needed. Check fasting glucose and hemoglobin A1c given elevated random glucose. No acute issues with regards asthma. Smoking cessation is encouraged. She declines the need for nicotine patch. Her home medi cations will be reviewed and resumed as appropriate. Findings and treatment plan were discussed with the patient. Questions were solicited and answered to satisfaction. The patient's medical management will be taken over by the hospitalist team in a.m. Quality VTE Prophylaxis VTE prophylaxis: mechanical ordered The patient has been admitted under observation status. Hospitalist MIPS Advance Care Plan I have confirmed that the patient's Advanced Care Plan is present, code status is documented, or surrogate decision maker is listed in patient medical record.: Yes Medication Reconciliation I have utilized all available resources to obtain, update and review the patients current medications (includes all prescriptions, OTC, herbals, cannabis, and nutritional supplements).: Yes
--- NOTE | 2024-07-05 16:57 | ADMGEN ---
This patient, Eliana Diaz, was admitted to 3 [facility] Surg Room 319-01. Patient/family oriented to hospital policies and general routines including ID bracelet, bed and alarms, visiting hours, pain management, procedures, bathroom and other care routines, personal items, smoking policy, room service/diet, and visiting hours. Information on how to activate the Rapid Response Team has been discussed. Patient/Family are encouraged to report perceived risks to care and to ask questions if they do not understand what they are told or what they should do.
--- NOTE | 2024-07-05 17:17 | ADMGEN ---
This patient, Eliana Diaz, was admitted to 3 [facility] Surg Room 319-01. Patient/family oriented to hospital policies and general routines including ID bracelet, bed and alarms, visiting hours, pain management, procedures, bathroom and other care routines, personal items, smoking policy, room service/diet, and visiting hours. Information on how to activate the Rapid Response Team has been discussed. Patient/Family are encouraged to report perceived risks to care and to ask questions if they do not understand what they are told or what they should do.
[2024-07-05 17:24] LABS: Lactic Acid Reflex 2.8 mmol/L (0.7-2.0)
[2024-07-05 19:10] LABS: Reflex Lactic Acid Yes or No Add Lactic
[2024-07-05] MEDS: HYDROcodone/acetaminophen (*CRX) 5-325 MG TABLET 1 TAB PO (23:36)
[2024-07-05] MEDS: SODIUM CHLORIDE 0.9% IV 1,000 ML 100 ML IV CONT (23:39)
[2024-07-06] MEDS: HYDROmorphone HCL INJ (*CRX) 1 MG/ML SYR 0.5 MG IV PUSH (04:56)
[2024-07-06 05:27] VITALS: BP 103/63; PULSE 70; RESP 16; TEMP 36.6; O2SAT 94
[2024-07-06 06:24] LABS: Basophils Absolute Auto 0.1 K/mm3 (0.0-0.1); Eosinophils Absolute Auto 0.3 K/mm3 (0-0.3); Eosinophils Percent Auto 5.1 % (0-4.4); Hemoglobin 13.3 g/dL (12.0-15.0); Immature Granulocyte Absolute 0.01 K/mm3 (0.00-0.031); Immature Granulocyte Percent A 0.2 % (0-0.5); Lymphocytes Absolute Auto 2.13 K/mm3 (0.9-3.2); Lymphocytes Percent Auto 42.1 % (18.3-44.2); Mean Corpuscular HGB Conc 32.4 g/dl (32-36); Mean Corpuscular Volume 92.6 fl (80-100); Mean Platelet Volume 8.7 fl (7.4-10.4); Monocytes Absolute Auto 0.6 K/mm3 (0.1-0.6); Monocytes Percent Auto 11.9 % (2.6-8.5); Neutrophils Percent Auto 39.7 % (45.5-73.1); Platelet Count Result 249 k/mm3 (150-375); Red Blood Count 4.43 M/mm3 (4.2-5.4); Red Cell Distribution Width 12.1 % (11.5-14.5); White Blood Count 5.1 K/mm3 (4.5-10.0)
[2024-07-06 06:50] LABS: Alanine Aminotransferase 17 U/L (6-35); Albumin Level 3.3 g/dL (3.5-5.1); Alkaline Phosphatase 84 U/L (38-126); Anion Gap 5 mmol/L (4-12); Aspartate Amino Transferase 18 U/L (14-36); Bilirubin,Total 0.3 mg/dL (0.2-1.3); Blood Urea Nitrogen 13 mg/dL (7-17); Calcium 8.3 mg/dL (8.4-10.2); Carbon Dioxide 24 mmol/L (22-30); Chloride 106 mmol/L (98-107); Estimated CRCL calculation 139 ml/min; Estimated Glomerular Filt Rate > 60; Glucose 108 mg/dL (65-110); Magnesium 1.8 mg/dL (1.6-2.3); Potassium 4.2 mmol/L (3.4-5.0); Sodium 135 mmol/L (137-145)
--- NOTE | 2024-07-06 08:08 | WPDCN ---
Assessment and Plan Assessment and plan (1) Abdominal pain, right lower quadrant: Code(s): R10.31 - Right lower quadrant pain Status: Acute Assessment and Plan: - sudden onset RLQ pain starting 0200 on 07/05 - denies associated symptoms, no known inciting events - no hx of similar events - VSS, afebrile since admission - pelvic US demonstrated fibroid uterus, normal left ovary, right ovary not visualized - CT scan AP demonstrated normal ovaries bilaterally - in office US from 06/16/24 reviewed due to discrepancy in right ovary visualization; on recent office US, R ovary lies very close to the uterus, no large ovarian cysts seen at that time; consistent with current imaging - low suspicion for ovarian torsion given imaging appearance - ddx: ovarian cyst rupture vs degenerating fibroid pain vs inflammation 2/2 UTI - pain improved overnight on pain medications - exam benign with mild RLQ tenderness this AM - no indication for surgical management at this point - will transition to oral pain medications only; patient desires discharge home if pain well controlled with PO meds - will follow up in the office for surgical pre op appointment or if pain worsens HPI Data of Consult Date/Time: 07/06/24 08:08 Requesting Physician: Khoa Schofield MD Primary Care Provider: [employer] Consult Narrative Narrative: Eliana Diaz is a 44 year old female with a known hx of uterine fibroids who presents for sudden onset RLQ pain. She reports the pain woke her from sleeping at 0200 on 07/05. She denies inciting events, no change in activity prior to pain starting. She denies vaginal bleeding, nausea, diarrhea, fevers or chills associated with the pain. She denies hx of similar events. She is currently scheduled for TLH-BSO with Dr. Fry due to hx of menorrhagia with fibroids, however she denies hx of pelvic pain associated with those symptoms. LMP early June. Review of Systems Review of Systems: All systems reviewed & are unremarkable except as noted in HPI and below PMFSH Past Medical History Medical History Tobacco dependence Leiomyoma of body of uterus Asthma Surgical History Surgical History History of arthroscopy of shoulder History of endometrial ablation History of tubal ligation History of cholecystectomy Social History Social History Social History: Surrogate medical decision maker: Emmanuelle Diaz, daughter. Code status: Full code. Smoking status: Current every day smoker Tobacco type: cigarettes Alcohol intake: unknown Substance use: unknown Do You Feel Safe in your Home?: Yes Lack of Transportation: No Lack of Food: Never True Current Housing: I Have Housing Concerned About Future Housing: No Difficulty Paying Gas/Electric Bills: No Difficulty Paying for Meds: No Currently Unemployed: No Education: Decline to Answer Difficulty w/ Childcare or Family Care: No Spiritual care concerns: No Meds Home Medications and Allergies Home Medications ?Medication ?Instructions ?Recorded ?Confirmed ?Type ipratropium bromide 17 2 puff inhalation Q8H PRN 09/01/23 07/05/24 Rx mcg/actuation HFA aerosol inhaler shortness of breath or wheezing (Atrovent HFA) #12.9 grams albuterol sulfate 90 mcg/actuation 1 inh inhalation QID PRN shortness 12/08/23 07/05/24 Rx aerosol inhaler of breath or wheezing #6.7 grams albuterol sulfate 90 mcg/actuation 2 puff inhalation QID PRN 03/21/24 07/05/24 Rx aerosol inhaler shortness of breath or wheezing #6.7 grams Allergies Allergy/AdvReac Type Severity Reaction Status Date / Time cefdinir Allergy Nausea and Verified 07/05/24 06:28 Vomiting Vital Signs Vital Signs - 24 hr 07/05/24 10:10 07/05/24 10:15 07/05/24 10:30 Temperature Pulse Rate Respiratory Rate Blood Pressure Pulse Oximetry 100 95 95 Oxygen Delivery 07/05/24 10:32 07/05/24 10:45 07/05/24 11:09 Temperature Pulse Rate Respiratory Rate Blood Pressure 150/88 H Pulse Oximetry 95 100 96 Oxygen Delivery 07/05/24 11:15 07/05/24 11:30 07/05/24 11:32 Temperature Pulse Rate Respiratory Rate Blood Pressure 150/58 H Pulse Oximetry 97 95 93 Oxygen Delivery 07/05/24 15:25 07/05/24 16:25 07/05/24 16:45 Temperature 97.7 F 97.5 F L Pulse Rate 76 77 Respiratory Rate 16 18 Blood Pressure 132/73 130/82 Pulse Oximetry 99 100 Oxygen Delivery Room Air 07/05/24 20:00 07/05/24 21:52 07/06/24 05:27 Temperature 98.0 F 97.8 F Pulse Rate 66 66 70 Respiratory Rate 16 16 16 Blood Pressure 114/62 103/63 Pulse Oximetry 98 98 94 Oxygen Delivery Room Air Exam Const: General: comfortable and no acute distress HENMT: Mouth: Yes moist mucous membranes Resp: Effort & Inspection: normal respiratory effort GI: Inspection: non-distended GI Palp: Yes Soft to palpation, Yes Tenderness to palpation present (GI) (RLQ) and No Guarding due to palpation present (GI) Skin: General skin exam: normal color Extrem: General: normal to inspection Psych: Mental Status: mental status grossly normal Results Labs 07/06/24 06:13 07/06/24 06:13 Labs: Short CBC 07/06/24 Range/Units 06:13 WBC 5.1 (4.5-10.0) K/mm3 Hgb 13.3 (12.0-15.0) g/dL Hct 41.0 (37.0-47.0) % Plt Count 249 (150-375) k/mm3 BMP 07/06/24 06:13 Sodium 135 L Potassium 4.2 Chloride 106 Carbon Dioxide 24 BUN 13 Creatinine 0.49 L Glucose 108 Calcium 8.3 L Liver Function 07/06/24 Range/Units 06:13 Total Bilirubin 0.3 (0.2-1.3) mg/dL AST 18 (14-36) U/L ALT 17 (6-35) U/L Alkaline Phosphatase 84 (38-126) U/L Albumin 3.3 L (3.5-5.1) g/dL
[2024-07-06] MEDS: HYDROcodone/acetaminophen (*CRX) 5-325 MG TABLET 1 TAB PO (08:09)
--- NOTE | 2024-07-06 09:34 | PM.IMPN ---
Progress Note: A&P Assessment and Plan (1) Urinary tract infection: Code(s): N39.0 - Urinary tract infection, site not specified Status: Acute (2) Intractable right lower quadrant abdominal pain: Code(s): R10.31 - Right lower quadrant pain Status: Acute (3) Leiomyoma of body of uterus: Code(s): D25.9 - Leiomyoma of uterus, unspecified Status: Acute (4) Hyperglycemia: Code(s): R73.9 - Hyperglycemia, unspecified Status: Acute (5) Asthma: Code(s): J45.909 - Unspecified asthma, uncomplicated Status: Acute (6) Tobacco dependence: Code(s): F17.200 - Nicotine dependence, unspecified, uncomplicated Status: Acute Plan Right lower quadrant pain -Possible UTI vs ovarian cyst rupture vs ovarian torsion vs fibroids -CT abdomen pelvis:1. Small sliding hiatal hernia. 2. Umbilical hernia containing fat. 3. Uterine fibroids. 4. Prominent fat in the inguinal canals that may be hernias. -Transvaginal ultrasound:1. Right ovary not visualized. 2. Uterine fibroid. -as per Ob: in office US from 06/16/24 reviewed due to discrepancy in right ovary visualization; on recent office US, R ovary lies very close to the uterus, no large ovarian cysts seen at that time; consistent with current imaging -low suspicious for ovarian torsion -Ob evaluated the patient ,no surgical intervention. -currently on ceftriaxone -scheduled as OP for TLH-BSO with Dr. Fry due to hx of menorrhagia with fibroids -negative for chlamydia, gonorrhea, and Trichomonas Subjective Date/time seen: 07/06/24 09:34 Interval history: Interval history: 44-year-old female smoker with history of ovarian cysts, leiomyoma, urinary tract infection, and asthma who presented to the emergency department via EMS for evaluation of abdominal pain. Scheduled for a hysterectomy next month as she has recently started to bleed again following an endometrial ablation many years ago and she was found to have multiple fibroids. Ob evaluated the patient no surgical intervention. Pending urine culture and patient wants to leave AMA Review of Systems Review of Systems: 12 systems were reviewed and are negative except for as per HPI. Exam Narrative: General: Nontoxic-appearing female lying on her left side in bed in no acute distress. She does not appear in any discomfort. Weight: 104 kg. BMI: 39.4. HEENT: PERRL, EOMI. Sclera anicteric. Tacky mucous membranes. Neck: Supple. Respiratory: Lungs are clear to auscultation bilaterally. Cardiovascular: Regular rate and rhythm with S1-S2. Gastrointestinal: Abdomen is soft and nondistended with positive bowel sounds. She is significantly tender to palpation and percussion the right lower quadrant with voluntary guarding but no rebound tenderness. No CVA tenderness. Skin: Warm and dry. Extremities: No cyanosis, clubbing, or edema. Radial and pedal pulses intact. Neurological: Alert. Cranial nerves 2-12 are grossly intact. Delete No gross focal deficits to casual conversation. Psychiatric: Appropriate mood and slightly odd affect. Objective Data Vital Signs Vital Signs: Vital Signs - 24 hr 07/05/24 10:10 07/05/24 10:15 07/05/24 10:30 Temperature Pulse Rate Respiratory Rate Blood Pressure Pulse Oximetry 100 95 95 Oxygen Delivery 07/05/24 10:32 07/05/24 10:45 07/05/24 11:09 Temperature Pulse Rate Respiratory Rate Blood Pressure 150/88 H Pulse Oximetry 95 100 96 Oxygen Delivery 07/05/24 11:15 07/05/24 11:30 07/05/24 11:32 Temperature Pulse Rate Respiratory Rate Blood Pressure 150/58 H Pulse Oximetry 97 95 93 Oxygen Delivery 07/05/24 15:25 07/05/24 16:25 07/05/24 16:45 Temperature 97.7 F 97.5 F L Pulse Rate 76 77 Respiratory Rate 16 18 Blood Pressure 132/73 130/82 Pulse Oximetry 99 100 Oxygen Delivery Room Air 07/05/24 20:00 07/05/24 21:52 07/06/24 05:27 Temperature 98.0 F 97.8 F Pulse Rate 66 66 70 Respiratory Rate 16 16 16 Blood Pressure 114/62 103/63 Pulse Oximetry 98 98 94 Oxygen Delivery Room Air Intake/Output Intake/Output: Intake & Output 07/03/24 07/04/24 07/05/24 07/06/24 23:59 23:59 23:59 23:59 Intake Total 50 0 Output Total 400 350 Balance -350 -350 Meds/Results Medications: Active Medications Generic Name Dose Route Start Last Admin Trade Name Freq PRN Reason Stop Dose Admin Acetaminophen 650 mg 07/05/24 14:48 Acetaminophen 325 Mg Tablet PO Q4H PRN Mild Pain (1-3) or Fever Hydrocodone Bitart/Acetaminophen 1 tab 07/05/24 14:48 07/06/24 08:09 Hydrocodone/Acetaminophen (*Crx) 5-325 Mg Tablet PO 1 tab Q4H PRN Administration Pain Rated 4-6 Albuterol 2 puff 07/05/24 19:24 Albuterol Sulfate (*Sp) Aerosol 1 Puff INHALATION Q6HRT PRN shortness of breath or wheezing Ceftriaxone Sodium 1 gm in 50 mls @ 100 mls/hr 07/06/24 09:00 07/06/24 08:20 Rocephin 1 Gm/Ns 50 Ml IVPB 100 mls/hr Q24H REBECCA Administration Ibuprofen 600 mg 07/06/24 08:18 Ibuprofen 600 Mg Tablet PO Q6H PRN Cramping Ondansetron HCl 4 mg 07/05/24 14:48 07/05/24 17:05 Ondansetron Inj 4 Mg/2 Ml Vial IV PUSH 4 mg Q4H PRN Administration Nausea Radiology Results: ITS Impressions Pelvic/Transvag US 07/05/24 09:04 IMPRESSION: 1. Right ovary not visualized. 2. Uterine fibroid. Abdomen/Pelvis CT 07/05/24 10:11 IMPRESSION: 1. Small sliding hiatal hernia. 2. Umbilical hernia containing fat. 3. Uterine fibroids. 4. Prominent fat in the inguinal canals that may be hernias. Labs Labs: Laboratory Results - last 24 hr 07/05/24 07/05/24 07/05/24 12:05 16:27 19:57 WBC RBC Hgb Hct MCV MCH MCHC RDW Plt Count MPV Immature Gran % (Auto) Neut % (Auto) Lymph % (Auto) [place] % (Auto) Eos % (Auto) Baso % (Auto) Lymph # (Auto) [place] # (Auto) Eos # (Auto) Baso # (Auto) Abs Immat Gran (auto) Absolute Neuts (auto) Absolute Nucleated RBC Nucleated RBC % Sodium Potassium Chloride Carbon Dioxide Anion Gap BUN Creatinine Estim Creat Clear Calc Estimated GFR Glucose Lactic Acid 2.8 H 1.0 Calcium Magnesium Total Bilirubin AST ALT Alkaline Phosphatase Total Protein Albumin C. trachomatis (PCR) Not detected N. gonorrhoeae (PCR) Not detected T. vaginalis (PCR) Not detected 07/06/24 06:13 WBC 5.1 RBC 4.43 Hgb 13.3 Hct 41.0 MCV 92.6 MCH 30.0 MCHC 32.4 RDW 12.1 Plt Count 249 MPV 8.7 Immature Gran % (Auto) 0.2 Neut % (Auto) 39.7 L Lymph % (Auto) 42.1 [place] % (Auto) 11.9 H Eos % (Auto) 5.1 H Baso % (Auto) 1.0 Lymph # (Auto) 2.13 [place] # (Auto) 0.6 Eos # (Auto) 0.3 Baso # (Auto) 0.1 Abs Immat Gran (auto) 0.01 Absolute Neuts (auto) 2.0 Absolute Nucleated RBC 0.000 Nucleated RBC % 0.0 Sodium 135 L Potassium 4.2 Chloride 106 Carbon Dioxide 24 Anion Gap 5 BUN 13 Creatinine 0.49 L Estim Creat Clear Calc 139 Estimated GFR > 60 Glucose 108 Lactic Acid Calcium 8.3 L Magnesium 1.8 Total Bilirubin 0.3 AST 18 ALT 17 Alkaline Phosphatase 84 Total Protein 6.0 L Albumin 3.3 L C. trachomatis (PCR) N. gonorrhoeae (PCR) T. vaginalis (PCR) Quality VTE Prophylaxis VTE prophylaxis: mechanical ordered Hospitalist MIPS Advance Care Plan I have confirmed that the patient's Advanced Care Plan is present, code status is documented, or surrogate decision maker is listed in patient medical record.: Yes Medication Reconciliation I have utilized all available resources to obtain, update and review the patients current medications (includes all prescriptions, OTC, herbals, cannabis, and nutritional supplements).: Yes
[2024-07-06 09:58] VITALS: O2SAT 93
[2024-07-06 14:00] VITALS: BP 108/68; PULSE 68; RESP 16; TEMP 36.4; O2SAT 94
--- NOTE | 2024-07-15 16:55 | PM.DS ---
DS: Admitting Diagnosis Discharge Date 07/06/24 Admitting Diagnosis Abdominal pain. DS: Discharge Diagnosis Discharge Diagnosis (1) Urinary tract infection: Code(s): N39.0 - Urinary tract infection, site not specified Status: Acute (2) Intractable right lower quadrant abdominal pain: Code(s): R10.31 - Right lower quadrant pain Status: Acute (3) Leiomyoma of body of uterus: Code(s): D25.9 - Leiomyoma of uterus, unspecified Status: Acute (4) Hyperglycemia: Code(s): R73.9 - Hyperglycemia, unspecified Status: Acute (5) Asthma: Code(s): J45.909 - Unspecified asthma, uncomplicated Status: Acute (6) Tobacco dependence: Code(s): F17.200 - Nicotine dependence, unspecified, uncomplicated Status: Acute Plan Right lower quadrant pain -Possible UTI vs ovarian cyst rupture vs ovarian torsion vs fibroids -CT abdomen pelvis:1. Small sliding hiatal hernia. 2. Umbilical hernia containing fat. 3. Uterine fibroids. 4. Prominent fat in the inguinal canals that may be hernias. -Transvaginal ultrasound:1. Right ovary not visualized. 2. Uterine fibroid. -as per Ob: in office US from 06/16/24 reviewed due to discrepancy in right ovary visualization; on recent office US, R ovary lies very close to the uterus, no large ovarian cysts seen at that time; consistent with current imaging -low suspicious for ovarian torsion -Ob evaluated the patient ,no surgical intervention. -currently on ceftriaxone -scheduled as OP for TLH-BSO with Dr. Fry due to hx of menorrhagia with fibroids -negative for chlamydia, gonorrhea, and Trichomonas DS: Summary Hospital Course Hospital Course: 44-year-old female smoker with history of ovarian cysts, leiomyoma, urinary tract infection, and asthma who presented to the emergency department via EMS for evaluation of abdominal pain. She reports sudden onset of severe right lower quadrant pain at about 02:00. She has difficulties describing the pain but reports that at times it feels is a burning, tearing, or even sharp pain. The pain does not radiate. It is worse with movement, standing, and even mild palpation. Associated symptoms include sweats and nausea. She has had some dysuria the last several days as well. She has never had similar symptoms. She goes on to say that she is scheduled for a hysterectomy next month as she has recently started to bleed again following an endometrial ablation many years ago and she was found to have multiple fibroids. She denies fever, chills, vomiting, diarrhea, hematuria, pelvic pain, and discharge. In the ED: She was diaphoretic on arrival to triage with a temperature of 98.3?, blood pressure 151/95, pulse 102, respiratory rate 18, SpO2 96% on room air. CMP and CBC were really unremarkable though her random glucose was elevated at 133. Urinalysis was positive for nitrates, trace leukocyte esterase, 6 to 10 RBC, 21 to 50 WBC, and 4+ bacteria though moderate squamous cells were noted on microscopy. She was negative for chlamydia, gonorrhea, and Trichomonas. CT of the abdomen pelvis showed small sliding hiatal hernia, umbilical hernia containing fat, uterine fibroids measuring up to 3.6 cm, and prominent fat in the inguinal canals which may be hernias. Pelvic/transvaginal ultrasound showed a uterine fibroid and unremarkable left ovary; right ovary was not visualized. She was given a dose of ceftriaxone for presumed urinary tract infection and she is being admitted in this setting for pain control and surgery and gynecology consultations due ongoing, severe abdominal pain without clear etiology. I assumed care on 07/06: Interval history: 44-year-old female smoker with history of ovarian cysts, leiomyoma, urinary tract infection, and asthma who presented to the emergency department via EMS for evaluation of abdominal pain. Scheduled for a hysterectomy next month as she has recently started to bleed again following an endometrial ablation many years ago and she was found to have multiple fibroids. Ob evaluated the patient no surgical intervention. Pending urine culture and patient wants to leave AMA Status at Discharge Cognitive/behavioral status at discharge: Guarded Time Spent with Patient Time attestation: Total time spent providing and/or coordinating discharge services: 45 minute Exam Narrative: General: Nontoxic-appearing female lying on her left side in bed in no acute distress. She does not appear in any discomfort. Weight: 104 kg. BMI: 39.4. HEENT: PERRL, EOMI. Sclera anicteric. Tacky mucous membranes. Neck: Supple. Respiratory: Lungs are clear to auscultation bilaterally. Cardiovascular: Regular rate and rhythm with S1-S2. Gastrointestinal: Abdomen is soft and nondistended with positive bowel sounds. She is significantly tender to palpation and percussion the right lower quadrant with voluntary guarding but no rebound tenderness. No CVA tenderness. Skin: Warm and dry. Extremities: No cyanosis, clubbing, or edema. Radial and pedal pulses intact. Neurological: Alert. Cranial nerves 2-12 are grossly intact. Delete No gross focal deficits to casual conversation. Psychiatric: Appropriate mood and slightly odd affect. Discharge Plan Discharge Consulting providers: Agus Gomez; Carlos Egan; Mariama Stone; Bishop,Royce Ribeiro Patient Disposition: Left Against Medical Advice Patient Language: Armenian Discharge Medications: No Action albuterol sulfate 90 mcg/actuation HFA aerosol inhaler 2 puff inhalation QID PRN (Reason: shortness of breath or wheezing) Qty: 6.7 0RF Atrovent HFA 17 mcg/actuation HFA aerosol inhaler 2 puff inhalation Q8H PRN (Reason: shortness of breath or wheezing) Qty: 12.9 0RF albuterol sulfate 90 mcg/actuation HFA aerosol inhaler 1 inh inhalation QID PRN (Reason: shortness of breath or wheezing) Qty: 6.7 0RF Date of admission: 07/05/24 14:48 Primary Care Provider: PHYSICIAN,[employer] Admitting Provider: Khoa Schofield Attending physician on admission: Khoa Schofield Condition: Stable
== END 2024-07-06 14:48 | disposition left against medical advice (07) ==
LOC: ANHED 07:43 → ANH3MEDSUR 15:33
PROVIDERS: Emergency Medicine; Physician Assistant; Admitting Provider General Practice; Emergency Provider Emergency Medicine; Visit Provider General Practice
DX: R10.31 Right lower quadrant pain (principal); N39.0 Urinary tract infection, site not specified; D25.9 Leiomyoma of uterus, unspecified; K44.9 Diaphragmatic hernia without obstruction or gangrene; K42.9 Umbilical hernia without obstruction or gangrene; R73.9 Hyperglycemia, unspecified; J45.909 Unspecified asthma, uncomplicated; F17.210 Nicotine dependence, cigarettes, uncomplicated; Z11.3 Encounter for screening for infections with a predominantly sexual mode of transmission; Z79.51 Long term (current) use of inhaled steroids; Z90.49 Acquired absence of other specified parts of digestive tract; Z98.51 Tubal ligation status
CPT/HCPCS: 36415; 74177; 76830; 76856; 80053; 81001; 81025; 83605; 83690; 83735; 85025; 87086; 87491; 87591; 87661; 96361; 96365; 96375; 96376; 99285; A9270; G0378; J0696; J1171; J2270; J2405; J7030; Q9967

== ENCOUNTER 2024-08-11 14:17 | Outpatient (CLI) | payer MEDICAID, SELFPAY ==
--- OUTSIDE RECORDS SUMMARY | 2024-08-11 14:57 | XMS_ITS | Data Portability ---
Author Organization [facility] CARLAKathie Address [address] [place] [address] Care Team Providers Care Pet Feeder Name Role Phone HOMA JOSHI Primary Care Provider Assessment No assessment recorded. Plan of Treatment Reminders Order Date Submit Date Provider Last Modified By Organization Details Last Modified Time Details Appointments None recorded . Lab CMP, serum or plasma 2021 022 [facility], [address] [place] [address], [facility] [address], [place], [address], 17:09:39 CBC w/ auto diff 2021 022 [facility], [address] [place] [address], [address], [place], [address], 17:09:38 PT/PTT, plasma 2021 022 [facility], [address] [place] [address], [address], [place], [address], 17:09:40 Referral general surgeon referral 2020 021 ace Dominguez MD, [address] [facility], [address], [place], [address], 09:13:39 Procedures None recorded . Surgeries None recorded . Imaging electroc james ureña 2022 023 [facility] ([facility]), [address] [place], [address], 3 15:30:16 US, duplex, venous, lower extremit y, complete 2021 022 [facility] ([facility]), [address] [place], [address], 2 10:17:55 US, doppler, arterial - Lower extremit ies. both sides. 2021 022 [facility] ([facility]), [address] [place], [address], 2 10:18:53 Medication Orders Reglan 10 mg tablet 2020 [facility] #[id number], [address], [id number], 3 15:29:34 Medrol (Rayo) 4 mg tablets in a dose pack 2020 [facility] #[id number], [address], [place], [id number], 3 15:29:00 Zithroma x Z-Rayo 250 mg tablet 2020 [facility] #[id number], [address], [place], [id number], 3 15:28:53 albutero l sulfate HFA 90 mcg/actu ation aerosol inhaler 2020 [facility] #[id number], [address], [place], [id number], 3 15:30:14 benzonat ate 200 mg capsule 2020 021 [id number], [address], [place], [place], [id number], 12:32:25 Patient TargetsNo targets recorded. Patient Instructions Encounter Date Encounter Id Patient Instructions Last Modified By Organization Details Last Modified Time 02/24/2021 [id number] gastroesophageal reflux disease (GERD): care instructions [facility] Not available 02/24/2021 12:54:11 12/04/2022 [id number] Quitting Tobacco : Care Instructions si Not available 12/04/2022 16:19:16 A healthy lifest yle: care instructions [facility] Not available 12/04/2022 16:19:16 chronic obstruct abdiel pulmonary disease (COPD): care instructions [facility] Not available 12/04/2022 16:19:16 learning about c [...] x10e3 /uL 3.4-10 .8 Not Available [facility] ([facility]) [address] [facility] [address] [facility], [place], [address], 07/28/2021 17:09:38 07/23/19 22 07/23/2021 CBC WITH DIFFE RENTI AL/PL ATELE T RBC 4.93 x10e6 /uL 3.77-5 .28 Not Available [facility] ([facility]) [address] [facility] [address], [place], [address], 07/28/2021 17:09:38 07/23/19 22 07/23/2021 CBC WITH DIFFE RENTI AL/PL ATELE T hemoglobin 14.6 g/dL 11.1-1 5.9 Not Available [facility] ([facility]) [address] [facility] [address], [place], [address], 07/28/2021 17:09:38 07/23/19 22 07/23/2021 CBC WITH DIFFE RENTI AL/PL ATELE T hematocrit 43.1 % 34.0-4 6.6 Not Available [facility] ([facility]) [address] [facility] [address], [place], [address], 07/28/2021 17:09:38 07/23/19 22 07/23/2021 CBC WITH DIFFE RENTI AL/PL ATELE T MCV 87 fL 79-97 Not Available [facility] ([facility]) [address] [facility] [address], [place], [address], 07/28/2021 17:09:38 07/23/19 22 07/23/2021 CBC WITH DIFFE RENTI AL/PL ATELE T MCH 29.6 pg 26.6-3 3.0 Not Available [facility] ([facility]) [address] [facility] [address] [facility], [place], [address], 07/28/2021 17:09:38 07/23/19 22 07/23/2021 CBC WITH DIFFE RENTI AL/PL ATELE T MCHC 33.9 g/dL 31.5-3 5.7 Not Available [facility] ([facility]) [address] [facility] [address] [facility], [place], [address], 07/28/2021 17:09:38 07/23/19 22 07/23/2021 CBC WITH DIFFE RENTI AL/PL ATELE T RDW 12.2 % 11.7-1 5.4 Not Available [facility] ([facility]) [address] [facility] [address] [facility], [place], [address], 07/28/2021 17:09:38 07/23/19 22 07/23/2021 CBC WITH DIFFE RENTI AL/PL ATELE T platelets 336 x10e3 /uL 150-45 0 Not Available [facility] ([facility]) [address] [facility] [address] [place], [place], [address], 07/28/2021 17:09:38 07/23/19 22 07/23/2021 CBC WITH DIFFE RENTI AL/PL ATELE T neutrophils 59 % not estab. Not Available [facility] ([facility]) [address] [facility] [address] [facility], [place], [address], 07/28/2021 17:09:38 07/23/19 22 07/23/2021 CBC WITH DIFFE RENTI AL/PL ATELE T lymphs 26 % not estab. Not Available [facility] ([facility]) [address] [facility] [address] [place], [place], [address], 07/28/2021 17:09:38 07/23/19 22 07/23/2021 CBC WITH DIFFE RENTI AL/PL ATELE T monocytes 12 % not estab. Not Available [facility] ([facility]) [address] [facility] [address] [place], [place], [address], 07/28/2021 17:09:38 07/23/19 22 07/23/2021 CBC WITH DIFFE RENTI AL/PL ATELE T eos 2 % not estab. Not Available [facility] ([facility]) [address] [facility] [address] [place], [place], [address], 07/28/2021 17:09:38 07/23/19 22 07/23/2021 CBC WITH DIFFE RENTI AL/PL ATELE T basos 1 % not estab. 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 0 Not Available [facility] ([facility]) [address] [place], [address], 07/28/2021 17:09:38 07/23/19 22 07/23/2021 CBC WITH DIFFE RENTI AL/PL ATELE T lymphs (absolute) 1.9 x10e3 /uL 0.7-3. 1 Not Available [facility] ([facility]) [address] [place], [address], 07/28/2021 17:09:38 07/23/19 22 07/23/2021 CBC WITH DIFFE RENTI AL/PL ATELE T monocytes(ab solute) 0.9 x10e3 /uL 0.1-0. 9 Not Available [facility] ([facility]) [address] [place], [address], 07/28/2021 17:09:38 07/23/19 22 07/23/2021 CBC WITH DIFFE RENTI AL/PL ATELE T eos (absolute) 0.2 x10e3 /uL 0.0-0. 4 Not Available [facility] ([facility]) [address] [place], [address], 07/28/2021 17:09:38 07/23/19 22 07/23/2021 CBC WITH DIFFE RENTI AL/PL ATELE T baso (absolute) 0.1 x10e3 /uL 0.0-0. 2 Not Available [facility] ([facility]) [address] [place], [address], 07/28/2021 17:09:38 07/23/19 22 07/23/2021 CBC WITH DIFFE RENTI AL/PL ATELE T immature granulocytes 0 % not estab. Not Available [facility] ([facility]) [address] [place], [address], 07/28/2021 17:09:38 07/23/19 22 07/23/2021 CBC WITH DIFFE RENTI AL/PL ATELE T immature grans (abs) 0.0 x10e3 /uL 0.0-0. 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 METAB OLIC PANEL (14) glucose 95 mg/dL 65-99 Not Available [facility] ([facility]) [address] [facility] [address] [facility], [place], [address], 07/28/2021 17:09:39 07/23/19 22 07/23/2021 COMP. METAB OLIC PANEL (14) BUN 14 mg/dL 6-24 Not Available [facility] ([facility]) [address] [facility] [address] [facility], [place], [address], 07/28/2021 17:09:39 07/23/19 22 07/23/2021 COMP. METAB OLIC PANEL (14) creatinine 0.71 mg/dL 0.57-1 .00 Not Available [facility] ([facility]) [address] [facility] [address] [facility], [place], [address], 07/28/2021 17:09:39 07/23/19 22 07/23/2021 COMP. METAB OLIC PANEL (14) eGFR 108 mL/mi n/1.7 3 >59 Not Available [facility] ([facility]) [address] [place], [address], 07/28/2021 17:09:39 07/23/19 22 07/23/2021 COMP. METAB OLIC PANEL (14) BUN/creatini ne ratio 20 9-23 Not Available [facility] ([facility]) [address] [facility], [place], [address], 07/28/2021 17:09:39 07/23/19 22 07/23/2021 COMP. METAB OLIC PANEL (14) sodium 138 mmol/ L 134-14 4 Not Available [facility] ([facility]) [address] [facility] [address] [facility], [place], [address], 07/28/2021 17:09:39 07/23/19 22 07/23/2021 COMP. METAB OLIC PANEL (14) potassium 4.9 mmol/ L 3.5-5. 2 Not Available [facility] ([facility]) [address] [facility] [address] [facility], [place], [address], 07/28/2021 17:09:39 07/23/19 22 07/23/2021 COMP. METAB OLIC PANEL (14) chloride 103 mmol/ L 96-106 Not Available [facility] ([facility]) [address] [place], [address], 07/28/2021 17:09:39 07/23/19 22 07/23/2021 COMP. METAB OLIC PANEL (14) carbon dioxide, total 22 mmol/ L 20-29 Not Available [facility] ([facility]) [address] [place], [address], 07/28/2021 17:09:39 07/23/19 22 07/23/2021 COMP. METAB OLIC PANEL (14) calcium 9.6 mg/dL 8.7-10 .2 Not Available [facility] ([facility]) [address] [place], [address], 07/28/2021 17:09:39 07/23/19 22 07/23/2021 COMP. METAB OLIC PANEL (14) protein, total 6.7 g/dL 6.0-8. 5 Not Available [facility] ([facility]) [address] [place], [address], 07/28/2021 17:09:39 07/23/19 22 07/23/2021 COMP. METAB OLIC PANEL (14) albumin 4.4 g/dL 3.8-4. 8 Not Available [facility] ([facility]) [address] [place], [address], 07/28/2021 17:09:39 07/23/19 22 07/23/2021 COMP. METAB OLIC PANEL (14) globulin, total 2.3 g/dL 1.5-4. 5 Not Available [facility] ([facility]) [address] [place], [address], 07/28/2021 17:09:39 07/23/19 22 07/23/2021 COMP. METAB OLIC PANEL (14) A/G ratio 1.9 1.2-2. 2 Not Available [facility] ([facility]) [address] [place], [address], 07/28/2021 17:09:39 07/23/19 22 07/23/2021 COMP. METAB OLIC PANEL (14) bilirubin, total 0.4 mg/dL 0.0-1. 2 Not Available [facility] ([facility]) [address] [place], [address], 07/28/2021 17:09:39 07/23/19 22 07/23/2021 COMP. METAB OLIC PANEL (14) alkaline phosphatase 113 IU/L 44-121 Not Available [facility] ([facility]) [address] [facility] [address] [facility], [place], [address], 07/28/2021 17:09:39 07/23/19 22 07/23/2021 COMP. METAB OLIC PANEL (14) AST (SGOT) 13 IU/L 0-40 Not Available [facility] ([facility]) [address] [facility] [address] [facility], [place], [address], 07/28/2021 17:09:39 07/23/19 22 07/23/2021 COMP. METAB OLIC PANEL (14) ALT (SGPT) 15 IU/L 0-32 Not Available [facility] ([facility]) [address] [facility], [place], [address], 07/28/2021 17:09:39 07/23/19 22 07/28/2021 ABN PTT/A PTT REFLE XIVE PANEL thrombin time 15.7 sec Refer ence Range : 0.0 - 23.0 Not Available [facility] [address] [place], [address], 07/28/2021 17:09:40 07/23/19 22 07/28/2021 ABN PTT/A PTT REFLE XIVE PANEL prothrombin time 10.0 sec Refer ence Range : 18 years and older : 9.1 - 12.0 Not Available [facility] [address] [place], [address], 07/28/2021 17:09:40 07/23/19 22 07/28/2021 ABN PTT/A PTT REFLE XIVE PANEL INR 0.9 ratio Refer ence Range : >1 month : 0.9 - 1.2 Not Available [facility] [address] [place], [address], 07/28/2021 17:09:40 07/23/19 22 07/28/2021 ABN PTT/A [...] 30.2 Not Available [facility] [address] [place], [address], 07/28/2021 17:09:40 07/23/19 22 07/28/2021 ABN PTT/A PTT REFLE XIVE PANEL drvvt screen seconds 39.3 sec Refer ence Range : <= 47.0 Not Available [facility] [address] [place], [address], 07/28/2021 17:09:40 07/23/19 22 07/28/2021 ABN PTT/A PTT REFLE XIVE PANEL drvvt confirm seconds TNP sec Testi ng Not Indic ated Not indic ated Not Available [facility] [address] [place], [address], 07/28/2021 17:09:40 07/23/19 22 07/28/2021 ABN PTT/A PTT REFLE XIVE PANEL drvvt ratio TNP ratio Testi ng Not Indic ated Not indic ated Not Available [facility] [address] [place], [address], 07/28/2021 17:09:40 07/23/19 22 07/28/2021 ABN PTT/A PTT REFLE XIVE PANEL pathologist interpretati on TNP Test not perfo rmed All resul ts are withi n the adult refer ence range and there fore patho logy inter preta tion is not indic ated. Not Available [facility] [address] [place], [address], 07/28/2021 17:09:40 02/02/20 21 12/23/2020 CT, chest , w/o contr ast No observ ation record ed. [address] ([facility]) [address] [place], [address], 02/04/2021 09:40:54 07/23/19 22 03/31/2021 PFT, compl ete No observ ation record ed. [address] [place], [address], 07/25/2021 10:10:49 07/28/19 22 07/25/2021 US, duple x, venou s, lower extre mity, compl ete No observ ation record ed. [facility] ([facility]) [address] [place], [address], 07/29/2021 16:10:14 07/28/19 22 07/26/2021 US, doppl er, arter ial No observ ation record ed. [facility] ([facility]) [address] [place], [address], 07/29/2021 16:10:15 12/10/19 22 12/09/2021 imagi ng/di agnos tic resul t No observ ation record ed. [facility] [address] [place], [address], 12/09/2021 18:51:15 04/05/20 22 04/05/2022 imagi ng/di agnos tic resul t No observ ation record ed. [facility] [address] [place], [address], 04/05/2022 18:28:29 06/12/19 23 06/11/2022 imagi ng/di agnos tic resul t No observ ation record ed. [facility] [address] [place], [address], 06/12/2022 17:41:08 09/12/19 23 09/08/2022 elect verónica valentine am No observ ation record ed. [facility] [address] [place], [address], 09/14/2022 09:54:44 12/06/19 23 12/05/2022 imagi ng/di agnos tic resul t No observ ation record ed. [facility] [address] [place], [address], 12/06/2022 11:20:05 01/14/20 23 01/13/2023 imagi ng/di agnos tic resul t No observ ation record ed. [facility] [address] [place], [address], 01/15/2023 12:48:00 03/21/20 23 03/21/2023 CT, abdom en + pelvi s, w/o contr ast No observ ation record ed. [facility] [address] [place], [address], 03/27/2023 17:00:21 04/15/19 24 04/15/2023 CT, head, w/o contr ast No observ ation record ed. [place] [id number], [place], [address], 04/17/2023 10:22:09 07/25/19 24 07/25/2023 CT, abdom en + pelvi s, w/ contr ast No observ ation record ed. [email or web address] [facility] [address] [place], [address], 08/01/2023 12:21:46 08/17/19 24 08/17/2023 XR, chest No observ ation record ed. [facility] [address] [place], [address], 09/04/2023 12:55:26 Result Notes None recorded. Problems Name Problem SNOMED Code Status Onset Date Resolution Date Notes Provider Name and Address Organization Details Recorded Time Upper respirato ry infection 19165376 Completed 201607/19/2020 Clem devries, S[facility] - [facility] 1 21:46:55 Viral gastritis 525029729 Completed 201607/19/2020 Clem devries, [facility] - [facility] 1 21:46:53 Pain of left heel 32597980455 20542 Completed 201707/19/2020 Clem devries, [facility] - [facility] 1 21:46:33 Body mass index 30+ - obesity 719211424 Active 2017 Not Available [facility] 3 12:00:10 Retractio n of nipple 79976171 Active 2017 Not Available [facility] 3 12:00:10 Bacterial vaginosis 173133091 Active 2017 Not Available [facility] 3 12:00:10 Solitary nodule of lung 413952036 Active 2017 Not Available [facility] 3 12:00:10 Family history of malignant neoplasm of lung 731230660 Active 2017 Not Available [facility] 3 12:00:10 Bereaveme nt 14987075 Completed 201707/19/2020 Clem devries, SERENA - [facility] 1 21:46:17 Asthma 111820509 Active 2019 J45.90 9 Not Available [facility] 3 12:00:10 Depressiv e disorder 16100649 Active Not Available [facility] 3 12:00:10 Migraine 77200931 Active Not Available [facility] 3 12:00:10 Tobacco dependenc e syndrome 40324829 Active Not Available [facility] 3 12:00:10 Obesity 656084761 Completed 07/12/2017 Deborah Zamarripa PA-C Attn: Accounting ,[address] [place], [address] , [place] [facility] 8 11:43:54 Insomnia 307045098 Active Not Available [facility] 3 12:00:10 History of alcoholis m 926506412 Active 2015 Not Available [facility] 3 12:00:10 Hand pain 29924705 Active 2015 Not Available [facility] 3 12:00:10 Pain of shoulder region 53737265 Completed 201607/19/2020 Clem devries [facility] 1 21:46:46 Pain of shoulder region 79248305 Completed 201607/19/2020 Clem devries, [facility] 1 21:46:39 Muscle spasm of cervical muscle of neck 07765387479 4 Completed 201607/19/2020 Clem SetveAnnikanoman devries [facility] 1 21:46:36 Problem Notes None recorded. Procedures Surgical History Date Name Laterality Status Provider Name and Address Organization Details Recorded Time 07/14/19 18 Date of Last Pap Smear completed Devika Capellan MA [facility] 02/07/2019 11:08:58 04/09/19 15 Cholecystectomy completed Clem Annika [facility] 06/03/2018 14:46:57 04/09/19 14 Endometrial Ablation completed Clem Annika [facility] 06/03/2018 14:47:29 04/09/19 13 Tubal Ligation completed Nata Sloan MA [facility] 05/11/2015 11:57:52 Imaging Results Imaging Date Name Status LastModified by Organization Details LastModified Time 12/23/2020 CT, chest, w/o contrast completed [address] ([facility]) [address] [place], [address], 02/04/2021 09:40:54 03/31/2021 PFT, complete completed [address] [place], [address], 07/25/2021 10:10:49 07/25/2021 US, duplex, venous, lower extremity, [email or web address] [address] [place], [address], 07/29/2021 16:10:14 07/26/2021 US, doppler, arterial completed [facility] ([facility]) [address] [place], [address], 07/29/2021 16:10:15 12/09/2021 imaging/diagnostic result completed [facility] [address] [place], [address], 12/09/2021 18:51:15 04/05/2022 imaging/diagnostic result completed [facility] [address] [place], [address], 04/05/2022 18:28:29 06/11/2022 imaging/diagnostic result completed [facility] [address] [place], [address], 06/12/2022 17:41:08 09/08/2022 electrocardiogram completed [facility] [address] [place], [address], 09/14/2022 09:54:44 12/05/2022 imaging/diagnostic result completed [facility] [address] [place], [address], 12/06/2022 11:20:05 01/13/2023 imaging/diagnostic result completed [facility] [address] [place], [address], 01/15/2023 12:48:00 03/21/2023 CT, abdomen + pelvis, w/o contrast completed [facility] [address] [place], [address], 03/27/2023 17:00:21 04/15/2023 CT, head, w/o contrast [place] [address] [place], [address], 04/17/2023 10:22:09 07/25/2023 CT, abdomen + pelvis, w/ contrast completed [email or web address] [facility] [address] [place], [address], 08/01/2023 12:21:46 08/17/2023 XR, chest completed [email or web address] [facility] [address] [place], [address], 09/04/2023 12:55:26 Procedure Notes None recorded. Medical [...] DateTime 01/28/2021 162.56 cm Josefa Clements [place] [facility] 01/28/2021 14:36:31 Date Recorded Body height Body mass index (BMI) Body weight Body temperature Oxygen saturation Oxygen saturation in Arterial blood by Pulse oximetry Heart rate Systolic blood pressure Diastolic blood pressure Provider Name and Address Organization Details Last Updated DateTime 1 162.56 cm 39.5 kg/m2 812012. 68 g 98.1 [degF] 99 % 99 % 91 /min 124 mm[Hg] 90 mm[Hg] Joao Ramírez MA [facility] 1 12:38:24 Date Recorded Body height Body mass index (BMI) Body weight Body temperature Oxygen saturation Oxygen saturation in Arterial blood by Pulse oximetry Heart rate Systolic blood pressure Diastolic blood pressure Provider Name and Address Organization Details Last Updated DateTime 2 162.56 cm 38.4 kg/m2 145406. 69 g 98.7 [degF] 97 % 97 % 94 /min 110 mm[Hg] 78 mm[Hg] Devika Capellan MA [facility] 2 12:15:28 Date Recorded Body height Body mass index (BMI) Body weight Oxygen saturation Oxygen saturation in Arterial blood by Pulse oximetry Heart rate Systolic blood pressure Diastolic blood pressure Provider Name and Address Organization Details Last Updated DateTime 3 162.56 cm 37.4 kg/m2 32653.5 7 g 97 % 97 % 94 /min 118 mm[Hg] 81 mm[Hg] Josefa Whelan MA [facility] 3 15:36:39 Date Recorded Body height Body mass index (BMI) Body weight Heart rate Oxygen saturation Oxygen saturation in Arterial blood by Pulse oximetry Systolic blood pressure Diastolic blood pressure Provider Name and Address Organization Details Last Updated DateTime 3 162.56 cm 37.6 kg/m2 32916.7 3 g 91 /min 97 % 97 % 132 mm[Hg] 80 mm[Hg] Cecile Fernando MA [place] [facility] 3 12:44:58 Social History Question Answer Notes LastModified by Organizat ion Details LastModified Time Tobacco Smoking Status Current Every Day Smoker JUVE Baugh, [place] - [facility] 05/11/2015 11:57:52 Do You Have An Advance Directive? No [email or web address] Information not available 05/11/2015 What Is Your Level Of Alcohol Consumption? Occasional [email or web address] Information not available 05/11/2015 Is Blood Transfusion Acceptable In An Emergency? Yes Information not available 07/20/2020 What Is Your Level Of Caffeine Consumption? Occasional Information not available 07/20/2020 How Much Tobacco Do You Chew? None [email or web address] Information not available 05/11/2015 Are You Currently Employed? No Information not available 05/11/2015 What Type Of Diet Are You Following? REGULAR [email or web address] Information not available 05/11/2015 Which Illicit Or Recreational Drugs Have You Used? 0 [email or web address] Information not available 05/11/2015 Do You Or Have You Ever Used E-cigarettes Or Vape? Never Used Electronic Cigarettes Information not available 02/24/2019 Education 11 Information no t available 05/11/2015 What Is The Highest Grade Or Level Of School You Have Completed Or The Highest Degree You Have Received? 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 No [email or web address] Information not available 05/11/2015 Hard Of Hearing Or Deaf In One Or Both Ears? No [email or web address] Information not available 05/11/2015 Legally Blind In One Or Both Eyes? No [email or web address] Information not available 05/11/2015 Live Alone Or With Others? With Others [email or web address] Information not available 05/11/2015 What Was The Date Of Your Most Recent Tobacco Screening? 12/04/2022 Information not available 12/04/2022 How Many Children Do You Have? 3 [email or web address] Information not available 05/11/2015 What Is Your Current Pack Years? 20-29packyears Information not available 07/20/2020 Do You Use Protection During Sex? Always [email or web address] Information not available 05/11/2015 What Is Your Relationship Status? Single Information not available 07/20/2020 Do You Use Your Seat Belt Or Car Seat Routinely? Yes Information not available 07/20/2020 Seat Belts Used Routinely Yes [email or web address] Information not available 05/11/2015 Are You Sexually Active? Yes [email or web address] Information not available 05/11/2015 Smoke Alarm In Home Yes [email or web address] Information not available 05/11/2015 Do You Have Smoke And Carbon Monoxide Detectors In Your Home? Yes Information not available 07/20/2020 At What Age Did You Start Smoking Tobacco? 13 [email or web address] Information not available 05/11/2015 Are You Passively Exposed To Smoke? No [email or web address] Information not available 05/11/2015 Do You Or [...] you able to care for yourself? Yes [email or web address] Information n ot available 05/11/2015 What is your exercise level? None Information not available 05/11/2015 Mental Status None recorded. Family History Relationship Description Onset Age of this Age Resolved Age Notes LastModified by Organization Details LastModified Time Mother Harmful pattern of use of alcohol [email or web address] Not available 2015 11:29:05 Mother Depressive disorder [email or web address] Not available 2015 11:29:05 Mother Malignant neoplasm of ovary dskaer Not available 2015 11:29:05 Mother Malignant neoplasm of lung 61 61 eewig Not available [...] Not available 2015 11:29:05 Maternal Grandmother Malignant neoplasm of lung eewig Not available 2015 10:09:37 Medical History Condition Response Other N High Blood Pressure N Breast Cancer N Thyroid Problems N Kidney or Bladder Problems Y GI Problems Y Depression Y Blood Clots Y Lung Disease Y Acne N Eating Disorder N Breast [...] PF 9 cancelled patient objection Not Available [facility] 04/26/2019 02:38:47 Past Encounters Encounter ID Performer Location Encounter Start Date Encounter Closed Date Diagnosis/Indication Diagnosis SNOMED-CT Code Diagnosis ICD10 Code Diagnosis Note [id number] MD Leopoldo Obando (Adult Med) [address] [place] [address] 06734-321 0 05/11/2015 11:22:56 05/11/2015 12:40:48 Migraine 03817215 G43.909 Wants to try paxil 10mg QD first If this does not work, will initiate topamax In addition, she drinks 5 cans soda/day (Dr. Garsia) and sweet tea she has no interest in quitting soda History of attempted suicide 252775817 Z91.5 She was hospitaliz ed at [facility] 7 months ago - states that she is better now but now all she wants to do is leave Advised that if she has SI/HI ideations to go directly to the ED Depressive disorder 8470 8878 F32.9 The biggest thing right now is all she wants to do is drink but her 3 children (the 2YO more than anything) is the reason that she does not drink Tobacco de pendence syndrome 21220467 F17.290 She states that smoking has kept her away from alcohol and at this point she has no interest in quitting smoking Obesity 208920396 E66.9 We discussed not drinking her calories [...] has no interest in changing her ways [id number] MD Leopoldo Rivera (Adult Med) [address] [place] [address] 06/01/2015 11:09:55 06/01/2015 12:00:14 Tobacco dependence syndrome 34971018 F17.290 She states that smoking has kept her away from alcohol and at this point she has no interest in quitting smoking History of alcoholism 16 3057570 F10.21 Depressive disorder 3623 3557 F32.9 The biggest thing right now is all she wants to do is drink but her 3 children (the 2YO more than anything) is the reason that she does not drink Discussed that it is not likely her medication causing all of her issues but her circumstan zack at home She has an appointmen t with counseling on 07/04 Insomnia 424721009 G47.0 0 Will try trazodone 50mg QPM [id number] MD Leopoldo Rivera (Adult Med) [address] [place] [id number] 0 02/24/2016 09:34:02 02/24/2016 12:25:29 Hand pain 27123139 M79.641 right hand pain and tingling - positive tinnel's and positive phalen's - likely dx of carpal tunnel syndromeAd vised to continue to wear her brace because it is helping with her hand pain and tinglingWi ll begin with right hand EMGAdvised ibuprofen PRNWill likely refer to ortho when EMG results are received Obesity 401780289 E66.9 Advised 30 minutes of exercise 5 days/week Advised to not drink her calories and to especially stay away from soda Advised 3 balanced meals/day with plenty of fruits and vegetables Depressive disorder 3543 9007 F32.9 Her mother 2 months agoShe is going to go through [facility] for counseling because she wants her kids in the counseling States that she has not been drinking at all and her boyfriend stopped drinking - states that they maybe go out once every 3 months Tobacco de pendence syndrome 11955668 F17.290 Advise to quitNo ready to quit yet even though she knows that her mother and grandmothe r of lung cancer History of alcoholism 16 4082840 F10.21 States that she has not been drinking at all and her boyfriend stopped drinking - states that they maybe go out once every 3 months [id number] MD Leopoldo Rivera (Adult Med) [address] [place] [address]68[address] 0 03/09/2016 16:01:18 03/09/2016 18:08:02 Hand pain 00077572 M79.641 EMG negative Pain radia ting to right arm 523846473 M79.601 Patient of right hand is now radiating up and down right arm from the neck/shoul oneal to her 2-4 digits of her right handWill no proceed with cervical MRI Advised that purchasing medication s on the streets or taking anyone else's prescribed medication s is illegalDis cussed that no pain medication would be prescribed until there is evidence from imaging [id number] MD Leopoldo Rivera (Adult Med) [address] [place] [id number] 0 04/13/2016 15:17:19 04/13/2016 18:16:18 Hand pain 06794653 M79.641 EMG negative - states that today her right hand and wrist are fineTaking ibuprofenT aking tramadol for someone else - advised that this is illegalWil l retry to send through neck MRIWIll refer to PT for hand pain Tobacco de pendence syndrome 41668314 F17.290 Advise to quitNo ready to quit yet even though she knows that her mother and grandmothe r of lung cancer Pain of [facility] 01668396 M25.511 Patient has had new onset right shoulder pain x a few weeks - will refer to PT for this Dysuria 44607547 R30.0 [id number] MD Leopoldo Espinoza (Adult Med) [address] [place] [id number] 0 03/13/2017 10:27:44 03/13/2017 12:25:02 Upper respiratory infection 05772069 J06.9 Advised to drink plenty of waterAlter rosetta ibuprofen and tylenol for painRestOT C cough syrup PRN Advised at this time the abx still have 5 days to work because she took them for 5 daysAdvise d if no improvemen t in 5 days to contact clinic or go to the ER Allergic disposition 609 728024 Z91.09 [id number] MD Leopoldo Espinoza (Adult Med) [address] [place] [address] 94065-785 0 03/28/2017 12:08:38 03/28/2017 13:55:06 Viral gastritis 285250927 A08.39 Advised to drink plenty of fluids and a bland dietAltern ate ibuprofen and tylenol for painRest - patient given note to return to work in 3 days [id number] MD Leopoldo Espinoza (Adult Med) [address] [place] [address] [phone] 0 04/17/2017 11:02:08 04/17/2017 11:59:48 Tobacco dependence syndrome 37807794 F17.290 Advise to quitNo ready to quit yet even though she knows that her mother and grandmothe r of lung cancer Upper resp iratory infection 31011169 J06.9 Advised to drink plenty of waterAlter rosetta ibuprofen and tylenol for painRestOT C cough syrup PRN Advised if no improvemen t in 5 days to contact clinic or go to the ER [id number] MD Leopoldo Espinoza (Adult Med) [address] [place] [address] 26905[address] 0 07/12/2017 09:48:22 07/12/2017 12:24:44 Pain of left heel 2939499975 543585 M79.672 Due to the tenderness in the [...] good tennis shoes. Tobacco de pendence syndrome 37893183 F17.290 Advise to quitNo ready to quit yet even though she knows that her mother and grandmothe r of lung cancer Body mass index 30+ - obesity 709180793 Z68.39 Advised 30 minutes of exercise 5 days/week Advised to not drink her calories Advised 3 balanced meals/day with plenty of fruits and vegetables [id number] MD Leopoldo Espinoza (DIRECTOR ZONE) [address] [place] [address] [phone] 0 07/13/2017 10:37:34 07/13/2017 12:22:33 Gynecologic examination 50998193 Z01.411 Milky nipp le discharge 072258009 N64.52 WIll check labs and mammogram Retraction of nipple 318 90669 N64.53 Bilateral nipples as seen on exam - patient states she cannot remember if this is new or not but doesn't notice anything different with her breasts - will check mammogram Body mass index 30+ - obesity 020080987 Z68.39 Advised 30 minutes of exercise 5 days/week Advised to not drink her calories Advised 3 balanced meals/day with plenty of fruits and vegetables Tobacco de pendence syndrome 16620383 F17.290 Advise to quitNo ready to quit yet even though she knows that her mother and grandmothe r of lung cancer [id number] MD Leopoldo Espinoza (Adult Med) [address] [place] [address] 34297-587 0 10/31/2017 09:49:11 10/31/2017 10:23:44 Solitary nodule of lung 385867770 R91.1 8.3mm right upper lobe non-calcif ied nodule - will refer to pul Tobacco de pendence syndrome 19358970 F17.290 Advise to quit Acute asthma 517255497 J 45.901 really encouraged to quit smokingdoe s not have a nebulizer at home but was given medication for nebulizer at hospital - will prescribe machine Generalize d anxiety disorder 26572919 F41.1 c/w hydroxyzin e QID PRN for anxiety Family his tory of malignant neoplasm of lung 770622029 Z80.1 [id number] FREDDY JIMENEZ, [employer] OFFICER-C Leopoldo (Adult Med) [address] [place] [address] 06084-311 0 12/21/2017 11:43:16 12/25/2017 13:25:25 Tobacco dependence syndrome 39357771 F17.200 failed nicotine patchessta rt wellbutrin BIDf/u 3 mos Mild inter mittent asthma 920847985 J45.20 start qvar daily-stre ssed compliance use ventolin/n ebulizer PRN onlystart loratadine dailypulmo nology referral for PFTs and further management f/u 3 mos and prn [id number] MD Leopoldo Espinoza (Adult Med) [address] [place] [address] 07971-324 0 01/29/2018 10:59:43 01/29/2018 11:47:15 Mild intermittent asthma 180589247 J45.20 Increased Qvar to 80mcg 2 puffs BIDc/w other asthma meds Long discussion with patient, and she agrees, that panic attacks/st ress are possibly brining on her asthma attacks Advised to keep appointmen t with pulm Any SOB, CP, SHAW contact clinic or go to the ER Fatigue 98249854 R53.83 Anxiety 43245764 F41.9 Advised to schedule with counseling Advised any SI/HI to go directly to the ER Given number to Suicide Hotline and advised to contact if needed Bereavement 01395539 Z63 .4 Advised to schedule with counseling Advised any SI/HI to go directly to the ERGiven number to Suicide Hotline [id number] MD Leopoldo Valenzuela (DIRECTOR ZONE) [address] [place] [address] [id number] 0 06/03/2018 14:15:03 06/03/2018 16:09:54 History of endometrial ablation 3121669037 42952 Z98.890 History of sterilization 3992516198 9106 Z90.79 Obesity 975217578 E66.9 History of alcoholism 16 6958484 F10.21 Abnormal u terine bleeding 9073942153 9100 N93.9 Post-ablat ion sporadic bleeding. Family tony nning surveillance 403156443 Z30.09 Screening mammography 24 992336 Z12.31 Exposure t o sexually transmissible disorder 063446406 Z20.2 [id number] MD Leopoldo Pham (Adult Med) [address] [place] [address] [id number] 0 09/13/2018 15:51:05 09/13/2018 16:20:43 Contusion of multiple sites 479158191 T07.XXXA Go to ER any time for any concern, she agreed. [id number] MD Leopoldo Pham (Adult Med) [address] [place] [address] 80859-833 0 10/15/2018 15:54:23 10/15/2018 16:39:42 Pain of right shoulder joint 3907619936 8722089 M25.511 Will see a orthopedic . Pain of ri ght hip joint 8405793210 63841 M25.551 Will have test , imaGING. [id number] MD Leopoldo Pham (Adult Med) [address] [place] [address] 23824-840 0 01/15/2019 10:23:22 01/16/2019 09:39:33 Pain of right shoulder joint 6910316516 9284381 M25.511 Will see a orthopedic . Pain of ri ght hip joint 1936154619 03122 M25.551 Will have test , imaGING. No CAT scan report of right hip available . [id number] MD Leopoldo Valenzuela (DIRECTOR ZONE) [address] [place] [address] 98201-464 0 02/03/2019 09:56:37 02/05/2019 22:00:08 Uterine leiomyoma 29943657 D25.9 [id number] MD Leopoldo Valenzuela (DIRECTOR ZONE) [address] [place] [address] 19434-647 0 02/07/2019 10:51:51 02/10/2019 10:14:58 Depot contraceptive-no problem 284216828 Z30.135 [id number] MD Leopoldo Pham (Adult Med) [address] [place] [address] 81506-921 0 02/12/2019 12:49:23 02/13/2019 09:10:47 Pain of right shoulder joint 9685904841 3950440 M25.511 Will see a orthopedic . 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 [id number] MD Leopoldo Valenzuela (DIRECTOR ZONE) [address] [place] [address] 81406-095 0 02/24/2019 12:00:50 02/25/2019 14:11:57 Administration of influenza vaccine 85565087 Z23 Pelvic mass 45035289 R19 .[facility] 778669754 Z91.89 ELIJAH 1.36 suggestive of increased risk of ovarian cancer in pre-menopa usal patient [id number] MD Leopoldo Pham (Adult Med) [address] [place] [address] 53429-456 0 08/22/2019 08:39:01 08/25/2019 13:44:45 Recurrent deep vein thrombosis 486851014 I82.509 Right leg, go to ER, she agreed, ER , [facility] physician [phone] Joshi, they expecting her to arrival. Asthma 511344511 J45.90 9 wanting refills. [id number] MD Leopoldo Pham (Adult Med) [address] [place] [address] 58197-626 0 05/04/2020 08:25:27 05/05/2020 11:36:10 Urinary tract infectious disease 02072487 N39.0 Willing to try another different antibiotic s, since she still has fever. Asthma 552694251 J45.90 9 wanting refills. Acid reflux 265571529 K2 1.9 Discussed with patient, will try pantoprazo le, her reflux some times ttriggered asthmatic attack. Hypovolemia 102359717 E8 6.1 Encourged her to drink more liquid, she agreed to try. [id number] MD Leopoldo Valenzuela (DIRECTOR ZONE) [address] [place] [address] 21307-169 0 07/20/2020 12:39:59 07/22/2020 11:48:44 History of alcoholism 024073492 F10.21 Recurrent deep vein thrombosis 338727065 I82.509 Body mass index 30+ - obesity 162981205 Z68.41 Depressive disorder 3548 9007 F32.9 Tobacco de pendence syndrome 61984886 F17.200 Nonpuerper al abscess of left breast 7044759649 3852098 N61.1 Family tony nning surveillance 458518105 Z30.09 history of sterilizat ion [id number] MD Leopoldo Pham (Adult Med) [address] [place] [address] 39354-990 0 11/26/2020 13:36:33 12/02/2020 10:24:48 Swelling of lower leg 173394711 R22.40 Right leg, will do venous duplex to R /O Acute DVT then determine the necessity of anticoagul ant therapy, she agreed. [id number] MD Leopoldo Pham (Adult Med) [address] [place] [address] 19702-476 0 01/28/2021 13:00:56 02/02/2021 13:35:11 Acute exacerbation of chronic obstructive pulmonary disease 738524956 J44.1 Discussed with patient, will order following med. Go to ER any time for any concern , she agreed. [id number] Homa Joshi MD [facility] (Adult Med) [address] [place] [address] 18595-255 0 02/24/2021 12:14:37 02/25/2021 13:26:53 Hiatal hernia 39317722 K44.9 Will refer to surgeon for evaluation , she agreed. Gastroesop hageal reflux disease 821394564 K21.00 Will add reglan to facilitate normal peristalsi s. 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 tests. Normal PE. [id number] MD Leopoldo Pham (Adult Med) [address] [place] [address] 45967-068 0 12/04/2022 12:37:55 12/05/2022 12:30:55 Chronic obstructive pulmonary disease 15807142 J44.9 Stable. Smoker 44620022 F17.200 Advised her to =quit smoking. She is aware of cigarettes smoking can caused permanent emphysema, cancer of lung., or throat, or mouth and other disease. Morbid obesity 186748277 E66.01 BMI is 37.6, 12-04-22, advised to watch her diet, exercise and keep the weight down. Cervical c ancer Papanicolaou smear screening declined 1099680720 02950 Z53.20 She declined 12-04-22. HIV screen ing declined 0873451611 30316 Z53.20 She declined 12-04-22. Health Concerns Section Related Observation LastModified by Organization Detai ls LastModified Time None Recorded Concern Status LastModified by Organization Details LastModified Time None Recorded Advance Directives Directive N: Payers Encounter Date Sequence Insurance Name Policy Number Policy Terry Covered Member ID Terry Member ID Guarantor Name 01/28/2021 1 [facility] ON OR AFTER 10/07/20 (MEDICAID REPLACEMENT - HMO) Eliana Aleknagik [id number] Eliana Aleknagik 02/24/2021 1 [facility] ON OR AFTER 10/07/20 (MEDICAID REPLACEMENT - HMO) Eliana Aleknagik [id number] Eliana Aleknagik 07/22/2021 1 [facility] ON OR AFTER 10/07/20 (MEDICAID REPLACEMENT - HMO) Eliana Aleknagik [id number] Eliana Aleknagik 09/01/2022 1 [facility] ON OR AFTER 10/07/20 (MEDICAID REPLACEMENT - HMO) Eliana Aleknagik [id number] Eliana Aleknagik 12/04/2022 1 [facility] ON OR AFTER 10/07/20 (MEDICAID REPLACEMENT - HMO) Eliana Aleknagik [id number] Eliana Aleknagik Notes Date Note Type Note Provider Name and Address Organization Details Recorded Time 01/28/2021 text/html Phone visit, aster st congestion in this season of year, no fever, wheezing ,dose not want covid test nor going to ER, wants to try some medications, NKDA. Homa Joshi MD Attn: Accounting,[address] [facility], [place], [address], [place] 01/28/2021 14:51:31 02/24/2021 text/html Office visit, histroy of sliding hiatal hernia. and acid reflux, NKDA. can not tolerate solid food, skipped meal to avoid N/V, medication , pantoprazole not helping much, also has asthma which might have been aggravated by hernia with reflux. will add reglan and surgical referral. Homa Joshi MD Attn: Accounting, [address] [facility], [place], [address], [facility] - [place] 02/24/2021 12:54:42 07/22/2021 text/html [...] side, Homa Joshi MD Attn: Accounting, [address] [facility], [place], [address], [facility] 12/25/2021 16:26:36 09/01/2022 text/html Office visit, NK DA. on no blood thinner. no chest pain, no cardiac condition, no shortness of breath , wants surgical clearnce before the left foot operation for removal of wart. . Had left shoulder operation [id number] , she recovered well. But a smoker. , advised her to quit smoking for he good health and financial reasons. Homa Joshi MD Attn: Accounting, [address] [facility], [place], [address], [facility] - [place] 09/01/2022 17:40:35 12/04/2022 text/html Office visit, NK DA. check up today. Homa Joshi MD Attn: Accounting, [address] [facility], [place], [address], [facility] - [place] 12/04/2022 16:21:46 OBGyn Episode No OBEpisode recorded.
--- OUTSIDE RECORDS SUMMARY | 2024-08-11 14:57 | XMS_ITS | Patient Health Record ---
Author Organization [facility] Address [address] [place] [address] Care Team Providers Care Internal Security Manager Name Role Phone Christy Zhang Primary Care Provider Allergies No Known Allergies Reason For Referral No Information Problems Problem Type SNOMED Code ICD Code Onset Dates Problem Status W/U Status Risk Notes Problem Tobacco user (346741901) Nicotine dependence, unspecified, uncomplicated (F17.200) Active confirmed Problem Depression (987198716) Depression (F32.9) Active confirmed Problem Anxiety (14591350) Anxiety (F41.9) Active confirmed Plan Of Treatment No Information Insurance Providers Payer Name Payer Address Payer Phone Subscriber Number Group Number Insured Name Patient Relationship to Insured Coverage Start Date Coverage End Date [facility] Claims Department [address] [place] [address] [id number] Joe Eliana Self - patient is the insured 1 3 Medical (General) History Surgical History Surgery Date(Month/Year) tubal ligation 2012 shoulder arthroscopy 2019 gallbladder 2013 dnc 1999 plantear 2022 Hospitalization History Reason Date(Month/Year) [place] suicide [place] 11/2014 [place] 09/2022 kidney infection
--- OUTSIDE RECORDS SUMMARY | 2024-08-11 14:57 | XMS_ITS | Data Portability ---
Author Organization [place] [facility], Main Office Address [address] [place] [address] Assessment Encounter Date Assessment Date Assessment LastModified by Organization Details LastModified Time 08/31/2022 08/31/2022 This note is dictated and transcribed by [employer]. Planting Material Carrier variances may occur. Despite proofreading, typographical errors may occur. [email or web address] Not available 08/31/2022 16:46:47 10/26/2022 10/26/2022 This note is dictated and transcribed by [employer]. Planting Material Carrier variances may occur. Despite proofreading, typographical errors may occur. Not available 10/26/2022 11:59:10 11/02/2022 11/02/2022 This note is dictated and transcribed by [employer]. Planting Material Carrier variances may occur. Despite proofreading, typographical errors may occur. Not available 11/02/2022 12:31:50 11/13/2022 11/13/2022 This note is dictated and transcribed by [employer]. Planting Material Carrier variances may occur. Despite proofreading, typographical errors may occur. Not available 11/13/2022 12:14:14 01/18/2023 01/18/2023 This note is dictated and transcribed by [employer]. Planting Material Carrier variances may occur. Despite proofreading, typographical errors may occur. Not available 01/18/2023 12:43:45 Plan of Treatment Reminders Order Date Submit Date Provider Last Modified By Organization Details Last Modified Time Details Appointments None recorded. Lab None recorded. Referral None recorded. Procedures None recorded. Surgeries None recorded. Imaging None recorded. Medication Orders tramadol 50 mg tablet 2022 023 [id number], [address], [place], [place], [id number], 11:59:44 Patient TargetsNo targets recorded. Patient InstructionsNo instructions recorded. Reason for Referral None Reported. Results Created Date Observation Date Name Description Value Unit Range Abnormal Flag Note LastModifiedBy Organization Detail LastModifiedTime 09/21/1909/20/2022 CBC W/O DIFFE RENTI AL white blood cells 6.7 x10'3 /uL 4.2-10 .8 Not Available [facility] (Lab) [address] [place], [address], 09/20/2022 17:47:31 09/21/1909/20/2022 CBC W/O DIFFE RENTI AL red blood cells 4.80 x10'6 /uL 3.80-5 .20 Not Available [facility] (Lab) [address] [place], [address], 09/20/2022 17:47:31 09/21/19 23 09/20/2022 CBC W/O DIFFE RENTI AL hemoglobin 14.6 g/dL 12.0-1 5.6 Not Available [facility] (Lab) [address] [place], [address], 09/20/2022 17:47:31 09/21/19 23 09/20/2022 CBC W/O DIFFE RENTI AL hematocrit 43.6 % 35.7-4 5.7 Not Available [facility] (Lab) [address] [place], [address], 09/20/2022 17:47:31 09/21/1909/20/2022 CBC W/O DIFFE RENTI AL mean red cell volume 90.8 fL 82.0-9 9.0 Not Available [facility] (Lab) [address] [place], [address], 09/20/2022 17:47:31 09/21/1929 0909/20/2022 CBC W/O DIFFE RENTI AL mean red cell hemoglobin 30.4 pg 27.0-3 3.0 Not Available [facility] (Lab) [address] [place], [address], 09/20/2022 17:47:31 09/21/19 23 09/20/2022 CBC W/O DIFFE RENTI AL mean RBC HGB concentratio n 33.5 g/dL 31.0-3 6.0 Not Available [facility] (Lab) [address] [place], [address], 09/20/2022 17:47:31 09/21/19 23 09/20/2022 CBC W/O DIFFE RENTI AL red cell distribution width 12.5 % 11.8-1 5.5 Not Available [facility] (Lab) [address] [place], [address], 09/20/2022 17:47:31 09/21/19 23 09/20/2022 CBC W/O DIFFE RENTI AL platelets 335 x10'3 /uL 150-40 0 Not Available [facility] (Lab) [address] [place], [address], 09/20/2022 17:47:31 09/21/19 23 09/20/2022 CBC W/O DIFFE RENTI AL mean platelet volume 9.2 fL 9.0-12 .4 Not Available [facility] (Lab) [address] [place], [address], 09/20/2022 17:47:31 09/21/19 23 09/20/2022 COMPR EHENS JB METAB OLIC PANEL sodium 137 mmol/ L 137-14 5 Not Available [facility] (Lab) [address] [place], [address], 09/20/2022 19:27:50 09/21/19 23 09/20/2022 COMPR EHENS JB METAB OLIC PANEL potassium 4.3 mmol/ L 3.5-5. 1 Not Available [facility] (Lab) [address] [place], [address], 09/20/2022 19:27:50 09/21/19 23 09/20/2022 COMPR EHENS JB METAB OLIC PANEL chloride 103 mmol/ L 98-107 Not Available [facility] (Lab) [address] [place], [address], 09/20/2022 19:27:50 09/21/19 23 09/20/2022 COMPR EHENS JB METAB OLIC PANEL carbon dioxide 25 mmol/ L 22-30 Not Available [facility] (Lab) [address] [place], [address], 09/20/2022 19:27:50 09/21/19 23 09/20/2022 COMPR EHENS JB METAB OLIC PANEL anion gap 13.3 mmol/ L 14-22 low Not Available [facility] (Lab) [address] [place], [address], 09/20/2022 19:27:50 09/21/19 23 09/20/2022 COMPR EHENS JB METAB OLIC PANEL glucose 103 mg/dL 70-99 high Not Available [facility] (Lab) [address] [place], [address], 09/20/2022 19:27:50 09/21/19 23 09/20/2022 COMPR EHENS JB METAB OLIC PANEL BUN 11 mg/dL 8-19 Not Available [facility] (Lab) [address] [place], [address], 09/20/2022 19:27:50 09/21/19 23 09/20/2022 COMPR EHENS JB METAB OLIC PANEL creatinine 0.60 mg/dL 0.66-1 .25 low Not Available [facility] (Lab) [address] [place], [address], 09/20/2022 19:27:50 09/21/19 23 09/20/2022 COMPR EHENS JB METAB OLIC PANEL GFR >60 Refer ence Range : [place] ge GFR Healt hy Adult : >60 [...] calcu lator is avail able on the [facility] websi te: [email or web address] :[email or web address] [email or web address]/pr ofess ional s/kdo [email or web address]/gf r_cal culat or Not Available [facility] (Lab) [address] [place], [address], 09/20/2022 19:27:50 09/21/1909/20/2022 COMPR EHENS JB METAB OLIC PANEL alkaline phosphatase 97 U/L 38-126 Not Available [facility] (Lab) [address] [place], [address], 09/20/2022 19:27:50 09/21/19 23 09/20/2022 COMPR EHENS JB METAB OLIC PANEL alanine aminotransfe rase 17 U/L 0-35 Not Available [facility] (Lab) [address] [place], [address], 09/20/2022 19:27:50 09/21/19 23 09/20/2022 COMPR EHENS JB METAB OLIC PANEL aspartate aminotransfe rase 21 U/L 15-37 Not Available [facility] (Lab) [address] [place], [address], 09/20/2022 19:27:50 09/21/19 23 09/20/2022 COMPR EHENS JB METAB OLIC PANEL bilirubin, total 0.60 mg/dL 0.20-1 .30 Not Available [facility] (Lab) [address] [place], [address], 09/20/2022 19:27:50 09/21/19 23 09/20/2022 COMPR EHENS JB METAB OLIC PANEL calcium 9.2 mg/dL 8.4-10 .2 Not Available [facility] (Lab) [address] [place], [address], 09/20/2022 19:27:50 09/21/19 23 09/20/2022 COMPR EHENS JB METAB OLIC PANEL total protein 6.8 g/dL 6.3-8. 2 Not Available [facility] (Lab) [address] [place], [address], 09/20/2022 19:27:50 09/21/19 23 09/20/2022 COMPR EHENS JB METAB OLIC PANEL albumin 3.8 g/dL 3.4-5. 0 Not Available [facility] (Lab) [address] [place], [address], 09/20/2022 19:27:50 09/21/19 23 09/20/2022 COMPR EHENS JB METAB OLIC PANEL globulin 3.0 g/dL 2.6-4. 2 Not Available [facility] (Lab) [address] [place], [address], 09/20/2022 19:27:50 09/21/19 23 09/20/2022 COMPR EHENS JB METAB OLIC PANEL A/G ratio 1.3 ratio 1.0-2. 0 Not Available [facility] (Lab) [address] [place], [address], 09/20/2022 19:27:50 Result Notes None recorded. Problems Name Problem SNOMED Code Status Onset Date Resolution Date Notes Provider Name and Address Organization Details Recorded Time Disorder of shoulder 919334676 Completed Not Available [facility] 3 20:20:02 Plantar fasciitis of right foot 85968154974 617627 Active 2021 Not Available [facility] 3 20:20:02 Partial thickness rotator cuff tear 044530363 Active 2018 Not Available [facility] 3 20:20:02 Shoulder joint pain 242563353 Completed Not Available [facility] 3 20:20:03 Ingrowing toenail 562240748 Active 2021 Not Available [facility] 3 20:20:03 Multiple nodules of lung 469366746 Active 2021 Not Available [facility] 3 20:20:03 Foot pain 32106535 Active 2021 Not Available [facility] 3 20:20:03 Porokerat osis 316048792 Active 2022 Kevan Portillo DPM [address], [place], [address] , [facility] [employer] 3 15:02:01 Plantar wart of left foot 79091207535 289343 Active 2022 Kevan Portillo DPM [address], [place], [address] , [employer] - [facility] 3 13:00:17 Celluliti s of toe of left foot 74520880435 163198 Active 2022 Kevan Portillo DPM [address], [address], [place], [address] , [employer] 3 13:01:08 Pre-surge ry evaluatio n Active 2022 Kevan Portillo DPM [address], [address], [place], [address] , [employer] 3 12:25:27 Postopera tive pain 896338544 Active 2022 Kevan Portillo DPM [address], [address], [place], [address] , [employer] 3 11:57:37 Dehiscenc e of surgical wound 19315967 Active 2022 Kevan Portillo DPM [address], [address], [place], [address] , [employer] 3 11:58:41 Postopera tive visit 847935268 Active 2022 Kevan Portillo DPM [address], [address], [place], [address] , [employer] 3 12:14:32 Notes:Medical History: Anxie ty/Depression Rhinitis [...] Portillo DPM [address], [address], [place], [address], [employer] 01/31/2023 13:59:58 08/08/19 23 Callus Debridement, One completed Kevan Portillo DPM [address], [address], [place], [address], [employer] 08/07/2022 17:54:22 07/25/19 23 Destruction lesion (cryo, hyfrecation, scissors or chemical) completed Kevan Portillo DPM [address], [address], [place], [address], [employer] 07/24/2022 12:59:55 07/11/19 23 Total Nail Avulsion with Chemical Matrixectomy-Ri ght completed Kevan Portillo DPM [address], [address], [place], [address], [employer] 07/10/2022 15:02:32 07/11/19 23 Partial Nail Avulsion Chemical Matrixectomy-Le ft completed Kevan Portillo DPM [address], [address], [place], [address], [employer] 07/10/2022 15:01:16 06/20/19 23 Nail Debridement completed Kevan Portillo DPM [address], [address], [place], [address], [employer] 06/19/2022 15:01:53 06/20/19 23 Callus Debridement, One completed Kevan Portillo DPM [address], [address], [place], [address], [employer] 06/19/2022 15:01:45 04/09/19 20 Shoulder completed Not Available [facility] 20:19:31 Imaging Results None recorded. Procedure [...] administe red by the provider 02/17 completed [facility]: 0003- [phone]- [phone] Not Available Not Available [...] administe red by the provider 02/17 completed [facility]: [phone]- [phone]- 17 Not Available Not Available [...] 98 % 130 mm[Hg] 88 mm[Hg] [employer] 3 16:25:59 Date Recorded Body height Heart rate Respiratory rate Oxygen saturation Oxygen saturation in Arterial blood by Pulse oximetry Systolic blood pressure Diastolic blood pressure Provider Name and Address Organization Details Last Updated DateTime 3 162.56 cm 93 /min 14 /min 98 % 98 % 136 mm[Hg] 82 mm[Hg] [employer] [facility] 3 11:40:38 Date Recorded Body height Heart rate Respiratory rate Oxygen saturation Oxygen saturation in Arterial blood by Pulse oximetry Systolic blood pressure Diastolic blood pressure Provider Name and Address Organization Details Last Updated DateTime 3 162.56 cm 106 /min 14 /min 99 % 99 % 137 mm[Hg] 92 mm[Hg] [employer] 3 11:21:13 Date Recorded Body height Heart rate Respiratory rate Oxygen saturation Oxygen saturation in Arterial blood by Pulse oximetry Systolic blood pressure Diastolic blood pressure Provider Name and Address Organization Details Last Updated DateTime 3 162.56 cm 106 /min 14 /min 99 % 99 % 119 mm[Hg] 99 mm[Hg] [employer] 3 11:20:54 Date Recorded Body height Heart rate Respiratory rate Oxygen saturation Oxygen saturation in Arterial blood by Pulse oximetry Systolic blood pressure Diastolic blood pressure Provider Name and Address Organization Details Last Updated DateTime 3 162.56 cm 102 /min 14 /min 98 % 98 % 150 mm[Hg] 107 mm[Hg] [facility] [employer] [facility] 3 11:01:50 Social History Question Answer Notes LastModified by Organizat ion Details LastModified Time Tobacco Smoking Status Current Every Day Smoker Not Available [facility] 06/07/2022 20:19:21 What Is Your Level Of Alcohol Consumption? None MIGRATION.06489 [id number] Information not available 06/07/2022 What Is Your Level Of Caffeine Consumption? Occasional MIGRATION.14314 46892 Information not available 06/07/2022 In The 14 Days Before Symptom Onset, Have You Had Close Contact With A Laboratory-confi rmed COVID-19 While That Case Was Ill? No MIGRATION.65709 93547 Information not available 06/07/2022 In The 14 Days Before Symptom Onset, Have You Had Close Contact With A Person Who Is Under Investigation For COVID-19 While That Person Was Ill? No MIGRATION.64225 77044 Information not available 06/07/2022 What Type Of Diet Are You Following? REGULAR MIGRATION.84772 41324 Information not available 06/07/2022 What Is The Highest Grade Or Level Of School You Have Completed Or The Highest Degree You Have Received? [id number] MIGRATION.79853 07186 Information not available 06/07/2022 Do You Have An Electrostatic Air Filter? 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 No MIGRATION.10181 48621 Information not available 06/07/2022 Do You Have A Humidifier? No MIGRATION.04847 28204 Information not available 06/07/2022 Where Do You Live? [place] MIGRATION.19400 67426 Information not available 06/07/2022 Do You Have Moisture Problems In Your Home? No MIGRATION.85898 86115 Information not available 06/07/2022 What Was The Date Of Your Most Recent Tobacco Screening? 12/19/2021 MIGRATION.47123 59612 Information not available 06/07/2022 Do You Have Any Pets? Yes MIGRATION.71390 07468 Information not available 06/07/2022 Do You Use Your Seat Belt Or Car Seat Routinely? Yes MIGRATION.71643 14665 Information not available 06/07/2022 Do You Have Smoke And Carbon Monoxide Detectors In Your Home? Yes MIGRATION.00869 16249 Information not available 06/07/2022 Are You Passively Exposed To Smoke? No MIGRATION.38608 70326 Information not available 06/07/2022 How Much Tobacco Do You Smoke? 0.5 PPD MIGRATION.70705 31237 Information not available 06/07/2022 Do You Feel Stressed (tense, Restless, Nervous, Or Anxious, Or Unable To Sleep At Night)? [id number] MIGRATION.35447 95254 Information not available 06/07/2022 Do You Use Any Illicit Or Recreational Drugs? No MIGRATION.20971 63028 Information not available 06/07/2022 Do You Use Sunscreen Routinely? No MIGRATION.43394 11546 Information not available 06/07/2022 How Many Years Have You Smoked Tobacco? 20 MIGRATION.49101 69366 Information not available 06/07/2022 Have You Recently Traveled Abroad? No MIGRATION.22789 62251 Information not available 06/07/2022 Do You Have Any Dietary Restrictions? No MIGRATION.58176 87096 Information not available 06/07/2022 Sex: Unknown Functional Status None recorded. Mental Status None recorded. Family History Relationship Description Onset Age of this Age Resolved Age Notes LastModified by Organization Details LastModified Time Father Diabetes mellitus MIGRATION.466 [id number] Not available 06/07/2022 20:19:32 Brother Diabetes mellitus MIGRATION.705 [id number] Not available 06/07/2022 20:19:32 Sister Asthma MIGRATION.657 [id number] Not available 06/07/2022 20:19:32 Daughter Asthma MIGRATION.936 [id number] Not available 06/07/2022 20:19:32 Maternal Grandmother Chronic obstructive pulmonary disease MIGRATION.810 [id number] Not available 06/07/2022 20:19:32 Maternal Aunt Chronic obstructive pulmonary disease MIGRATION.304 0821986 Not available 06/07/2022 20:19:32 Mother Malignant neoplasm of uterus MIGRATION.407 1141296 Not available 06/07/2022 20:19:32 Notes:daughter-mental, cousi n-few disabilities Medical History Condition Response COPD Y Gynecological HistoryNo gynecological history recorded. Obstetrics History GPAL:G 0 P 0 0 0 0 Past Encounters Encounter ID Performer Location Encounter Start Date Encounter Closed Date Diagnosis/Indication Diagnosis SNOMED-CT Code Diagnosis ICD10 Code Diagnosis Note [id number] Codey Oneill MD [facility] [address] [address] 11/11/2020 00:00:00 11/11/2020 10:34:30 [id number] RANCHO Phelps [facility] [place] [address] [place] [address] 12/15/2020 00:00:00 12/15/2020 16:43:49 [id number] Codey Oneill MD [facility] [address] [address] 02/17/2021 00:00:00 02/17/2021 12:19:51 [id number] Codey Oneill MD [facility] [address] [address] 04/07/2021 00:00:00 04/07/2021 13:17:52 [id number] [facility] [place] [address] [place] [address] 12/05/2021 00:00:00 12/05/2021 12:50:02 [id number] Codey Oneill MD [facility] [address] [address] 12/19/2021 00:00:00 12/19/2021 11:41:15 [id number] [facility] [place] [address] [place] [address] 01/09/2022 00:00:00 01/09/2022 11:20:28 [id number] [facility] [place] [address] [place] [address] 03/23/2022 00:00:00 03/23/2022 15:37:11 [id number] Kevan Portillo DPM [facility] [place] [address] [place] [address] 04/17/2022 00:00:00 04/18/2022 09:04:49 [id number] Kevan Portillo DPM [facility] [place] [address] [place] [address] 05/15/2022 00:00:00 05/15/2022 17:07:34 [id number] Kevan Portillo DPM [facility] [place] [address] [place], [place] [address] 06/19/2022 14:26:35 06/19/2022 15:05:48 Ingrowing toenail 782112442 L60.0 M79.674 Educated on conditionE ducated on treatment optionsSla nt back procedure performed on the nail corners today to prevent infection and relieve pain, pain relief after procedurek eep the areas clean and dry to prevent infectionP atient will follow-up for 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 both great toenails Porokeratosis 017926037 Q82.8 x1 left plantar footdebrid ed without incidentre commend over-the-c ounter Amlactin lotion twice dailyfollo w-up as needed for this issue [id number] Kevan Portillo DPM [facility] [place] [address] [place] [address] 07/10/2022 14:12:19 08/04/2022 15:22:35 Ingrowing toenail 599044194 L60.0 M79.674 Educated on conditionE ducated on treatment optionsSla nt back procedure performed on the nail corners today to prevent infection and relieve pain, pain relief after procedurek eep the areas clean and dry to prevent infectionP atient will follow-up for 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 both great toenails Cellulitis of toe of left foot 4517707218 7305587 L03.032 [id number] Kevan Portillo DPM [facility] [place] [address] [place] [address] 07/24/2022 12:09:47 07/24/2022 14:01:23 Ingrowing toenail 764466577 L60.0 M79.674 bilateral partial matrixecto my both great toes- healingcon tinue daily wound careFollow up in 2 weeks Plantar wa rt of left foot 8558026047 3318871 B07.0 debrided and treated with salicylic acid todayVerba l consent obtained by the patient for treatmentU se salicylic acid over-the-c ounter daily until blistering occurs then discontinu e use, keep the area clean and dry with bandage to prevent infectionF ollow-up in 2 weeks Cellulitis of toe of left foot 5938882755 1112907 L03.032 [id number] Kevan Portillo DPM [facility] [place] [address] [place] [address] 08/07/2022 16:59:21 08/07/2022 17:58:29 Cellulitis of toe of left foot 4302717111 6083782 L03.032 Resolved Plantar wa rt of left foot 3246866178 5888625 B07.0 Overlying skin debrided todayconti nue wound care to prevent wounds infectionF ollow-up in 2 weeks possible retreatmen t if still present [id number] Kevan Portillo D[facility] [place] [address] [place] [address] 08/31/2022 16:18:25 09/01/2022 13:45:30 Plantar wart of left foot 2553673437 7185298 B07.0 Obtain surgical clearanceP edu surgical excision of wart with biopsy left footall risks, benefits, complicati ons were reviewed with the patient to a full and complete understand ing. Patient states understand ing elects to continue with the planned procedure. no guarantees were given or implied.Re turn post surgery [id number] Kevan Portillo DPM [facility] [place] [address] [facility] [address] [place] [address] 10/26/2022 11:31:13 10/26/2022 16:20:10 Postoperative visit 672642525 Z09 wart excisionpa thology report- plantar wart Postoperative pain 06312 9007 G89.18 Dehiscence of surgical wound 77965534 T81.30XA left footdaily dressings with Betadine wet-to-dry dressingpr essure to the heel only with postop shoeno workingfol low-up 1 week [id number] Kevan Portillo DPM [facility] [place] [address] [place] [address] 11/02/2022 11:17:40 11/02/2022 12:33:48 Postoperative visit 724326906 Z09 wart excisionpa thology report- plantar wart Dehiscence of surgical wound 15957180 T81.30XA left footdaily dressings with Betadine wet-to-dry dressingpr essure to the heel only with postop shoeno workingfol low-up 1 week [id number] Kevan Portillo DPM [facility] [place] [address] [place] [address] 11/13/2022 11:18:03 11/13/2022 12:36:21 Postoperative visit 271417327 ZPortia wart excisionpa ology report- plantar wart Dehiscence of surgical wound 54919784 T81.30XA healedMay return to normal shoe gearwork release to return to workFollow -up as needed [id number] Kevan Portillo DPM [facility] [place] [address] [place] [address] 01/18/2023 10:58:23 01/31/2023 14:04:32 Porokeratosis 160104911 Q82.8 x1 left plantar footdebrid ed without [...] Terry Member ID Guarantor Name 08/31/2022 1 [facility] - DOS ON OR AFTER 20 (MEDICAID REPLACEMENT - HMO) Eliana Diaz [id number] Eliana Diaz 10/26/2022 1 [facility] ON OR AFTER 10/07/20 (MEDICAID REPLACEMENT - HMO) Eliana A [place] [id number] Eliana A [place] 11/02/2022 1 [facility] ON OR AFTER 10/07/20 (MEDICAID REPLACEMENT - HMO) Eliana A [place] [id number] Eliana A [place] 11/13/2022 1 [facility] ON OR AFTER 10/07/20 (MEDICAID REPLACEMENT - HMO) Eliana A [place] [id number] Eliana A [place] 01/18/2023 1 [facility] ON OR AFTER 10/07/20 (MEDICAID REPLACEMENT - HMO) Eliana A [place] [id number] Eliana A [place] Notes Date Note Type Note Provider Name [...] any other pedal complaints. Kevan Portillo DPM [address] [place] [address], [place], [address], [place] [facility] [place] [facility] [employer] 08/31/2022 16:47:42 10/26/2022 text/html . Patient is [...] any other complaints. Kevan Portillo DPM [address], [place], [address], [employer] 10/26/2022 12:00:01 11/02/2022 text/html . Patient is [...] denies any other complaints. Kevan Portillo DPM [address], [address], [place], [address], [employer] 11/02/2022 12:32:37 11/13/2022 text/html . Patient is a 42-year-old female who returns the office for follow-up on wound dehiscence. Patient states she has not had any further drainage or pain to the foot. Patient is completely healed. Patient denies any other complaints. Kevan Portillo DPM [address], [address], [place], [address], [employer] 11/13/2022 12:14:47 01/18/2023 text/html . Patient is [...] denies any other complaints. Kevan Portillo DPM [address], [address], [place], [address], [employer] [facility] [employer] 01/31/2023 14:00:16 OBGyn Episode No OBEpisode recorded.
--- OUTSIDE RECORDS SUMMARY | 2024-08-11 14:57 | XMS_ITS | CONTINUITY OF CARE DOCUMENT ---
Author Name sharonsaadsaul hayes Address Unknown Organization [facility] Address [address] [place] [address] [address] [place] [address] Phone [phone] Care Team Providers Care Post Splitter Name Role Phone Harjit Sandy MD Unavailable [phone] Harjit Sandy MD Unavailable JOSE JOSHI MD Unavailable [phone] INSURANCE PROVIDERS Payer name Policy type / Coverage type [place] red libertarian ID SELF [place] (2) Medicaid [id number]
--- OUTSIDE RECORDS SUMMARY | 2024-08-11 14:57 | XMS_ITS | Encounter Summary ---
Author Organization [facility] Address [address] [place] [address] Care Team Providers Care Supervisor Motor Vehicle Assembly Name Role Phone Clem Roblero MD Primary Care Provider [phone] Encounter Details Date Type Department Care Team (Late st Contact Info) Description 06/06/2019 Telephone [facility] [address] [place] [address] Evi Albert DO [address] [place] [address] Social History Tobacco Use Types Packs/Day Years Used Date Smoking Tobacco: Every Day Cigarettes 1 25 Smokeless Tobacco: Never Alcohol Use Standard Drinks/Week Comments Yes 0 (1 standard drink = 0.6 oz pur e alcohol) AUDIT-C Answer Date Recorded Frequency of Alcohol Consumption Monthly or less 04/15/2019 Average Number of Drinks 3 or 4 020 Frequency of Binge Drinking Never 10/2019 Comments No Sex and Gender Information Value Date Recorded Sex Assigned at Not on file Legal Sex Female 5:10 PM PAPER DELIVERER Gender Identity Not on file Sexual Orientation Not on file documented as of this encounter Miscellaneous Notes * Telephone Encounter - Evi Albert DO - 06/06/2019 12:50 PM PAPER DELIVERER [facility] Peripheral Nerve [...] questions or concerns. Evi Albert DO 06/06/19 R DELIVERER documented in this encounter Plan of Treatment Not on file documented as of this encounter Visit Diagnoses Not on filedocumented in this encounter Care Teams Supervisor Motor Vehicle Assembly Relationship Specialty Start Date End Date Clem Roblero MD [address] [place] [phone] PCP - General 02/11/19 documented as of this encounter
--- OUTSIDE RECORDS SUMMARY | 2024-08-11 14:57 | XMS_ITS | Encounter Summary ---
Author Organization [facility] Address [address] [place] [address] Phone Care Team Providers Care R&D Engineer Name Role Phone Homa Michel MD Primary Care Provider [phone] Clem Roblero MD Unavailable [phone] Encounter Details Date Type Department Care Team (Late st Contact Info) Description 10/25/2020 Orders Only [facility] Surgery [address] [facility] Advanced Medicine 5th [place] [address] [place] [address] Gail Stanton NP [address] [place] [address] Social History Tobacco Use Types Packs/Day Years [...] on filedocumented in this encounter Care Teams R&D Engineer Relationship Specialty [place] [address] [place] [address] PCP - General Internal Medicine 07/20/20 Clem Roblero MD NPI: [id number] [place] [address] Referring Physician Obstetrics and Gynecology 11/24/20 documented as of this encounter
--- OUTSIDE RECORDS SUMMARY | 2024-08-11 14:57 | XMS_ITS | Clinical Summary ---
Author Organization [facility] Address [address] [place] [address] Phone Care Team Providers Care Putty Maker Name Role Phone Unavailable Primary Care Provider [...] on file Legal Sex Female 6:22 PM ELECTRIC TRIPPER MACHINE OPERATOR Gender Identity Not on file Sexual Orientation Not on file Last Filed Vital Signs Vital Sign Reading Time Taken Comments Blood Pressure 150/92 02/11/2017 6:27 PM ELECTRIC TRIPPER MACHINE OPERATOR Pulse - - Temperature 36.2 C (97.1 F) 02/11/2017 6:27 PM ELECTRIC TRIPPER MACHINE OPERATOR Respiratory Rate 18 02/11/2017 6:27 PM ELECTRIC TRIPPER MACHINE OPERATOR Oxygen Saturation 100% 02/11/2017 6:27 PM ELECTRIC TRIPPER MACHINE OPERATOR Inhaled Oxygen Concentration - - Weight 86.2 kg (190 lb) 02/11/2017 6:27 PM ELECTRIC TRIPPER MACHINE OPERATOR Height 162.6 cm (5' 4 ) 02/11/2017 6:27 PM ELECTRIC TRIPPER MACHINE OPERATOR Body Mass Index 32.61 02/11/2017 6:27 PM ELECTRIC TRIPPER MACHINE OPERATOR Plan of Treatment Health Maintenance Due Date Last Done Comments DTAP/TDAP/TD VACCINES (1 - Tdap) 1997 HEPATITIS B VACCINES (1 of 3 - 19+ 3-dose series) 1997 HPV/Cotest (21-29) 06/21/1999 CERVICAL CANCER SCREENING 2008 HPV/Cotest (30-65) [...]
--- OUTSIDE RECORDS SUMMARY | 2024-08-11 14:58 | XMS_ITS | Data Portability ---
Author Organization [facility] [place] Address [address] [place] [address] Assessment No assessment recorded. Plan of Treatment Reminders Order Date Submit Date Provider Last Modified By Organization Details Last Modified Time Details Appointments SURG PRE OP 2024 02:45P Israel CABAN MD Not available Not available Not available [facility]otic [facility] 2024 10:30A Israel CABAN MD Not available Not available Not available SURG POST OP 2024 10:15A Israel CABAN MD Not available Not available Not available Lab hormone panel, serum or plasma 2024 025 [facility] (Lab), [address], [place], [address], 06/10/2024 12:02:49 TSH, serum or plasma 2024 025 [facility] (Lab), [address] [place], [address], 06/10/2024 12:02:49 HBsAg (hepatiti s B surface Ag), serum 2024 025 [facility] (Lab), [address] [place], [address], 06/10/2024 12:02:48 Referral None recorded. Procedures None recorded. Surgeries robotic assisted hysterect martin w/bilater al salpingo- oophorect martin (SURG) 2024 025 [facility], [address], [address], 08/11/2024 15:55:47 Imaging US, pelvis 2024 025 [email or web address] [place], [place], [address], 06/16/2024 18:08:11 US, transvagi nal 2024 025 [facility] [place], [address], [place], [address], 06/16/2024 18:15:13 Medication Orders None recorded. Patient TargetsNo targets recorded. Patient InstructionsNo instructions recorded. Reason for Referral None Reported. Results Created Date Observation Date Name Description Value Unit Range Abnormal Flag Note LastModifiedBy Organization Detail LastModifiedTime 06/10/1906/09/2024 HBSAG /HCV/ HIV/R NC hepatitis B surface antigen Non-re active non-re active This assay was perfo rmed using [employer] n reage nts and test kits. Value s obtai jimmy with other assay metho ds or kits canno t be used inter medina eably . Not Available [facility] (Lab) [address], [place], [address], 06/10/2024 12:02:48 06/10/1906/09/2024 HBSAG /HCV/ HIV/R NC HIV antigen/anti body Nonrea ctive nonrea ctive HIV-1 antig en and HIV-1 /HIV- 2 antib odies were not detec inder. No labor atory evide nce of HIV infec tion. Not Available [facility] (Lab) [address] [facility], [place], [address], 06/10/2024 12:02:48 06/10/1906/09/2024 HBSAG /HCV/ HIV/R NC hepatitis C antibody Non-re active non-re active Antib odies to HCV Not Detec inder, does not exclu de the possi bilit y of expos ure to HCV. Not Available [facility] (Lab) [address] [facility], [place], [address], 06/10/2024 12:02:48 06/10/19 25 06/09/2024 HBSAG /HCV/ HIV/R NC RPR qualitative Nonrea ctive nonrea ctive Not Available [facility] (Lab) [address] [facility], [place], [address], 06/10/2024 12:02:48 06/10/19 25 06/09/2024 TSH, REFLE X FREE T4 TSH 2.33 uIU/m L 0.30-5 .33 Not Available [facility] (Lab) [address] [facility], [place], [address], 06/10/2024 12:02:49 06/10/19 25 06/09/2024 FSH, LH, ESTRA DIOL estradiol 364.0 pg/mL This assay was perfo rmed using [employer] reage nts and test kits. Value s obtai jimmy with other assay metho ds or kits canno t be used inter medina eay . Femal e Estra diol Range s: Folli cular phase 12.4- 233 pg/mL Ovula tion phase 41.0- 398 pg/mL Lutea l phase 22.3- 341 pg/mL Postm enopa usal <5-13 8 pg/mL Healt hy Pregn ant Women 1st Trime ster 154-3 243 pg/mL 2nd Trime ster 1561- 52834 pg/mL 3rd Trime ster 8525- >3000 0 pg/mL Not Available [facility] (Lab) [address] [facility], [place], [address], 06/10/2024 12:02:49 06/10/19 25 06/09/2024 FSH, LH, ESTRA DIOL FSH 7.9 mIU/m L This assay was perfo rmed using [employer] reage nts and test kits. Value s obtai jimmy with other assay metho ds or kits canno t be used inter medina eably . Femal es Folli cular : 3.5-1 2.5 mIU/m L Ovula tion: 4.7-2 1.5 mIU/m L Lutea l: 1.7-7 .7 mIU/m L Postm enopa use: 25.8- 134.8 mIU/m L Not Available [facility] (Lab) [address] [facility], [place], [address], 06/10/2024 12:02:49 06/10/19 25 06/09/2024 FSH, LH, ESTRA DIOL LH 16.1 mIU/m L This assay was perfo rmed using [employer] reage nts and test kits. Value s obtai jimmy with other assay metho ds or kits canno t be used inter medina eably . Femal es Mid-F ollic ular: 2.4-1 2.6 mIU/m L Mid-C ycle: 14.0- 95.6 mIU/m L Mid-L uteal : 1.0-1 1.4 mIU/m L Postm enopa use: 7.7-5 8.5 mIU/m L Not Available [facility] (Lab) [address] [facility], [place], [address], 06/10/2024 12:02:49 06/10/19 25 06/09/2024 CULTU RE: URINE result report SEE RESULT S BELOW abnormal Test: Cultu re: Urine Speci men Sourc e: Urine - Clean Catch Speci men Type: Urine Speci men Date: 1522 Resul t Date: 1055 Resul t Statu s: Final resul t Abnor mal: Yes Resul miriam Lab: [facility] [address] [facility] [address] Tel: CULTU RE ----- ----- ----- --- [...] <=0.5 ug/mL Susce ptibl e Not Available [facility] (Lab) [address] [facility], [place], [address], 06/12/2024 11:58:17 06/17/19 25 06/16/2024 US, pelvi s No observ ation record ed. [email or web address] [place] [address], [place], [address], 06/16/2024 18:14:56 06/17/19 25 06/16/2024 US, trans vagin al No observ ation record ed. [email or web address] [place] [address], [place], [address], 06/16/2024 18:15:13 06/17/19 25 06/16/2024 US, pelvi s No observ ation record ed. [email or web address] [address], [place], [address], 06/16/2024 18:14:13 Result Notes None recorded. Procedures Surgical History Date Name Laterality Status Provider Name and Address Organization Details Recorded Time 3 procedure on foot completed [facility] 06/09/2024 10:11:52 2 Date of Last Mammogram completed [facility] 06/09/2024 09:57:50 2 Date of Last Pap Smear completed [facility] 06/09/2024 09:57:50 0 procedure on shoulder completed [facility] 06/09/2024 10:10:45 3 Tubal Ligation completed [facility] 06/09/2024 10:11:11 3 Endometrial Ablation completed [facility] 06/09/2024 10:10:22 3 procedure on gallbladder completed [facility] 06/09/2024 10:10:18 0 Dilation and Curettage completed [facility] 06/09/2024 10:11:05 Imaging Results Imaging Date Name Status LastModified by Organization Details LastModified Time 06/16/2024 US, pelvis completed [email or web address] [place], [address], 06/16/2024 18:14:56 06/16/2024 US, transvaginal completed [email or web address] [address], [place], [address], 06/16/2024 18:15:13 06/16/2024 US, pelvis completed [email or web address] [address], [place], [address], 06/16/2024 18:14:13 Procedure Notes None recorded. Medical [...] Address Organization Details Last Updated DateTime 06/09/2024 775604.8 4 g 38.4 kg/m2 165.1 cm 145 mm[Hg] 88 mm[Hg] Tricia Resendez [facility] 10:03:50 Date Recorded Body height Body mass index (BMI) Body weight Systolic blood pressure Diastolic blood pressure Provider Name and Address Organization Details Last Updated DateTime 06/23/2024 165.1 cm 38.1 kg/m2 669429.6 5 g 134 mm[Hg] 88 mm[Hg] Marisabel Woods [facility] 11:04:33 Social History Question Answer Notes LastModified by Organizat ion Details LastModified Time Do You Have An Advance Directive? No [email or web address] Information not available 06/09/2024 What Is Your Level Of Alcohol Consumption? None [email or web address] Information not available 06/09/2024 How Many Years Have You Consumed Alcohol? 2015 [email or web address] Information not available 06/09/2024 Are You Blind Or Do You Have Difficulty Seeing? Yes Information not available 06/09/2024 What Is Your Level Of Caffeine Consumption? Moderate [email or web address] Information not available 06/09/2024 How Much Tobacco Do You Chew? None [email or web address] Information not available 06/09/2024 In The 14 Days Before Symptom Onset, Have You Had Close Contact With A Laboratory-confir med COVID-19 While That Case Was Ill? No Information not available 06/09/2024 In The 14 Days Before Symptom Onset, Have You Had Close Contact With A Person Who Is Under Investigation For COVID-19 While That Person Was Ill? No [email or web address] Information not available 06/09/2024 Have You Been To An Area Known To Be High Risk For COVID-19? No [email or web address] Information not available 06/09/2024 Are You Currently Employed? Yes Information not available 06/09/2024 Are You Deaf Or Do You Have Serious Difficulty Hearing? No Information not available 06/09/2024 What Type Of Diet Are You Following? CARBOHYDRATE Information not available 06/09/2024 What Is The Highest Grade Or Level Of School You Have Completed Or The Highest Degree You Have Received? BL28637-8 [email or web address] Information not available 06/09/2024 What Is Your Occupation? [employer] [email or web address] Information not available 06/09/2024 Are There Any Guns Present In Your Home? No [email or web address] Information not available 06/09/2024 Do You Use Protection During Sex? No [email or web address] Information not available 06/09/2024 Do You Use Your Seat Belt Or Car Seat Routinely? No [email or web address] Information not available 06/09/2024 Are You Sexually Active? Yes Information not available 06/09/2024 Do You Have Smoke And Carbon Monoxide Detectors In Your Home? Yes [email or web address] Information not available 06/09/2024 At What Age Did You Start Smoking Tobacco? 12 [email or web address] Information not available 06/09/2024 How Much Tobacco Do You Smoke? 0.5 PPD [email or web address] Information not available 06/09/2024 Do You Feel Stressed (tense, Restless, Nervous, Or Anxious, Or Unable To Sleep At Night)? [id number] [email or web address] Information not available 06/09/2024 Do You Use Any Illicit Or Recreational Drugs? No [email or web address] Information not available 06/09/2024 Do You Use Sunscreen Routinely? No [email or web address] Information not available 06/09/2024 How Many Years Have You Smoked Tobacco? 23 [email or web address] Information not available 06/09/2024 Have You Used IV Drugs? No [email or web address] Information not available 06/09/2024 Sex: Unknown Functional Status Question Answer Note LastModified by Organizat ion Details LastModified Time Do you have difficulty walking or climbing stairs? No Information not available 06/09/2024 Are you able to walk? YESWOREST [email or web address] Information not available 06/09/2024 Are you able to care for yourself? Yes [email or web address] Information not available 06/09/2024 Do you have difficulty dressing or bathing? No [email or web address] Information not available 06/09/2024 What is your exercise level? Moderate [email or web address] Information not available 06/09/2024 Mental Status None recorded. Family History Relationship Description Onset Age of this Age Resolved Age Notes LastModified by Organization Details LastModified Time Maternal Uncle Substance abuse Not available 2024 09:57:50 Maternal Uncle Mental disorder Not available 2024 09:57:50 Brother Depressive disorder [email or web address] Not available 2024 09:57:50 Brother Substance abuse [email or web address] Not available 2024 09:57:50 Brother Diabetes mellitus [email or web address] Not available 2024 09:57:50 Father Diabetes mellitus [email or web address] Not available 2024 09:57:50 Mother Anxiety disorder [email or web address] Not available 2024 09:57:50 Mother Depressive disorder [email or web address] Not available 2024 09:57:50 Mother Substance abuse [email or web address] Not available 2024 09:57:50 Mother Mental disorder [email or web address] Not available 2024 09:57:50 Maternal Aunt Anxiety disorder [email or web address] Not available 2024 09:57:50 Maternal Aunt Substance abuse Not available 2024 09:57:50 Maternal Aunt Mental disorder [email or web address] Not available 2024 09:57:50 Paternal Aunt Mental disorder [email or web address] Not available 2024 09:57:50 Maternal Grandmother Kidney disease [email or web address] Not available 2024 09:57:50 Sister Asthma [email or web address] Not available 06/09/2024 09:57:50 Sister Anxiety disorder [email or web address] Not available 2024 09:57:50 Sister Depressive disorder [email or web address] Not available 2024 09:57:50 Sister Substance abuse [email or web address] Not available 2024 09:57:50 Sister Diabetes mellitus [email or web address] Not available 2024 09:57:50 Sister Mental disorder [email or web address] Not available 2024 09:57:50 Medical History Condition [...] SNOMED-CT Code Diagnosis ICD10 Code Diagnosis Note [id number] ESTELLE SILVA MD [place] [address] [address] 06/09/2024 09:49:38 06/09/2024 10:42:35 Irregular periods 23726811 N92.6 - patient reports ablation and tubal [...] for US following Venereal d isease screening 843871676 Z11.3 - desires STI screening [id number] Shayne Caban MD [place] [address] [address] 06/16/2024 16:46:37 06/16/2024 17:53:03 Abnormal uterine bleeding 5225754202 9100 N93.9 [id number] Shayne Caban MD [place] [address] [address] 06/23/2024 10:47:19 06/23/2024 12:07:40 Menorrhagia 931374435 N92.0 Uterine leiomyoma 669497 05 D25.9 Health Concerns Section Related Observation LastModified by Organization Detai ls LastModified Time None Recorded Concern Status LastModified by Organization Details LastModified Time None Recorded Advance Directives Directive N: Payers Encounter Date Sequence Insurance Name Policy Number Policy Terry Covered Member ID Terry Member ID Guarantor Name 06/09/2024 1 [facility] [id number] Eliana A Taylor [id number] Eliana Taylor 06/16/2024 1 [facility] Telly [id number] Eliana A Taylor [id number] Eliana Taylor 06/23/2024 1 [facility] [id number] Eliana A Taylor [id number] Eliana Taylor Notes Date Note Type Note Provider Name [...] exposure. ESTELLE SILVA MD [address], [place], [address], [facility] 06/09/2024 10:40:46 06/23/2024 text/html This patient [...] infection. Shayne Caban MD [address], [place], [address], [facility] 06/23/2024 12:01:24 OBGyn Episode Ob Episode Information Episode Created Date Number of Fetuses Patient Bloodtype Patient rh Status Prepregnancy Weight lbs Domestic Partner Domestic Partner Phone Father Name Biophysics Professor Status 06/10/19 25 1 CLOSED Fetus Data First Name Last Name Admitted to NICU Weight (g) Sex Living Outcome Pediatric Complications Fetus ID Race Codes Race Delivery Type 51650 Vaginal Delivery Joseph Calculation Initial Joseph Date [...] Domestic Partner Domestic Partner Phone Father Name Biophysics Professor Status 06/10/19 1 CLOSED Fetus Data First Name Last Name Admitted to NICU Weight (g) Sex Living Outcome Pediatric Complications Fetus ID Race Codes Race Delivery Type , Induced 61276 Joseph Calculation Initial Joseph Date Initial Exam [...] Domestic Partner Domestic Partner Phone Father Name Biophysics Professor Status 06/10/19 25 1 CLOSED Fetus Data First Name Last Name Admitted to NICU Weight (g) Sex Living Outcome Pediatric Complications Fetus ID Race Codes Race Delivery Type 2976.47 0704 F Full Term 53383 Vaginal Delivery Joseph Calculation Initial Joseph Date [...] Domestic Partner Domestic Partner Phone Father Name Biophysics Professor Status 06/10/19 25 1 CLOSED Fetus Data First Name Last Name Admitted to NICU Weight (g) Sex Living Outcome Pediatric Complications Fetus ID Race Codes Race Delivery Type 3005.04 7 F Full Term [id number] Vaginal Delivery Joseph Calculation Initial Joseph Date [...]
--- OUTSIDE RECORDS SUMMARY | 2024-08-11 14:58 | XMS_ITS | Clinical Summary ---
Author Organization [facility] Address [facility] [place] [address] Care Team Providers Care Lathe Spotter Name Role Phone Homa Michel MD Primary Care Provider [phone] Clem Roblero MD Unavailable [phone] Allergies No known active allergies Medications albuterol [...] file Insurance [facility] Care Teams Lathe Spotter Relationship Specialty Start Date End Date Homa Michel MD [address] [place] [address] PCP - General Internal Medicine 07/20/20 Clem Roblero MD [address] [place] [address] Referring Physician Obstetrics and Gynecology 11/24/20
--- OUTSIDE RECORDS SUMMARY | 2024-08-11 14:58 | XMS_ITS | Referral Summary ---
Author Organization [facility] Address [address] [place] [address] Care Team Providers Care Cloth Winder Name Role Phone Homa Michel MD Primary Care Provider [phone] Clem Roblero MD Unavailable [phone] Allergies No known active allergies Medications albuterol [...] Plan of Treatment Not on file Insurance [facility] Care Teams Cloth Winder Relationship Specialty Start Date End Date Homa Michel MD [address] [address] PCP - General Internal Medicine 07/20/20 Clem Roblero MD [address] [place] [address] Referring Physician Obstetrics and Gynecology 11/24/20
--- OUTSIDE RECORDS SUMMARY | 2024-08-11 14:58 | XMS_ITS | Clinical Summary ---
Author Organization [facility] [employer] Address [address] [place] [address] Care Team Providers Care Resin Mixer Name Role Phone Clem Roblero MD Primary Care Provider [phone] Source Comments [facility] [employer],non-owned Affiliates and Associated Physician Practices is amultiple site organization consisting of ambulatory clinics and hospital sitesin [place], [place], [place] and [place]. This disclosure is being madepursuant to the Care Everywhere program and may not contain all information available regarding this patient. Last updated 17.Deminos [employer] Allergies No known active allergies Medications * Be aware that medications may not be up to date on this document. Alwaysverify current medications with the patient. albuterol HFA (PROVENTIL;ANGELICA CONOR;PROAIR) 108 (90 BASE) MCG/ACT inhalerIndicatio ns:Acute bronchitis, unspecified organism,Expecto ration of abnormal sputum Inhale 2 Puffs by mouth every 4 hours as needed for Shortness of Breath or Wheezing 3 Inhaler 7 Active ibuprofen (MOTRIN) 800 MG tablet Take 800 mg by mouth every 6 hours as needed Active albuterol-ipratr opium (DUO-NEB) 0.5-2.5 (3) MG/3ML nebulizer solution Inhale 3 mL by mouth 4 times daily Active Multiple Vitamin (MULTI-VITAMINS) TABS 0 Active SYMBICORT 160-4.5 MCG/ACT inhaler 0 Active ATROVENT HFA 17 MCG/ACT inhaler 0 Active loratadine (CLARITIN) 10 MG tablet 0 Active terbinafine (LAMISIL) 1 % cream 0 Active Active Problems [...] Hand pain 02/24/2016 History of alcoholism 02/24/2016 Overview (07/09/2024): IMO 07/09/2024 Resolved Problems Problem Noted Date Diagnosed Date [...] on file Legal Sex Female 5:10 PM FAMILY CENTERED SPECIALIST Gender Identity Not on file Sexual Orientation Not on file Last Filed Vital Signs Vital Sign Reading Time Taken Comments Blood Pressure 139/97 06/05/2019 3:51 PM FAMILY CENTERED SPECIALIST Pulse 83 06/05/2019 3:51 PM FAMILY CENTERED SPECIALIST Temperature 36.7 C (98 F) 06/05/2019 3:51 PM FAMILY CENTERED SPECIALIST Respiratory Rate 19 06/05/2019 3:51 PM FAMILY CENTERED SPECIALIST Oxygen Saturation 95% 06/05/2019 3:51 PM FAMILY CENTERED SPECIALIST Inhaled Oxygen Concentration - - Weight 99.8 kg (220 lb) 06/05/2019 11:15 AM FAMILY CENTERED SPECIALIST Height 162.6 cm (5' 4 ) 06/05/2019 11:15 AM FAMILY CENTERED SPECIALIST Body Mass Index 37.76 06/05/2019 11:15 AM FAMILY CENTERED SPECIALIST Plan of Treatment Health Maintenance Due Date Last Done Comments COLKERRIEUAEDUARD (AGES 45-75) - COL ON CA SCREENING [...] of 3 - 19+ 3-dose series) 1997 SCREENING FOR DIABETES 04/15/2019 COVID-19 VACCINE (1 - 2023-2 5 season) 2023 DEPRESSION SCREENING 04/09/2024 PAP with HPV 04/15/2024 04/15/2019 INFLUENZA VACCINE (Season Ended) 2024 ZOSTER VACCINE (1 of 2) 2028 HIB [...] age to complete this topic PNEUMOCOCCAL VACCINE Aged Out No long er eligible based on patient's age to complete this topic Medical Devices Implanted Type Area Associate Editor Device Identifier Shelf Expiration Date Model / Serial / Lot Oakwood Sut Healix Adv Dynacord 5.5mm Implanted:Qty: 2 on 06/05/2019 by Kishor Weber MD at [facility] Right: Shoulder [employer] 05/09/2020 [id number] / / [id number] Healix Knotless Br Oakwood 6.5 Implanted:Qty: 1 on 06/05/2019 by Kishor Weber MD at [facility] Right: Shoulder 06/06/2021 [id number] / / [id number] Healix Knotless Br Oakwood 6.5 Implanted:Qty: 1 on 06/05/2019 by Kishor Weber MD at [facility] Right: Shoulder 03/08/2022 [id number] / / [id number] Procedures Procedure Name Priority Date/Time Associated Diagnosis Comments HPV DETECTION HIGH RISK CAROLYN Routine 04/15/2019 11:00 AM FAMILY CENTERED SPECIALIST Postcoital bleeding from Last 3 Months or Most Recently Relevant to Health Maintenance Results * HPV DETECTION HIGH RISK CAROLYN (04/15/2019 11:00 AM FAMILY CENTERED SPECIALIST) High Risk Human Papilloma Result Not Detected Not Detected 04/17/2019 3:51 PM FAMILY CENTERED SPECIALIST [facility] High Risk Human Papilloma Interp 04/17/2019 3:51 PM FAMILY CENTERED SPECIALIST [facility] Comment:High Risk Human Abraham lloma Virus was Not Detected. Pathology/Cytolo gy MISCELLANEOUS SAMPLES / Unknown 04/15/2019 11:00 AM FAMILY CENTERED SPECIALIST 04/16/2019 12:35 PM FAMILY CENTERED SPECIALIST Narrative [facility] - 04/17/2019 3:51 PM FAMILY CENTERED SPECIALIST Nucleic acid isolated from the specimen was [...] information). Kalina Chen MD LAB - MICROBIOLOGY ORDERAB LES Final Result [facility] [address] [phone] from Last 3 Months or Most Recently Relevant to Health Maintenance Insurance [facility] [employer] [facility] Care Teams Resin Mixer Relationship Specialty Start Date End Date Clem Roblero MD [address] [place] [id number] PCP - General 02/11/19
== END 2024-08-11 14:18 | disposition home or self-care (01) ==
LOC: ANHSURGERY 14:21
PROVIDERS: Visit Provider Obstetrics & Gynecology
DX: D25.9 Leiomyoma of uterus, unspecified (principal)
CPT/HCPCS: 36415; 86850; 86900; 86901

== ENCOUNTER 2024-09-11 00:12 | Day surgery (SDC) | payer OTHER, SELFPAY ==
[2024-08-05 14:47] VITALS: BMI 38.7
--- NOTE | 2024-08-05 14:57 | PC.NURSE ---
Addendum entered by Ilene Francisco RN 09/05/24 12:25: Report to the Outpatient Waiting Room, entrance under the green pavilion located off [facility], at time _1000am_ on date _09/11/2024_. Planned Procedure Time: _1200pm Patients may have clear liquids (water, carbonated beverages, clear teas, apple juice) until 3 hours prior to surgery with a maximum of 20 ounces. - No food from midnight until time of surgery and no smoking, or chewing tobacco (or any form of nicotine). No chewing gum, candy or mints. Take only the following medications with a SIP of water on the morning of surgery: __Inhalers as needed.___ DO NOT STOP ANY OF YOUR OTHER PRESCRIPTION MEDICATIONS PRIOR TO SURGERY EXCEPT THE FOLLOWING Hold all vitamins and supplements for 3 days per anesthesiologist. Pt denies any change in status, meds or allergies JRRN Medications to discontinue per physician _NONE Date to take last dose__NONE ____ _. Original Note: Report to the Outpatient Waiting Room, entrance under the [place] pavilion located off [facility], at time _0830_ on date _[id number]_. Planned Procedure Time: _1030_.? Time changes happen often and if your time is changed the preop area will call you the afternoon before. - You and your visitor will be asked to self-screen and do not enter if you have any COVID symptoms. Please call surgeon if you need to reschedule. - A mask is optional within the hospital at this time. Patients may have clear liquids (water, carbonated beverages, clear teas, apple juice) until 3 hours prior to surgery with a maximum of 20 ounces. - No food from midnight until time of surgery and no smoking, or chewing tobacco (or any form of nicotine). No chewing gum, candy or mints. Take only the following medications with a SIP of water on the morning of surgery: __Inhalers as needed.___ DO NOT STOP ANY OF YOUR OTHER PRESCRIPTION MEDICATIONS PRIOR TO SURGERY EXCEPT THE FOLLOWING Hold all vitamins and supplements for 3 days per anesthesiologist. Medications to discontinue per physician Date to take last dose Please no make-up, nail singaporean, hairspray, perfume, deodorant, or body powder the day of surgery.? No jewelry (including any body piercings) or valuables the day of surgery, leave them at home.? Please take a shower or bath the night before, or the morning of, surgery with an antibacterial soap.? Wear comfortable, loose fitting clothing. - Jewelry must be removed prior to entering the operating room.? Rings and piercings that are not removed may be cut off. - The hospital will not accept responsibility for valuables.? - Please leave all valuables, including medications, at home the day of surgery. If you are going home after surgery, a licensed local company hazmat driver must drive you home.? - NO public transportation without another adult if you receive anesthesia. - We recommend that an adult stay with you for 24 hours following discharge. - We also recommend that you do not drive, make important decision, drink alcoholic beverages, or take any drugs that were not prescribed by your health care provider for at least 24 hours after your discharge time. Follow any additional instructions given to you from your surgeon. Telephone instructions given to __Eliana__and asked if any additional questions and then verbalized understanding. Patient advised to call surgeon office or pre surgery nurse liaison [phone] if any additional questions.
--- OUTSIDE RECORDS SUMMARY | 2024-08-15 00:15 | XMS_ITS | CONTINUITY OF CARE DOCUMENT ---
Author Name saul hughes Address Unknown Organization [facility] Address [id number] [place] [address] [address] [place] [address] Phone [phone] Care Team Providers Care Interior Horticulturist Name Role Phone Harjit Sandy MD Unavailable Harjit Sandy MD Unavailable JOSE JOSHI MD Unavailable [phone] INSURANCE PROVIDERS Payer name Policy type / Coverage type [place] red green party ID SELF PAY ALLEN MEDICAID (2) Medicaid [id number]
--- OUTSIDE RECORDS SUMMARY | 2024-08-15 00:15 | XMS_ITS | Encounter Summary ---
Author Organization [facility] Address [address] [place] [address] Phone Care Team Providers Care Audio Visual Design Engineer Name Role Phone Homa Michel MD Primary Care Provider [phone] Clem Roblero MD Unavailable [phone] Encounter Details Date Type Department Care Team (Late st Contact Info) Description 10/25/2020 Orders Only [facility] [address] Advanced Medicine 5th [place] [address] [place] [address] Gail Stanton NP [address] [place] [address] Social History Tobacco Use Types Packs/Day Years [...] on filedocumented in this encounter Care Teams Audio Visual Design Engineer Relationship Specialty [place] [address] [place] [id number] PCP - General Internal Medicine 07/20/20 Clem Roblero MD NPI: [id number] [place] [id number] Referring Physician Obstetrics and Gynecology 11/24/20 documented as of this encounter
--- OUTSIDE RECORDS SUMMARY | 2024-08-15 00:15 | XMS_ITS | Patient Health Record ---
Author Organization [facility] Address [address] [place] [address] Care Team Providers Care District Home Economics Agent Name Role Phone Christy Zhang Primary Care Provider [phone] Allergies No Known Allergies Reason For Referral No Information Problems Problem Type SNOMED Code ICD Code Onset Dates Problem Status W/U Status Risk Notes Problem Tobacco user (923051502) Nicotine dependence, unspecified, uncomplicated (F17.200) Active confirmed Problem Depression (172048388) Depression (F32.9) Active confirmed Problem Anxiety (22856675) Anxiety (F41.9) Active confirmed Plan Of Treatment No Information Insurance Providers Payer Name Payer Address Payer Phone Subscriber Number Group Number Insured Name Patient Relationship to Insured Coverage Start Date Coverage End Date [facility] Claims Department [address] [place] [address] [id number] Joe Eliana Self - patient is the insured 1 3 Medical (General) History Surgical History Surgery Date(Month/Year) tubal ligation 2012 shoulder arthroscopy 2019 gallbladder 2013 dnc 1999 plantear 2022 Hospitalization History Reason Date(Month/Year) MH suicide attempt [place] 11/2014 MH suicide attempt [place] 09/2022 kidney infection
--- OUTSIDE RECORDS SUMMARY | 2024-08-15 00:15 | XMS_ITS | Encounter Summary ---
Author Organization [facility] Address [address] [place] [address] Care Team Providers Care Surface Grinder Name Role Phone Clem Roblero MD Primary Care Provider [phone] Encounter Details Date Type Department Care Team (Late st Contact Info) Description 06/06/2019 Telephone [facility] [address] [place] [phone] Evi Albert DO [address] [place] [address] Social History Tobacco Use Types Packs/Day Years [...] on file Legal Sex Female 5:10 PM RATE ANALYST Gender Identity Not on file Sexual Orientation Not on file documented as of this encounter Miscellaneous Notes * Telephone Encounter - Evi Albert DO - 06/06/2019 12:50 PM RATE ANALYST [facility]ICE Peripheral Nerve [...] questions or concerns. Evi Albert DO 06/06/19 ANALYST documented in this encounter Plan of Treatment Not on file documented as of this encounter Visit Diagnoses Not on filedocumented in this encounter Care Teams Surface Grinder Relationship Specialty Start Date End Date Clem Roblero MD [address] [place] [phone] PCP - General 02/11/19 documented as of this encounter
--- OUTSIDE RECORDS SUMMARY | 2024-08-15 00:15 | XMS_ITS | Data Portability ---
Author Organization [place] - [facility], Main Office Address [address] [place] [address] Assessment Encounter Date Assessment Date Assessment LastModified by Organization Details LastModified Time 08/31/2022 08/31/2022 This note is dictated and transcribed by [employer]. [employer] Infantryman variances may occur. Despite proofreading, typographical errors may occur. [email or web address] Not available 08/31/2022 16:46:47 10/26/2022 10/26/2022 This note is dictated and transcribed by [employer]. [employer] Infantry[employer] variances may occur. Despite proofreading, typographical errors may occur. Not available 10/26/2022 11:59:10 11/02/2022 11/02/2022 This note is dictated and transcribed by [employer]. [employer] Infantryman variances may occur. Despite proofreading, typographical errors may occur. Not available 11/02/2022 12:31:50 11/13/2022 11/13/2022 This note is dictated and transcribed by [employer]. [employer] Infantryman variances may occur. Despite proofreading, typographical errors may occur. Not available 11/13/2022 12:14:14 01/18/2023 01/18/2023 This note is dictated and transcribed by [employer]. [employer] Infantryman variances may occur. Despite proofreading, typographical errors may occur. Not available 01/18/2023 12:43:45 Plan of Treatment Reminders Order Date Submit Date Provider Last Modified By Organization Details Last Modified Time Details Appointments None recorded. Lab None recorded. Referral None recorded. Procedures None recorded. Surgeries None recorded. Imaging None recorded. Medication Orders tramadol 50 mg tablet 2022 023 [id number], [address], [place], [place], [id number], 11:59:44 Patient TargetsNo targets recorded. Patient InstructionsNo instructions recorded. Reason for Referral None Reported. Results Created Date Observation Date Name Description Value Unit Range Abnormal Flag Note LastModifiedBy Organization Detail LastModifiedTime 09/21/1909/20/2022 CBC W/O DIFFE RENTI AL white blood cells 6.7 x10'3 /uL 4.2-10 .8 Not Available [facility] (Lab) [address] [place], [address], 09/20/2022 17:47:31 09/21/1909/20/2022 CBC W/O DIFFE RENTI AL red blood cells 4.80 x10'6 /uL 3.80-5 .20 Not Available [facility] (Lab) [address] [place], [address], 09/20/2022 17:47:31 09/21/19 23 09/20/2022 CBC W/O DIFFE RENTI AL hemoglobin 14.6 g/dL 12.0-1 5.6 Not Available [facility] (Lab) [address] [place], [address], 09/20/2022 17:47:31 09/21/19 23 09/20/2022 CBC W/O DIFFE RENTI AL hematocrit 43.6 % 35.7-4 5.7 Not Available [facility] (Lab) [address] [place], [address], 09/20/2022 17:47:31 09/21/1909/20/2022 CBC W/O DIFFE RENTI AL mean red cell volume 90.8 fL 82.0-9 9.0 Not Available [facility] (Lab) [address] [place], [address], 09/20/2022 17:47:31 09/21/1929 0909/20/2022 CBC W/O DIFFE RENTI AL mean red cell hemoglobin 30.4 pg 27.0-3 3.0 Not Available [facility] (Lab) [address] [place], [address], 09/20/2022 17:47:31 09/21/19 23 09/20/2022 CBC W/O DIFFE RENTI AL mean RBC HGB concentratio n 33.5 g/dL 31.0-3 6.0 Not Available [facility] (Lab) [address] [place], [address], 09/20/2022 17:47:31 09/21/19 23 09/20/2022 CBC W/O DIFFE RENTI AL red cell distribution width 12.5 % 11.8-1 5.5 Not Available [facility] (Lab) [address] [place], [address], 09/20/2022 17:47:31 09/21/19 23 09/20/2022 CBC W/O DIFFE RENTI AL platelets 335 x10'3 /uL 150-40 0 Not Available [facility] (Lab) [address] [place], [address], 09/20/2022 17:47:31 09/21/19 23 09/20/2022 CBC W/O DIFFE RENTI AL mean platelet volume 9.2 fL 9.0-12 .4 Not Available [facility] (Lab) [address] [place], [address], 09/20/2022 17:47:31 09/21/19 23 09/20/2022 COMPR EHENS JB METAB OLIC PANEL sodium 137 mmol/ L 137-14 5 Not Available [facility] (Lab) [address] [place], [address], 09/20/2022 19:27:50 09/21/19 23 09/20/2022 COMPR EHENS JB METAB OLIC PANEL potassium 4.3 mmol/ L 3.5-5. 1 Not Available [facility] (Lab) [address] [place], [address], 09/20/2022 19:27:50 09/21/19 23 09/20/2022 COMPR EHENS JB METAB OLIC PANEL chloride 103 mmol/ L 98-107 Not Available [facility] (Lab) [address] [place], [address], 09/20/2022 19:27:50 09/21/19 23 09/20/2022 COMPR EHENS JB METAB OLIC PANEL carbon dioxide 25 mmol/ L 22-30 Not Available [facility] (Lab) [address] [place], [address], 09/20/2022 19:27:50 09/21/19 23 09/20/2022 COMPR EHENS JB METAB OLIC PANEL anion gap 13.3 mmol/ L 14-22 low Not Available [facility] (Lab) [address] [place], [address], 09/20/2022 19:27:50 09/21/19 23 09/20/2022 COMPR EHENS JB METAB OLIC PANEL glucose 103 mg/dL 70-99 high Not Available [facility] (Lab) [address] [place], [address], 09/20/2022 19:27:50 09/21/19 23 09/20/2022 COMPR EHENS JB METAB OLIC PANEL BUN 11 mg/dL 8-19 Not Available [facility] (Lab) [address] [place], [address], 09/20/2022 19:27:50 09/21/19 23 09/20/2022 COMPR EHENS JB METAB OLIC PANEL creatinine 0.60 mg/dL 0.66-1 .25 low Not Available [facility] (Lab) [address] [place], [address], 09/20/2022 19:27:50 09/21/19 23 09/20/2022 COMPR EHENS JB METAB OLIC PANEL GFR >60 Refer ence Range : [place] ge GFR Healt hy Adult : >60 [...] calcu lator is avail able on the [facility] websi te: [email or web address] :[email or web address] [email or web address] [email or web address] rg/pr ofess ional s/kdo qi/gf r_cal culat or Not Available [facility] (Lab) [address] [place], [address], 09/20/2022 19:27:50 09/21/1909/20/2022 COMPR EHENS JB METAB OLIC PANEL alkaline phosphatase 97 U/L 38-126 Not Available [facility] (Lab) [address] [place], [address], 09/20/2022 19:27:50 09/21/19 23 09/20/2022 COMPR EHENS JB METAB OLIC PANEL alanine aminotransfe rase 17 U/L 0-35 Not Available [facility] (Lab) [address] [place], [address], 09/20/2022 19:27:50 09/21/19 23 09/20/2022 COMPR EHENS JB METAB OLIC PANEL aspartate aminotransfe rase 21 U/L 15-37 Not Available [facility] (Lab) [address] [place], [address], 09/20/2022 19:27:50 09/21/19 23 09/20/2022 COMPR EHENS JB METAB OLIC PANEL bilirubin, total 0.60 mg/dL 0.20-1 .30 Not Available [facility] (Lab) [address] [place], [address], 09/20/2022 19:27:50 09/21/19 23 09/20/2022 COMPR EHENS JB METAB OLIC PANEL calcium 9.2 mg/dL 8.4-10 .2 Not Available [facility] (Lab) [address] [place], [address], 09/20/2022 19:27:50 09/21/19 23 09/20/2022 COMPR EHENS JB METAB OLIC PANEL total protein 6.8 g/dL 6.3-8. 2 Not Available [facility] (Lab) [address] [place], [address], 09/20/2022 19:27:50 09/21/19 23 09/20/2022 COMPR EHENS JB METAB OLIC PANEL albumin 3.8 g/dL 3.4-5. 0 Not Available [facility] (Lab) [address] [place], [address], 09/20/2022 19:27:50 09/21/19 23 09/20/2022 COMPR EHENS JB METAB OLIC PANEL globulin 3.0 g/dL 2.6-4. 2 Not Available [facility] (Lab) [address] [place], [address], 09/20/2022 19:27:50 09/21/19 23 09/20/2022 COMPR EHENS JB METAB OLIC PANEL A/G ratio 1.3 ratio 1.0-2. 0 Not Available [facility] (Lab) [address] [place], [address], 09/20/2022 19:27:50 Result Notes None recorded. Problems Name Problem SNOMED Code Status Onset Date Resolution Date Notes Provider Name and Address Organization Details Recorded Time Disorder of shoulder 920776772 Completed Not Available [facility] 3 20:20:02 Plantar fasciitis of right foot 85816882518 139880 Active 2021 Not Available [facility] 3 20:20:02 Partial thickness rotator cuff tear 898518759 Active 2018 Not Available [facility] 3 20:20:02 Shoulder joint pain 747088157 Completed Not Available [facility] 3 20:20:03 Ingrowing toenail 609827714 Active 2021 Not Available [facility] 3 20:20:03 Multiple nodules of lung 212616924 Active 2021 Not Available [facility] 3 20:20:03 Foot pain 49665469 Active 2021 Not Available [facility] 3 20:20:03 Porokerat osis 499963683 Active 2022 Kevan Portillo DPM [address], [place], [address] , Cyrba [facility] [employer] 3 15:02:01 Plantar wart of left foot 68395064567 467336 Active 2022 Kevan Portillo DPM [address], [place], [address] , Cyrba - S [facility] 3 13:00:17 Celluliti s of toe of left foot 62643385211 313655 Active 2022 Kevan Portillo DPM [address], [address], [place], [address] , [employer] 3 13:01:08 Pre-surge ry evaluatio n Active 2022 Kevan Portillo DPM [address], [address], [place], [address] , [employer] 3 12:25:27 Postopera tive pain 823903989 Active 2022 Kevan Portillo DPM [address], [address], [place], [address] , [employer] 3 11:57:37 Dehiscenc e of surgical wound 45917042 Active 2022 Kevan Portillo DPM [address], [address], [place], [address] , [employer] 3 11:58:41 Postopera tive visit 898133131 Active 2022 Kevan Portillo DPM [address], [address], [place], [address] , [employer] 3 12:14:32 Notes:Medical History: Anxie ty/Depression Rhinitis [...] Portillo DPM [address], [address], [place], [address], [employer] 01/31/2023 13:59:58 08/08/19 23 Callus Debridement, One completed Kevan Portillo DPM [address], [address], [place], [address], [employer] 08/07/2022 17:54:22 07/25/19 23 Destruction lesion (cryo, hyfrecation, scissors or chemical) completed Kevan Portillo DPM [address], [address], [place], [address], [employer] 07/24/2022 12:59:55 07/11/19 23 Total Nail Avulsion with Chemical Matrixectomy-Ri ght completed Kevan Portillo DPM [address], [address], [place], [address], [employer] 07/10/2022 15:02:32 07/11/19 23 Partial Nail Avulsion Chemical Matrixectomy-Le ft completed Kevan Portillo DPM [address], [address], [place], [address], [employer] 07/10/2022 15:01:16 06/20/19 23 Nail Debridement completed Kevan Portillo DPM [address], [address], [place], [address], [employer] 06/19/2022 15:01:53 06/20/19 23 Callus Debridement, One completed Kevan Portillo DPM [address], [address], [place], [address], [employer] 06/19/2022 15:01:45 04/09/19 20 Shoulder completed Not Available [facility] 20:19:31 Imaging Results None recorded. [...] 98 % 130 mm[Hg] 88 mm[Hg] Shira [employer] 3 16:25:59 Date Recorded Body height Heart rate Respiratory rate Oxygen saturation Oxygen saturation in Arterial blood by Pulse oximetry Systolic blood pressure Diastolic blood pressure Provider Name and Address Organization Details Last Updated DateTime 3 162.56 cm 93 /min 14 /min 98 % 98 % 136 mm[Hg] 82 mm[Hg] [facility] [employer] 3 11:40:38 Date Recorded Body height Heart rate Respiratory rate Oxygen saturation Oxygen saturation in Arterial blood by Pulse oximetry Systolic blood pressure Diastolic blood pressure Provider Name and Address Organization Details Last Updated DateTime 3 162.56 cm 106 /min 14 /min 99 % 99 % 137 mm[Hg] 92 mm[Hg] [facility] [employer] 3 11:21:13 Date Recorded Body height Heart rate Respiratory rate Oxygen saturation Oxygen saturation in Arterial blood by Pulse oximetry Systolic blood pressure Diastolic blood pressure Provider Name and Address Organization Details Last Updated DateTime 3 162.56 cm 106 /min 14 /min 99 % 99 % 119 mm[Hg] 99 mm[Hg] [facility] [employer] 3 11:20:54 Date Recorded Body height Heart rate Respiratory rate Oxygen saturation Oxygen saturation in Arterial blood by Pulse oximetry Systolic blood pressure Diastolic blood pressure Provider Name and Address Organization Details Last Updated DateTime 3 162.56 cm 102 /min 14 /min 98 % 98 % 150 mm[Hg] 107 mm[Hg] Shira [employer] [facility] 3 11:01:50 Social History Question Answer Notes LastModified by Organizat ion Details LastModified Time Tobacco Smoking Status Current Every Day Smoker Not Available [facility] 06/07/2022 20:19:21 What Is Your Level Of Alcohol Consumption? None [id number].[id number] Information not available 06/07/2022 What Is Your Level Of Caffeine Consumption? Occasional MIGRATION.63236 [id number] Information not available 06/07/2022 In The 14 Days Before Symptom Onset, Have You Had Close Contact With A Laboratory-confi rmed COVID-19 While That Case Was Ill? No MIGRATION.92834 41156 Information not available 06/07/2022 In The 14 Days Before Symptom Onset, Have You Had Close Contact With A Person Who Is Under Investigation For COVID-19 While That Person Was Ill? No MIGRATION.52506 47376 Information not available 06/07/2022 What Type Of Diet Are You Following? REGULAR MIGRATION.98886 04681 Information not available 06/07/2022 What Is The Highest Grade Or Level Of School You Have Completed Or The Highest Degree You Have Received? [id number] MIGRATION.71748 85462 Information not available 06/07/2022 Do You Have An Electrostatic Air Filter? 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 No MIGRATION.28965 48291 Information not available 06/07/2022 Do You Have A Humidifier? No MIGRATION.85607 73731 Information not available 06/07/2022 Where Do You Live? [place]House MIGRATION.59421 41177 Information not available 06/07/2022 Do You Have Moisture Problems In Your Home? No MIGRATION.90382 42739 Information not available 06/07/2022 What Was The Date Of Your Most Recent Tobacco Screening? 12/19/2021 MIGRATION.34800 33162 Information not available 06/07/2022 Do You Have Any Pets? Yes MIGRATION.14549 50899 Information not available 06/07/2022 Do You Use Your Seat Belt Or Car Seat Routinely? Yes MIGRATION.15359 59007 Information not available 06/07/2022 Do You Have Smoke And Carbon Monoxide Detectors In Your Home? Yes MIGRATION.71109 27748 Information not available 06/07/2022 Are You Passively Exposed To Smoke? No MIGRATION.96670 05687 Information not available 06/07/2022 How Much Tobacco Do You Smoke? 0.5 PPD MIGRATION.07717 65386 Information not available 06/07/2022 Do You Feel Stressed (tense, Restless, Nervous, Or Anxious, Or Unable To Sleep At Night)? [id number] MIGRATION.30151 58863 Information not available 06/07/2022 Do You Use Any Illicit Or Recreational Drugs? No MIGRATION.81000 70327 Information not available 06/07/2022 Do You Use Sunscreen Routinely? No MIGRATION.20387 33351 Information not available 06/07/2022 How Many Years Have You Smoked Tobacco? 20 MIGRATION.06506 66023 Information not available 06/07/2022 Have You Recently Traveled Abroad? No MIGRATION.27107 90280 Information not available 06/07/2022 Do You Have Any Dietary Restrictions? No MIGRATION.74724 78879 Information not available 06/07/2022 Sex: Unknown Functional Status None recorded. Mental Status None recorded. Family History Relationship Description Onset Age of this Age Resolved Age Notes LastModified by Organization Details LastModified Time Father Diabetes mellitus MIGRATION.676 [id number] Not available 06/07/2022 20:19:32 Brother Diabetes mellitus MIGRATION.395 [id number] Not available 06/07/2022 20:19:32 Sister Asthma MIGRATION.924 [id number] Not available 06/07/2022 20:19:32 Daughter Asthma MIGRATION.111 [id number] Not available 06/07/2022 20:19:32 Maternal Grandmother Chronic obstructive pulmonary disease MIGRATION.938 [id number] Not available 06/07/2022 20:19:32 Maternal Aunt Chronic obstructive pulmonary disease MIGRATION.508 [id number] Not available 06/07/2022 20:19:32 Mother Malignant neoplasm of uterus MIGRATION.506 [id number] Not available 06/07/2022 20:19:32 Notes:daughter-mental, cousi n-few disabilities Medical History Condition Response COPD Y Gynecological HistoryNo gynecological history recorded. Obstetrics History GPAL:G 0 P 0 0 0 0 Past Encounters Encounter ID Performer Location Encounter Start Date Encounter Closed Date Diagnosis/Indication Diagnosis SNOMED-CT Code Diagnosis ICD10 Code Diagnosis Note [id number] Codey Oneill MD [facility] [address] [address] 11/11/2020 00:00:00 11/11/2020 10:34:30 [id number] RANCHO Phelps [facility] [place] [address] [place] [address] 12/15/2020 00:00:00 12/15/2020 16:43:49 [id number] Codey Oneill MD [facility] [address] [address] 02/17/2021 00:00:00 02/17/2021 12:19:51 [id number] Codey Oneill MD [facility] [address] [address] 04/07/2021 00:00:00 04/07/2021 13:17:52 [id number] [facility] [place] [address] [place] [address] 12/05/2021 00:00:00 12/05/2021 12:50:02 [id number] Codey Oneill MD [facility] [address] [address] 12/19/2021 00:00:00 12/19/2021 11:41:15 [id number] [facility] [place] [address] [place] [address] 01/09/2022 00:00:00 01/09/2022 11:20:28 [id number] [facility] [place] [address] [place] [address] 03/23/2022 00:00:00 03/23/2022 15:37:11 [id number] Kevan Portillo DPM [facility] [place] [address] [place] [address] 04/17/2022 00:00:00 04/18/2022 09:04:49 [id number] Kevan Portillo DPM [facility] [place] [address] [place] [address] 05/15/2022 00:00:00 05/15/2022 17:07:34 [id number] Kevan Portillo DPM [facility] [place] [address] [place], [place] [address] 06/19/2022 14:26:35 06/19/2022 15:05:48 Ingrowing toenail 095601156 L60.0 M79.674 Educated on conditionE ducated on treatment optionsSla nt back procedure performed on the nail corners today to prevent infection and relieve pain, pain relief after procedurek eep the areas clean and dry to prevent infectionP atient will follow-up for 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 both great toenails Porokeratosis 734583966 Q82.8 x1 left plantar footdebrid ed without incidentre commend over-the-c ounter Amlactin lotion twice dailyfollo w-up as needed for this issue [id number] Kevan Portillo DPM [facility] [place] [address] [place] [address] 07/10/2022 14:12:19 08/04/2022 15:22:35 Ingrowing toenail 402310502 L60.0 M79.674 Educated on conditionE ducated on treatment optionsSla nt back procedure performed on the nail corners today to prevent infection and relieve pain, pain relief after procedurek eep the areas clean and dry to prevent infectionP atient will follow-up for 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 both great toenails Cellulitis of toe of left foot 7356787225 9689381 L03.032 [id number] Kevan Portillo DPM [facility] [place] [address] [place] [address] 07/24/2022 12:09:47 07/24/2022 14:01:23 Ingrowing toenail 139218106 L60.0 M79.674 bilateral partial matrixecto my both great toes- healingcon tinue daily wound careFollow up in 2 weeks Plantar wa rt of left foot 2859181983 7465441 B07.0 debrided and treated with salicylic acid todayVerba l consent obtained by the patient for treatmentU se salicylic acid over-the-c ounter daily until blistering occurs then discontinu e use, keep the area clean and dry with bandage to prevent infectionF ollow-up in 2 weeks Cellulitis of toe of left foot 9188180803 9111170 L03.032 [id number] Kevan Portillo DPM [facility] [place] [address] [place] [address] 08/07/2022 16:59:21 08/07/2022 17:58:29 Cellulitis of toe of left foot 2839237108 5031364 L03.032 Resolved Plantar wa rt of left foot 1817589531 1334592 B07.0 Overlying skin debrided todayconti nue wound care to prevent wounds infectionF ollow-up in 2 weeks possible retreatmen t if still present [id number] Kevan Portillo DPM [facility] [place] [address] [place] [address] 08/31/2022 16:18:25 09/01/2022 13:45:30 Plantar wart of left foot 7138708775 4670565 B07.0 Obtain surgical clearanceP edu surgical excision of wart with biopsy left footall risks, benefits, complicati ons were reviewed with the patient to a full and complete understand ing. Patient states understand ing elects to continue with the planned procedure. no guarantees were given or implied.Re turn post surgery [id number] Kevan Portillo DPM [facility] [place] [address] [facility] [address] [place] [address] 10/26/2022 11:31:13 10/26/2022 16:20:10 Postoperative visit 714807216 Z09 wart excisionpa thology report- plantar wart Postoperative pain 37790 9007 G89.18 Dehiscence of surgical wound 01707550 T81.30XA left footdaily dressings with Betadine wet-to-dry dressingpr essure to the heel only with postop shoeno workingfol low-up 1 week [id number] Kevan Portillo DPM [facility] [place] [address] [place] [address] 11/02/2022 11:17:40 11/02/2022 12:33:48 Postoperative visit 070654594 Z09 wart excisionpa thology report- plantar wart Dehiscence of surgical wound 40796585 T81.30XA left footdaily dressings with Betadine wet-to-dry dressingpr essure to the heel only with postop shoeno workingfol low-up 1 week [id number] Kevan Portillo DPM [facility] Podiat[facility] [place] [address] [place] [address] 11/13/2022 11:18:03 11/13/2022 12:36:21 Postoperative visit 137643495 ZPortia wart excisionpa ology report- plantar wart Dehiscence of surgical wound 44193097 T81.30XA healedMay return to normal shoe gearwork release to return to workFollow -up as needed [id number] Kevan Portillo DPM [facility] [place] [address] [place] [address] 01/18/2023 10:58:23 01/31/2023 14:04:32 Porokeratosis 633910689 Q82.8 x1 left plantar footdebrid ed without [...] Terry Member ID Guarantor Name 08/31/2022 1 [facility] - DOS ON OR AFTER 20 (MEDICAID REPLACEMENT - HMO) Eliana Diaz [id number] Eliana Diaz 10/26/2022 1 [facility] 10/07/20 (MEDICAID REPLACEMENT - HMO) Eliana A [place] [id number] Eliana A [place] 11/02/2022 1 [facility] AFTER 10/07/20 (MEDICAID REPLACEMENT - HMO) Eliana A [place] [id number] Eliana A [place] 11/13/2022 1 [facility] ON OR AFTER 10/07/20 (MEDICAID REPLACEMENT - HMO) Eliana A [place] [id number] Eliana A [place] 01/18/2023 1 [facility] ON OR AFTER 10/07/20 (MEDICAID REPLACEMENT - HMO) Eliana A [place] [id number] Eliana A [place] Notes Date Note Type Note Provider Name [...] any other pedal complaints. Kevan Portillo DPM [address] [place] [address], [place], [address], [place] [facility] [place] [employer] 08/31/2022 16:47:42 10/26/2022 text/html . Patient is [...] complaints. Kevan Portillo DPM [address], [place], [address], [facility] [employer] 10/26/2022 12:00:01 11/02/2022 text/html . Patient is [...] Portillo DPM [address], [address], [place], [address], [facility] 11/02/2022 12:32:37 11/13/2022 text/html . Patient is a 42-year-old female who returns the office for follow-up on wound dehiscence. Patient states she has not had any further drainage or pain to the foot. Patient is completely healed. Patient denies any other complaints. Kevan Portillo DPM [address], [address], [place], [address], [employer] 11/13/2022 12:14:47 01/18/2023 text/html . Patient is [...] Kevan Portillo DPM [address], [place], [address], [facility] 01/31/2023 14:00:16 OBGyn Episode No OBEpisode recorded.
--- OUTSIDE RECORDS SUMMARY | 2024-08-15 00:15 | XMS_ITS | Clinical Summary ---
Author Organization [facility] Address [address] [place] [address] Phone Care Team Providers Care Artistic Associate Name Role Phone Unavailable Primary Care Provider [...] on file Legal Sex Female 6:22 PM DOCUMENT ADVISOR Gender Identity Not on file Sexual Orientation Not on file Last Filed Vital Signs Vital Sign Reading Time Taken Comments Blood Pressure 150/92 02/11/2017 6:27 PM DOCUMENT ADVISOR Pulse - - Temperature 36.2 C (97.1 F) 02/11/2017 6:27 PM DOCUMENT ADVISOR Respiratory Rate 18 02/11/2017 6:27 PM DOCUMENT ADVISOR Oxygen Saturation 100% 02/11/2017 6:27 PM DOCUMENT ADVISOR Inhaled Oxygen Concentration - - Weight 86.2 kg (190 lb) 02/11/2017 6:27 PM DOCUMENT ADVISOR Height 162.6 cm (5' 4) 02/11/2017 6:27 PM DOCUMENT ADVISOR Body Mass Index 32.61 02/11/2017 6:27 PM DOCUMENT ADVISOR Plan of Treatment Health Maintenance Due Date [...]
--- OUTSIDE RECORDS SUMMARY | 2024-08-15 00:15 | XMS_ITS | Data Portability ---
Author Organization [facility] CARLA[facility]athie Address [address] [place] [address] Care Team Providers Care Hyperbaric Technologist Name Role Phone HOMA JOSHI Primary Care Provider Assessment No assessment recorded. Plan of Treatment Reminders Order Date Submit Date Provider Last Modified By Organization Details Last Modified Time Details Appointments None recorded . Lab CMP, serum or plasma 2021 022 [facility] [address] [place] [address], [facility] [address], [place], [address], 17:09:39 CBC w/ auto diff 2021 022 [facility], [address] [place] [address], [address], [place], [address], 17:09:38 PT/PTT, plasma 2021 022 [facility], [address] [place] [address], [address], [place], [address], 17:09:40 Referral general surgeon referral 2020 021 ace Dominguez MD, [address] [facility], [address], [place], [address], 09:13:39 Procedures None recorded . Surgeries None recorded . Imaging electroc james ureña 2022 023 [facility] ([facility]), [address] [place], [address], 3 15:30:16 US, duplex, venous, lower extremit y, complete 2021 022 [facility] ([facility]), [address] [place], [address], 2 10:17:55 US, doppler, arterial - Lower extremit ies. both sides. 2021 022 [facility] ([facility]), [address] [place], [address], 2 10:18:53 Medication Orders Reglan 10 mg tablet 2020 [facility][id number], [address], [id number], 3 15:29:34 Medrol (Rayo) 4 mg tablets in a dose pack 2020 [facility] #[id number], [address], [id number], 3 15:29:00 Zithroma x Z-Rayo 250 mg tablet 2020 [facility] #[id number], [address], [place], [id number], 3 15:28:53 albutero l sulfate HFA 90 mcg/actu ation aerosol inhaler 2020 [facility] #[id number], [address], [place], [id number], 3 15:30:14 benzonat ate 200 mg capsule 2020 021 [id number], [address], [place], [place], [id number], 12:32:25 Patient TargetsNo targets recorded. Patient Instructions Encounter Date Encounter Id Patient Instructions Last Modified By Organization Details Last Modified Time 02/24/2021 [id number] gastroesophageal reflux disease (GERD): care instructions [facility] Not available 02/24/2021 12:54:11 12/04/2022 [id number] Quitting Tobacco : Care Instructions si Not available 12/04/2022 16:19:16 A healthy lifest yle: care instructions [facility] Not available 12/04/2022 16:19:16 chronic obstruct abdiel pulmonary disease (COPD): care instructions [facility] Not available 12/04/2022 16:19:16 learning about [...] x10e3 /uL 3.4-10 .8 Not Available [facility] ([facility]) [address] [facility], [place], [address], 07/28/2021 17:09:38 07/23/19 22 07/23/2021 CBC WITH DIFFE RENTI AL/PL ATELE T RBC 4.93 x10e6 /uL 3.77-5 .28 Not Available [facility] ([facility]) [address] [facility], [place], [address], 07/28/2021 17:09:38 07/23/19 22 07/23/2021 CBC WITH DIFFE RENTI AL/PL ATELE T hemoglobin 14.6 g/dL 11.1-1 5.9 Not Available [facility] ([facility]) [address] [facility], [place], [address], 07/28/2021 17:09:38 07/23/19 22 07/23/2021 CBC WITH DIFFE RENTI AL/PL ATELE T hematocrit 43.1 % 34.0-4 6.6 Not Available [facility] ([facility]) [address] [facility], [place], [address], 07/28/2021 17:09:38 07/23/19 22 07/23/2021 CBC WITH DIFFE RENTI AL/PL ATELE T MCV 87 fL 79-97 Not Available [facility] ([facility]) [address] [facility], [place], [address], 07/28/2021 17:09:38 07/23/19 22 07/23/2021 CBC WITH DIFFE RENTI AL/PL ATELE T MCH 29.6 pg 26.6-3 3.0 Not Available [facility] ([facility]) [address] [facility], [place], [address], 07/28/2021 17:09:38 07/23/19 22 07/23/2021 CBC WITH DIFFE RENTI AL/PL ATELE T MCHC 33.9 g/dL 31.5-3 5.7 Not Available [facility] ([facility]) [address] [facility], [place], [address], 07/28/2021 17:09:38 07/23/19 22 07/23/2021 CBC WITH DIFFE RENTI AL/PL ATELE T RDW 12.2 % 11.7-1 5.4 Not Available [facility] ([facility]) [address] [facility], [place], [address], 07/28/2021 17:09:38 07/23/19 22 07/23/2021 CBC WITH DIFFE RENTI AL/PL ATELE T platelets 336 x10e3 /uL 150-45 0 Not Available [facility] ([facility]) [address] [facility], [place], [address], 07/28/2021 17:09:38 07/23/19 22 07/23/2021 CBC WITH DIFFE RENTI AL/PL ATELE T neutrophils 59 % not estab. Not Available [facility] ([facility]) [address] [facility], [place], [address], 07/28/2021 17:09:38 07/23/19 22 07/23/2021 CBC WITH DIFFE RENTI AL/PL ATELE T lymphs 26 % not estab. Not Available [facility] ([facility]) [address] [facility], [place], [address], 07/28/2021 17:09:38 07/23/19 22 07/23/2021 CBC WITH DIFFE RENTI AL/PL ATELE T monocytes 12 % not estab. Not Available [facility] ([facility]) [address] [facility], [place], [address], 07/28/2021 17:09:38 07/23/19 22 07/23/2021 CBC WITH DIFFE RENTI AL/PL ATELE T eos 2 % not estab. Not Available [facility] ([facility]) [address] [facility], [place], [address], 07/28/2021 17:09:38 07/23/19 22 07/23/2021 CBC WITH DIFFE RENTI AL/PL ATELE T basos 1 % not estab. Not Available [facility] ([facility]) [address] [facility], [place], [address], 07/28/2021 17:09:38 07/23/19 22 07/23/2021 CBC WITH DIFFE RENTI AL/PL ATELE T immature cells DIESEL ENGINE ENGINEER Not Available [facility] ([facility]) [address] [facility], [place], [address], 07/28/2021 17:09:38 07/23/19 22 07/23/2021 CBC WITH DIFFE RENTI AL/PL ATELE T neutrophils (absolute) 4.2 x10e3 /uL 1.4-7. 0 Not Available [facility] ([facility]) [address] [place], [address], 07/28/2021 17:09:38 07/23/19 22 07/23/2021 CBC WITH DIFFE RENTI AL/PL ATELE T lymphs (absolute) 1.9 x10e3 /uL 0.7-3. 1 Not Available [facility] ([facility]) [address] [place], [address], 07/28/2021 17:09:38 07/23/19 22 07/23/2021 CBC WITH DIFFE RENTI AL/PL ATELE T monocytes(ab solute) 0.9 x10e3 /uL 0.1-0. 9 Not Available [facility] ([facility]) [address] [place], [address], 07/28/2021 17:09:38 07/23/19 22 07/23/2021 CBC WITH DIFFE RENTI AL/PL ATELE T eos (absolute) 0.2 x10e3 /uL 0.0-0. 4 Not Available [facility] ([facility]) [address] [place], [address], 07/28/2021 17:09:38 07/23/19 22 07/23/2021 CBC WITH DIFFE RENTI AL/PL ATELE T baso (absolute) 0.1 x10e3 /uL 0.0-0. 2 Not Available [facility] ([facility]) [address] [place], [address], 07/28/2021 17:09:38 07/23/19 22 07/23/2021 CBC WITH DIFFE RENTI AL/PL ATELE T immature granulocytes 0 % not estab. Not Available [facility] ([facility]) [address] [place], [address], 07/28/2021 17:09:38 07/23/19 22 07/23/2021 CBC WITH DIFFE RENTI AL/PL ATELE T immature grans (abs) 0.0 x10e3 /uL 0.0-0. 1 Not Available [facility] ([facility]) [address] [facility], [place], [address], 07/28/2021 17:09:38 07/23/19 22 07/23/2021 CBC WITH DIFFE RENTI AL/PL ATELE T NRBC DIESEL ENGINE ENGINEER Not Available [facility] ([facility]) [address] [facility], [place], [address], 07/28/2021 17:09:38 07/23/19 22 07/23/2021 CBC WITH DIFFE RENTI AL/PL ATELE T hematology comments: DIESEL ENGINE ENGINEER Not Available [facility] ([facility]) [address] [facility], [place], [address], 07/28/2021 17:09:38 07/23/19 22 07/23/2021 COMP. METAB OLIC PANEL (14) glucose 95 mg/dL 65-99 Not Available [facility] ([facility]) [address] [facility], [place], [address], 07/28/2021 17:09:39 07/23/19 22 07/23/2021 COMP. METAB OLIC PANEL (14) BUN 14 mg/dL 6-24 Not Available [facility] ([facility]) [address] [facility], [place], [address], 07/28/2021 17:09:39 07/23/19 22 07/23/2021 COMP. METAB OLIC PANEL (14) creatinine 0.71 mg/dL 0.57-1 .00 Not Available [facility] ([facility]) [address] [facility], [place], [address], 07/28/2021 17:09:39 07/23/19 22 07/23/2021 COMP. METAB OLIC PANEL (14) eGFR 108 mL/mi n/1.7 3 >59 Not Available [facility] ([facility]) [address] [place], [address], 07/28/2021 17:09:39 07/23/19 22 07/23/2021 COMP. METAB OLIC PANEL (14) BUN/creatini ne ratio 20 9-23 Not Available [facility] ([facility]) [address] [facility], [place], [address], 07/28/2021 17:09:39 07/23/19 22 07/23/2021 COMP. METAB OLIC PANEL (14) sodium 138 mmol/ L 134-14 4 Not Available [facility] ([facility]) [address] [facility], [place], [address], 07/28/2021 17:09:39 07/23/19 22 07/23/2021 COMP. METAB OLIC PANEL (14) potassium 4.9 mmol/ L 3.5-5. 2 Not Available [facility] ([facility]) [address] [facility], [place], [address], 07/28/2021 17:09:39 07/23/19 22 07/23/2021 COMP. METAB OLIC PANEL (14) chloride 103 mmol/ L 96-106 Not Available [facility] ([facility]) [address] [place], [address], 07/28/2021 17:09:39 07/23/19 22 07/23/2021 COMP. METAB OLIC PANEL (14) carbon dioxide, total 22 mmol/ L 20-29 Not Available [facility] ([facility]) [address] [place], [address], 07/28/2021 17:09:39 07/23/19 22 07/23/2021 COMP. METAB OLIC PANEL (14) calcium 9.6 mg/dL 8.7-10 .2 Not Available [facility] ([facility]) [address] [place], [address], 07/28/2021 17:09:39 07/23/19 22 07/23/2021 COMP. METAB OLIC PANEL (14) protein, total 6.7 g/dL 6.0-8. 5 Not Available [facility] ([facility]) [address] [place], [address], 07/28/2021 17:09:39 07/23/19 22 07/23/2021 COMP. METAB OLIC PANEL (14) albumin 4.4 g/dL 3.8-4. 8 Not Available [facility] ([facility]) [address] [place], [address], 07/28/2021 17:09:39 07/23/19 22 07/23/2021 COMP. METAB OLIC PANEL (14) globulin, total 2.3 g/dL 1.5-4. 5 Not Available [facility] ([facility]) [address] [place], [address], 07/28/2021 17:09:39 07/23/19 22 07/23/2021 COMP. METAB OLIC PANEL (14) A/G ratio 1.9 1.2-2. 2 Not Available [facility] ([facility]) [address] [place], [address], 07/28/2021 17:09:39 07/23/19 22 07/23/2021 COMP. METAB OLIC PANEL (14) bilirubin, total 0.4 mg/dL 0.0-1. 2 Not Available [facility] ([facility]) [address] [place], [address], 07/28/2021 17:09:39 07/23/19 22 07/23/2021 COMP. METAB OLIC PANEL (14) alkaline phosphatase 113 IU/L 44-121 Not Available [facility] ([facility]) [address] [facility], [place], [address], 07/28/2021 17:09:39 07/23/19 22 07/23/2021 COMP. METAB OLIC PANEL (14) AST (SGOT) 13 IU/L 0-40 Not Available [facility] ([facility]) [address] [facility], [place], [address], 07/28/2021 17:09:39 07/23/19 22 07/23/2021 COMP. METAB OLIC PANEL (14) ALT (SGPT) 15 IU/L 0-32 Not Available [facility] ([facility]) [address] [facility], [place], [address], 07/28/2021 17:09:39 07/23/19 22 07/28/2021 ABN PTT/A PTT REFLE XIVE PANEL thrombin time 15.7 sec Refer ence Range : 0.0 - 23.0 Not Available [facility] [address] [place], [address], 07/28/2021 17:09:40 07/23/19 22 07/28/2021 ABN PTT/A PTT REFLE XIVE PANEL prothrombin time 10.0 sec Refer ence Range : 18 years and older : 9.1 - 12.0 Not Available [facility] [address] [place], [address], 07/28/2021 17:09:40 07/23/19 22 07/28/2021 ABN PTT/A PTT REFLE XIVE PANEL INR 0.9 ratio Refer ence Range : >1 month : 0.9 - 1.2 Not Available [facility] [address] [place], [address], 07/28/2021 17:09:40 07/23/19 22 07/28/2021 ABN PTT/A [...] 30.2 Not Available [facility] [address] [place], [address], 07/28/2021 17:09:40 07/23/19 22 07/28/2021 ABN PTT/A PTT REFLE XIVE PANEL drvvt screen seconds 39.3 sec Refer ence Range : <= 47.0 Not Available [facility] [address] [place], [address], 07/28/2021 17:09:40 07/23/19 22 07/28/2021 ABN PTT/A PTT REFLE XIVE PANEL drvvt confirm seconds TNP sec Testi ng Not Indic ated Not indic ated Not Available [facility] [address] [place], [address], 07/28/2021 17:09:40 07/23/19 22 07/28/2021 ABN PTT/A PTT REFLE XIVE PANEL drvvt ratio TNP ratio Testi ng Not Indic ated Not indic ated Not Available [facility] [address] [place], [address], 07/28/2021 17:09:40 07/23/19 22 07/28/2021 ABN PTT/A PTT REFLE XIVE PANEL pathologist interpretati on TNP Test not perfo rmed All resul ts are withi n the adult refer ence range and there fore patho logy inter preta tion is not indic ated. Not Available [facility] [address] [place], [address], 07/28/2021 17:09:40 02/02/20 21 12/23/2020 CT, chest , w/o contr ast No observ ation record ed. [address] ([facility]) [address] [place], [address], 02/04/2021 09:40:54 07/23/19 22 03/31/2021 PFT, compl ete No observ ation record ed. [address] [place], [address], 07/25/2021 10:10:49 07/28/19 22 07/25/2021 US, duple x, venou s, lower extre mity, compl ete No observ ation record ed. [facility] ([facility]) [address] [place], [address], 07/29/2021 16:10:14 07/28/19 22 07/26/2021 US, doppl er, arter ial No observ ation record ed. [facility] ([facility]) [address] [place], [address], 07/29/2021 16:10:15 12/10/19 22 12/09/2021 imagi ng/di agnos tic resul t No observ ation record ed. [facility] [address] [place], [address], 12/09/2021 18:51:15 04/05/20 22 04/05/2022 imagi ng/di agnos tic resul t No observ ation record ed. [facility] [address] [place], [address], 04/05/2022 18:28:29 06/12/19 23 06/11/2022 imagi ng/di agnos tic resul t No observ ation record ed. [facility] [address] [place], [address], 06/12/2022 17:41:08 09/12/19 23 09/08/2022 elect verónica valentine am No observ ation record ed. [facility] [address] [place], [address], 09/14/2022 09:54:44 12/06/19 23 12/05/2022 imagi ng/di agnos tic resul t No observ ation record ed. [facility] [address] [place], [address], 12/06/2022 11:20:05 01/14/20 23 01/13/2023 imagi ng/di agnos tic resul t No observ ation record ed. [facility] [address] [place], [address], 01/15/2023 12:48:00 03/21/20 23 03/21/2023 CT, abdom en + pelvi s, w/o contr ast No observ ation record ed. [facility] [address] [place], [address], 03/27/2023 17:00:21 04/15/19 24 04/15/2023 CT, head, w/o contr ast No observ ation record ed. [place] [id number], [place], [address], 04/17/2023 10:22:09 07/25/19 24 07/25/2023 CT, abdom en + pelvi s, w/ contr ast No observ ation record ed. [email or web address] [facility] [address] [place], [address], 08/01/2023 12:21:46 08/17/19 24 08/17/2023 XR, chest No observ ation record ed. [facility] [address] [place], [address], 09/04/2023 12:55:26 Result Notes None recorded. Problems Name Problem SNOMED Code Status Onset Date Resolution Date Notes Provider Name and Address Organization Details Recorded Time Upper respirato ry infection 24735218 Completed 201607/19/2020 Clem devries, SERENA - [facility] 1 21:46:55 Viral gastritis 665447354 Completed 201607/19/2020 Clem devries, SERENA - [facility] 1 21:46:53 Pain of left heel 70206412011 48409 Completed 201707/19/2020 Clem devries, SERENA - [facility] 1 21:46:33 Body mass index 30+ - obesity 990330573 Active 2017 Not Available [facility] 3 12:00:10 Retractio n of nipple 81652645 Active 2017 Not Available [facility] 3 12:00:10 Bacterial vaginosis 529866664 Active 2017 Not Available [facility] 3 12:00:10 Solitary nodule of lung 356149948 Active 2017 Not Available [facility] 3 12:00:10 Family history of malignant neoplasm of lung 989181094 Active 2017 Not Available [facility] 3 12:00:10 Bereaveme nt 67324768 Completed 201707/19/2020 Clem devries, SERENA - [facility] 1 21:46:17 Asthma 395606247 Active 2019 J45.90 9 Not Available [facility] 3 12:00:10 Depressiv e disorder 99217362 Active Not Available [facility] 3 12:00:10 Migraine 68255007 Active Not Available [facility] 3 12:00:10 Tobacco dependenc e syndrome 10555401 Active Not Available [facility] 3 12:00:10 Obesity 205534436 Completed 07/12/2017 Deborah Zamarripa PA-C Attn: Accounting ,[address] [place], [address] , [place] - [facility] 8 11:43:54 Insomnia 356238733 Active Not Available [facility] 3 12:00:10 History of alcoholis m 270132058 Active 2015 Not Available [facility] 3 12:00:10 Hand pain 16712533 Active 2015 Not Available [facility] 3 12:00:10 Pain of shoulder region 62616598 Completed 201607/19/2020 Clem devries [facility] 1 21:46:46 Pain of shoulder region 00389366 Completed 201607/19/2020 Clem devries, [facility] 1 21:46:39 Muscle spasm of cervical muscle of neck 39441010878 4 Completed 201607/19/2020 Clem SteveAnnikanoman devries [facility] 1 21:46:36 Problem Notes None recorded. Procedures Surgical History Date Name Laterality Status Provider Name and Address Organization Details Recorded Time 07/14/19 18 Date of Last Pap Smear completed Devika Capellan MA [facility] 02/07/2019 11:08:58 04/09/19 15 Cholecystectomy completed Clem Annika [facility] 06/03/2018 14:46:57 04/09/19 14 Endometrial Ablation completed Clem Annika [facility] 06/03/2018 14:47:29 04/09/19 13 Tubal Ligation completed Nata Sloan MA [facility] 05/11/2015 11:57:52 Imaging Results Imaging Date Name Status LastModified by Organization Details LastModified Time 12/23/2020 CT, chest, w/o contrast completed [address] ([facility]) [address] [place], [address], 02/04/2021 09:40:54 03/31/2021 PFT, complete completed [address] [place], [address], 07/25/2021 10:10:49 07/25/2021 US, duplex, venous, lower extremity, complete [email or web address] [address] [place], [address], 07/29/2021 16:10:14 07/26/2021 US, doppler, arterial completed [facility] ([facility]) [address] [place], [address], 07/29/2021 16:10:15 12/09/2021 imaging/diagnostic result completed [facility] [address] [place], [address], 12/09/2021 18:51:15 04/05/2022 imaging/diagnostic result completed [facility] [address] [place], [address], 04/05/2022 18:28:29 06/11/2022 imaging/diagnostic result completed [facility] [address] [place], [address], 06/12/2022 17:41:08 09/08/2022 electrocardiogram completed [facility] [address] [place], [address], 09/14/2022 09:54:44 12/05/2022 imaging/diagnostic result completed [facility] [address] [place], [address], 12/06/2022 11:20:05 01/13/2023 imaging/diagnostic result completed [facility] [address] [place], [address], 01/15/2023 12:48:00 03/21/2023 CT, abdomen + pelvis, w/o contrast completed [facility] [address] [place], [address], 03/27/2023 17:00:21 04/15/2023 CT, head, w/o contrast [place] [address] [place], [address], 04/17/2023 10:22:09 07/25/2023 CT, abdomen + pelvis, w/ contrast completed [facility] [address] [place], [address], 08/01/2023 12:21:46 08/17/2023 XR, chest completed [email or web address] [facility] [address] [place], [address], 09/04/2023 12:55:26 Procedure Notes None recorded. Medical [...] DateTime 01/28/2021 162.56 cm Josefa Clements MA MD - [facility] 01/28/2021 14:36:31 Date Recorded Body height Body mass index (BMI) Body weight Body temperature Oxygen saturation Oxygen saturation in Arterial blood by Pulse oximetry Heart rate Systolic blood pressure Diastolic blood pressure Provider Name and Address Organization Details Last Updated DateTime 1 162.56 cm 39.5 kg/m2 287754. 68 g 98.1 [degF] 99 % 99 % 91 /min 124 mm[Hg] 90 mm[Hg] Joao Ramírez MA [facility] 1 12:38:24 Date Recorded Body height Body mass index (BMI) Body weight Body temperature Oxygen saturation Oxygen saturation in Arterial blood by Pulse oximetry Heart rate Systolic blood pressure Diastolic blood pressure Provider Name and Address Organization Details Last Updated DateTime 2 162.56 cm 38.4 kg/m2 008448. 69 g 98.7 [degF] 97 % 97 % 94 /min 110 mm[Hg] 78 mm[Hg] Devika Capellan MA [facility] 2 12:15:28 Date Recorded Body height Body mass index (BMI) Body weight Oxygen saturation Oxygen saturation in Arterial blood by Pulse oximetry Heart rate Systolic blood pressure Diastolic blood pressure Provider Name and Address Organization Details Last Updated DateTime 3 162.56 cm 37.4 kg/m2 36713.5 7 g 97 % 97 % 94 /min 118 mm[Hg] 81 mm[Hg] Josefa Whelan MA [facility] 3 15:36:39 Date Recorded Body height Body mass index (BMI) Body weight Heart rate Oxygen saturation Oxygen saturation in Arterial blood by Pulse oximetry Systolic blood pressure Diastolic blood pressure Provider Name and Address Organization Details Last Updated DateTime 3 162.56 cm 37.6 kg/m2 46417.7 3 g 91 /min 97 % 97 % 132 mm[Hg] 80 mm[Hg] Cecile Fernando MA MD - [facility] 3 12:44:58 Social History Question Answer Notes LastModified by Organizat ion Details LastModified Time Tobacco Smoking Status Current Every Day Smoker JUVE Baugh, MD - [facility] 05/11/2015 11:57:52 Do You Have An Advance Directive? No [email or web address] Information not available 05/11/2015 What Is Your Level Of Alcohol Consumption? Occasional [email or web address] Information not available 05/11/2015 Is Blood Transfusion Acceptable In An Emergency? Yes Information not available 07/20/2020 What Is Your Level Of Caffeine Consumption? Occasional Information not available 07/20/2020 How Much Tobacco Do You Chew? None [email or web address] Information not available 05/11/2015 Are You Currently Employed? No Information not available 05/11/2015 What Type Of Diet Are You Following? REGULAR [email or web address] Information not available 05/11/2015 Which Illicit Or Recreational Drugs Have You Used? 0 [email or web address] Information not available 05/11/2015 Do You Or Have You Ever Used E-cigarettes Or Vape? Never Used Electronic Cigarettes Information not available 02/24/2019 Education 11 Information no t available 05/11/2015 What Is The Highest Grade Or Level Of School You Have Completed Or The Highest Degree You Have Received? 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 No [email or web address] Information not available 05/11/2015 Hard Of Hearing Or Deaf In One Or Both Ears? No [email or web address] Information not available 05/11/2015 Legally Blind In One Or Both Eyes? No [email or web address] Information not available 05/11/2015 Live Alone Or With Others? With Others [email or web address] Information not available 05/11/2015 What Was The Date Of Your Most Recent Tobacco Screening? 12/04/2022 Information not available 12/04/2022 How Many Children Do You Have? 3 [email or web address] Information not available 05/11/2015 What Is Your Current Pack Years? [email or web address] Information not available 07/20/2020 Do You Use Protection During Sex? Always [email or web address] Information not available 05/11/2015 What Is Your Relationship Status? Single Information not available 07/20/2020 Do You Use Your Seat Belt Or Car Seat Routinely? Yes Information not available 07/20/2020 Seat Belts Used Routinely Yes [email or web address] Information not available 05/11/2015 Are You Sexually Active? Yes Information not available 05/11/2015 Smoke Alarm In Home Yes [email or web address] Information not available 05/11/2015 Do You Have Smoke And Carbon Monoxide Detectors In Your Home? Yes Information not available 07/20/2020 At What Age Did You Start Smoking Tobacco? 13 [email or web address] Information not available 05/11/2015 Are You Passively Exposed To Smoke? No [email or web address] Information not available 05/11/2015 Do You Or [...] you able to care for yourself? Yes [email or web address] Information n ot available 05/11/2015 What is your exercise level? None [email or web address] Information not available 05/11/2015 Mental Status None [...] PF 9 cancelled patient objection Not Available [facility] 04/26/2019 02:38:47 Past Encounters Encounter ID Performer Location Encounter Start Date Encounter Closed Date Diagnosis/Indication Diagnosis SNOMED-CT Code Diagnosis ICD10 Code Diagnosis Note [id number] MD Leopoldo Obando (Adult Med) [address] [place] [address] [phone] 0 05/11/2015 11:22:56 05/11/2015 12:40:48 Migraine 86491485 G43.909 Wants to try paxil 10mg QD first If this does not work, will initiate topamax In addition, she drinks 5 cans soda/day (Dr. Garsia) and sweet tea she has no interest in quitting soda History of attempted suicide 285018713 Z91.5 She was hospitaliz ed at [facility] 7 months ago - states that she is better now but now all she wants to do is leave Advised that if she has SI/HI ideations to go directly to the ED Depressive disorder 5835 9505 F32.9 The biggest thing right now is all she wants to do is drink but her 3 children (the 2YO more than anything) is the reason that she does not drink Tobacco de pendence syndrome 97872310 F17.290 She states that smoking has kept her away from alcohol and at this point she has no interest in quitting smoking Obesity 471753472 E66.9 We discussed not drinking her calories [...] has no interest in changing her ways [id number] MD Leopoldo Rivera (Adult Med) [address] [place] [address] 06/01/2015 11:09:55 06/01/2015 12:00:14 Tobacco dependence syndrome 17760633 F17.290 She states that smoking has kept her away from alcohol and at this point she has no interest in quitting smoking History of alcoholism 16 5262295 F10.21 Depressive disorder 8965 8437 F32.9 The biggest thing right now is all she wants to do is drink but her 3 children (the 2YO more than anything) is the reason that she does not drink Discussed that it is not likely her medication causing all of her issues but her circumstan zack at home She has an appointmen t with counseling on 07/04 Insomnia 837831376 G47.0 0 Will try trazodone 50mg QPM [id number] MD Leopoldo Rivera (Adult Med) [address] [place] [address] [id number] 0 02/24/2016 09:34:02 02/24/2016 12:25:29 Hand pain 08988836 M79.641 right hand pain and tingling - positive tinnel's and positive phalen's - likely dx of carpal tunnel syndromeAd vised to continue to wear her brace because it is helping with her hand pain and tinglingWi ll begin with right hand EMGAdvised ibuprofen PRNWill likely refer to ortho when EMG results are received Obesity 370277812 E66.9 Advised 30 minutes of exercise 5 days/week Advised to not drink her calories and to especially stay away from soda Advised 3 balanced meals/day with plenty of fruits and vegetables Depressive disorder 3545 9007 F32.9 Her mother 2 months agoShe is going to go through [facility] for counseling because she wants her kids in the counseling States that she has not been drinking at all and her boyfriend stopped drinking - states that they maybe go out once every 3 months Tobacco de pendence syndrome 14542556 F17.290 Advise to quitNo ready to quit yet even though she knows that her mother and grandmothe r of lung cancer History of alcoholism 16 4852938 F10.21 States that she has not been drinking at all and her boyfriend stopped drinking - states that they maybe go out once every 3 months [id number] MD Leopoldo Rivera (Adult Med) [address] [place] [address] [phone] 0 03/09/2016 16:01:18 03/09/2016 18:08:02 Hand pain 40811324 M79.641 EMG negative Pain radia ting to right arm 116317894 M79.601 Patient of right hand is now radiating up and down right arm from the neck/shoul oneal to her 2-4 digits of her right handWill no proceed with cervical MRI Advised that purchasing medication s on the streets or taking anyone else's prescribed medication s is illegalDis cussed that no pain medication would be prescribed until there is evidence from imaging [id number] MD Leopoldo Rivera (Adult Med) [address] [place] [address] [phone] 0 04/13/2016 15:17:19 04/13/2016 18:16:18 Hand pain 25407111 M79.641 EMG negative - states that today her right hand and wrist are fineTaking ibuprofenT aking tramadol for someone else - advised that this is illegalWil l retry to send through neck MRIWIll refer to PT for hand pain Tobacco de pendence syndrome 39952365 F17.290 Advise to quitNo ready to quit yet even though she knows that her mother and grandmothe r of lung cancer Pain of [facility] 89214929 M25.511 Patient has had new onset right shoulder pain x a few weeks - will refer to PT for this Dysuria 84697332 R30.0 [id number] MD Leopoldo Espinoza (Adult Med) [address] [place] [address] [phone] 0 03/13/2017 10:27:44 03/13/2017 12:25:02 Upper respiratory infection 02761098 J06.9 Advised to drink plenty of waterAlter rosetta ibuprofen and tylenol for painRestOT C cough syrup PRN Advised at this time the abx still have 5 days to work because she took them for 5 daysAdvise d if no improvemen t in 5 days to contact clinic or go to the ER Allergic disposition 609 373034 Z91.09 [id number] MD Leopoldo Espinoza (Adult Med) [address] [place] [address] [phone] 0 03/28/2017 12:08:38 03/28/2017 13:55:06 Viral gastritis 830548491 A08.39 Advised to drink plenty of fluids and a bland dietAltern ate ibuprofen and tylenol for painRest - patient given note to return to work in 3 days [id number] MD Leopoldo Espinoza (Adult Med) [address] [place] [address] [phone] 0 04/17/2017 11:02:08 04/17/2017 11:59:48 Tobacco dependence syndrome 63293544 F17.290 Advise to quitNo ready to quit yet even though she knows that her mother and grandmothe r of lung cancer Upper resp iratory infection 47378282 J06.9 Advised to drink plenty of waterAlter rosetta ibuprofen and tylenol for painRestOT C cough syrup PRN Advised if no improvemen t in 5 days to contact clinic or go to the ER [id number] MD Leopoldo Espinoza (Adult Med) [address] [place] [address] 04407-798 0 07/12/2017 09:48:22 07/12/2017 12:24:44 Pain of left heel 4310293453 382756 M79.672 Due to the tenderness in the [...] good tennis shoes. Tobacco de pendence syndrome 85349765 F17.290 Advise to quitNo ready to quit yet even though she knows that her mother and grandmothe r of lung cancer Body mass index 30+ - obesity 687815501 Z68.39 Advised 30 minutes of exercise 5 days/week Advised to not drink her calories Advised 3 balanced meals/day with plenty of fruits and vegetables [id number] MD Leopoldo Espinoza (CONTRACT POST OFFICE CLERK) [address] [place] [address] [id number] 0 07/13/2017 10:37:34 07/13/2017 12:22:33 Gynecologic examination 42597243 Z01.411 Milky nipp le discharge 999992275 N64.52 WIll check labs and mammogram Retraction of nipple 318 26069 N64.53 Bilateral nipples as seen on exam - patient states she cannot remember if this is new or not but doesn't notice anything different with her breasts - will check mammogram Body mass index 30+ - obesity 960005942 Z68.39 Advised 30 minutes of exercise 5 days/week Advised to not drink her calories Advised 3 balanced meals/day with plenty of fruits and vegetables Tobacco de pendence syndrome 90677195 F17.290 Advise to quitNo ready to quit yet even though she knows that her mother and grandmothe r of lung cancer [id number] MD Leopoldo Espinoza (Adult Med) [address] [place] [address] 07675-676 0 10/31/2017 09:49:11 10/31/2017 10:23:44 Solitary nodule of lung 246566935 R91.1 8.3mm right upper lobe non-calcif ied nodule - will refer to pul Tobacco de pendence syndrome 98699349 F17.290 Advise to quit Acute asthma 904074313 J 45.901 really encouraged to quit smokingdoe s not have a nebulizer at home but was given medication for nebulizer at hospital - will prescribe machine Generalize d anxiety disorder 86409074 F41.1 c/w hydroxyzin e QID PRN for anxiety Family his tory of malignant neoplasm of lung 127201558 Z80.1 [id number] FREDDY JIMENEZ, DIESEL ENGINE ENGINEER-C Leopoldo (Adult Med) [address] [place] [address] [phone] 0 12/21/2017 11:43:16 12/25/2017 13:25:25 Tobacco dependence syndrome 90683953 F17.200 failed nicotine patchessta rt wellbutrin BIDf/u 3 mos Mild inter mittent asthma 140567200 J45.20 start qvar daily-stre ssed compliance use ventolin/n ebulizer PRN onlystart loratadine dailypulmo nology referral for PFTs and further management f/u 3 mos and prn [id number] MD Leopoldo Espinoza (Adult Med) [address] [place] [address] 88072-096 0 01/29/2018 10:59:43 01/29/2018 11:47:15 Mild intermittent asthma 855989588 J45.20 Increased Qvar to 80mcg 2 puffs BIDc/w other asthma meds Long discussion with patient, and she agrees, that panic attacks/st ress are possibly brining on her asthma attacks Advised to keep appointmen t with pulm Any SOB, CP, SHAW contact clinic or go to the ER Fatigue 98312806 R53.83 Anxiety 16284943 F41.9 Advised to schedule with counseling Advised any SI/HI to go directly to the ER Given number to Suicide Hotline and advised to contact if needed Bereavement 29459994 Z63 .4 Advised to schedule with counseling Advised any SI/HI to go directly to the ERGiven number to Suicide Hotline [id number] MD Leopoldo Valenzuela (CONTRACT POST OFFICE CLERK) [address] [place] [address] [phone] 0 06/03/2018 14:15:03 06/03/2018 16:09:54 History of endometrial ablation 2285289371 76186 Z98.890 History of sterilization 3702737497 9106 Z90.79 Obesity 368850784 E66.9 History of alcoholism 16 7476915 F10.21 Abnormal u terine bleeding 2217351837 9100 N93.9 Post-ablat ion sporadic bleeding. Family tony nning surveillance 542415224 Z30.09 Screening mammography 24 325557 Z12.31 Exposure t o sexually transmissible disorder 468862691 Z20.2 [id number] MD Leopoldo Pham (Adult Med) [address] [place] [address] 65218-409 0 09/13/2018 15:51:05 09/13/2018 16:20:43 Contusion of multiple sites 409738163 T07.XXXA Go to ER any time for any concern, she agreed. [id number] MD Leopoldo Pham (Adult Med) [address] [place] [address] 71239-336 0 10/15/2018 15:54:23 10/15/2018 16:39:42 Pain of right shoulder joint 6975686071 0428748 M25.511 Will see a orthopedic . Pain of ri ght hip joint 7575672226 23646 M25.551 Will have test , imaGING. [id number] MD Leopoldo Pham (Adult Med) [address] [place] [address] 22313-860 0 01/15/2019 10:23:22 01/16/2019 09:39:33 Pain of right shoulder joint 9373026233 2355229 M25.511 Will see a orthopedic . Pain of ri ght hip joint 8716284086 18335 M25.551 Will have test , imaGING. No CAT scan report of right hip available . [id number] MD Leopoldo Valenzuela (CONTRACT POST OFFICE CLERK) [address] [place] [address] 81066-782 0 02/03/2019 09:56:37 02/05/2019 22:00:08 Uterine leiomyoma 29667282 D25.9 [id number] MD Leopoldo Valenzuela (CONTRACT POST OFFICE CLERK) [address] [place] [address] [phone] 0 02/07/2019 10:51:51 02/10/2019 10:14:58 Depot contraceptive-no problem 942975623 Z30.775 [id number] MD Leopoldo Pham (Adult Med) [address] [place] [address] 63866-538 0 02/12/2019 12:49:23 02/13/2019 09:10:47 Pain of right shoulder joint 6983037613 2119347 M25.511 Will see a orthopedic . Microcysti c adnexal carcinoma 104570221 C44.99 Asthma 420940957 J45.90 9 has enough inhaler. [id number] MD Leopoldo Valenzuela (CONTRACT POST OFFICE CLERK) [address] [place] [address] 34104-111 0 02/24/2019 12:00:50 02/25/2019 14:11:57 Administration of influenza vaccine 80540189 Z23 Pelvic mass 35489832 R19 .00 [facility] risk of malignancy 868697506 Z91.89 ELIJAH 1.36 suggestive of increased risk of ovarian cancer in pre-menopa usal patient [id number] MD Leopoldo Pham (Adult Med) [address] [place] [address] 92673-527 0 08/22/2019 08:39:01 08/25/2019 13:44:45 Recurrent deep vein thrombosis 173132515 I82.509 Right leg, go to ER, she agreed, ER , [facility] [place], operated by [facility] physician [phone] Joshi, they expecting her to arrival. Asthma 127313520 J45.90 9 wanting refills. [id number] MD Leopoldo Pham (Adult Med) [address] [place] [address] [phone] 0 05/04/2020 08:25:27 05/05/2020 11:36:10 Urinary tract infectious disease 16065189 N39.0 Willing to try another different antibiotic s, since she still has fever. Asthma 143614576 J45.90 9 wanting refills. Acid reflux 424983525 K2 1.9 Discussed with patient, will try pantoprazo le, her reflux some times ttriggered asthmatic attack. Hypovolemia 862479158 E8 6.1 Encourged her to drink more liquid, she agreed to try. [id number] MD Leopoldo Valenzuela (CONTRACT POST OFFICE CLERK) [address] [place] [address] [phone] 0 07/20/2020 12:39:59 07/22/2020 11:48:44 History of alcoholism 056517909 F10.21 Recurrent deep vein thrombosis 493688583 I82.509 Body mass index 30+ - obesity 075036128 Z68.41 Depressive disorder 3548 9007 F32.9 Tobacco de pendence syndrome 51114109 F17.200 Nonpuerper al abscess of left breast 7380138023 2719530 N61.1 Family tony nning surveillance 606620318 Z30.09 history of sterilizat ion [id number] MD Leopoldo Pham (Adult Med) [address] [place] [address] 29210-985 0 11/26/2020 13:36:33 12/02/2020 10:24:48 Swelling of lower leg 318150100 R22.40 Right leg, will do venous duplex to R /O Acute DVT then determine the necessity of anticoagul ant therapy, she agreed. [id number] MD Leopoldo Pham (Adult Med) [address] [place] [address] [phone] 0 01/28/2021 13:00:56 02/02/2021 13:35:11 Acute exacerbation of chronic obstructive pulmonary disease 991743855 J44.1 Discussed with patient, will order following med. Go to ER any time for any concern , she agreed. [id number] Homa Joshi MD [facility] (Adult Med) [address] [place] [address] [phone] 0 02/24/2021 12:14:37 02/25/2021 13:26:53 Hiatal hernia 04568963 K44.9 Will refer to surgeon for evaluation , she agreed. Gastroesop hageal reflux disease 082333291 K21.00 Will add reglan to facilitate normal peristalsi s. 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 tests. Normal PE. [id number] MD Leopoldo Pham (Adult Med) [address] [place] [address] [id number] 0 12/04/2022 12:37:55 12/05/2022 12:30:55 Chronic obstructive pulmonary disease 90231592 J44.9 Stable. Smoker 73663884 F17.200 Advised her to =quit smoking. She is aware of cigarettes smoking can caused permanent emphysema, cancer of lung., or throat, or mouth and other disease. Morbid obesity 913464058 E66.01 BMI is 37.6, 12-04-22, advised to watch her diet, exercise and keep the weight down. Cervical c ancer Papanicolaou smear screening declined 3201753517 48813 Z53.20 She declined 12-04-22. HIV screen ing declined 1135094667 67052 Z53.20 She declined 12-04-22. Health Concerns Section Related Observation LastModified by Organization Detai ls LastModified Time None Recorded Concern Status LastModified by Organization Details LastModified Time None Recorded Advance Directives Directive N: Payers Encounter Date Sequence Insurance Name Policy Number Policy Terry Covered Member ID Terry Member ID Guarantor Name 01/28/2021 1 [facility] ON OR AFTER 10/07/20 (MEDICAID REPLACEMENT - HMO) Eliana Hamer [id number] Eliana Hamer 02/24/2021 1 [facility] ON OR AFTER 10/07/20 (MEDICAID REPLACEMENT - HMO) Eliana Hamer [id number] Eliana Hamer 07/22/2021 1 [facility] ON OR AFTER 10/07/20 (MEDICAID REPLACEMENT - HMO) Eliana Hamer [id number] Eliana Hamer 09/01/2022 1 [facility] ON OR AFTER 10/07/20 (MEDICAID REPLACEMENT - HMO) Eliana Hamer [id number] Eliana Hamer 12/04/2022 1 [facility] ON OR AFTER 10/07/20 (MEDICAID REPLACEMENT - HMO) Eliana Hamer [id number] Eliana Hamer Notes Date Note Type Note Provider Name and Address Organization Details Recorded Time 01/28/2021 text/html Phone visit, aster st congestion in this season of year, no fever, wheezing ,dose not want covid test nor going to ER, wants to try some medications, NKDA. Homa Joshi MD Attn: Accounting,[address] [facility], [place], [address], [place] - [place] 01/28/2021 14:51:31 02/24/2021 text/html Office visit, histroy of sliding hiatal hernia. and acid reflux, NKDA. can not tolerate solid food, skipped meal to avoid N/V, medication , pantoprazole not helping much, also has asthma which might have been aggravated by hernia with reflux. will add reglan and surgical referral. Homa Joshi MD Attn: Accounting, [address] [facility], [place], [address], [facility] - [place] 02/24/2021 12:54:42 07/22/2021 text/html [...] side, Homa Joshi MD Attn: Accounting, [address] [facility], [place], [address], [facility] 12/25/2021 16:26:36 09/01/2022 text/html Office visit, NK DA. on no blood thinner. no chest pain, no cardiac condition, no shortness of breath , wants surgical clearnce before the left foot operation for removal of wart. . Had left shoulder operation [id number] , she recovered well. But a smoker. , advised her to quit smoking for he good health and financial reasons. Homa Joshi MD Attn: Accounting, [address] [facility], [place], [address], [facility] - [place] 09/01/2022 17:40:35 12/04/2022 text/html Office visit, NK DA. check up today. Homa Joshi MD Attn: Accounting, [address] [facility], [place], [address], [facility] - [facility] 12/04/2022 16:21:46 OBGyn Episode No OBEpisode recorded.
--- OUTSIDE RECORDS SUMMARY | 2024-08-15 00:16 | XMS_ITS | Clinical Summary ---
Author Organization [facility] Address [address] [place] [address] Care Team Providers Care Clinical Pharmacy Coordinator Name Role Phone Clem Roblero MD Primary Care Provider [phone] Source Comments [facility],non-owned Affiliates and Associated Physician Practices is amultiple site organization consisting of ambulatory clinics and hospital sitesin [place], [place], [place] and [place]. This disclosure is being madepursuant to the Care Everywhere program and may not contain all information available regarding this patient. Last updated 17.License [employer] [facility] Allergies No known active allergies Medications * [...] on file Legal Sex Female 5:10 PM DIESEL TRUCK CRANE OPERATOR Gender Identity Not on file Sexual Orientation Not on file Last Filed Vital Signs Vital Sign Reading Time Taken Comments Blood Pressure 139/97 06/05/2019 3:51 PM DIESEL TRUCK CRANE OPERATOR Pulse 83 06/05/2019 3:51 PM DIESEL TRUCK CRANE OPERATOR Temperature 36.7 C (98 F) 06/05/2019 3:51 PM DIESEL TRUCK CRANE OPERATOR Respiratory Rate 19 06/05/2019 3:51 PM DIESEL TRUCK CRANE OPERATOR Oxygen Saturation 95% 06/05/2019 3:51 PM DIESEL TRUCK CRANE OPERATOR Inhaled Oxygen Concentration - - Weight 99.8 kg (220 lb) 06/05/2019 11:15 AM DIESEL TRUCK CRANE OPERATOR Height 162.6 cm (5' 4) 06/05/2019 11:15 AM DIESEL TRUCK CRANE OPERATOR Body Mass Index 37.76 06/05/2019 11:15 AM DIESEL TRUCK CRANE OPERATOR Plan of Treatment Health Maintenance Due [...] this topic Medical Devices Implanted Type Area Dolly Operator Device Identifier Shelf Expiration Date Model / Serial / Lot Hickman Sut Healix Adv Dynacord 5.5mm Implanted:Qty: 2 on 06/05/2019 by Kishor Weber MD at [facility] Right: Shoulder [employer] 05/09/2020 [id number] / / [id number] Healix Knotless Br Hickman 6.5 Implanted:Qty: 1 on 06/05/2019 by Kishor Weber MD at [facility] Right: Shoulder 06/06/2021 [id number] / / [id number] Healix Knotless Br Hickman 6.5 Implanted:Qty: 1 on 06/05/2019 by Kishor Weber MD at [facility] Right: Shoulder 03/08/2022 [id number] / / [id number] Procedures Procedure Name Priority Date/Time Associated Diagnosis Comments HPV DETECTION HIGH RISK CAROLYN Routine 04/15/2019 11:00 AM DIESEL TRUCK CRANE OPERATOR Postcoital bleeding from Last 3 Months or Most Recently Relevant to Health Maintenance Results * HPV DETECTION HIGH RISK CAROLYN (04/15/2019 11:00 AM DIESEL TRUCK CRANE OPERATOR) High Risk Human Papilloma Result Not Detected Not Detected 04/17/2019 3:51 PM DIESEL TRUCK CRANE OPERATOR [facility] High Risk Human Papilloma Interp 04/17/2019 3:51 PM DIESEL TRUCK CRANE OPERATOR [facility] Comment:High Risk Human Abraham lloma Virus was Not Detected. Pathology/Cytolo gy MISCELLANEOUS SAMPLES / Unknown 04/15/2019 11:00 AM DIESEL TRUCK CRANE OPERATOR 04/16/2019 12:35 PM DIESEL TRUCK CRANE OPERATOR Narrative [facility] - 04/17/2019 3:51 PM DIESEL TRUCK CRANE OPERATOR Nucleic acid isolated from the specimen was analyzed with a nucleic acid amplification test (FDA approved Gen-Probe HPV Assay) to detect high risk human papilloma virus (Types: 16, 18, 31, 33, 35, 39, 45, 51, 52, 56, 58, 59, 66, and 68). The reference range is Not Detected. Comment: These test results should not be used as the sole basis for clinical assessment and treatment of patients. These results should always be correlated with other available data (cytology, histology, and clinical information). Kalina Chen MD LAB - MICROBIOLOGY ORDERAB LES Final Result [facility] [address] [facility]. [address] [phone] from Last 3 Months or Most Recently Relevant to Health Maintenance Insurance [facility] [place] edPULSE PLAN [facility] Care Teams Clinical Pharmacy Coordinator Relationship Specialty Start Date End Date Clem Roblero MD [address] [place] [phone] PCP - General 02/11/19
--- OUTSIDE RECORDS SUMMARY | 2024-08-15 00:16 | XMS_ITS | Clinical Summary ---
Author Organization [facility] Address [facility] [place] [address] Care Team Providers Care Planishing Hammer Operator Name Role Phone Homa Michel MD Primary Care Provider [phone] Clem Roblero MD Unavailable [phone] Allergies No known active allergies Medications albuterol [...] 7:49 AM CDT Height 162.6 cm (5' 4) 09/09/2020 7:49 AM CDT Body Mass Index 39.99 09/09/2020 7:49 AM CDT Plan of Treatment Not on file Insurance [facility] Care Teams Planishing Hammer Operator Relationship Specialty Start Date End Date Homa Michel MD [address] [place] [address] PCP - General Internal Medicine 07/20/20 Clem Roblero MD [address] [place] [address] Referring Physician Obstetrics and Gynecology 11/24/20
--- OUTSIDE RECORDS SUMMARY | 2024-08-15 00:16 | XMS_ITS | Data Portability ---
Author Organization [facility] Address [address] [place] [address] [place] [address] Assessment No assessment recorded. Plan of Treatment Reminders Order Date Submit Date Provider Last Modified By Organization Details Last Modified Time Details Appointments SURG POST OP 2024 10:15A Israel FRY MD Not available Not available Not available Lab hormone panel, serum or plasma 2024 025 [facility] (Lab), [address] [facility], [place], [address], 06/10/2024 12:02:49 TSH, serum or plasma 2024 025 [facility] (Lab), [address] [facility], [place], [address], 06/10/2024 12:02:49 HBsAg (hepatiti s B surface Ag), serum 2024 025 [facility] (Lab), [address] [facility], [place], [address], 06/10/2024 12:02:48 Referral None recorded. Procedures None recorded. Surgeries robotic assisted hysterect martin w/bilater al salpingo- oophorect martin (SURG) 2024 025 [id number], [address] [facility] [address], [place], [address], 08/14/2024 16:06:22 Imaging US, pelvis 2024 025 [email or web address], [address], [place], [address], 06/16/2024 18:08:11 US, transvagi nal 2024 025 [facility], [address], [address], [place], [address], 06/16/2024 18:15:13 Medication Orders None recorded. Patient TargetsNo targets recorded. Patient InstructionsNo instructions recorded. Reason for Referral None Reported. Results Created Date Observation Date Name Description Value Unit Range Abnormal Flag Note LastModifiedBy Organization Detail LastModifiedTime 06/10/1906/09/2024 HBSAG /HCV/ HIV/R MN hepatitis B surface antigen Non-re active non-re active This assay was perfo rmed using [employer] ratio n reage nts and test kits. Value s obtai jimmy with other assay metho ds or kits canno t be used inter medina eably . Not Available [facility] (Lab) [address] , [place], [address], 06/10/2024 12:02:48 06/10/1906/09/2024 HBSAG /HCV/ HIV/R MN HIV antigen/anti body Nonrea ctive nonrea ctive HIV-1 antig en and HIV-1 /HIV- 2 antib odies were not detec inder. No labor atory evide nce of HIV infec tion. Not Available [facility] (Lab) [address], [place], [address], 06/10/2024 12:02:48 06/10/19 25 06/09/2024 HBSAG /HCV/ HIV/R MN hepatitis C antibody Non-re active non-re active Antib odies to HCV Not Detec inder, does not exclu de the possi bilit y of expos ure to HCV. Not Available [facility] (Lab) [address], [place], [address], 06/10/2024 12:02:48 06/10/19 25 06/09/2024 HBSAG /HCV/ HIV/R MN RPR qualitative Nonrea ctive nonrea ctive Not Available [facility] (Lab) [address] [place], [address], 06/10/2024 12:02:48 06/10/19 25 06/09/2024 TSH, REFLE X FREE T4 TSH 2.33 uIU/m L 0.30-5 .33 Not Available [facility] (Lab) [address] [place], [address], 06/10/2024 12:02:49 06/10/19 25 06/09/2024 FSH, LH, ESTRA DIOL estradiol 364.0 pg/mL This assay was perfo rmed using [employer] reage nts and test kits. Value s obtai jimmy with other assay metho ds or kits canno t be used inter [facility] . Femal e Estra diol Range s: Folli cular phase 12.4- 233 pg/mL Ovula tion phase 41.0- 398 pg/mL Lutea l phase 22.3- 341 pg/mL Postm enopa usal <5-13 8 pg/mL Healt hy Pregn ant Women 1st Trime ster 154-3 243 pg/mL 2nd Trime ster 1561- 65094 pg/mL 3rd Trime ster 8525- >3000 0 pg/mL Not Available [facility] (Lab) [address] [place], [address], 06/10/2024 12:02:49 06/10/19 25 06/09/2024 FSH, LH, ESTRA DIOL FSH 7.9 mIU/m L This assay was perfo rmed using [employer] reage nts and test kits. Value s obtai jimmy with other assay metho ds or kits canno t be used inter [facility] eay . Femal es Folli cular : 3.5-1 2.5 mIU/m L Ovula tion: 4.7-2 1.5 mIU/m L Lutea l: 1.7-7 .7 mIU/m L Postm enopa use: 25.8- 134.8 mIU/m L Not Available [facility] (Lab) [address] [facility], [place], [address], 06/10/2024 12:02:49 06/10/19 25 06/09/2024 FSH, LH, [...] use: 7.7-5 8.5 mIU/m L Not Available [facility] (Lab) [address] [facility], [place], [address], 06/10/2024 12:02:49 06/10/19 25 06/09/2024 CULTU RE: URINE result report SEE RESULT S BELOW abnormal Test: Cultu re: Urine Speci men Sourc e: Urine - Clean Catch Speci men Type: Urine Speci men Date: 1522 Resul t Date: 1055 Resul t Statu s: Final resul t Abnor mal: Yes Eulogio pineda Lab: [facility] [address] [facility] [address] Tel: CULTU RE ----- ----- ----- --- [...] <=0.5 ug/mL Susce ptibl e Not Available [facility] (Lab) [address] [facility], [place], [address], 06/12/2024 11:58:17 06/17/19 25 06/16/2024 US, pelvi s No observ ation record ed. [email or web address] [facility] [address], [place], [address], 06/16/2024 18:14:56 06/17/19 25 06/16/2024 US, trans vagin al No observ ation record ed. [email or web address] [facility] [address], [place], [address], 06/16/2024 18:15:13 06/17/19 25 06/16/2024 US, pelvi s No observ ation record ed. [email or web address] [address], [place], [address], 06/16/2024 18:14:13 Result Notes None recorded. Procedures Surgical History Date Name Laterality Status Provider Name and Address Organization Details Recorded Time 3 procedure on foot completed [facility] 06/09/2024 10:11:52 2 Date of Last Mammogram completed [facility] 06/09/2024 09:57:50 2 Date of Last Pap Smear completed [facility] 06/09/2024 09:57:50 0 procedure on shoulder completed [facility] 06/09/2024 10:10:45 3 Tubal Ligation completed [facility] 06/09/2024 10:11:11 3 Endometrial Ablation completed [facility] 06/09/2024 10:10:22 3 procedure on gallbladder completed [facility] 06/09/2024 10:10:18 0 Dilation and Curettage completed [facility] 06/09/2024 10:11:05 Imaging Results Imaging Date Name Status LastModified by Organization Details LastModified Time 06/16/2024 US, pelvis completed [email or web address] [address], [place], [address], 06/16/2024 18:14:56 06/16/2024 US, transvaginal completed [email or web address] [address], [place], [address], 06/16/2024 18:15:13 06/16/2024 US, pelvis completed [email or web address] [facility], [place], [address], 06/16/2024 18:14:13 Procedure Notes None recorded. Medical [...] Address Organization Details Last Updated DateTime 06/09/2024 635753.8 4 g 38.4 kg/m2 165.1 cm 145 mm[Hg] 88 mm[Hg] Tricia Resendez [facility] 10:03:50 Date Recorded Body height Body mass index (BMI) Body weight Systolic blood pressure Diastolic blood pressure Provider Name and Address Organization Details Last Updated DateTime 06/23/2024 165.1 cm 38.1 kg/m2 343048.6 5 g 134 mm[Hg] 88 mm[Hg] Marisabel Woods [facility] 11:04:33 Date Recorded Body height Body mass index (BMI) Body weight Systolic blood pressure Diastolic blood pressure Provider Name and Address Organization Details Last Updated DateTime 08/11/2024 165.1 cm 38.6 kg/m2 486323.4 3 g 135 mm[Hg] 82 mm[Hg] Marisabel Woods [facility] 16:14:30 Social History Question Answer Notes LastModified by Organizat ion Details LastModified Time Do You Have An Advance Directive? No [email or web address] Information not available 06/09/2024 What Is Your Level Of Alcohol Consumption? None [email or web address] Information not available 06/09/2024 How Many Years Have You Consumed Alcohol? 2015 Information not available 06/09/2024 Are You Blind Or Do You Have Difficulty Seeing? Yes Information not available 06/09/2024 What Is Your Level Of Caffeine Consumption? Moderate [email or web address] Information not available 06/09/2024 How Much Tobacco Do You Chew? None [email or web address] Information not available 06/09/2024 In The 14 Days Before Symptom Onset, Have You Had Close Contact With A Laboratory-confir med COVID-19 While That Case Was Ill? No [email or web address] Information not available 06/09/2024 In The 14 Days Before Symptom Onset, Have You Had Close Contact With A Person Who Is Under Investigation For COVID-19 While That Person Was Ill? No [email or web address] Information not available 06/09/2024 Have You Been To An Area Known To Be High Risk For COVID-19? No [email or web address] Information not available 06/09/2024 Are You Currently Employed? Yes [email or web address] Information not available 06/09/2024 Are You Deaf Or Do You Have Serious Difficulty Hearing? No [email or web address] Information not available 06/09/2024 What Type Of Diet Are You Following? CARBOHYDRATE edaplef40 Information not available 06/09/2024 What Is The Highest Grade Or Level Of School You Have Completed Or The Highest Degree You Have Received? CN34880-5 [email or web address] Information not available 06/09/2024 What Is Your Occupation? [employer] [email or web address] Information not available 06/09/2024 Are There Any Guns Present In Your Home? No Information not available 06/09/2024 Do You Use Protection During Sex? No [email or web address] Information not available 06/09/2024 Do You Use Your Seat Belt Or Car Seat Routinely? No [email or web address] Information not available 06/09/2024 Are You Sexually Active? Yes [email or web address] Information not available 06/09/2024 Do You Have Smoke And Carbon Monoxide Detectors In Your Home? Yes [email or web address] Information not available 06/09/2024 At What Age Did You Start Smoking Tobacco? 12 [email or web address] Information not available 06/09/2024 How Much Tobacco Do You Smoke? 0.5 PPD izizcdg23 Information not available 06/09/2024 Do You Feel Stressed (tense, Restless, Nervous, Or Anxious, Or Unable To Sleep At Night)? [id number] shkvnik92 Information not available 06/09/2024 Do You Use Any Illicit Or Recreational Drugs? No fyngfas85 Information not available 06/09/2024 Do You Use Sunscreen Routinely? No fdlzsia55 Information not available 06/09/2024 How Many Years Have You Smoked Tobacco? 23 sjhfpko18 Information not available 06/09/2024 Have You Used IV Drugs? No [email or web address] Information not available 06/09/2024 Sex: Unknown Functional Status Question Answer Note LastModified by Organizat ion Details LastModified Time Do you have difficulty walking or climbing stairs? No [email or web address] Information not available 06/09/2024 Are you able to walk? YESWOREST [email or web address] Information not available 06/09/2024 Are you able to care for yourself? Yes [email or web address] Information not available 06/09/2024 Do you have difficulty dressing or bathing? No [email or web address] Information not available 06/09/2024 What is your exercise level? Moderate okkzygh47 Information not available 06/09/2024 Mental Status None recorded. Family History Relationship Description Onset Age of this Age Resolved Age Notes LastModified by Organization Details LastModified Time Maternal Uncle Substance abuse [email or web address] Not available 2024 09:57:50 Maternal Uncle Mental disorder aitzbhm70 Not available 2024 09:57:50 Brother Depressive disorder [email or web address] Not available 2024 09:57:50 Brother Substance abuse iyyyxlj66 Not available 2024 09:57:50 Brother Diabetes mellitus zighnqn69 Not available 2024 09:57:50 Father Diabetes mellitus daidpqv73 Not available 2024 09:57:50 Mother Anxiety disorder Not available 2024 09:57:50 Mother Depressive disorder ysmoomi27 Not available 2024 09:57:50 Mother Substance abuse [email or web address] Not available 2024 09:57:50 Mother Mental disorder zlropgz42 Not available 2024 09:57:50 Maternal Aunt Anxiety disorder dinnqjg97 Not available 2024 09:57:50 Maternal Aunt Substance abuse Not available 2024 09:57:50 Maternal Aunt Mental disorder [email or web address] Not available 2024 09:57:50 Paternal Aunt Mental disorder tudftzr85 Not available 2024 09:57:50 Maternal Grandmother Kidney disease mfsojap45 Not available 2024 09:57:50 Sister Asthma [email or web address] Not available 06/09/2024 09:57:50 Sister Anxiety disorder [email or web address] Not available 2024 09:57:50 Sister Depressive disorder xuzssds79 Not available 2024 09:57:50 Sister Substance abuse Not available 2024 09:57:50 Sister Diabetes mellitus Not available 2024 09:57:50 Sister Mental disorder [email or web address] Not available 2024 09:57:50 Medical History Condition Response Anxiety Disorder Y Acid Reflux (GERD) Y Arthritis Y Urinary Tract Infection Y Asthma Y [...] SNOMED-CT Code Diagnosis ICD10 Code Diagnosis Note [id number] ESTELLE SILVA MD [address] [address] 06/09/2024 09:49:38 06/09/2024 10:42:35 Irregular periods 76945057 N92.6 - patient reports ablation and tubal [...] for US following Venereal d isease screening 939405844 Z11.3 - desires STI screening [id number] Shayne Fry MD [facility] [address] [address] 06/16/2024 16:46:37 06/16/2024 17:53:03 Abnormal uterine bleeding 2936262150 9100 N93.9 [id number] Shayne Fry MD [facility] [address] [address] 06/23/2024 10:47:19 06/23/2024 12:07:40 Menorrhagia 137570375 N92.0 Uterine leiomyoma 875136 05 D25.9 [id number] Shayne Fry MD [facility] [address],[facility] [place] [address] 08/11/2024 15:47:17 08/11/2024 17:21:06 Menometrorrhagia 924230908 N92.1 This patient is a 44-year-ol d female with severe menorrhagi a. We have agreed to perform robotic assisted hysterecto my with bilateral salpingo-o ophorectom y. She understand s the risks, benefits, and alternativ es. She has completed the informed consent process and is ready to proceed. Health Concerns Section Related Observation LastModified by Organization Detai ls LastModified Time None Recorded Concern Status LastModified by Organization Details LastModified Time None Recorded Advance Directives Directive N: Payers Encounter Date Sequence Insurance Name Policy Number Policy Terry Covered Member ID Terry Member ID Guarantor Name 06/09/2024 1 [facility] [id number] Eliana Prestons [id number] Eliana Diaz 06/16/2024 1 [facility] [id number] Eliana Cid [place] [id number] Eliana Diaz 06/23/2024 1 [facility] [id number] Eliana Prestons [id number] Eliana Diaz 08/11/2024 1 [place] [facility] Eliana Diaz [id number] Eliana Diaz Notes Date Note Type Note Provider [...] exposure. ESTELLE SILVA MD [address], [place], [address], [facility] 06/09/2024 10:40:46 06/23/2024 text/html This patient [...] is risk of hemorrhage and infection. Shayne Fry MD [address], [place], [address], [facility] 06/23/2024 12:01:24 08/11/2024 text/html This patient is a 44-year-old female with severe menorrhagia. We have agreed to perform robotic assisted hysterectomy with bilateral salpingo-oophorectom y. She understands the risks, benefits, and alternatives. She has completed the informed consent process and is ready to proceed. The patient understands the procedure. The procedure was described to the patient in great detail. the patient also understands the risks. The risks were also explained in detail. She understands that injuries May occur during surgery. She understands these injuries can result in hospitalization, more surgery, and severe illness. She understands there is risk of hemorrhage and infection. Shayne Fry MD [address], [place], [address], [facility] 08/11/2024 17:19:37 OBGyn Episode Ob Episode Information Episode Created Date Number of Fetuses Patient Bloodtype Patient rh Status Prepregnancy Weight lbs Domestic Partner Domestic Partner Phone Father Name Aircraft Communicator Status 06/10/19 25 1 CLOSED Fetus Data First Name Last Name Admitted to NICU Weight (g) Sex Living Outcome Pediatric Complications Fetus ID Race Codes Race Delivery Type 97347 Vaginal Delivery Joseph Calculation Initial Joseph Date [...] Domestic Partner Domestic Partner Phone Father Name Aircraft Communicator Status 06/10/19 1 CLOSED Fetus Data First Name Last Name Admitted to NICU Weight (g) Sex Living Outcome Pediatric Complications Fetus ID Race Codes Race Delivery Type , Induced 89377 Joseph Calculation Initial Joseph Date Initial Exam [...] Domestic Partner Domestic Partner Phone Father Name Aircraft Communicator Status 06/10/19 1 CLOSED Fetus Data First Name Last Name Admitted to NICU Weight (g) Sex Living Outcome Pediatric Complications Fetus ID Race Codes Race Delivery Type 2976.47 0704 F Full Term 48532 Vaginal Delivery Joseph Calculation Initial Joseph Date [...] Domestic Partner Domestic Partner Phone Father Name Aircraft Communicator Status 06/10/19 1 CLOSED Fetus Data First Name Last Name Admitted to NICU Weight (g) Sex Living Outcome Pediatric Complications Fetus ID Race Codes Race Delivery Type 3005.04 7 F Full Term 90417 Vaginal Delivery Joseph Calculation Initial Joseph Date [...]
--- OUTSIDE RECORDS SUMMARY | 2024-08-15 00:17 | XMS_ITS | Referral Summary ---
Author Organization [facility] Address [facility] [place] [address] Care Team Providers Care Robotics Systems Engineer Name Role Phone Homa Michel MD Primary Care Provider [phone] Clem Roblero MD Unavailable [phone] Allergies No known active allergies Medications albuterol [...] Plan of Treatment Not on file Insurance [facility] Care Teams Robotics Systems Engineer Relationship Specialty Start Date End Date Homa Michel MD [address] [address] PCP - General Internal Medicine 07/20/20 Clem Roblero MD [address] [place] [address] Referring Physician Obstetrics and Gynecology 11/24/20
[2024-09-11] VITALS (9 sets, daily range): BP systolic 102–122; BP diastolic 60–74; PULSE 73–87; RESP 14–16; TEMP 36.2–37.2; O2SAT 92–100; BMI 39.7
--- OUTSIDE RECORDS SUMMARY | 2024-09-11 00:15 | XMS_ITS | Patient Health Record ---
Author Organization [facility] Address [address] [place] [address] Care Team Providers Care Reception Specialist Name Role Phone Christy Zhang Primary Care Provider [phone] Allergies No Known Allergies Reason For Referral No Information Problems Problem Type SNOMED Code ICD Code Onset Dates Problem Status W/U Status Risk Notes Problem Tobacco user (653662353) Nicotine dependence, unspecified, uncomplicated (F17.200) Active confirmed Problem Depression (100552340) Depression (F32.9) Active confirmed Problem Anxiety (36671608) Anxiety (F41.9) Active confirmed Plan Of Treatment No Information Insurance Providers Payer Name Payer Address Payer Phone Subscriber Number Group Number Insured Name Patient Relationship to Insured Coverage Start Date Coverage End Date [facility] Claims Department [address] [place] [address] [id number] Joe Eliana Self - patient is the insured 1 3 Medical (General) History Surgical History Surgery Date(Month/Year) tubal ligation 2012 shoulder arthroscopy 2019 gallbladder 2013 dnc 1999 [place]ear 2022 Hospitalization History Reason Date(Month/Year) MH suicide attempt [place] 11/2014 MH suicide attempt [place] 09/2022 kidney infection
--- OUTSIDE RECORDS SUMMARY | 2024-09-11 00:15 | XMS_ITS | Data Portability ---
Author Organization [place] - [facility], Main Office Address [address] [place] [address] Assessment Encounter Date Assessment Date Assessment LastModified by Organization Details LastModified Time 08/31/2022 08/31/2022 This note is dictated and transcribed by [employer]. Yard Supervisor variances may occur. Despite proofreading, typographical errors may occur. [email or web address] Not available 08/31/2022 16:46:47 10/26/2022 10/26/2022 This note is dictated and transcribed by [employer]. Yard Supervisor variances may occur. Despite proofreading, typographical errors may occur. Not available 10/26/2022 11:59:10 11/02/2022 11/02/2022 This note is dictated and transcribed by [employer]. Yard Supervisor variances may occur. Despite proofreading, typographical errors may occur. Not available 11/02/2022 12:31:50 11/13/2022 11/13/2022 This note is dictated and transcribed by [employer]. Yard Supervisor variances may occur. Despite proofreading, typographical errors may occur. Not available 11/13/2022 12:14:14 01/18/2023 01/18/2023 This note is dictated and transcribed by [employer]. Yard Supervisor variances may occur. Despite proofreading, typographical errors may occur. Not available 01/18/2023 12:43:45 Plan of Treatment Reminders Order Date Submit Date Provider Last Modified By Organization Details Last Modified Time Details Appointments None recorded. Lab None recorded. Referral None recorded. Procedures None recorded. Surgeries None recorded. Imaging None recorded. Medication Orders tramadol 50 mg tablet 2022 023 [id number], [address], [place], [place], [id number], 11:59:44 Patient TargetsNo targets recorded. Patient InstructionsNo instructions recorded. Reason for Referral None Reported. Results Created Date Observation Date Name Description Value Unit Range Abnormal Flag Note LastModifiedBy Organization Detail LastModifiedTime 09/21/1909/20/2022 CBC W/O DIFFE RENTI AL white blood cells 6.7 x10'3 /uL 4.2-10 .8 Not Available [facility] (Lab) [address] [place], [address], 09/20/2022 17:47:31 09/21/1909/20/2022 CBC W/O DIFFE RENTI AL red blood cells 4.80 x10'6 /uL 3.80-5 .20 Not Available [facility] (Lab) [address] [place], [address], 09/20/2022 17:47:31 09/21/19 23 09/20/2022 CBC W/O DIFFE RENTI AL hemoglobin 14.6 g/dL 12.0-1 5.6 Not Available [facility] (Lab) [address] [place], [address], 09/20/2022 17:47:31 09/21/19 23 09/20/2022 CBC W/O DIFFE RENTI AL hematocrit 43.6 % 35.7-4 5.7 Not Available [facility] (Lab) [address] [place], [address], 09/20/2022 17:47:31 09/21/1909/20/2022 CBC W/O DIFFE RENTI AL mean red cell volume 90.8 fL 82.0-9 9.0 Not Available [facility] (Lab) [address] [place], [address], 09/20/2022 17:47:31 09/21/1929 0909/20/2022 CBC W/O DIFFE RENTI AL mean red cell hemoglobin 30.4 pg 27.0-3 3.0 Not Available [facility] (Lab) [address] [place], [address], 09/20/2022 17:47:31 09/21/19 23 09/20/2022 CBC W/O DIFFE RENTI AL mean RBC HGB concentratio n 33.5 g/dL 31.0-3 6.0 Not Available [facility] (Lab) [address] [place], [address], 09/20/2022 17:47:31 09/21/19 23 09/20/2022 CBC W/O DIFFE RENTI AL red cell distribution width 12.5 % 11.8-1 5.5 Not Available [facility] (Lab) [address] [place], [address], 09/20/2022 17:47:31 09/21/19 23 09/20/2022 CBC W/O DIFFE RENTI AL platelets 335 x10'3 /uL 150-40 0 Not Available [facility] (Lab) [address] [place], [address], 09/20/2022 17:47:31 09/21/19 23 09/20/2022 CBC W/O DIFFE RENTI AL mean platelet volume 9.2 fL 9.0-12 .4 Not Available [facility] (Lab) [address] [place], [address], 09/20/2022 17:47:31 09/21/19 23 09/20/2022 COMPR EHENS JB METAB OLIC PANEL sodium 137 mmol/ L 137-14 5 Not Available [facility] (Lab) [address] [place], [address], 09/20/2022 19:27:50 09/21/19 23 09/20/2022 COMPR EHENS JB METAB OLIC PANEL potassium 4.3 mmol/ L 3.5-5. 1 Not Available [facility] (Lab) [address] [place], [address], 09/20/2022 19:27:50 09/21/19 23 09/20/2022 COMPR EHENS JB METAB OLIC PANEL chloride 103 mmol/ L 98-107 Not Available [facility] (Lab) [address] [place], [address], 09/20/2022 19:27:50 09/21/19 23 09/20/2022 COMPR EHENS JB METAB OLIC PANEL carbon dioxide 25 mmol/ L 22-30 Not Available [facility] (Lab) [address] [place], [address], 09/20/2022 19:27:50 09/21/19 23 09/20/2022 COMPR EHENS JB METAB OLIC PANEL anion gap 13.3 mmol/ L 14-22 low Not Available [facility] (Lab) [address] [place], [address], 09/20/2022 19:27:50 09/21/19 23 09/20/2022 COMPR EHENS JB METAB OLIC PANEL glucose 103 mg/dL 70-99 high Not Available [facility] (Lab) [address] [place], [address], 09/20/2022 19:27:50 09/21/19 23 09/20/2022 COMPR EHENS JB METAB OLIC PANEL BUN 11 mg/dL 8-19 Not Available [facility] (Lab) [address] [place], [address], 09/20/2022 19:27:50 09/21/19 23 09/20/2022 COMPR EHENS JB METAB OLIC PANEL creatinine 0.60 mg/dL 0.66-1 .25 low Not Available [facility] (Lab) [address] [place], [address], 09/20/2022 19:27:50 09/21/19 23 09/20/2022 COMPR EHENS JB METAB OLIC PANEL GFR >60 Refer ence Range : [place] ge GFR Healt hy Adult : >60 [...] calcu lator is avail able on the [facility] websi te: [email or web address] :[email or web address] rg/pr ofess ional s/kdo qi/gf r_cal culat or Not Available [facility] (Lab) [address] [place], [address], 09/20/2022 19:27:50 09/21/1909/20/2022 COMPR EHENS JB METAB OLIC PANEL alkaline phosphatase 97 U/L 38-126 Not Available [facility] (Lab) [address] [place], [address], 09/20/2022 19:27:50 09/21/19 23 09/20/2022 COMPR EHENS JB METAB OLIC PANEL alanine aminotransfe rase 17 U/L 0-35 Not Available [facility] (Lab) [address] [place], [address], 09/20/2022 19:27:50 09/21/19 23 09/20/2022 COMPR EHENS JB METAB OLIC PANEL aspartate aminotransfe rase 21 U/L 15-37 Not Available [facility] (Lab) [address] [place], [address], 09/20/2022 19:27:50 09/21/19 23 09/20/2022 COMPR EHENS JB METAB OLIC PANEL bilirubin, total 0.60 mg/dL 0.20-1 .30 Not Available [facility] (Lab) [address] [place], [address], 09/20/2022 19:27:50 09/21/19 23 09/20/2022 COMPR EHENS JB METAB OLIC PANEL calcium 9.2 mg/dL 8.4-10 .2 Not Available [facility] (Lab) [address] [place], [address], 09/20/2022 19:27:50 09/21/19 23 09/20/2022 COMPR EHENS JB METAB OLIC PANEL total protein 6.8 g/dL 6.3-8. 2 Not Available [facility] (Lab) [address] [place], [address], 09/20/2022 19:27:50 09/21/19 23 09/20/2022 COMPR EHENS JB METAB OLIC PANEL albumin 3.8 g/dL 3.4-5. 0 Not Available [facility] (Lab) [address] [place], [address], 09/20/2022 19:27:50 09/21/19 23 09/20/2022 COMPR EHENS JB METAB OLIC PANEL globulin 3.0 g/dL 2.6-4. 2 Not Available [facility] (Lab) [address] [place], [address], 09/20/2022 19:27:50 09/21/19 23 09/20/2022 COMPR EHENS JB METAB OLIC PANEL A/G ratio 1.3 ratio 1.0-2. 0 Not Available [facility] (Lab) [address] [place], [address], 09/20/2022 19:27:50 Result Notes None recorded. Problems Name Problem SNOMED Code Status Onset Date Resolution Date Notes Provider Name and Address Organization Details Recorded Time Disorder of shoulder 583104245 Completed Not Available [facility] 3 20:20:02 Plantar fasciitis of right foot 35363682560 571595 Active 2021 Not Available [facility] 3 20:20:02 Partial thickness rotator cuff tear 837492050 Active 2018 Not Available [facility] 3 20:20:02 Shoulder joint pain 211970141 Completed Not Available [facility] 3 20:20:03 Ingrowing toenail 938335024 Active 2021 Not Available [facility] 3 20:20:03 Multiple nodules of lung 568328268 Active 2021 Not Available [facility] 3 20:20:03 Foot pain 18219217 Active 2021 Not Available [facility] 3 20:20:03 Porokerat osis 375004045 Active 2022 Kevan Portillo DPM [address], [place], [address] , [employer] [facility] [employer] 3 15:02:01 Plantar wart of left foot 39632368361 942178 Active 2022 Kevan Portillo DPM [address], [place], [address] , [employer] [facility] 3 13:00:17 Celluliti s of toe of left foot 89968141687 126223 Active 2022 Kevan Portillo DPM [address], [address], [place], [address] , [facility] 3 13:01:08 Pre-surge ry evaluatio n Active 2022 Kevan Portillo DPM [address], [address], [place], [address] , [facility] 3 12:25:27 Postopera tive pain 484393838 Active 2022 Kevan Portillo DPM [address], [address], [place], [address] , [facility] 3 11:57:37 Dehiscenc e of surgical wound 60106867 Active 2022 Kevan Portillo DPM [address], [address], [place], [address] , [facility] 3 11:58:41 Postopera tive visit 706118679 Active 2022 Kevan Portillo DPM [address], [address], [place], [address] , [facility] 3 12:14:32 Notes:Medical History: Anxie ty/Depression Rhinitis [...] Portillo DPM [address], [address], [place], [address], [facility] 01/31/2023 13:59:58 08/08/19 23 Callus Debridement, One completed Kevan Portillo DPM [address], [address], [place], [address], [employer] 08/07/2022 17:54:22 07/25/19 23 Destruction lesion (cryo, hyfrecation, scissors or chemical) completed Kevan Portillo DPM [address], [address], [place], [address], [employer] 07/24/2022 12:59:55 07/11/19 23 Total Nail Avulsion with Chemical Matrixectomy-Ri ght completed Kevan Portillo DPM [address], [address], [place], [address], [employer] 07/10/2022 15:02:32 07/11/19 23 Partial Nail Avulsion Chemical Matrixectomy-Le ft completed Kevan Portillo DPM [address], [address], [place], [address], [employer] 07/10/2022 15:01:16 06/20/19 23 Nail Debridement completed Kevan Portillo DPM [address], [address], [place], [address], [facility] 06/19/2022 15:01:53 06/20/19 23 Callus Debridement, One completed Kevan Portillo DPM [address], [address], [place], [address], [employer] 06/19/2022 15:01:45 04/09/19 20 Shoulder completed Not Available Pending sale to [facility] 20:19:31 Imaging Results None recorded. Procedure Notes [...] administe red by the provider 02/17 completed [facility]: 0003- 0494- 20 Not Available [...] administe red by the provider 02/17 completed [facility]: 0409- 4276- 17 Not Available [...] 98 % 130 mm[Hg] 88 mm[Hg] Shira [facility] 3 16:25:59 Date Recorded Body height Heart rate Respiratory rate Oxygen saturation Oxygen saturation in Arterial blood by Pulse oximetry Systolic blood pressure Diastolic blood pressure Provider Name and Address Organization Details Last Updated DateTime 3 162.56 cm 93 /min 14 /min 98 % 98 % 136 mm[Hg] 82 mm[Hg] Shira [facility] 3 11:40:38 Date Recorded Body height Heart rate Respiratory rate Oxygen saturation Oxygen saturation in Arterial blood by Pulse oximetry Systolic blood pressure Diastolic blood pressure Provider Name and Address Organization Details Last Updated DateTime 3 162.56 cm 106 /min 14 /min 99 % 99 % 137 mm[Hg] 92 mm[Hg] Shira Peb[facility] 3 11:21:13 Date Recorded Body height Heart rate Respiratory rate Oxygen saturation Oxygen saturation in Arterial blood by Pulse oximetry Systolic blood pressure Diastolic blood pressure Provider Name and Address Organization Details Last Updated DateTime 3 162.56 cm 106 /min 14 /min 99 % 99 % 119 mm[Hg] 99 mm[Hg] Shira Pebble 3 11:20:54 Date Recorded Body height Heart rate Respiratory rate Oxygen saturation Oxygen saturation in Arterial blood by Pulse oximetry Systolic blood pressure Diastolic blood pressure Provider Name and Address Organization Details Last Updated DateTime 3 162.56 cm 102 /min 14 /min 98 % 98 % 150 mm[Hg] 107 mm[Hg] Shira [employer] [facility] 3 11:01:50 Social History Question Answer Notes LastModified by Organizat ion Details LastModified Time Tobacco Smoking Status Current Every Day Smoker Not Available [facility] 06/07/2022 20:19:21 What Is Your Level Of Caffeine Consumption? Occasional [id number].65714 [id number] Information not available 06/07/2022 In The 14 Days Before Symptom Onset, Have You Had Close Contact With A Laboratory-confi rmed COVID-19 While That Case Was Ill? No MIGRATION.04615 59021 Information not available 06/07/2022 In The 14 Days Before Symptom Onset, Have You Had Close Contact With A Person Who Is Under Investigation For COVID-19 While That Person Was Ill? No MIGRATION.00358 75222 Information not available 06/07/2022 What Type Of Diet Are You Following? REGULAR MIGRATION.35612 46755 Information not available 06/07/2022 What Is The Highest Grade Or Level Of School You Have Completed Or The Highest Degree You Have Received? HM08701-6 MIGRATION.87634 29653 Information not available 06/07/2022 Do You Have An Electrostatic Air Filter? No MIGRATION.61384 82959 Information not available 06/07/2022 Are There Any Guns Present In Your Home? No MIGRATION.10084 30150 Information not available 06/07/2022 Do You Have A Humidifier? No MIGRATION.41986 06919 Information not available 06/07/2022 Where Do You Live? [place] MIGRATION.04057 29456 Information not available 06/07/2022 Do You Have Moisture Problems In Your Home? No MIGRATION.31009 48378 Information not available 06/07/2022 What Was The Date Of Your Most Recent Tobacco Screening? 12/19/2021 MIGRATION.56352 56467 Information not available 06/07/2022 Do You Have Any Pets? Yes MIGRATION.82460 72587 Information not available 06/07/2022 Do You Use Your Seat Belt Or Car Seat Routinely? Yes MIGRATION.19481 41541 Information not available 06/07/2022 Do You Have Smoke And Carbon Monoxide Detectors In Your Home? Yes MIGRATION.60454 63865 Information not available 06/07/2022 Are You Passively Exposed To Smoke? No MIGRATION.15943 82035 Information not available 06/07/2022 How Much Tobacco Do You Smoke? 0.5 PPD MIGRATION.23762 75689 Information not available 06/07/2022 Do You Use Sunscreen Routinely? No MIGRATION.07226 67902 Information not available 06/07/2022 How Many Years Have You Smoked Tobacco? 20 MIGRATION.94405 95935 Information not available 06/07/2022 Have You Recently Traveled Abroad? No MIGRATION.09456 54622 Information not available 06/07/2022 Do You Have Any Dietary Restrictions? No MIGRATION.51041 74553 Information not available 06/07/2022 Sex: Unknown Functional Status Question Answer Note LastModified by Organizat [employer] Details LastModified Time Do you use any illicit or recreational drugs? No MIGRATION.[id number] 026 Information not available 06/07/2022 What is your level of alcohol consumption? 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 [id number] MIGRATION.[id number] 6 Information not available 06/07/2022 Family History Relationship Description Onset Age of this Age Resolved Age Notes LastModified by Organization Details LastModified Time Father Diabetes mellitus MIGRATION.993 [id number] Not available 06/07/2022 20:19:32 Brother Diabetes mellitus MIGRATION.765 [id number] Not available 06/07/2022 20:19:32 Sister Asthma MIGRATION.282 [id number] Not available 06/07/2022 20:19:32 Daughter Asthma MIGRATION.349 [id number] Not available 06/07/2022 20:19:32 Maternal Grandmother Chronic obstructive pulmonary disease MIGRATION.413 [id number] Not available 06/07/2022 20:19:32 Maternal Aunt Chronic obstructive pulmonary disease MIGRATION.406 1721401 Not available 06/07/2022 20:19:32 Mother Malignant neoplasm of uterus MIGRATION.857 [id number] Not available 06/07/2022 20:19:32 Notes:daughter-mental, cousi n-few disabilities Medical History Condition Response COPD Y Gynecological HistoryNo gynecological history recorded. Obstetrics History GPAL:G 0 P 0 0 0 0 Past Encounters Encounter ID Performer Location Encounter Start Date Encounter Closed Date Diagnosis/Indication Diagnosis SNOMED-CT Code Diagnosis ICD10 Code Diagnosis Note [id number] Codey Oneill MD [facility] [address] [address] 11/11/2020 00:00:00 11/11/2020 10:34:30 [id number] RANCHO Phelps [facility] [place] [address] [place] [address] 12/15/2020 00:00:00 12/15/2020 16:43:49 [id number] Codey Oneill MD [facility] [address] 02/17/2021 00:00:00 02/17/2021 12:19:51 [id number] Codey Oneill MD [facility] [address] 04/07/2021 00:00:00 04/07/2021 13:17:52 [id number] [facility] [place] [address] [place] [address] 12/05/2021 00:00:00 12/05/2021 12:50:02 [id number] Codey Oneill MD [facility] [address] [address] 12/19/2021 00:00:00 12/19/2021 11:41:15 [id number] [facility] [place] [address] [place] [address] 01/09/2022 00:00:00 01/09/2022 11:20:28 [id number] [facility] [place] [address] [place] [address] 03/23/2022 00:00:00 03/23/2022 15:37:[id number] [facility] [place] [address] [place] [address] 04/17/2022 00:00:00 04/18/2022 09:04:49 [id number] [facility] [place] [address] [place] [address] 05/15/2022 00:00:00 05/15/2022 17:07:34 [id number] [facility] [place] [address] [place] [address] 06/19/2022 14:26:35 06/19/2022 15:05:48 Ingrowing toenail 916131410 L60.0 M79.674 Educated on conditionE ducated on treatment optionsSla nt back procedure performed on the nail corners today to prevent infection and relieve pain, pain relief after procedurek eep the areas clean and dry to prevent infectionP [facility] 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 both great toenails Porokeratosis 712098803 Q82.8 x1 left plantar footdebrid ed without incidentre commend over-the-c ounter Amlactin lotion twice dailyfollo w-up as needed for this issue [id number] Kevan Portillo DPM [facility] [place] [address] [place] [address] 07/10/2022 14:12:19 08/04/2022 15:22:35 Ingrowing toenail 677702218 L60.0 M79.674 Educated on conditionE ducated on treatment optionsSla nt back procedure performed on the nail corners today to prevent infection and relieve pain, pain relief after procedurek eep the areas clean and dry to prevent infectionP atient will follow-up for 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 both great toenails Cellulitis of toe of left foot 3224139276 4319518 L03.032 [id number] [facility] [place] [address] [place] [address] 07/24/2022 12:09:47 07/24/2022 14:01:23 Ingrowing toenail 201245514 L60.0 M79.674 bilateral partial matrixecto my both great toes- healingcon tinue daily wound careFollow up in 2 weeks Plantar wa rt of left foot 7374733301 8176074 B07.0 debrided and treated with salicylic acid todayVerba l consent obtained by the patient for treatmentU se salicylic acid over-the-c ounter daily until blistering occurs then discontinu e use, keep the area clean and dry with bandage to prevent infectionF ollow-up in 2 weeks Cellulitis of toe of left foot 2307575082 6138284 L03.[id number] [facility] [place] [address] [place] [address] 08/07/2022 16:59:21 08/07/2022 17:58:29 Cellulitis of toe of left foot 2393093960 5634574 L03.032 Resolved Plantar wa rt of left foot 7326974621 4809774 B07.0 Overlying skin debrided todayconti nue wound care to prevent wounds infectionF ollow-up in 2 weeks possible retreatmen t if still present [id number] [facility] [place] [address] [place] [address] 08/31/2022 16:18:25 09/01/2022 13:45:30 Plantar wart of left foot 4205853423 1193254 B07.0 Obtain surgical clearanceP edu surgical excision of wart with biopsy left footall risks, benefits, complicati ons were reviewed with the patient to a full and complete understand ing. Patient states understand ing elects to continue with the planned procedure. no guarantees were given or implied.Re turn post surgery [id number] Kevan Portillo DPM [facility] [place] [address] [facility] [address] [place] [address] 10/26/2022 11:31:13 10/26/2022 16:20:10 Postoperative visit 844800068 Z09 wart excisionpa thology report- plantar wart Postoperative pain 95788 9007 G89.18 Dehiscence of surgical wound 88152383 T81.30XA left footdaily dressings with Betadine wet-to-dry dressingpr essure to the heel only with postop shoeno workingfol low-up 1 week [id number] Kevan Portillo DPM [facility] [place] [address] [place] [address] 11/02/2022 11:17:40 11/02/2022 12:33:48 Postoperative visit 131884448 Z09 wart excisionpa thology report- plantar wart Dehiscence of surgical wound 93083094 T81.30XA left footdaily dressings with Betadine wet-to-dry dressingpr essure to the heel only with postop shoeno workingfol low-up 1 week [id number] Kevan Portillo DPM [facility] [place] [address] [place] [address] 11/13/2022 11:18:03 11/13/2022 12:36:21 Postoperative visit 776624035 Z09 wart excisionpa thology report- plantar wart Dehiscence of surgical wound 42448539 T81.30XA healedMay return to normal shoe gearwork release to return to workFollow -up as needed [id number] Kevan Portillo DPM [facility] [place] [address] [place] [address] 01/18/2023 10:58:23 01/31/2023 14:04:32 Porokeratosis 794546005 Q82.8 x1 left plantar footdebrid ed without incidentre commend over-the-c ounter Amlactin lotion twice dailyfollo w-up as needed for this issue Health Concerns Section Related Observation LastModified by Organization Detfrances ls LastModified Time None Recorded Concern Status LastModified by Organization Details LastModified Time None Recorded Advance Directives Directive None Recorded Payers Encounter Date Sequence Insurance Name Policy Number Policy Terry Covered Member ID Terry Member ID Guarantor Name 08/31/[address] [facility] - DOS ON OR AFTER 20 (MEDICAID REPLACEMENT - HMO) Eliana A [place] [id number] El[place] A [place] 10/26/2022 1 [facility] ON OR AFTER 10/07/20 (MEDICAID REPLACEMENT - HMO) Eliana A [place] [id number] Eliana A [place] 11/02/2022 1 [facility] ON OR AFTER 10/07/20 (MEDICAID REPLACEMENT - HMO) Eliana A [place] [id number] Eliana A [place] 11/13/2022 1 [facility] ON OR AFTER 10/07/20 (MEDICAID REPLACEMENT - HMO) Eliana A [place] [id number] Eliana A [place] 01/18/2023 1 [facility] ON OR AFTER 10/07/20 (MEDICAID REPLACEMENT - HMO) Eliana A [place] [id number] Eliana A [place] Notes Date Note Type Note Provider Name [...] Patient denies any other pedal complaints. Kevan Portillo, ANNMARIE [address] [address], [place], [address], [facility] [employer] 08/31/2022 16:47:42 10/26/2022 text/html . Patient is [...] Kevan Portillo DPM [address], [place], [address], [employer] [facility] [employer] [facility] 10/26/2022 12:00:01 11/02/2022 text/html . Patient is [...] Kevan Portillo DPM [address], [place], [address], [employer] [facility] [employer] [facility] 11/02/2022 12:32:37 11/13/2022 text/html . Patient is a 42-year-old female who returns the office for follow-up on wound dehiscence. Patient states she has not had any further drainage or pain to the foot. Patient is completely healed. Patient denies any other complaints. Kevan Portillo DPM [address], [place], [address], [employer] [facility] [employer] [facility] 11/13/2022 12:14:47 01/18/2023 text/html . Patient is [...] Kevan Portillo DPM [address], [place], [address], [place] [facility] 01/31/2023 14:00:16 OBGyn Episode No OBEpisode recorded.
--- OUTSIDE RECORDS SUMMARY | 2024-09-11 00:16 | XMS_ITS | Data Portability ---
Author Organization [facility] Address [address] [place] [address] Care Team Providers Care Bookmobile Clerk Name Role Phone HOAM JOSHI Primary Care Provider Assessment No assessment recorded. Plan of Treatment Reminders Order Date Submit Date Provider Last Modified By Organization Details Last Modified Time Details Appointments None recorded . Lab CMP, serum or plasma 2021 022 [facility], [address] [place] [address], [facility] [address], [place], [address], 17:09:39 CBC w/ auto diff 2021 022 [facility], [address] [place] [address], [address], [place], [address], 17:09:38 PT/PTT, plasma 2021 022 [facility], [address] [place] [address], [address], [place], [address], 17:09:40 Referral general surgeon referral 2020 021 ace Dominguez MD, [address] [facility], [address], [place], [address], 09:13:39 Procedures None recorded . Surgeries None recorded . Imaging electroc james ureña 2022 023 [facility] [[email or web address] ([facility]), [address] [place], [address], 3 15:30:16 US, duplex, venous, lower extremit y, complete 2021 022 [facility] [[email or web address] ([facility]), [address] [place], [address], 2 10:17:55 US, doppler, arterial - Lower extremit ies. both sides. 2021 022 [facility] [[email or web address] ([facility]), [address] [place], [address], 2 10:18:53 Medication Orders Reglan 10 mg tablet 2020 [facility] #[id number], [address], [place], [id number], 3 15:29:34 Medrol (Rayo) 4 mg tablets in a dose pack 2020 [facility] #34834, [address], [place], [id number], 3 15:29:00 Zithroma x Z-Rayo 250 mg tablet 2020 [facility] #36957, [address], [place], [id number], 3 15:28:53 albutero l sulfate HFA 90 mcg/actu ation aerosol inhaler 2020 [facility] #06693, [address], [place], [id number], 3 15:30:14 benzonat ate 200 mg capsule 2020 021 [facility]66, [address], [place], [place], [id number], 12:32:25 Patient TargetsNo targets recorded. Patient Instructions Encounter Date Encounter Id Patient Instructions Last Modified By Organization Details Last Modified Time 02/24/2021 [id number] gastroesophageal reflux disease (GERD): care instructions [facility] Not available 02/24/2021 12:54:11 12/04/2022 [id number] Quitting Tobacco : Care Instructions si Not available 12/04/2022 16:19:16 A healthy lifest yle: care instructions [facility] Not available 12/04/2022 16:19:16 chronic obstruct abdiel pulmonary disease (COPD): care instructions [facility] Not available 12/04/2022 16:19:16 learning [...] .8 Not Available [facility] ([facility]) [address] [facility], [place], [address], 07/28/2021 17:09:38 07/23/19 22 07/23/2021 CBC WITH DIFFE RENTI AL/PL ATELE T RBC 4.93 x10e6 /uL 3.77-5 .28 Not Available [facility] ([facility]) [address] [facility], [place], [address], 07/28/2021 17:09:38 07/23/19 22 07/23/2021 CBC WITH DIFFE RENTI AL/PL ATELE T hemoglobin 14.6 g/dL 11.1-1 5.9 Not Available [facility] ([facility]) [address] [facility], [place], [address], 07/28/2021 17:09:38 07/23/19 22 07/23/2021 CBC WITH DIFFE RENTI AL/PL ATELE T hematocrit 43.1 % 34.0-4 6.6 Not Available [facility] ([facility]) [address] [facility], [place], [address], 07/28/2021 17:09:38 07/23/19 22 07/23/2021 CBC WITH DIFFE RENTI AL/PL ATELE T MCV 87 fL 79-97 Not Available [facility] ([facility]) [address] [facility], [place], [address], 07/28/2021 17:09:38 07/23/19 22 07/23/2021 CBC WITH DIFFE RENTI AL/PL ATELE T MCH 29.6 pg 26.6-3 3.0 Not Available [facility] ([facility]) [address] [facility], [place], [address], 07/28/2021 17:09:38 07/23/19 22 07/23/2021 CBC WITH DIFFE RENTI AL/PL ATELE T MCHC 33.9 g/dL 31.5-3 5.7 Not Available [facility] ([facility]) [address] [facility], [place], [address], 07/28/2021 17:09:38 07/23/19 22 07/23/2021 CBC WITH DIFFE RENTI AL/PL ATELE T RDW 12.2 % 11.7-1 5.4 Not Available [facility] ([facility]) [address] [facility], [place], [address], 07/28/2021 17:09:38 07/23/19 22 07/23/2021 CBC WITH DIFFE RENTI AL/PL ATELE T platelets 336 x10e3 /uL 150-45 0 Not Available [facility] ([facility]) [address] [facility], [place], [address], 07/28/2021 17:09:38 07/23/19 22 07/23/2021 CBC WITH DIFFE RENTI AL/PL ATELE T neutrophils 59 % not estab. Not Available [facility] ([facility]) [address] [facility], [place], [address], 07/28/2021 17:09:38 07/23/19 22 07/23/2021 CBC WITH DIFFE RENTI AL/PL ATELE T lymphs 26 % not estab. Not Available [facility] ([facility]) [address] [facility], [place], [address], 07/28/2021 17:09:38 07/23/19 22 07/23/2021 CBC WITH DIFFE RENTI AL/PL ATELE T monocytes 12 % not estab. Not Available [facility] ([facility]) [address] [facility], [place], [address], 07/28/2021 17:09:38 07/23/19 22 07/23/2021 CBC WITH DIFFE RENTI AL/PL ATELE T eos 2 % not estab. Not Available [facility] ([facility]) [address] [facility], [place], [address], 07/28/2021 17:09:38 07/23/19 22 07/23/2021 CBC WITH DIFFE RENTI AL/PL ATELE T basos 1 % not estab. Not Available [facility] ([facility]) [address] [facility], [place], [address], 07/28/2021 17:09:38 07/23/19 22 07/23/2021 CBC WITH DIFFE RENTI AL/PL ATELE T immature cells APPLICATIONS TESTER Not Available [facility] ([facility]) [address] [facility], [place], [address], 07/28/2021 17:09:38 07/23/19 22 07/23/2021 CBC WITH DIFFE RENTI AL/PL ATELE T neutrophils (absolute) 4.2 x10e3 /uL 1.4-7. 0 Not Available [facility] ([facility]) [address] [place], [address], 07/28/2021 17:09:38 07/23/19 22 07/23/2021 CBC WITH DIFFE RENTI AL/PL ATELE T lymphs (absolute) 1.9 x10e3 /uL 0.7-3. 1 Not Available [facility] ([facility]) [address] [place], [address], 07/28/2021 17:09:38 07/23/19 22 07/23/2021 CBC WITH DIFFE RENTI AL/PL ATELE T monocytes(ab solute) 0.9 x10e3 /uL 0.1-0. 9 Not Available [facility] ([facility]) [address] [place], [address], 07/28/2021 17:09:38 07/23/19 22 07/23/2021 CBC WITH DIFFE RENTI AL/PL ATELE T eos (absolute) 0.2 x10e3 /uL 0.0-0. 4 Not Available [facility] ([facility]) [address] [place], [address], 07/28/2021 17:09:38 07/23/19 22 07/23/2021 CBC WITH DIFFE RENTI AL/PL ATELE T baso (absolute) 0.1 x10e3 /uL 0.0-0. 2 Not Available [facility] ([facility]) [address] [place], [address], 07/28/2021 17:09:38 07/23/19 22 07/23/2021 CBC WITH DIFFE RENTI AL/PL ATELE T immature granulocytes 0 % not estab. Not Available [facility] ([facility]) [address] [place], [address], 07/28/2021 17:09:38 07/23/19 22 07/23/2021 CBC WITH DIFFE RENTI AL/PL ATELE T immature grans (abs) 0.0 x10e3 /uL 0.0-0. 1 Not Available [facility] ([facility]) [address] [facility], [place], [address], 07/28/2021 17:09:38 07/23/19 22 07/23/2021 CBC WITH DIFFE RENTI AL/PL ATELE T NRBC APPLICATIONS TESTER Not Available [facility] ([facility]) [address] [facility], [place], [address], 07/28/2021 17:09:38 07/23/19 22 07/23/2021 CBC WITH DIFFE RENTI AL/PL ATELE T hematology comments: APPLICATIONS TESTER Not Available [facility] ([facility]) [address] [facility], [place], [address], 07/28/2021 17:09:38 07/23/19 22 07/23/2021 COMP. METAB OLIC PANEL (14) glucose 95 mg/dL 65-99 Not Available [facility] ([facility]) [address] [facility], [place], [address], 07/28/2021 17:09:39 07/23/19 22 07/23/2021 COMP. METAB OLIC PANEL (14) BUN 14 mg/dL 6-24 Not Available [facility] ([facility]) [address] [facility], [place], [address], 07/28/2021 17:09:39 07/23/19 22 07/23/2021 COMP. METAB OLIC PANEL (14) creatinine 0.71 mg/dL 0.57-1 .00 Not Available [facility] ([facility]) [address] [facility], [place], [address], 07/28/2021 17:09:39 07/23/19 22 07/23/2021 COMP. METAB OLIC PANEL (14) eGFR 108 mL/mi n/1.7 3 >59 Not Available [facility] ([facility]) [address] [place], [address], 07/28/2021 17:09:39 07/23/19 22 07/23/2021 COMP. METAB OLIC PANEL (14) BUN/creatini ne ratio 20 9-23 Not Available [facility] ([facility]) [address] [facility], [place], [address], 07/28/2021 17:09:39 07/23/19 22 07/23/2021 COMP. METAB OLIC PANEL (14) sodium 138 mmol/ L 134-14 4 Not Available [facility] ([facility]) [address] [facility], [place], [address], 07/28/2021 17:09:39 07/23/19 22 07/23/2021 COMP. METAB OLIC PANEL (14) potassium 4.9 mmol/ L 3.5-5. 2 Not Available [facility] ([facility]) [address] [facility], [place], [address], 07/28/2021 17:09:39 07/23/19 22 07/23/2021 COMP. METAB OLIC PANEL (14) chloride 103 mmol/ L 96-106 Not Available [facility] ([facility]) [address] [place], [address], 07/28/2021 17:09:39 07/23/19 22 07/23/2021 COMP. METAB OLIC PANEL (14) carbon dioxide, total 22 mmol/ L 20-29 Not Available [facility] ([facility]) [address] [place], [address], 07/28/2021 17:09:39 07/23/19 22 07/23/2021 COMP. METAB OLIC PANEL (14) calcium 9.6 mg/dL 8.7-10 .2 Not Available [facility] ([facility]) [address] [place], [address], 07/28/2021 17:09:39 07/23/19 22 07/23/2021 COMP. METAB OLIC PANEL (14) protein, total 6.7 g/dL 6.0-8. 5 Not Available [facility] ([facility]) [address] [place], [address], 07/28/2021 17:09:39 07/23/19 22 07/23/2021 COMP. METAB OLIC PANEL (14) albumin 4.4 g/dL 3.8-4. 8 Not Available [facility] ([facility]) [address] [place], [address], 07/28/2021 17:09:39 07/23/19 22 07/23/2021 COMP. METAB OLIC PANEL (14) globulin, total 2.3 g/dL 1.5-4. 5 Not Available [facility] ([facility]) [address] [place], [address], 07/28/2021 17:09:39 07/23/19 22 07/23/2021 COMP. METAB OLIC PANEL (14) A/G ratio 1.9 1.2-2. 2 Not Available [facility] ([facility]) [address] [place], [address], 07/28/2021 17:09:39 07/23/19 22 07/23/2021 COMP. METAB OLIC PANEL (14) bilirubin, total 0.4 mg/dL 0.0-1. 2 Not Available [facility] ([facility]) [address] [place], [address], 07/28/2021 17:09:39 07/23/19 22 07/23/2021 COMP. METAB OLIC PANEL (14) alkaline phosphatase 113 IU/L 44-121 Not Available [facility] ([facility]) [address] [facility], [place], [address], 07/28/2021 17:09:39 07/23/19 22 07/23/2021 COMP. METAB OLIC PANEL (14) AST (SGOT) 13 IU/L 0-40 Not Available [facility] ([facility]) [address] [facility], [place], [address], 07/28/2021 17:09:39 07/23/19 22 07/23/2021 COMP. METAB OLIC PANEL (14) ALT (SGPT) 15 IU/L 0-32 Not Available [facility] ([facility]) [address] [facility], [place], [address], 07/28/2021 17:09:39 07/23/19 22 07/28/2021 ABN PTT/A PTT REFLE XIVE PANEL thrombin time 15.7 sec Refer ence Range : 0.0 - 23.0 Not Available [facility] [address] [place], [address], 07/28/2021 17:09:40 07/23/19 22 07/28/2021 ABN PTT/A PTT REFLE XIVE PANEL prothrombin time 10.0 sec Refer ence Range : 18 years and older : 9.1 - 12.0 Not Available [facility] [address] [place], [address], 07/28/2021 17:09:40 07/23/19 22 07/28/2021 ABN PTT/A PTT REFLE XIVE PANEL INR 0.9 ratio Refer ence Range : >1 month : 0.9 - 1.2 Not Available [facility] [address] [place], [address], 07/28/2021 17:09:40 07/23/19 22 07/28/2021 ABN PTT/A [...] 30.2 Not Available [facility] [address] [place], [address], 07/28/2021 17:09:40 07/23/19 22 07/28/2021 ABN PTT/A PTT REFLE XIVE PANEL drvvt screen seconds 39.3 sec Refer ence Range : <= 47.0 Not Available [facility] [address] [place], [address], 07/28/2021 17:09:40 07/23/19 22 07/28/2021 ABN PTT/A PTT REFLE XIVE PANEL drvvt confirm seconds TNP sec Testi ng Not Indic ated Not indic ated Not Available [facility] [address] [place], [address], 07/28/2021 17:09:40 07/23/19 22 07/28/2021 ABN PTT/A PTT REFLE XIVE PANEL drvvt ratio TNP ratio Testi ng Not Indic ated Not indic ated Not Available [facility] [address] [place], [address], 07/28/2021 17:09:40 07/23/19 22 07/28/2021 ABN PTT/A PTT REFLE XIVE PANEL pathologist interpretati on TNP Test not perfo rmed All resul ts are withi n the adult refer ence range and there fore patho logy inter preta tion is not indic ated. Not Available [facility] [address] [place], [address], 07/28/2021 17:09:40 02/02/20 21 12/23/2020 CT, chest , w/o contr ast No observ ation record ed. [address] ([facility]) [address] [place], [address], 02/04/2021 09:40:54 07/23/19 22 03/31/2021 PFT, compl ete No observ ation record ed. [address] [place], [address], 07/25/2021 10:10:49 07/28/19 22 07/25/2021 US, duple x, venou s, lower extre mity, compl ete No observ ation record ed. [facility] ([facility]) [address] [place], [address], 07/29/2021 16:10:14 07/28/19 22 07/26/2021 US, doppl er, arter ial No observ ation record ed. [facility] ([facility]) [address] [place], [address], 07/29/2021 16:10:15 12/10/19 22 12/09/2021 imagi ng/di agnos tic resul t No observ ation record ed. [facility] [address] [place], [address], 12/09/2021 18:51:15 04/05/20 22 04/05/2022 imagi ng/di agnos tic resul t No observ ation record ed. [facility] [address] [place], [address], 04/05/2022 18:28:29 06/12/19 23 06/11/2022 imagi ng/di agnos tic resul t No observ ation record ed. [facility] [address] [place], [address], 06/12/2022 17:41:08 09/12/19 23 09/08/2022 elect verónica valentine am No observ ation record ed. [facility] [address] [place], [address], 09/14/2022 09:54:44 12/06/19 23 12/05/2022 imagi ng/di agnos tic resul t No observ ation record ed. [facility] [address] [place], [address], 12/06/2022 11:20:05 01/14/20 23 01/13/2023 imagi ng/di agnos tic resul t No observ ation record ed. [facility] [address] [place], [address], 01/15/2023 12:48:00 03/21/20 23 03/21/2023 CT, abdom en + pelvi s, w/o contr ast No observ ation record ed. [facility] [address] [place], [address], 03/27/2023 17:00:21 04/15/19 24 04/15/2023 CT, head, w/o contr ast No observ ation record ed. [place] [address], [place], [address], 04/17/2023 10:22:09 07/25/19 24 07/25/2023 CT, abdom en + pelvi s, w/ contr ast No observ ation record ed. [email or web address] [facility] [address] [place], [address], 08/01/2023 12:21:46 08/17/19 24 08/17/2023 XR, chest No observ ation record ed. [facility] [address] [place], [address], 09/04/2023 12:55:26 Result Notes None recorded. Problems Name Problem SNOMED Code Status Onset Date Resolution Date Notes Provider Name and Address Organization Details Recorded Time Upper respirato ry infection 42408189 Completed 201607/19/2020 Clem devries, S[facility] - [facility] 1 21:46:55 Viral gastritis 364838306 Completed 201607/19/2020 Clem devries, S[facility] - [facility] 1 21:46:53 Pain of left heel 76539605276 21168 Completed 201707/19/2020 Clem devries, S[facility] - [facility] 1 21:46:33 Body mass index 30+ - obesity 373404604 Active 2017 Not Available [facility] 3 12:00:10 Retractio n of nipple 97357853 Active 2017 Not Available [facility] 3 12:00:10 Bacterial vaginosis 359431849 Active 2017 Not Available [facility] 3 12:00:10 Solitary nodule of lung 999386270 Active 2017 Not Available [facility] 3 12:00:10 Family history of malignant neoplasm of lung 809660465 Active 2017 Not Available [facility] 3 12:00:10 Bereaveme nt 18098777 Completed 201707/19/2020 Clem devries, SERE[facility] - [facility] 1 21:46:17 Asthma 926679544 Active 2019 J45.90 9 Not Available [facility] 3 12:00:10 Depressiv e disorder 58135301 Active Not Available [facility] 3 12:00:10 Migraine 16506187 Active Not Available [facility] 3 12:00:10 Tobacco dependenc e syndrome 16263988 Active Not Available [facility] 3 12:00:10 Obesity 775650141 Completed 07/12/2017 Deborah Zamarripa PA-C Attn: Accounting ,[address] [place], [address] , [place] - [facility] 8 11:43:54 Insomnia 221555555 Active Not Available [facility] 3 12:00:10 History of alcoholis m 706510921 Active 2015 Not Available [facility] 3 12:00:10 Hand pain 73121465 Active 2015 Not Available [facility] 3 12:00:10 Pain of shoulder region 23675601 Completed 201607/19/2020 Clem devries [facility] 1 21:46:46 Pain of shoulder region 15132037 Completed 201607/19/2020 Clem devries [facility] 1 21:46:39 Muscle spasm of cervical muscle of neck 09811517937 4 Completed 201607/19/2020 Clem SteveAnnikanoman devries [facility] 1 21:46:36 Problem Notes None recorded. Procedures Surgical History Date Name Laterality Status Provider Name and Address Organization Details Recorded Time 07/14/19 18 Date of Last Pap Smear completed Devika Capellan MA [facility] 02/07/2019 11:08:58 04/09/19 15 Cholecystectomy completed Clem Annika [facility] 06/03/2018 14:46:57 04/09/19 14 Endometrial Ablation completed Clem Annika [facility] 06/03/2018 14:47:29 04/09/19 13 Tubal Ligation completed Nata Sloan MA [facility] 05/11/2015 11:57:52 Imaging Results None recorded. Procedure Notes None [...] Not Available Vitals Date Recorded Body height Body mass index (BMI) Body weight Body temperature Oxygen saturation Oxygen saturation in Arterial blood by Pulse oximetry Heart rate Systolic blood pressure Diastolic blood pressure Provider Name and Address Organization Details Last Updated DateTime 2 162.56 cm 38.4 kg/m2 112457. 69 g 98.7 [degF] 97 % 97 % 94 /min 110 mm[Hg] 78 mm[Hg] Devika Capellan [place] - [facility] 2 12:15:28 Date Recorded Body height Body mass index (BMI) Body weight Oxygen saturation Oxygen saturation in Arterial blood by Pulse oximetry Heart rate Systolic blood pressure Diastolic blood pressure Provider Name and Address Organization Details Last Updated DateTime 3 162.56 cm 37.4 kg/m2 81306.5 7 g 97 % 97 % 94 /min 118 mm[Hg] 81 mm[Hg] Josefa Whelan [place] [facility] 3 15:36:39 Date Recorded Body height Body mass index (BMI) Body weight Heart rate Oxygen saturation Oxygen saturation in Arterial blood by Pulse oximetry Systolic blood pressure Diastolic blood pressure Provider Name and Address Organization Details Last Updated DateTime 3 162.56 cm 37.6 kg/m2 99898.7 3 g 91 /min 97 % 97 % 132 mm[Hg] 80 mm[Hg] Cecile Fernando MA [facility] 3 12:44:58 Date Recorded Body height Provider Name an d Address Organization Details Last Updated DateTime 01/28/2021 162.56 cm Josefa Oconnell Lucy bruce MA [facility] 01/28/2021 14:36:31 Date Recorded Body height Body mass index (BMI) Body weight Body temperature Oxygen saturation Oxygen saturation in Arterial blood by Pulse oximetry Heart rate Systolic blood pressure Diastolic blood pressure Provider Name and Address Organization Details Last Updated DateTime 1 162.56 cm 39.5 kg/m2 795351. 68 g 98.1 [degF] 99 % 99 % 91 /min 124 mm[Hg] 90 mm[Hg] Joao Ramírez MA [facility] 1 12:38:24 Social History Question Answer Notes LastModified by Organizat ion Details LastModified Time Tobacco Smoking Status Current Every Day Smoker Nata Sloan MA [facility], [place] - [facility] 05/11/2015 11:57:52 Do You Have An Advance Directive? No [email or web address] Information not available 05/11/2015 Is Blood Transfusion Acceptable In An Emergency? Yes Information not available 07/20/2020 What Is Your Level Of Caffeine Consumption? Occasional Information not available 07/20/2020 How Much Tobacco Do You Chew? None [email or web address] Information not available 05/11/2015 What Type Of Diet Are You Following? REGULAR [email or web address] Information not available 05/11/2015 Which Illicit Or Recreational Drugs Have You Used? 0 Information not available 05/11/2015 Education 11 Information no t available 05/11/2015 What Is The Highest Grade Or Level Of School You Have Completed Or The Highest Degree You Have Received? [id number] Information not available 07/20/2020 Are There Any Guns Present In Your Home? No [email or web address] Information not available 05/11/2015 Hard Of Hearing Or Deaf In One Or Both Ears? No [email or web address] Information not available 05/11/2015 Legally Blind In One Or Both Eyes? No Information no t available 05/11/2015 Live Alone Or With Others? With Others [email or web address] Information not available 05/11/2015 What Was The Date Of Your Most Recent Tobacco Screening? 12/04/2022 Information not available 12/04/2022 How Many Children Do You Have? 3 [email or web address] Information not available 05/11/2015 What Is Your Current Pack Years? [email or web address] Information not available 07/20/2020 Do You Use Protection During Sex? Always [email or web address] Information not available 05/11/2015 What Is Your Relationship Status? Single Information not available 07/20/2020 Do You Use Your Seat Belt Or Car Seat Routinely? Yes Information not available 07/20/2020 Seat Belts Used Routinely Yes [email or web address] Information not available 05/11/2015 Are You Sexually Active? Yes [email or web address] Information not available 05/11/2015 Smoke Alarm In Home Yes [email or web address] Information not available 05/11/2015 Do You Have Smoke And Carbon Monoxide Detectors In Your Home? Yes Information not available 07/20/2020 At What Age Did You Start Smoking Tobacco? 13 [email or web address] Information not available 05/11/2015 Are You Passively Exposed To Smoke? No [email or web address] Information no t available 05/11/2015 How Much Tobacco Do You Smoke? 0.5 PPD [email or web address] Information not available 01/28/2021 General Stress Level High Information not available 05/11/2015 Do You Use Sunscreen Routinely? No Information not available 07/20/2020 Has Tobacco Cessation Counseling Been Provided? Yes Information not available 07/20/2020 On What Date Was Tobacco Cessation Counseling Provided? 12/04/2022 Information not available 12/04/2022 How Many Years Have You Smoked Tobacco? 21 [email or web address] Information not available 05/11/2015 Sex: Unknown Functional Status Question Answer Note LastModified by Organizat ion Details LastModified Time Do you use any illicit or recreational drugs? No Information not available 07/20/2020 Do you or have you ever used any other forms of tobacco or nicotine? No Information not available 07/22/2021 What is your level of alcohol consumption? Occasional [email or web address] Information not available 05/11/2015 Do you or have you ever used smokeless tobacco? Never used smokeless tobacco Information not available 02/24/2019 Are you currently employed? No Information not available 05/11/2015 Are you able to care for yourself? 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 Never used electronic cigarettes Information not available 02/24/2019 What is your exercise level? None [email or web address] Information not available 05/11/2015 Mental Status None [...] Problems N Kidney or Bladder Problems Y Lung Disease Y GI Problems Y Depression Y Blood Clots Y Acne N Eating Disorder N Breast Problem N Anemia N Anesthesia Complications N Headaches/Migraines Y Ovarian Cancer N Diabetes N Anxiety Disorder N Muscle, Joint, or Bone Problems Y [...] PF 9 cancelled patient objection Not Available [facility] 04/26/2019 02:38:47 Past Encounters Encounter ID Performer Location Encounter Start Date Encounter Closed Date Diagnosis/Indication Diagnosis SNOMED-CT Code Diagnosis ICD10 Code Diagnosis Note [id number] Jeovany Oliver MD [facility] (Adult Med) [address] [place] [address] 63454-573 0 05/11/2015 11:22:56 05/11/2015 12:40:48 Migraine 85982894 G43.909 Wants to try paxil 10mg QD first If this does not work, will initiate topamax In addition, she drinks 5 cans soda/day (Dr. Garsia) and sweet tea she has no interest in quitting soda History of attempted suicide 827978091 Z91.5 She was hospitaliz ed at [facility] 7 months ago - states that she is better now but now all she wants to do is leave Advised that if she has SI/HI ideations to go directly to the ED Depressive disorder 6360 7401 F32.9 The biggest thing right now is all she wants to do is drink but her 3 children (the 2YO more than anything) is the reason that she does not drink Tobacco de pendence syndrome 42344879 F17.290 She states that smoking has kept her away from alcohol and at this point she has no interest in quitting smoking Obesity 083131302 E66.9 We discussed not drinking her calories - she drinks 5 Dr. Peppers/da y in addition to sweet tea - [...] has no interest in changing her ways [id number] MD Leopoldo Rivera (Adult Med) [address] [place] [address] 61974-099 0 06/01/2015 11:09:55 06/01/2015 12:00:14 Tobacco dependence syndrome 62390578 F17.290 She states that smoking has kept her away from alcohol and at this point she has no interest in quitting smoking History of alcoholism 16 1421300 F10.21 Depressive disorder 3548 1479 F32.9 The biggest thing right now is all she wants to do is drink but her 3 children (the 2YO more than anything) is the reason that she does not drink Discussed that it is not likely her medication causing all of her issues but her circumstan zack at home She has an appointmen t with counseling on 07/04 Insomnia 416517191 G47.0 0 Will try trazodone 50mg QPM [id number] Louise Medina MD [facility] (Adult Med) [address] [place] [address] 27134-371 0 02/24/2016 09:34:02 02/24/2016 12:25:29 Hand pain 13387307 M79.641 right hand pain and tingling - positive tinnel's and positive phalen's - likely dx of carpal tunnel syndromeAd vised to continue to wear her brace because it is helping with her hand pain and tinglingWi ll begin with right hand EMGAdvised ibuprofen PRNWill likely refer to ortho when EMG results are received Obesity 670397329 E66.9 Advised 30 minutes of exercise 5 days/week Advised to not drink her calories and to especially stay away from soda Advised 3 balanced meals/day with plenty of fruits and vegetables Depressive disorder 7913 2618 F32.9 Her mother 2 months agoShe is going to go through [facility] for counseling because she wants her kids in the counseling States that she has not been drinking at all and her boyfriend stopped drinking - states that they maybe go out once every 3 months Tobacco de pendence syndrome 02177316 F17.290 Advise to quitNo ready to quit yet even though she knows that her mother and grandmothe r of lung cancer History of alcoholism 16 0941494 F10.21 States that she has not been drinking at all and her boyfriend stopped drinking - states that they maybe go out once every 3 months [id number] MD Leopoldo Rivera (Adult Med) [address] [place] [address] [id number] 0 03/09/2016 16:01:18 03/09/2016 18:08:02 Hand pain 53438388 M79.641 EMG negative Pain radia ting to right arm 000254282 M79.601 Patient of right hand is now radiating up and down right arm from the neck/shoul oneal to her 2-4 digits of her right handWill no proceed with cervical MRI Advised that purchasing medication s on the streets or taking anyone else's prescribed medication s is illegalDis cussed that no pain medication would be prescribed until there is evidence from imaging [id number] MD Leopoldo Rivera (Adult Med) [address] [place] [address] 88214-586 0 04/13/2016 15:17:19 04/13/2016 18:16:18 Hand pain 85382843 M79.641 EMG negative - states that today her right hand and wrist are fineTaking ibuprofenT aking tramadol for someone else - advised that this is illegalWil l retry to send through neck MRIWIll refer to PT for hand pain Tobacco de pendence syndrome 87026232 F17.290 Advise to quitNo ready to quit yet even though she knows that her mother and grandmothe r of lung cancer [facility] region 23156336 M25.511 Patient has had new onset right shoulder pain x a few weeks - will refer to PT for this Dysuria 63335713 R30.0 [id number] MD Leopoldo Espinoza (Adult Med) [address] [place] [address] [phone] 0 03/13/2017 10:27:44 03/13/2017 12:25:02 Upper respiratory infection 60059760 J06.9 Advised to drink plenty of waterAlter rosetta ibuprofen and tylenol for painRestOT C cough syrup PRN Advised at this time the abx still have 5 days to work because she took them for 5 daysAdvise d if no improvemen t in 5 days to contact clinic or go to the ER Allergic disposition 609 614542 Z91.09 [id number] MD Leopoldo Espinoza (Adult Med) [address] [place] [address] [phone] 0 03/28/2017 12:08:38 03/28/2017 13:55:06 Viral gastritis 238969710 A08.39 Advised to drink plenty of fluids and a bland dietAltern ate ibuprofen and tylenol for painRest - patient given note to return to work in 3 days [id number] MD Leopoldo Espinoza (Adult Med) [address] [place] [address] 16354-570 0 04/17/2017 11:02:08 04/17/2017 11:59:48 Tobacco dependence syndrome 64408452 F17.290 Advise to quitNo ready to quit yet even though she knows that her mother and grandmothe r of lung cancer Upper resp iratory infection 59778604 J06.9 Advised to drink plenty of waterAlter rosetta ibuprofen and tylenol for painRestOT C cough syrup PRN Advised if no improvemen t in 5 days to contact clinic or go to the ER [id number] MD Leopoldo Espinoza (Adult Med) [address] [place] [address] 14148-270 0 07/12/2017 09:48:22 07/12/2017 12:24:44 Pain of left heel 7812429944 369775 M79.672 Due to the tenderness in the [...] good tennis shoes. Tobacco de pendence syndrome 07465364 F17.290 Advise to quitNo ready to quit yet even though she knows that her mother and grandmothe r of lung cancer Body mass index 30+ - obesity 428287291 Z68.39 Advised 30 minutes of exercise 5 days/week Advised to not drink her calories Advised 3 balanced meals/day with plenty of fruits and vegetables [id number] MD Leopoldo Espinoza (XEROX MACHINE MECHANIC) [address] [place] [address] 86331-246 0 07/13/2017 10:37:34 07/13/2017 12:22:33 Gynecologic examination 62923667 Z01.411 Milky nipp le discharge 525847615 N64.52 WIll check labs and mammogram Retraction of nipple 318 98615 N64.53 Bilateral nipples as seen on exam - patient states she cannot remember if this is new or not but doesn't notice anything different with her breasts - will check mammogram Body mass index 30+ - obesity 790693531 Z68.39 Advised 30 minutes of exercise 5 days/week Advised to not drink her calories Advised 3 balanced meals/day with plenty of fruits and vegetables Tobacco de pendence syndrome 13967856 F17.290 Advise to quitNo ready to quit yet even though she knows that her mother and grandmothe r of lung cancer [id number] MD Leopoldo Espinoza (Adult Med) [address] [place] [address] 75181-583 0 10/31/2017 09:49:11 10/31/2017 10:23:44 Solitary nodule of lung 015859769 R91.1 8.3mm right upper lobe non-calcif ied nodule - will refer to pul Tobacco de pendence syndrome 62772042 F17.290 Advise to quit Acute asthma 188768868 J 45.901 really encouraged to quit smokingdoe s not have a nebulizer at home but was given medication for nebulizer at hospital - will prescribe machine Generalize d anxiety disorder 99410729 F41.1 c/w hydroxyzin e QID PRN for anxiety Family his tory of malignant neoplasm of lung 178307440 Z80.1 [id number] HARRIET COREAC Leopoldo (Adult Med) [address] [place] [address] 77012-573 0 12/21/2017 11:43:16 12/25/2017 13:25:25 Tobacco dependence syndrome 82831439 F17.200 failed nicotine patchessta rt wellbutrin BIDf/u 3 mos Mild inter mittent asthma 482769218 J45.20 start qvar daily-stre ssed compliance use ventolin/n ebulizer PRN onlystart loratadine dailypulmo nology referral for PFTs and further management f/u 3 mos and prn [id number] MD Leopoldo Espinoza (Adult Med) [address] [place] [address] 82042-286 0 01/29/2018 10:59:43 01/29/2018 11:47:15 Mild intermittent asthma 547336179 J45.20 Increased Qvar to 80mcg 2 puffs BIDc/w other asthma meds Long discussion with patient, and she agrees, that panic attacks/st ress are possibly brining on her asthma attacks Advised to keep appointmen t with pulm Any SOB, CP, SHAW contact clinic or go to the ER Fatigue 07672269 R53.83 Anxiety 11391701 F41.9 Advised to schedule with counseling Advised any SI/HI to go directly to the ER Given number to Suicide Hotline and advised to contact if needed Bereavement 54785739 Z63 .4 Advised to schedule with counseling Advised any SI/HI to go directly to the ERGiven number to Suicide Hotline [id number] MD Leopoldo Valenzuela (XEROX MACHINE MECHANIC) [address] [place] [address] 74036-577 0 06/03/2018 14:15:03 06/03/2018 16:09:54 History of endometrial ablation 9539920871 46898 Z98.890 History of sterilization 8516647584 9106 Z90.79 Obesity 610270427 E66.9 History of alcoholism 16 1709844 F10.21 Abnormal u terine bleeding 5873154549 9100 N93.9 Post-ablat ion sporadic bleeding. Family tony nning surveillance 204767090 Z30.09 Screening mammography 24 911297 Z12.31 Exposure t o sexually transmissible disorder 173488551 Z20.2 [id number] MD Leopoldo Pham (Adult Med) [address] [place] [address] 24864-409 0 09/13/2018 15:51:05 09/13/2018 16:20:43 Contusion of multiple sites 587833733 T07.XXXA Go to ER any time for any concern, she agreed. [id number] MD Leopoldo Pham (Adult Med) [address] [place] [address] 57402-574 0 10/15/2018 15:54:23 10/15/2018 16:39:42 Pain of right shoulder joint 2453602121 1430345 M25.511 Will see a orthopedic . Pain of ri ght hip joint 4403109286 45731 M25.551 Will have test , imaGING. [id number] MD Leopoldo Pham (Adult Med) [address] [place] [address] 79250-228 0 01/15/2019 10:23:22 01/16/2019 09:39:33 Pain of right shoulder joint 9399173465 9729268 M25.511 Will see a orthopedic . Pain of ri ght hip joint 0330484051 90385 M25.551 Will have test , imaGING. No CAT scan report of right hip available . [id number] MD Leopoldo Valenzuela (XEROX MACHINE MECHANIC) [address] [place] [address] 81612-572 0 02/03/2019 09:56:37 02/05/2019 22:00:08 Uterine leiomyoma 33096627 D25.9 [id number] MD Leopoldo Valenzuela (XEROX MACHINE MECHANIC) [address] [place] [address] 62960-617 0 02/07/2019 10:51:51 02/10/2019 10:14:58 Depot contraceptive-no problem 825530241 Z30.967 [id number] MD Leoopldo Pahm (Adult Med) [address] [place] [address] 71498-197 0 02/12/2019 12:49:23 02/13/2019 09:10:47 Pain of right shoulder joint 5560654485 0746573 M25.511 Will see a orthopedic . Microcysti c adnexal carcinoma 215331452 C44.99 Asthma 801697969 J45.90 9 has enough inhaler. [id number] MD Leopoldo Valenzuela (XEROX MACHINE MECHANIC) [address] [place] [address] 86778-905 0 02/24/2019 12:00:50 02/25/2019 14:11:57 Administration of influenza vaccine 84719508 Z23 Pelvic mass 26539927 R19 .00 At [facility] ed risk of malignancy 204462602 Z91.89 ELIJAH 1.36 suggestive of increased risk of ovarian cancer in pre-menopa usal patient [id number] MD Leopoldo Pham (Adult Med) [address] [place] [address] 12970-402 0 08/22/2019 08:39:01 08/25/2019 13:44:45 Recurrent deep vein thrombosis 804359302 I82.509 Right leg, go to ER, she agreed, ER , [facility] [place], operated by [facility] physician [phone] Joshi, they expecting her to arrival. Asthma 828922986 J45.90 9 wanting refills. [id number] [facility] [address] [place] [address] 06226-318 0 05/04/2020 08:25:27 05/05/2020 11:36:10 Urinary tract infectious disease 41436206 N39.0 Willing to try another different antibiotic s, since she still has fever. Asthma 027119946 J45.90 9 wanting refills. Acid reflux 823851215 K2 1.9 Discussed with patient, will try pantoprazo le, her reflux some times ttriggered asthmatic attack. Hypovolemia 966854958 E8 6.1 Encourged her to drink more liquid, she agreed to try. [id number] MD Leopoldo Valenzuela (XEROX MACHINE MECHANIC) [address] [place] [address] 53286-973 0 07/20/2020 12:39:59 07/22/2020 11:48:44 History of alcoholism 488556106 F10.21 Recurrent deep vein thrombosis 645058546 I82.509 Body mass index 30+ - obesity 411356816 Z68.41 Depressive disorder 3548 9007 F32.9 Tobacco de pendence syndrome 92167988 F17.200 Nonpuerper al abscess of left breast 2003371183 9507265 N61.1 Family tony ing surveillance 898265000 Z30.09 history of sterilizat ion [id number] MD Leopoldo Pham (Adult Med) [address] [place] [address] 38067-170 0 11/26/2020 13:36:33 12/02/2020 10:24:48 Swelling of lower leg 760236763 R22.40 Right leg, will do venous duplex to R /O Acute DVT then determine the necessity of anticoagul ant therapy, she agreed. [id number] MD Leopoldo Pham (Adult Med) [address] [place] [address] 70528-289 0 01/28/2021 13:00:56 02/02/2021 13:35:11 Acute exacerbation of chronic obstructive pulmonary disease 018999812 J44.1 Discussed with patient, will order following med. Go to ER any time for any concern , she agreed. [id number] MD Leopoldo Pham (Adult Med) [address] [place] [address] 97930-764 0 02/24/2021 12:14:37 02/25/2021 13:26:53 Hiatal hernia 96733317 K44.9 Will refer to surgeon for evaluation , she agreed. Gastroesop hageal reflux disease 562869594 K21.00 Will add reglan to facilitate normal peristalsi s. 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 tests. Normal PE. [id number] Homa Joshi MD [facility] (Adult Med) [address] [place] [address] 0 12/04/2022 12:37:55 12/05/2022 12:30:55 Chronic obstructive pulmonary disease 84791616 J44.9 Stable. Smoker 35151558 F17.200 Advised her to =quit smoking. She is aware of cigarettes smoking can caused permanent emphysema, cancer of lung., or throat, or mouth and other disease. Morbid obesity 700985414 E66.01 BMI is 37.6, 12-04-22, advised to watch her diet, exercise and keep the weight down. Cervical c ancer Papanicolaou smear screening declined 5569556827 30794 Z53.20 She declined 12-04-22. HIV screen ing declined 7142542270 48966 Z53.20 She declined 12-04-22. Health Concerns Section Related Observation LastModified by Organization Detai ls LastModified Time None Recorded Concern Status LastModified by Organization Details LastModified Time None Recorded Advance Directives Directive N: Payers Encounter Date Sequence Insurance Name Policy Number Policy Terry Covered Member ID Terry Member ID Guarantor Name 01/28/2021 1 [facility] ON OR AFTER 10/07/20 (MEDICAID REPLACEMENT - HMO) Eliana Diaz [id number] Eliana Diaz 02/24/2021 1 [facility] ON OR AFTER 10/07/20 (MEDICAID REPLACEMENT - HMO) Eliana Diaz [id number] Eliana Logan 07/22/2021 1 [facility] ON OR AFTER 10/07/20 (MEDICAID REPLACEMENT - HMO) Eliana Diaz [id number] Eliana Logan 09/01/2022 1 [facility] ON OR AFTER 10/07/20 (MEDICAID REPLACEMENT - HMO) Eliana Diaz [id number] Eliana Logan 12/04/2022 1 [facility] ON OR AFTER 10/07/20 (MEDICAID REPLACEMENT - HMO) Eliana Diaz [id number] Eliana Diaz Notes Date Note Type Note Provider Name and Address Organization Details Recorded Time 01/28/2021 text/html Phone visit, aster st congestion in this season of year, no fever, wheezing ,dose not want covid test nor going to ER, wants to try some medications, NKDA. Homa Joshi MD Attn: Accounting, [address] [place], [address], [facility] 01/28/2021 14:51:31 02/24/2021 text/html Office visit, histroy of sliding hiatal hernia. and acid reflux, NKDA. can not tolerate solid food, skipped meal to avoid N/V, medication , pantoprazole not helping much, also has asthma which might have been aggravated by hernia with reflux. will add reglan and surgical referral. Homa Joshi MD Attn: Accounting, [address] [place], [address], [facility] 02/24/2021 12:54:42 07/22/2021 text/html Office [...] side, Homa Joshi MD Attn: Accounting, [address] [place], [address], [facility] 12/25/2021 16:26:36 09/01/2022 text/html Office visit, NK DA. on no blood thinner. no chest pain, no cardiac condition, no shortness of breath , wants surgical clearnce before the left foot operation for removal of wart. . Had left shoulder operation [id number] , she recovered well. But a smoker. , advised her to quit smoking for he good health and financial reasons. Homa Joshi MD Attn: Accounting, [address] [place], [address], [facility] 09/01/2022 17:40:35 12/04/2022 text/html Office visit, LUCAS HAINES. check up today. Homa Joshi MD Attn: Accounting[address] [facility], [place], [address], [facility] 12/04/2022 16:21:46 OBGyn Episode No OBEpisode recorded.
[2024-09-11] MEDS: LACTATED RINGERS 1,000 ML 30 ML IV CONT ×2 (10:30→14:33)
[2024-09-11] MEDS: KETOROLAC 15 MG/ML VIAL (*BKC) IV PUSH (10:40)
[2024-09-11] MEDS: ACETAMINOPHEN 500 MG TABLET 1000 MG PO ×3 (10:40→23:28)
--- NOTE | 2024-09-11 11:33 | WPDHPUPDATE1 ---
History and Physical Update Update Date/Time: 09/11/24 11:33 History and Physical has been reviewed, including an updated exam of the patient. There are NO changes in the patient's condition. Risks, benefits, and alternatives have been discussed and questions answered. Patient agrees to proceed with procedure.
[2024-09-11 11:41] LABS: BEDSIDEPREGUCG Negative (Negative)
--- NOTE | 2024-09-11 11:41 | P.PNAN_ITS ---
Anes - Initial Pre Proc Eval Procedure: Operation Date: 09/11/24 12:00 Proposed Procedures p Robotic Assisted Hysterectomy with Bilateral Salpingo Oophorectomy - Shayne Fry MD Date/Time: 09/11/24 11:41 Surgeon: Shayne Fry MD Pre Op Diagnosis: uterine leiomyoma Patient Data Age: 44 Gender: F Height: 1.63 m Weight: 105.1 kg Last Vital Signs Temp 37.2 C 09/11/24 10:00 Pulse 87 09/11/24 10:00 Resp 16 09/11/24 10:00 BP 122/74 09/11/24 10:00 Pulse Ox 97 09/11/24 10:00 O2 Del Method Room Air 09/11/24 10:00 Allergies Allergy/AdvReac Type Severity Reaction Status Date / Time cefdinir Allergy Nausea and Verified 09/11/24 11:31 Vomiting Home Medications ?Medication ?Instructions ?Recorded ?Confirmed ?Type ipratropium bromide 17 2 puff inhalation Q8H PRN 09/01/23 08/05/24 Rx mcg/actuation HFA aerosol inhaler shortness of breath or wheezing (Atrovent HFA) #12.9 grams albuterol sulfate 90 mcg/actuation 2 puff inhalation QID PRN 03/21/24 08/05/24 Rx aerosol inhaler shortness of breath or wheezing #6.7 grams albuterol sulfate 2.5 mg/0.5 mL 2.5 mg inhalation Q6H PRN 08/05/24 09/05/24 History solution for nebulization shortness of breath or wheezing Laboratory Tests 09/11/24 09/11/24 10:24 11:38 POC Urine HCG, Qual Negative (Negative) Blood Type O Positive Antibody Screen Negative Patient hx anesthesia problems: none Family hx anesthesia problems: none Results Review: All pre-operative results and documents have been reviewed as part of the pre- operative evaluation. [facility] Past Medical History Medical History (Updated 09/10/24 @ 13:41 by Doc Pollack DO) Anxiety Tobacco dependence Leiomyoma of body of uterus Asthma Surgical History Surgical History History of arthroscopy of shoulder History of endometrial ablation History of tubal ligation History of cholecystectomy Social History Social History Social History: Surrogate medical decision maker: Emmanuelle Diaz, daughter. Code status: Full code. Years smoked: 32 Smoking status: Current every day smoker Tobacco type: cigarettes Alcohol intake: unknown Substance use: unknown Do You Feel Safe in your Home?: Yes Lack of Transportation: No Lack of Food: Never True Current Housing: I Have Housing Concerned About Future Housing: No Difficulty Paying Gas/Electric Bills: No Difficulty Paying for Meds: No Currently Unemployed: No Education: Decline to Answer Difficulty w/ Childcare or Family Care: No Living arrangements: with family Spiritual care concerns: No Anes - Eval Final PreProcedure Day of Procedure 09/11/24 11:41 Patient weight: obese Heart: regular rate and rhythm Lungs: clear to auscultation Airway: Mallampati scale class II Neurological: alert and oriented Last oral intake: >/= 8 hours ASA classification: III Emergent: no Anesthetic plan: proceed Anesthesia type and monitoring: general ETT and standard monitoring Results Review: All pre-operative results and documents have been reviewed as part of the pre- operative evaluation. Informed Consent: The patient's anesthetic plan and its attendant risks and benefits were discussed with the patient/family/POA. Questions were solicited and answers provided to the satisfaction of the patient/family/POA.
[2024-09-11] MEDS: ceFAZolin 2 GM/D5W 50 ML 2 GM/50 ML BAG IVPB (12:17)
[2024-09-11] MEDS: ceFAZolin SODIUM 1 GM VIAL (12:57)
--- NOTE | 2024-09-11 13:46 | S_PTH ---
PATIENT: Eliana Diaz LOC: [facility] U#:[id number] AGE/SX: 44/F ROOM: RE09/11/[address]: Shayne Fry MD : 1980 BED: DIS: 09/12/2024 SPEC #: [id number] RECD: 09/12/24 09:41 STATUS: MALISSA REQ #: [id number] LEE: 09/11/24 13:[address]: Shayne Fry DEPT: [facility] Surgical RECD BY: Radha Jimenez ENTERED: 09/12/24 09:42 SP TYPE: Surgical OTHR DR: PHYSICIAN CODER PHYSICIAN Tissues: A - Uterus Procedures: Hematoxylin and Eosin Stain Gross and Microscopic Level 5
--- NOTE | 2024-09-11 14:31 | W.PM.PROC2 ---
Procedure Note - Detailed Date of Procedure 09/11/24 Pre-op Diagnosis uterine leiomyoma Post-op Diagnosis Same Procedure Performed Robot assisted Total hysterectomy with bilateral Salpingo-oophorectomy. Surgeon Shayne Fry MD Anesthesia General Indications pelvic pain Findings Enlarged fibroid uterus. normal-appearing uterus tubes and ovaries. Normal appearing vulva vagina and cervix. Description of Procedure This patient was taken to the operating room. She was prepped and draped in the dorsal lithotomy position after induction of general anesthesia. The uterine manipulator and Edil cup were placed. This was done with a speculum and tenaculum. The speculum was placed. The cervix was grasped with a tenaculum. The stay sutures were placed at 3 and 9:00 a.m.. The stay sutures of 0 Vicryl were tied to the appropriately Size scope after it was slipped around the cervix.. The tip of the MERISSA manipulator was placed in the intrauterine cavity. The cup was slid into place around the cervix and into the fornices. It was locked into place. The sutures were then wrapped around the handle and tied under tension. A 8 mm skin incision was made in the left upper quadrant the abdomen. a 5 mm Visiport trocar was inserted into abdominal cavity and pneumoperitoneum was achieved. A 8 mm supraumbilical incision was made and a 8 mm trocar was inserted into the intrauterine cavity under direct visualization of the scope. an 8 mm incision was made in the right upper quadrant of the abdomen and an 8 mm robotic trocar was placed the inter uterine cavity under direct visualization the scope. An 11 mm trocar was inserted in the right upper quadrant of the abdomen rectal is a cystoscope after an incision was made there as well. The robot was docked. Electronic Orientation of the robot was performed. Bilateral ureteral lysis was performed. This was done from the pelvic brim down to the uterine artery. This was done with careful dissection using sharp and blunt dissection. The fallopian tubes and ovaries were removed bilaterally. The infundibulopelvic ligament was isolated after identification of the ureter. It was cauterized and transected with the vessel sealer fashion. The mesosalpinx on lateral of the ovary was cauterized transected the vessel sealer. In a stepwise fashion along the lateral aspects of the uterus the round ligament and broad ligaments were cauterized transected down to the level of the uterine arteries. A bladder flap was created in the bladder was moved distally to the end of the cervix and over the Edil cup. The bilateral uterine arteries were cauterized and transected. Colpotomy was then performed. In a circumferential fashion the vagina was transected using unipolar cautery. The incision was made down on the Edil cup. The uterus and cervix were taken out through the vagina. A pneumo occluder was placed in the vagina. The vaginal cuff was closed with a 0 V lock suture in a running fashion. The pelvis was irrigated with copious amounts antibiotic irrigation. The ureters were again examined and found to be intact and flowing freely under the uterine arteries into the bladder. The bladder was intact. It was examined directly. The vagina was irrigated with Betadine solution after removal of the Pneumo occluder. the trocars were removed after the robot was undocked. The skin was closed with subacute or Dermabond. The patient was taken to recovery room. She was stable condition. Sponge lap and needle counts were correct x2. Estimated Blood Loss 200 Drains Yes Packing No Pathology Yes Complications No immediate complications Condition Stable Disposition Floor
--- NOTE | 2024-09-11 15:51 | ADMGEN ---
This patient, Eliana Diaz, was admitted to OB 2nd Floor Room 278-00. Patient/family oriented to hospital policies and general routines including ID bracelet, bed and alarms, visiting hours, pain management, procedures, bathroom and other care routines, personal items, smoking policy, room service/diet, and visiting hours. Information on how to activate the Rapid Response Team has been discussed. Patient/Family are encouraged to report perceived risks to care and to ask questions if they do not understand what they are told or what they should do.
[2024-09-11] MEDS: DEXTROSE 5%/0.45% SOD CHL 1,000 ML 125 ML IV CONT ×2 (16:19→23:43)
[2024-09-11] MEDS: SIMETHICONE 80 MG TAB.CHEW PO (17:13)
[2024-09-11] MEDS: DOCUSATE SODIUM 100 MG CAPSULE PO (17:14)
[2024-09-11] MEDS: KETOROLAC 30 MG/ML VIAL (*BKC) IV PUSH ×2 (17:14→23:28)
[2024-09-11] MEDS: oxyCODONE HCL (*CRX) 5 MG TAB IR PO (19:17)
[2024-09-12 00:19] VITALS: BP 117/73; PULSE 82; RESP 18; TEMP 36.8; O2SAT 96
[2024-09-12 04:55] VITALS: BP 94/59; PULSE 78; RESP 14; TEMP 36.8; O2SAT 95
[2024-09-12] MEDS: ACETAMINOPHEN 500 MG TABLET 1000 MG PO (06:58)
[2024-09-12] MEDS: KETOROLAC 30 MG/ML VIAL (*BKC) IV PUSH (06:58)
[2024-09-12 07:30] VITALS: BP 108/64; PULSE 73; RESP 18; TEMP 37.7; O2SAT 96
--- NOTE | 2024-09-12 08:19 | P.PNOB_ITS ---
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- PN:Subj Post-Op Subjective Date/time seen: 09/12/24 08:19 Subjective: patient reports feeling better, patient has no complaints and pain is well controlled Exam Const: General: healthy appearing, comfortable and no acute distress Resp: Auscultation: clear to auscultation bilaterally, no rales, no rhonchi and no wheezes Cardio: Rate: regular rate Heart sounds: no click, no murmurs and no rubs GI: Inspection: non-distended Auscultation: normal bowel sounds Extrem: General: normal to inspection, no pedal edema and no calf tenderness [employer] 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 SET UP OPERATOR - PN: Obj Data Vital Signs Vital Signs: Vital Signs - 24 hr 09/11/24 10:00 09/11/24 14:33 09/11/24 14:45 Temperature 98.9 F 97.1 F L Pulse Rate 87 79 75 Respiratory Rate 16 16 15 Blood Pressure 122/74 102/60 106/63 Pulse Oximetry 97 100 97 Oxygen Delivery Room Air Simple Face Mask Simple Face Mask Oxygen Flow Rate 8 8 09/11/24 15:00 09/11/24 15:15 09/11/24 15:30 Temperature Pulse Rate 78 75 73 Respiratory Rate 14 16 14 Blood Pressure 106/63 103/60 108/67 Pulse Oximetry 98 93 92 Oxygen Delivery Simple Face Mask Room Air Room Air Oxygen Flow Rate 8 09/11/24 15:42 09/11/24 16:00 09/11/24 16:00 Temperature 97.2 F L Pulse Rate 73 74 Respiratory Rate 14 14 Blood Pressure 109/67 106/71 Pulse Oximetry 92 95 95 Oxygen Delivery Room Air Nasal Cannula Oxygen Flow Rate 2 09/11/24 20:00 09/12/24 00:19 09/12/24 04:55 Temperature 98.7 F 98.2 F 98.2 F Pulse Rate 77 82 78 Respiratory Rate 16 18 14 Blood Pressure 104/68 117/73 94/59 L Pulse Oximetry 97 96 95 Oxygen Delivery Oxygen Flow Rate Intake/Output Intake/Output: Intake & Output 09/09/24 09/10/24 09/11/24 09/12/24 23:59 23:59 23:59 23:59 Intake Total 1425 200 Output Total 230 200 Balance 1195 0 Meds/Results Medications: Active Medications Generic Name Dose Route Start Last Admin Trade Name Freq PRN Reason Stop Dose Admin Acetaminophen 1,000 mg 09/11/24 18:00 09/12/24 06:58 Acetaminophen 500 Mg Tablet PO 1,000 mg Q6HR REBECCA Administration Docusate Sodium 100 mg 09/11/24 17:00 09/11/24 17:14 Docusate Sodium 100 Mg Capsule PO 100 mg BID REBECCA Administration Dextrose/Sodium Chloride 1,000 mls @ 125 mls/hr 09/11/24 15:44 09/11/24 23:43 Dextrose 5% Sodium Chloride 0.45% IV CONT 125 mls/hr .Q8H REBECCA Administration Ibuprofen 600 mg 09/12/24 12:00 Ibuprofen 600 Mg Tablet PO Q6HR REBECCA Naloxone HCl 0.1 mg 09/11/24 15:44 Naloxone Hcl 0.4 Mg/Ml Vial IV PUSH Q2M PRN Respiratory rate less than 10 Ondansetron HCl 4 mg 09/11/24 15:44 Ondansetron Inj 4 Mg/2 Ml Vial IV PUSH Q6H PRN Nausea And Vomiting Oxycodone HCl 5 mg 09/11/24 15:44 09/11/24 19:17 Oxycodone Hcl (*Crx) 5 Mg Tab Ir PO 5 mg Q4H PRN Administration Pain Rated 4-6 Oxycodone HCl 10 mg 09/11/24 15:44 Oxycodone Hcl (*Crx) 5 Mg Tab Ir PO Q6H PRN Pain Rated 7-10 Simethicone 80 mg 09/11/24 17:00 09/11/24 17:13 Simethicone 80 Mg Tab.Chew PO 80 mg TIDWM REBECCA Administration Labs Labs: Laboratory Results - last 24 hr 09/11/24 09/11/24 10:24 11:38 POC Urine HCG, Qual Negative Blood Type O Positive Antibody Screen Negative
[2024-09-12] MEDS: DOCUSATE SODIUM 100 MG CAPSULE PO (09:22)
[2024-09-12] MEDS: SIMETHICONE 80 MG TAB.CHEW PO (09:22)
== END 2024-09-12 10:00 | disposition home or self-care (01) ==
LOC: ANHSURGERY 09:48 → ANHOB2 15:47
PROVIDERS: Visit Provider Obstetrics & Gynecology
PROC: (CPT 58571; principal; 2024-09-11 12:00)
DX: D25.2 Subserosal leiomyoma of uterus (principal); G89.18 Other acute postprocedural pain; K21.9 Gastro-esophageal reflux disease without esophagitis; F41.9 Anxiety disorder, unspecified; J45.909 Unspecified asthma, uncomplicated; F32.A Depression, unspecified; M19.90 Unspecified osteoarthritis, unspecified site; F17.210 Nicotine dependence, cigarettes, uncomplicated; E66.9 Obesity, unspecified; Z68.39 Body mass index [BMI] 39.0-39.9, adult; Z79.51 Long term (current) use of inhaled steroids; Z98.890 Other specified postprocedural states; Z98.51 Tubal ligation status; Z98.891 History of uterine scar from previous surgery; Z90.49 Acquired absence of other specified parts of digestive tract
CPT/HCPCS: 58571; S2900; 36415; 86850; 86900; 86901; 88307; 99199; A9270; J0690; J1100; J1171; J1885; J2003; J2250; J2405; J2704; J3010; J7030; J7120; Q9968